=== PATIENT | male | born 1965 | race Caucasian/White ===

== ENCOUNTER 2016-08-18 10:14 | Emergency (ER) | payer BC ==
[~2016-08-18] VITALS: Ht 188 cm; Wt 149.7 kg
--- NOTE | 2016-08-18 10:56 | PHYS DOC ---
Past Medical History Past Medical History: Depression, Diabetes-Type II, DVT, High Cholesterol, Hypertension Additional Past Medical Histor: ENDOCARDITIS, GOUT Past Surgical History: Other Additional Past Surgical Histo: HEART VALVE REPLACEMENT, LOWER EXTREMTY SX FOR BLOCKAGE Alcohol Use: None Drug Use: None Adult General Chief Complaint Chief Complaint: ABDOMINAL PAIN HPI HPI Patient is a 51 year old male who presents with 1 week of periumbilical abdominal wall pain that is constant and worse with movement. He has constipation over the past week and decreased appetite. He denies trauma. He denies nausea or vomiting, fever or chills, hematuria, dysuria, bloody stools. Denies testicle pain or swelling. He is taking coumadin chronically for mechanical heart valve. Review of Systems Review of Systems Constitutional: Denies fever or chills [] Eyes: Denies change in visual acuity, redness, or eye pain [] HENT: Denies nasal congestion or sore throat [] Respiratory: Denies cough or shortness of breath [] Cardiovascular: No additional information not addressed in HPI [] GI: Denies nausea, vomiting, bloody stools or diarrhea [] : Denies dysuria or hematuria [] Musculoskeletal: Denies back pain or joint pain [] Integument: Denies rash or skin lesions [] Neurologic: Denies headache, focal weakness or sensory changes [] Endocrine: Denies polyuria or polydipsia [] Current Medications Current Medications Current Medications Medications (Trade) Dose Ordered Sig/[facility] Start Time Stop Time Status Last Admin Dose Admin Fentanyl Citrate (Fentanyl 2ml Vial) 50 mcg 1X ONCE 08/18/16 11:00 08/18/16 11:03 DC 08/18/16 11:41 50 MCG Info (Do NOT chart on this entry -- for MONITORING) 1 each PRN DAILY PRN 08/18/16 13:00 08/20/16 12:59 Iohexol (Omnipaque 300 Mg/ml) 75 ml 1X ONCE 08/18/16 13:00 08/18/16 13:01 DC 08/18/16 13:10 75 ML Phytonadione (Mephyton) 10 mg 1X ONCE 08/18/16 13:45 08/18/16 13:46 UNV Allergies Allergies Allergies Coded Allergies Type Severity Reaction Last Updated Verified No Known Drug Allergies 08/18/16 No Physical Exam Physical Exam Constitutional: Well developed, well nourished, no acute distress, non-toxic appearance. [] HENT: Normocephalic, atraumatic, bilateral external ears normal, oropharynx moist, nose normal. [] Eyes: PERRLA, EOMI. [] Neck: Normal range of motion, supple. [] Cardiovascular:Heart rate regular rhythm [] Lungs & Thorax: Bilateral breath sounds clear to auscultation [] Abdomen: Bowel sounds normal, soft, mild tenderness about umbilicus and anterior abdominal wall, no guarding or rebound, obese and difficult to examine , no obvious hernia but has thick palpable mass on abdominal wall concerning for hernia vs hematoma. [] Skin: Warm, dry, no erythema, no rash. [] Back: No tenderness, no CVA tenderness. [] Extremities: ROM intact, no edema. [] Neurologic: Alert and oriented X 3, normal motor function, normal sensory function, no focal deficits noted. [] Psychologic: Affect normal, judgement normal, mood normal. [] Current Patient Data Vital Signs Vital Signs Date Time Temp Pulse Resp B/P Pulse Ox O2 Delivery O2 Flow Rate FiO2 08/18/16 11:41 20 94 Room Air 08/18/16 10:29 98.1 89 155/75 98.1 Lab Values Laboratory Tests Test 08/18/16 11:16 08/18/16 12:04 White Blood Count 8.8x10^3/uL (4.0-11.0) Red Blood Count 4.60x10^6/uL (4.30-5.70) Hemoglobin 12.6g/dL (13.0-17.5) L Hematocrit 39.1% (39.0-53.0) Mean Corpuscular Volume 85fL (79-100) Mean Corpuscular Hemoglobin 27pg (25-35) Mean Corpuscular Hemoglobin Concent 32g/dL (31-37) Red Cell Distribution Width 15.8% (11.5-14.5) H Platelet Count 249x10^3/uL (140-400) Neutrophils (%) (Auto) 83% (31-73) H Lymphocytes (%) (Auto) 8% (24-48) L Monocytes (%) (Auto) 7% (0-9) Eosinophils (%) (Auto) 1% (0-3) Basophils (%) (Auto) 1% (0-3) Neutrophils # (Auto) 7.3x10^3uL (1.8-7.7) Lymphocytes # (Auto) 0.7x10^3/uL (1.0-4.8) L Monocytes # (Auto) 0.6x10^3/uL (0.0-1.1) Eosinophils # (Auto) 0.1x10^3/uL (0.0-0.7) Basophils # (Auto) 0.0x10^3/uL (0.0-0.2) Prothrombin Time 58.2SEC (11.7-14.0) H Prothrombin Time INR 7.2 (0.8-1.1) *H Sodium Level 140mmol/L (136-145) Potassium Level 4.4mmol/L (3.5-5.1) Chloride Level 102mmol/L (98-107) Carbon Dioxide Level 31mmol/L (21-32) Anion Gap 7 (6-14) Blood Urea Nitrogen 16mg/dL (8-26) Creatinine 1.1mg/dL (0.7-1.3) Estimated GFR (Cockcroft-Gault) 70.0 Glucose Level 186mg/dL (70-99) H Lactic Acid Level 1.0mmol/L (0.4-2.0) Calcium Level 9.3mg/dL (8.5-10.1) Urine Collection Type Unknown Urine Color Nika Urine Clarity Clear Urine pH 5.5 Urine Specific [place] >=1.030 Urine Protein Negativemg/dL (NEG-TRACE) Urine Glucose (UA) Negativemg/dL (NEG) Urine Ketones (Stick) Tracemg/dL (NEG) Urine Blood Small (NEG) Urine Nitrite Negative (NEG) Urine Bilirubin Small (NEG) Urine Urobilinogen Dipstick 1.0mg/dL (0.2 mg/dL) Urine Leukocyte Esterase Trace (NEG) Urine RBC 6-10/HPF (0-2) Urine WBC 5-10/HPF (0-4) Urine Squamous Epithelial Cells Mod/LPF Urine Bacteria Few/HPF (0-FEW) Urine Mucus Marked/LPF Laboratory Tests 08/18/16 11:16 Laboratory Tests 08/18/16 11:16 Radiology/Procedures Radiology/Procedures CT abdomen and pelvis with IV contrast IMPRESSION: 1. 19 x 9 x 8 cm left rectus sheath hematoma. Mild surrounding ecchymosis without significant intraperitoneal or retroperitoneal hemorrhage. 2. Lobulated 4.5 cm mass at the dome of the bladder. This may be associated with urachus. Benignity to the is favored given approximately stability since 2005. Tissue diagnosis is suggested if unclear. 3. An enlarged left common iliac lymph node has increased in size slowly since 2005. This is indeterminate but the long time course suggests benignity. DICTATED and SIGNED BY: BLANCA DELGADO MD DATE: 08/18/16 6925 Course & Med Decision Making Course & Med Decision Making Pertinent Labs and Imaging studies reviewed. (See chart for details) INR is supratherapeutic, but laboratory evaluation is otherwise unremarkable. CT notable as above for rectus sheath hematoma. Discussed case with Dr. Kc, PCP, who recommends vitamin K 10 mg and follow-up in clinic tomorrow for INR recheck. He is controlled at this time and he is comfortable with this plan. Return precautions given. He understands. Dragon Disclaimer Dragon Disclaimer This electronic medical record was generated, in whole or in part, using a voice recognition dictation system. Departure Departure Impression: Primary Impression: Rectus sheath hematoma Additional Impression: Supratherapeutic INR Disposition: HOME, SELF-CARE Condition: STABLE Referrals: WANG KC MD (PCP) Patient Instructions: Warfarin, [id number] Additional Instructions: Follow-up with your primary care doctor tomorrow for INR recheck. Take hydrocodone as needed for severe pain. Do not drink, drive or operate heavy machinery after taking hydrocodone as it may make you sleepy. Follow-up with your primary care doctor. Return for any concerns. Scripts Hydrocodone Bit/Acetaminophen (Hydrocodone-Apap 5-325 )1 Each Tablet1-2 Tab PO PRN Q4-6HRS PRN PAIN #14 TAB Prov:Hal FARIAS MD 08/18/16 Problem Qualifiers Primary Impression: Rectus sheath hematoma Encounter type: initial encounter Qualified Code: S30.1XXA - Contusion of abdominal wall, initial encounter Hal FARIAS MD Aug 18, 2016 10:56
[2016-08-18] MEDS ORDERED: FENTANYL PF 100 MCG/2 ML VIAL. IV ONE (11:00)
[2016-08-18 11:44] LABS: BASO % 1 % (0-3); EOS % 1 % (0-3); HEMATOCRIT 39.1 % (39.0-53.0); HEMOGLOBIN 12.6 g/dL (13.0-17.5); LYMPH # 0.7 x10^3/uL (1.0-4.8); LYMPH % 8 % (24-48); MEAN CORPUSCULAR HEMOGLOBIN 27 pg (25-35); MEAN CORPUSCULAR HGB CONC 32 g/dL (31-37); MEAN CORPUSCULAR VOLUME 85 fL (79-100); MONO % 7 % (0-9); NEUT % 83 % (31-73); PLATELET COUNT 249 x10^3/uL (140-400); RED CELL DISTRIBUTION WIDTH 15.8 % (11.5-14.5); WHITE BLOOD COUNT 8.8 x10^3/uL (4.0-11.0)
[2016-08-18 11:51] LABS: CALCIUM 9.3 mg/dL (8.5-10.1); CREATININE 1.1 mg/dL (0.7-1.3); POTASSIUM 4.4 mmol/L (3.5-5.1)
[2016-08-18 11:57] LABS: PROTHROMBIN TIME PATIENT 58.2 SEC (11.7-14.0)
[2016-08-18 12:28] LABS: BILIRUBIN,URINE SMALL (NEG); GLUCOSE,URINE NEGATIVE (NEG); NITRITE,URINE NEGATIVE (NEG); PH,URINE 5.5; PROTEIN,URINE NEGATIVE (NEG-TRACE)
[2016-08-18 12:35] LABS: BACTERIA,URINE FEW /HPF (0-FEW); SQUAMOUS EPITHELIAL CELL,UR MOD /LPF
[2016-08-18 12:43] LABS: INR 7.2 (0.8-1.1)
[2016-08-18] MEDS ORDERED: IOHEXOL 300 MG/ML 75 ML VIAL IV ONE (13:00)
[2016-08-18] MEDS ORDERED: CONTRAST GIVEN MC PRN (13:00)
--- NOTE | 2016-08-18 13:37 | RAD ---
EXAM: CT abdomen/pelvis with contrast. HISTORY: Abdominal pain and ecchymosis. TECHNIQUE: Computed tomography of the abdomen and pelvis was performed after the intravenous administration of 75 mL Omnipaque 300. COMPARISON: 10/20/2005. FINDINGS: Lung windows through the visualized portions of the bases reveal mild atelectasis. There are changes of mitral valve repair and median sternotomy. Bone windows reveal no suspicious lesions. There is a left rectus sheath hematoma. It measures 9 x 8 cm transaxially, and approximately 19 cm craniocaudally. There is relatively mild surrounding ecchymosis without free intraperitoneal or retroperitoneal hemorrhage. There is a mass at the dome of the bladder measuring 4.5 x 4.0 cm. This is not clearly changed since the prior study. It is exophytic and may be associated with the urachus. The appendix is not inflamed. There is no obstruction. The liver, gallbladder, pancreas, adrenal glands, kidneys and spleen are unremarkable.. An enlarged left common iliac lymph node measures 3.0 x 2.4 cm. This has increased in size since the prior study. There are postsurgical changes along the left groin. Note is made of a retroaortic left renal vein. A small umbilical hernia contains only fat. IMPRESSION: 1. 19 x 9 x 8 cm left rectus sheath hematoma. Mild surrounding ecchymosis without significant intraperitoneal or retroperitoneal hemorrhage. 2. Lobulated 4.5 cm mass at the dome of the bladder. This may be associated with urachus. Benignity to the is favored given approximately stability since 2005. Tissue diagnosis is suggested if unclear. 3. An enlarged left common iliac lymph node has increased in size slowly since 2005. This is indeterminate but the long time course suggests benignity. *One or more of the following individualized dose reduction techniques were utilized for this examination: 1. Automated exposure control. 2. Adjustment of the mA and/or kV according to patient size. 3. Use of iterative reconstruction technique.
[2016-08-18] MEDS ORDERED: PHYTONADIONE 5 MG TABLET PO ONE (13:45)
[2016-08-18] MEDS ORDERED: HYDR-2666 PO (13:50)
[2016-08-18 15:40] VITALS: BP 158/70
== END 2016-08-18 15:47 | disposition home or self-care (01) ==
LOC: ER 10:14
DX: S36.62XA Contusion of rectum, initial encounter (principal); R79.1 Abnormal coagulation profile; E78.00 Pure hypercholesterolemia, unspecified; E11.9 Type 2 diabetes mellitus without complications; I10 Essential (primary) hypertension; M10.9 Gout, unspecified; Z86.718 Personal history of other venous thrombosis and embolism; Z79.01 Long term (current) use of anticoagulants
CPT/HCPCS: 36415; 74177; 80048; 81001; 83605; 85027; 85610; 87086; 96374; 99285; J3010; Q9967

== ENCOUNTER → 2020-05-09 | Outpatient (CLI) | payer SELFPAY ==
[~2020-05-09] MED LIST: HYDR-2761 PO
--- NOTE | 2020-05-09 16:13 | KCIC ---
PA and lateral chest x-ray without comparison for shortness of air, CHF, open heart surgery 15 years ago, edema, history of smoking. FINDINGS: There are bilateral pleural effusions. There is central vascular congestion and there is cardiomegaly. Findings likely represent early congestive heart failure. Median sternal wires are present along with prosthetic heart valve. No significant osseous abnormalities. IMPRESSION: 1. Central vascular congestion with cardiomegaly and bilateral pleural effusions likely representing developing congestive heart failure. Electronically signed by: Stephan Rivera MD (05/09/2020 4:10 PM) [id number]
== END ==
LOC: KCIC 12:48
PROVIDERS: ATTEND Family Medicine
DX: J90 Pleural effusion, not elsewhere classified (principal); I50.9 Heart failure, unspecified; R60.0 Localized edema; Z87.891 Personal history of nicotine dependence
CPT/HCPCS: 71046

== ENCOUNTER 2021-05-14 14:05 | Inpatient (IN) | payer SELFPAY ==
[~2021-05-14] VITALS: Ht 185.4 cm; Wt 137.0 kg
--- NOTE | 2021-05-14 14:49 | PHYS DOC ---
Past Medical History Past Medical History: Depression, Diabetes-Type II, DVT, High Cholesterol, Hypertension Additional Past Medical Histor: ENDOCARDITIS, GOUT,DVT,CELLULITIS Past Surgical History: Other Additional Past Surgical Histo: HEART VALVE REPLACEMENT, LOWER EXTREMTY SX FOR BLOCKAGE Smoking Status: Former Smoker Alcohol Use: None Drug Use: None General Adult EDM: Chief Complaint: MULTIPLE COMPLAINTS HPI: HPI: Patient is a 55-year-old male that presents today with multitude of complaints. Patient's first complaint is shortness of air and cough patient had an exposure to Covid about 10 days ago and has been quarantined since then but states he is still increased shortness of breath and cough, patient also states that he is having increased swelling in bilateral legs left worse than right, also having increased fatigue and weakness. Patient states he is also has been having trouble urinating he says he has a history of urethral strictures and has had procedures done to dilate that stricture and he said that he thinks he needs to have that done again. Patient also has a left foot wound that is weeping and has a foul odor to it as well. Review of Systems: Review of Systems: Constitutional: Denies fever or chills. [] Eyes: Denies change in visual acuity. [] HENT: nasal congestion or no sore throat. [] Respiratory: cough or shortness of breath. [] Cardiovascular: Denies chest pain or edema. [] GI: Denies abdominal pain, nausea, vomiting, bloody stools or diarrhea. [] : difficulty urinating Musculoskeletal: Bilateral leg swelling with left worse than right Integument: Left anterior foot wound Neurologic: Denies headache, focal weakness or sensory changes. [] Endocrine: Denies polyuria or polydipsia. [] Lymphatic: Denies swollen glands. [] Psychiatric: Denies depression or anxiety. [] Heart Score: C/O Chest Pain: N/A Risk Factors: Risk Factors: DM, Current or recent (<one month) smoker, HTN, HLP, family history of CAD, obesity. Risk Scores: Score 0 - 3: 2.5% MACE over next 6 weeks - Discharge Home Score 4 - 6: 20.3% MACE over next 6 weeks - Admit for Clinical Observation Score 7 - 10: 72.7% MACE over next 6 weeks - Early Invasive Strategies Allergies: Allergies: Allergies Coded Allergies Type Severity Reaction Last Updated Verified No Known Drug Allergies 08/18/16 No Physical Exam: PE: Constitutional: Morbidly obese male, ill-appearing, mild distress [] HENT: Normocephalic, atraumatic, bilateral external ears normal, oropharynx moist, no oral exudates, nasal congestion noted [] Eyes: PERRLA, EOMI, conjunctiva normal, no discharge. [] Neck: Normal range of motion, no tenderness, supple, no stridor. [] Cardiovascular: Sinus tachycardia noted, bilateral 3+ pitting edema in the legs, radial pulses present, no JVD Lungs & Thorax: Bilateral breath sounds lungs are coarse with wheezes and rhonchi noted Abdomen: Bowel sounds normal, soft, no tenderness, no masses, no pulsatile masses. [] Skin: Warm, dry, no erythema, no rash. [] Back: No tenderness, no CVA tenderness. [] Extremities: Right leg 3+ pitting edema left leg 4+ pitting edema, large open wound noted along the base of the toes on the left foot, wound is foul-smelling and has drainage noted [] Neurologic: Alert and oriented X 3, normal motor function, normal sensory function, no focal deficits noted. [] Psychologic: Affect normal, judgement normal, mood normal. [] Current Patient Data: Labs: Laboratory Tests Test 05/14/21 14:40 05/14/21 14:45 Influenza Type A Antigen Negative Influenza Type B Antigen Negative SARS-CoV-2 Antigen (Rapid) Positive White Blood Count 7.7 x10^3/uL Red Blood Count 4.51 x10^6/uL Hemoglobin 11.4 g/dL Hematocrit 35.9 % Mean Corpuscular Volume 80 fL Mean Corpuscular Hemoglobin 25 pg Mean Corpuscular Hemoglobin Concent 32 g/dL Red Cell Distribution Width 19.0 % Platelet Count 170 x10^3/uL Neutrophils (%) (Auto) 92 % Lymphocytes (%) (Auto) 4 % Monocytes (%) (Auto) 3 % Eosinophils (%) (Auto) 0 % Basophils (%) (Auto) 0 % Neutrophils # (Auto) 7.1 x10^3/uL Lymphocytes # (Auto) 0.3 x10^3/uL Monocytes # (Auto) 0.2 x10^3/uL Eosinophils # (Auto) 0.0 x10^3/uL Basophils # (Auto) 0.0 x10^3/uL Segmented Neutrophils % 92 % Band Neutrophils % 3 % Lymphocytes % 4 % Monocytes % 1 % Platelet Estimate Adequate Large Platelets Present Anisocytosis Present Sodium Level 135 mmol/L Potassium Level 3.9 mmol/L Chloride Level 102 mmol/L Carbon Dioxide Level 26 mmol/L Anion Gap 7 Blood Urea Nitrogen 33 mg/dL Creatinine 1.6 mg/dL Estimated GFR (Cockcroft-Gault) 44.8 BUN/Creatinine Ratio 21 Glucose Level 139 mg/dL Calcium Level 7.9 mg/dL Total Bilirubin 1.0 mg/dL Aspartate Amino Transf (AST/SGOT) 36 U/L Alanine Aminotransferase (ALT/SGPT) 18 U/L Alkaline Phosphatase 106 U/L [id number]-Type Natriuretic Peptide 83648 pg/mL Total Protein 7.6 g/dL Albumin 2.7 g/dL Albumin/Globulin Ratio 0.6 Laboratory Tests Test 05/14/21 14:40 05/14/21 14:45 Influenza Type A Antigen Negative Influenza Type B Antigen Negative SARS-CoV-2 Antigen (Rapid) Positive White Blood Count 7.7 x10^3/uL Red Blood Count 4.51 x10^6/uL Hemoglobin 11.4 g/dL Hematocrit 35.9 % Mean Corpuscular Volume 80 fL Mean Corpuscular Hemoglobin 25 pg Mean Corpuscular Hemoglobin Concent 32 g/dL Red Cell Distribution Width 19.0 % Platelet Count 170 x10^3/uL Neutrophils (%) (Auto) 92 % Lymphocytes (%) (Auto) 4 % Monocytes (%) (Auto) 3 % Eosinophils (%) (Auto) 0 % Basophils (%) (Auto) 0 % Neutrophils # (Auto) 7.1 x10^3/uL Lymphocytes # (Auto) 0.3 x10^3/uL Monocytes # (Auto) 0.2 x10^3/uL Eosinophils # (Auto) 0.0 x10^3/uL Basophils # (Auto) 0.0 x10^3/uL Segmented Neutrophils % 92 % Band Neutrophils % 3 % Lymphocytes % 4 % Monocytes % 1 % Platelet Estimate Adequate Large Platelets Present Anisocytosis Present Sodium Level 135 mmol/L Potassium Level 3.9 mmol/L Chloride Level 102 mmol/L Carbon Dioxide Level 26 mmol/L Anion Gap 7 Blood Urea Nitrogen 33 mg/dL Creatinine 1.6 mg/dL Estimated GFR (Cockcroft-Gault) 44.8 BUN/Creatinine Ratio 21 Glucose Level 139 mg/dL Calcium Level 7.9 mg/dL Total Bilirubin 1.0 mg/dL Aspartate Amino Transf (AST/SGOT) 36 U/L Alanine Aminotransferase (ALT/SGPT) 18 U/L Alkaline Phosphatase 106 U/L Troponin I High Sensitivity 51 ng/L BD-[id number]-Type Natriuretic Peptide 37049 pg/mL Total Protein 7.6 g/dL Albumin 2.7 g/dL Albumin/Globulin Ratio 0.6 Vital Signs: Vital Signs Date Time Temp Pulse Resp B/P (MAP) Pulse Ox O2 Delivery O2 Flow Rate FiO2 05/14/21 18:02 116 141/65 (90) 93 Room Air 05/14/21 17:30 116 140/83 (102) 93 Room Air 05/14/21 15:30 114 130/74 (92) 96 Room Air 05/14/21 14:31 98.4 114 24 130/74 (92) 95 Room Air 98.4 Vital Signs Date Time Temp Pulse Resp B/P (MAP) Pulse Ox O2 Delivery O2 Flow Rate FiO2 05/14/21 14:31 98.4 114 24 130/74 (92) 95 Room Air 98.4 Vital Signs Date Time Temp Pulse Resp B/P (MAP) Pulse Ox O2 Delivery O2 Flow Rate FiO2 05/14/21 14:31 98.4 114 24 130/74 (92) 95 Room Air 98.4 EKG: EKG: EKG done at [address] Zepeda at 1504 junctional rhythm rate of 113 with PVCs noted no STEMI per Dr. Zepeda] Radiology/Procedures: Radiology/Procedures: REASON: swelling and open wound on left foot, hx of dvt PROCEDURE: VENOUS LOWER EXT BILATERAL EXAM: Bilateral lower extremity venous Doppler sonogram. HISTORY: Pain and swelling. TECHNIQUE: Kellogg scale and color Doppler sonographic evaluation of the bilateral lower extremity veins with spectral waveform analysis was performed. FINDINGS: There is normal color flow, normal compressibility and there are normal spectral waveforms in the common femoral, superficial femoral, popliteal, posterior tibial and greater saphenous veins. The exam is limited due to soft tissue edema. IMPRESSION: No Doppler evidence of lower extremity deep venous thrombosis. Electronically signed by: Nyla Rizo MD (05/14/2021 3:45 PM) [id number] REASON: open wound PROCEDURE: FOOT LEFT 2V EXAM: Left foot, 2 views. HISTORY: Open wound. COMPARISON: None. FINDINGS: 2 views of the foot are obtained. There is no fracture, dislocation or subluxation. There is degenerative spurring involving the first metatarsal phalangeal joint. There is a moderate plantar spur. There is enthesopathy at the Achilles tendon insertion. There are vascular calcifications. There is no foreign body. There is no lytic or sclerotic osseous lesion or osseous erosion. IMPRESSION: 1. No acute osseous finding. 2. Mild first metatarsophalangeal joint osteoarthritis. 3. Moderate plantar spur and mild enthesopathy at Achilles tendon insertion. 4. No convincing radiographic evidence of osteomyelitis. Electronically signed by: Nyla Rizo MD (05/14/2021 4:07 PM) [id number] REASON: open wound PROCEDURE: CHEST AP ONLY EXAM: Chest, single view. HISTORY: Open wound. COMPARISON: 05/09/2020 FINDINGS: A frontal view of the chest is obtained. There is diffuse interstitial infiltrate superimposed on suspected chronic interstitial changes. There is stable cardiomegaly and evidence of prior median sternotomy and cardiac valve replacement. There is no pleural effusion or pneumothorax. IMPRESSION: Diffuse interstitial infiltrate superimposed on chronic interstitial changes. Stable cardiomegaly. Electronically signed by: Nyla Rizo MD (05/14/2021 4:05 PM) [id number] Course & Med Decision Making: Course & Med Decision Making Pertinent Labs and Imaging studies reviewed. (See chart for details) Reviewed patient's radiological and lab result, patient noted to have a positive Covid, negative influenza a and B, BNP was elevated at 12,000, and noted on the exam was a left foot wound. Spoke with Dr. Nagel agrees with admission, will admit patient to telemetry, will obtain a wound culture of the left foot wound, check an INR on patient because he is supposed to be on warfarin. Patient informed of plan of care and is agreeable. Current vital signs show a heart rate of 118 with multiple PVCs looks to be A. fib in nature, oxygenation is running about 94%. [address] Hoffman regarding increased INR of 15 he at this time does not want a treat that he will check levels in the a.m. [place] Disclaimer: [place] Disclaimer: This electronic medical record was generated, in whole or in part, using a voice recognition dictation system. Departure Departure Impression: Primary Impression: COVID-19 Additional Impressions: Wound of left foot CHF (congestive heart failure) Qualified Codes: I50.9 - Heart failure, unspecified Disposition: 09 ADMITTED INPATIENT Admitting Physician: Wang Nagel Condition: GUARDED Referrals: WANG NAGEL MD (PCP) MILLICENT SHARIF INTAKE COUNSELOR May 14, 2021 14:49
[2021-05-14 15:04] LABS: BASO % 0 % (0-3); EOS % 0 % (0-3); HEMATOCRIT 35.9 % (39.0-53.0); HEMOGLOBIN 11.4 g/dL (13.0-17.5); LYMPH # 0.3 x10^3/uL (1.0-4.8); LYMPH % 4 % (24-48); MEAN CORPUSCULAR HEMOGLOBIN 25 pg (25-35); MEAN CORPUSCULAR HGB CONC 32 g/dL (31-37); MEAN CORPUSCULAR VOLUME 80 fL (79-100); MONO # 0.2 x10^3/uL (0.0-1.1); MONO % 3 % (0-9); NEUT # 7.1 x10^3/uL (1.8-7.7); NEUT % 92 % (31-73); PLATELET COUNT 170 x10^3/uL (140-400); RED BLOOD COUNT 4.51 x10^6/uL (4.30-5.70); WHITE BLOOD COUNT 7.7 x10^3/uL (4.0-11.0)
--- NOTE | 2021-05-14 15:07 | EKG ---
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
[2021-05-14 15:24] LABS: CALCIUM 7.9 mg/dL (8.5-10.1); CREATININE 1.6 mg/dL (0.7-1.3); GFR 44.8; POTASSIUM 3.9 mmol/L (3.5-5.1)
[2021-05-14 15:28] LABS: INFLUENZA A PATIENT NEGATIVE (NEGATIVE); INFLUENZA B PATIENT NEGATIVE (NEGATIVE)
[2021-05-14 15:31] LABS: ALBUMIN 2.7 g/dL (3.4-5.0); ALBUMIN/GLOBULIN RATIO 0.6 (1.0-1.7); TOTAL PROTEIN 7.6 g/dL (6.4-8.2)
--- NOTE | 2021-05-14 15:47 | RAD ---
EXAM: Bilateral lower extremity venous Doppler sonogram. HISTORY: Pain and swelling. TECHNIQUE: Kellogg scale and color Doppler sonographic evaluation of the bilateral lower extremity veins with spectral waveform analysis was performed. FINDINGS: There is normal color flow, normal compressibility and there are normal spectral waveforms in the common femoral, superficial femoral, popliteal, posterior tibial and greater saphenous veins. The exam is limited due to soft tissue edema. IMPRESSION: No Doppler evidence of lower extremity deep venous thrombosis. Electronically signed by: Nyla Rizo MD (05/14/2021 3:45 PM) [id number]
[2021-05-14 16:05] LABS: % BANDS 3 % (0-9); % LYMPHS 4 % (24-48); % MONOS 1 % (0-10); % SEGS 92 % (35-66); ANISOCYTOSIS PRESENT; PLT ESTIMATE ADEQUATE (ADEQUATE)
--- NOTE | 2021-05-14 16:08 | RAD ---
EXAM: Chest, single view. HISTORY: Open wound. COMPARISON: 05/09/2020 FINDINGS: A frontal view of the chest is obtained. There is diffuse interstitial infiltrate superimpo sed on suspected chronic interstitial changes. There is stable cardiomegaly and evidence of prior med renetta sternotomy and cardiac valve replacement. There is no pleural effusion or pneumothorax. IMPRESSION: Diffuse interstitial infiltrate superimposed on chronic interstitial changes. Stable card iomegaly. Electronically signed by: Nyla Rizo MD (05/14/2021 4:05 PM) [id number]
--- NOTE | 2021-05-14 16:10 | RAD ---
EXAM: Left foot, 2 views. HISTORY: Open wound. COMPARISON: None. FINDINGS: 2 views of the foot are obtained. There is no fracture, dislocation or subluxation. There i s degenerative spurring involving the first metatarsal phalangeal joint. There is a moderate plantar spur. There is enthesopathy at the Achilles tendon insertion. There are vascular calcifications. Ther e is no foreign body. There is no lytic or sclerotic osseous lesion or osseous erosion. IMPRESSION: 1. No acute osseous finding. 2. Mild first metatarsophalangeal joint osteoarthritis. 3. Moderate plantar spur and mild enthesopathy at Achilles tendon insertion. 4. No convincing radiographic evidence of osteomyelitis. Electronically signed by: Nyla Rizo MD (05/14/2021 4:07 PM) [id number]
[2021-05-14 19:00] VITALS: BP 145/76
[2021-05-14 19:02] LABS: PROTHROMBIN TIME PATIENT > 120.0 SEC (11.7-14.0)
[2021-05-14] MEDS ORDERED: PHYTONADIONE 10 MG/ML AMPUL. IM ONE (21:15)
[2021-05-14] MEDS ORDERED: FURO20TA3 PO (22:07)
[2021-05-14] MEDS ORDERED: PIOG45TA40 PO (22:07)
[2021-05-14] MEDS ORDERED: ALLO300T PO (22:07)
[2021-05-14] MEDS ORDERED: WARF-31 PO (22:07)
[2021-05-14] MEDS ORDERED: GUAI-108 PO (22:07)
[2021-05-14] MEDS ORDERED: POTA10TA12 PO (22:07)
[2021-05-14] MEDS ORDERED: SACU1TAB7 PO (22:07)
[2021-05-14] MEDS ORDERED: WARF2.5T71 PO (22:07)
[2021-05-14] MEDS: ALPRAZolam 0.25 MG TABLET PO PRN (22:27)
[2021-05-14] MEDS: ZOLPIDEM 5 MG TABLET. PO PRN (22:27)
[2021-05-14] MEDS: SACUBITRIL/VALSARTAN 49/51MG TABLET. PO SCH (22:27)
[2021-05-14 23:00] VITALS: BP 118/77
[2021-05-15 03:00] VITALS: BP 118/73
[2021-05-15 07:55] VITALS: BP 116/78
[2021-05-15] MEDS ORDERED: guaiFENesin DM 600/30MG 1 TAB TAB.ER.12H PO PRN (09:00)
[2021-05-15] MEDS: SACUBITRIL/VALSARTAN 49/51MG TABLET. PO SCH ×4 (09:00→21:26)
[2021-05-15] MEDS: FUROSEMIDE 20 MG TABLET PO SCH (09:18)
[2021-05-15] MEDS: POTASSIUM CHLORIDE 10 MEQ TABLET.ER. PO SCH (09:18)
[2021-05-15] MEDS: ALLOPURINOL 300 MG TABLET. PO SCH (09:18)
[2021-05-15 10:09] LABS: PROTHROMBIN TIME PATIENT 42.1 SEC (11.7-14.0)
[2021-05-15 10:59] VITALS: BP 116/77
--- NOTE | 2021-05-15 14:50 | NUR ---
Wound/Ostomy Care Wound Type/Assessment: Patient seen per wound care consult. See wound assessment. Patient has DFU to left dorsal foot that extends to the left 2nd toe and DFU to left lateral ankle. Wounds cleansed, assessed, and measured. Patient stated the wound originated from patient hitting his foot on a cart while shopping. Patient lives at home alone and he stated he has been soaking foot in Hydrogen peroxide. Pt does not elevate his legs and wound has begun to drain significantly as he dangles his legs and they are pooling with fluid. There is an odor to this wound and dried drainage to painful to remove. Dr. Townsend notified and came to assess and removed dried drainage after topical lidocaine applied. patient tolerated well. Treatment Recommendations/Plan: Recommendations for xeroform gauze, cover with ABD pad, and kerlix. Change every other day or sooner due to drainage. If patient elevates drainage would slow down. Dressing applied. Education provided: Patient educated on dressing changes and wound care, as well as PU prevention. Offloading surface/device: N/A Recommended Referrals/Tests: Dr. Townsend wound care saw patient today. Discharge Recommendations for dressings: Dressing change instructions left in room. No other wounds noted. Bed lowered and call light in reach. Wound care will follow up on 05/21/21.
[2021-05-15 15:23] VITALS: BP 120/75
--- NOTE | 2021-05-15 15:39 | NUR ---
SS following for discharge planning. SS reviewed pt chart and discussed with pt RN. Pt is from home with spouse and is currently on room air. COVID19 positive. Self pay. Med Assist following. SS will continue to follow for discharge planning.
--- NOTE | 2021-05-15 15:46 | PDOC ---
Progress Note-Wound Care SUBJECTIVE Tim Barreto is a 55-year-old male admitted primarily for shortness of breath. His Covid test is positive. His BNP is consistent with acute exacerbation of chronic congestive heart failure. On admission he was also noted to have ulceration on his left foot with drainage and foul odor. He reports no history of difficulty healing wounds on his feet. He is an ex-smoker. He states his blood sugars are "normal". PCP is Michoacano Nagel MD OBJECTIVE Vital Signs Vital Signs Date Time Temp Pulse Resp B/P (MAP) Pulse Ox O2 Delivery O2 Flow Rate FiO2 05/14/21 14:31 98.4 114 24 130/74 (92) 95 Room Air 98.4 Vital Signs Date Time Temp Pulse Resp B/P (MAP) Pulse Ox O2 Delivery O2 Flow Rate FiO2 05/15/21 10:59 98.3 117 17 116/77 (90) 96 Room Air 98.3 Physical Exam: Patient is an obese disheveled male lying supine with his head elevated. He has a dry hacking cough and does not cover his mouth when he coughs. There is a distinct odor of necrotic tissue on examination of his foot but there is minimal wounding. He has no open wound limited to skin breakdown on the dorsum of his left third toe. There is mild clear drainage of several punctate wounds on the dorsum and lateral left foot consistent with venous stasis. The skin of his feet is otherwise intact with not much callus formation. He does have onychomycosis with thick mycotic nails. He has stasis dermatitis with thick violaceous dry scaly skin. He has 3 or 4+ pitting edema bilaterally. Sensation is grossly intact. Dorsal pedis pulse is diminished or not palpable due to edema. Feet are cool to touch. ASSESSMENT I believe these wounds are due to venous stasis however because of their location and with the underlying diabetes the toe wound is classified as a diabetic foot ulcer. Physical findings are also consistent with diminished arterial perfusion so arterial ultrasound would be appropriate. Although the odor is consistent with necrosis there was no necrotic tissue visualized or palpated. Problems: (1) TYPE 2 DIABETES MELLITUS WITH FOOT ULCER (2) CHRONIC VENOUS HYPERTENSION W ULCER OF L LOW EXTREM PLAN Xeroform gauze over the open ulcers. Arterial ultrasound when no longer in isolation (nonemergent). Addressing the venous stasis will be of utmost importance in overall recovery of these wounds. VIKTOR KEVIN MD May 15, 2021 15:46
[2021-05-15] MEDS ORDERED: FUROSEMIDE 40 MG/4 ML VIAL. IVP ONE (16:15)
[2021-05-15 18:06] LABS: BILIRUBIN,URINE NEGATIVE (NEG); CLARITY,URINE CLOUDY; COLOR,URINE AMBER; NITRITE,URINE NEGATIVE (NEG); PROTEIN,URINE >=300 mg/dL (NEG-TRACE)
[2021-05-15 18:14] LABS: BACTERIA,URINE MANY /HPF (0-FEW); WBC,URINE >40 /HPF (0-4)
[2021-05-15 19:00] VITALS: BP 142/74
[2021-05-15] MEDS: ZOLPIDEM 5 MG TABLET. PO PRN (21:26)
[2021-05-15] MEDS: ALPRAZolam 0.25 MG TABLET PO PRN (21:26)
[2021-05-15 23:00] VITALS: BP 95/72
--- NOTE | 2021-05-16 01:47 | HP ---
DATE OF SERVICE: 05/15/2021 ADMIT DATE: 05/14/2021 ADMISSION HISTORY AND PHYSICAL LOCATION: He is in room 669. EXTERNAL HISTORY OF PRESENT ILLNESS: This 55-year-old male well known to me, followup in the office. The patient presented to the Emergency Room with increasing shortness of air and cough. He did relate an exposure to COVID approximately 10 days earlier and had been quarantined since then. He also complained of increasing swelling in his legs, left worse than right and profound fatigue. He is also having difficulties urinating on a prior history of urethral stricture and wonders if that is not back. He also has a left foot wound, which is weeping and was noted to have a foul odor to it in the Emergency Room. PAST MEDICAL HISTORY: Remarkable for depression, type 2 diabetes, history of DVT, hyperlipidemia, hypertension, endocarditis, gout, prior cellulitis. PAST SURGICAL HISTORY: Remarkable for heart valve replacement. MEDICATIONS: The patient's meds were brought with the computer, listed on the med rec and have been addressed. ALLERGIES: He has no known drug allergies. SOCIAL HISTORY: He is a former smoker, does not drink or use drugs. He lives at home with his , works on a daily basis, but it is getting almost impossible to do so because of all of his . FAMILY HISTORY: Noncontributory. REVIEW OF SYSTEMS: As mentioned above. PHYSICAL EXAMINATION: GENERAL: He is a well-developed, well-nourished, chronically ill-appearing male in at least mild distress. VITAL SIGNS: Stable. He is afebrile. O2 sats are good on room air. HEAD, EYES, EARS, NOSE AND THROAT: Unremarkable. NECK: Supple, without adenopathy or thyromegaly. CHEST: Reveals decreased breath sounds, but clear. HEART: Slightly tachycardic, regular, without S3, S4 or murmur. ABDOMEN: Obese, benign, without hepatosplenomegaly or masses. EXTREMITIES: Revealed that dorsum of his left foot had superficial wounds, venous stasis changes present and has been cultured on admission. I was asked by the Emergency Room to do the same. Wound care is scheduled to see him. NEUROLOGIC: He is intact. LABORATORY DATA: Initial laboratory is remarkable for a normal white count 7700 with a left shift. Creatinine is 1.6, BUN 33. BNP is markedly elevated at 12,246. INR is greater than 15 and vitamin K has been given. He is COVID positive on nasal swabs. Foot x-ray shows no evidence of osteomyelitis. Chest x-ray: Diffuse interstitial infiltrate superimposed on chronic interstitial changes. Venous Doppler of his lower extremities are showing no evidence of DVT, which would not be expected with anticoagulation. ASSESSMENT: 1. COVID-19 respiratory infection. 2. Left foot infection, although most of it appears venous stasis in origin. 3. Congestive heart failure. PLAN: IV Lasix. Cardiology consultation. I am going to try to get him Regeneron COVID monoclonal antibody. Vitamin K will be given and INR will be followed and patient will be monitored, managed and treated appropriately. ROSE/CANDICE/LORRI DR: ROSE/donato TID: [id number]
[2021-05-16 03:00] VITALS: BP 140/82
[2021-05-16 06:41] LABS: PROTHROMBIN TIME PATIENT 21.5 SEC (11.7-14.0)
[2021-05-16 07:00] VITALS: BP 119/80
[2021-05-16] MEDS: ALLOPURINOL 300 MG TABLET. PO SCH (08:39)
[2021-05-16] MEDS: SACUBITRIL/VALSARTAN 49/51MG TABLET. PO SCH ×4 (08:39→21:09)
[2021-05-16] MEDS: POTASSIUM CHLORIDE 10 MEQ TABLET.ER. PO SCH (08:40)
[2021-05-16] MEDS: FUROSEMIDE 20 MG TABLET PO SCH (08:40)
[2021-05-16] MEDS: PIOGLITAZONE 15 MG TABLET. PO SCH (08:40)
[2021-05-16 11:00] VITALS: BP 124/78
--- NOTE | 2021-05-16 12:45 | PDOC2 ---
CARDIAC CONSULT DATE OF CONSULT Date of Consult DATE: 05/16/21 TIME: 12:38 REASON FOR CONSULT Reason for Consult: CHF REFERRING PHYSICIAN Referring Physician: Dr. Nagel SOURCE Source: Chart review, Patient HISTORY OF PRESENT ILLNESS HISTORY OF PRESENT ILLNESS This is a 55 yo male who presented secondary to shortness of breath, cough, and LE edema. Was exposed to COVID about 10 days ago. Having fatigue and weakness. Reports h/o urethral structure and has had difficulty urinating recently. Also has left foot wound with foul odor. He denies any dizziness, diaphoresis, or nausea/vomiting. Reports feeling better s/p diuresis PAST MEDICAL HISTORY Cardiovascular: CHF, Other (mitral stenosis s/p mechanical valve replacement ) Heme/Onc: Other (DVT ) Renal/: Chronic renal insuff, UTI, Other (urethral structure) Endocrine: Diabetes PAST SURGICAL HISTORY Past Surgical History: Other (mechanical mitral valve ) FAMILY HISTORY Family History: Diabetes, Heart Disease SOCIAL HISTORY Smoke: Quit ALCOHOL: none Drugs: None Lives: with Family CURRENT MEDICATIONS CURRENT MEDICATIONS Current Medications Medications (Trade) Dose Ordered Sig/Carissa Route PRN Reason Start Time Stop Time Status Last Admin Dose Admin Pioglitazone HCl (Actos) 45 mg DAILY PO 05/16/21 09:00 05/16/21 08:40 Furosemide (Lasix) 40 mg 1X ONCE IVP 05/15/21 16:15 05/15/21 16:16 DC 05/15/21 17:17 ALLERGIES ALLERGIES: Coded Allergies: No Known Drug Allergies (Unverified , 08/18/16) ROS Review of System 14 point ROS conducted with pertinent positives noted above in hPI PHYSICAL EXAM General: Alert, Oriented X3, Cooperative, No acute distress HEENT: Atraumatic Lungs: Other (on RA) Heart: Regular rate (SR with frequent PVCs), Other (mechanical click ) Abdomen: Other (obese ) Skin: Other (2-3+ bilateral LE edema. chronic venous stasis changes to b ilateral LE, left foot wound with dressing intact ) Neuro: Normal speech Psych/Mental Status: Mental status NL, Mood NL MUSCULOSKELETAL: Osteoarthritic changes both hands VITALS/I&O VITALS/I&O: Vital Signs Date Time Temp Pulse Resp B/P (MAP) Pulse Ox O2 Delivery O2 Flow Rate FiO2 05/16/21 11:00 97.9 101 20 124/78 (93) 97 Room Air 97.9 I & O 05/15/21 05/15/21 05/16/21 15:00 23:00 07:00 Intake Total 180 ml 417 ml Output Total 1600 ml Balance 180 ml 417 ml -1600 ml LABS Lab: Laboratory Tests Test 05/15/21 17:45 05/16/21 04:40 Urine Collection Type Unknown Urine Color Nika Urine Clarity Cloudy Urine pH 6.0 (<5.0-8.0) Urine Specific [place] 1.025 (1.000-1.030) Urine Protein >=300 mg/dL (NEG-TRACE) Urine Glucose (UA) Negative mg/dL (NEG) Urine Ketones (Stick) Negative mg/dL (NEG) Urine Blood Small (NEG) Urine Nitrite Negative (NEG) Urine Bilirubin Negative (NEG) Urine Urobilinogen Dipstick 1.0 mg/dL (0.2 mg/dL) Urine Leukocyte Esterase Moderate (NEG) Urine RBC 3-5 /HPF (0-2) Urine WBC >40 /HPF (0-4) Urine Bacteria Many /HPF (0-FEW) Urine Mucus Mod /LPF Prothrombin Time 21.5 SEC (11.7-14.0) H Prothrombin Time INR 1.9 (0.8-1.1) H ECHOCARDIOGRAM ECHOCARDIOGRAM An ECHO at [facility] on 06/13/20 showed an EF of 20-25%, a dilated LV, a well seated mechanical MV with a mean gradient of 15.82 mmHg, moderate TR with a PAP of 49 mmHG. ASSESSMENT/PLAN ASSESSMENT/PLAN 1. Acute respiratory failure secondary to COVID and CHF 2. Acute on chronic systolic CHF 3. Cardiomyopathy; echo 06/17 with LVEF 20-25% 4. Mitral stenosis s/o mechanical valve replacement. On chronic OAC with warfain 5. Coagulopathy; INR > 15 upon arrival. S/p vit K. Now 1.9 6. Hyperlipidemia 7. Diabetes, II 8. ROBERTO on CKD 9. H/o urethral structure 10. Chronic LE venous stasis, left foot wound. Xray without evidence of osteomyelitis. US without evidence of DVT. Wound cultures polymicrobial 11. Arrhythmia; EKG with possible AFIB. Appears SR with frequent PVCs on tele Recommendations Diuresis with monitoring of renal function Add metoprolol for rate control Warfarin for stroke prophylaxis Repeat labs Lipid panel Diuresis with monitoring of renal function Hold Enstresto with ROBERTO Consider LE arterial duplex Ongoing lung optimization, treatment of COVID Outpatient echo to reassess LV systolic function, mitral valve. Consider AICD for primary prevention of SCD if LV function remains depressed JANETH ORNELAS APRN May 16, 2021 12:45
--- NOTE | 2021-05-16 14:55 | NUR ---
SS following up with discharge planning. SS reviewed pt chart and discussed with pt RN. Pt is currently on room air. COVID19 positive. Cardiology consulted. Self pay. Med Assist following. SS will continue to follow for discharge planning.
[2021-05-16 16:22] LABS: CALCIUM 8.1 mg/dL (8.5-10.1); CREATININE 1.3 mg/dL (0.7-1.3); GFR 56.9; MAGNESIUM 2.1 mg/dL (1.8-2.4); POTASSIUM 4.3 mmol/L (3.5-5.1)
[2021-05-16] MEDS: METOPROLOL SUCC 24HR ER 25 MG TAB.ER.24H. PO SCH (16:27)
[2021-05-16] MEDS ORDERED: FUROSEMIDE 40 MG/4 ML VIAL. IVP ONE ×2 (16:30→18:30)
[2021-05-16 16:31] LABS: CHOLESTEROL/HDL RATIO 5.9
[2021-05-16 19:00] VITALS: BP 121/76
[2021-05-16 22:48] VITALS: BP 102/67
[2021-05-17 02:36] VITALS: BP 132/84
[2021-05-17] MEDS: HYDROcodone/APAP 5/325MG 1 TAB TABLET PO PRN ×3 (02:42→19:34)
--- NOTE | 2021-05-17 03:07 | PN ---
DATE: 05/16/2021 DAILY PROGRESS NOTE LOCATION: He is in room 669. SUBJECTIVE: This 55-year-old male remains hospitalized with acute shortness of breath due to congestive heart failure as well as acute COVID-19 infection. He states that he still feels weak and still has a cough, but overall feels like he might be a little less short of breath. OBJECTIVE: VITAL SIGNS: Stable. He is afebrile. GENERAL: He is awake, alert. CHEST: Decreased breath sounds with occasional wheeze. HEART: Regular rate and rhythm. ABDOMEN: Benign. EXTREMITIES: 3+ venous stasis edema with wound on his left foot appearing relatively clean. LABORATORY DATA: Cultures are showing preliminarily Proteus vulgaris and Streptococcus agalactiae but I believe this is all superficial and we will do just wound care as long as it does not look any worse. I also spent a good part of the day trying to figure out how to get him Regeneron COVID monoclonal antibody and apparently we are going to have to go outside to get it after discharge as I feel he meets the risk criteria and we tried to have it given while he was in the Emergency Room prior to admission, but to no avail. Output is greater than intake yesterday. Cardiology consult I am awaiting. Renal function has returned to normal with creatinine down to 1.3. We will diurese again today. ASSESSMENT: 1. Congestive heart failure, acute on chronic systolic congestive heart failure with history of cardiomyopathy. 2. Superficial wound, left foot with venous stasis edema. 3. COVID-19 respiratory infection. PLAN: Again, repeat Lasix. Cardiology consultation , likely discharge tomorrow with try to get him outpatient Regeneron antibody infusion. RAJAN/ABDIRIZAK DR: ROSE/donato TID: [id number]
[2021-05-17 05:41] LABS: CALCIUM 7.8 mg/dL (8.5-10.1); CREATININE 1.3 mg/dL (0.7-1.3); GFR 56.9; POTASSIUM 4.3 mmol/L (3.5-5.1)
[2021-05-17 07:00] VITALS: BP 111/67
--- NOTE | 2021-05-17 08:30 | CARD ---
MR#: [id number] Date of Study: 05/16/2021 Ordering Physician: WANG KC, Referring Physician: WANG KC, Tech: Carmella Prasanna, [facility] APPROVED REPORT EXAM: Two-dimensional and M-mode echocardiogram with Doppler and color Doppler. Other Information Quality : Average INDICATION Dyspnea 2D DIMENSIONS Left Atrium(2D)5.1 (1.6-4.0cm)IVSd1.3 (0.7-1.1cm) Aortic Root(2D)3.0 (2.0-3.7cm)LVDd5.9 (3.9-5.9cm) LVOT Diameter2.1 (1.8-2.4cm)PWd1.2 (0.7-1.1cm) LVDs5.1 (2.5-4.0cm)FS (%) 2.9 % SV9.0 mlLVEF(%)6.7 (>50%) Aortic Valve AoV Peak Bennett.121.9cm/sAoV VTI25.1cm AO Peak GR.5.9mmHgLVOT VTI 17.39cm AO Mean GR.4mmHg Mitral Valve MV E Ozxxcgnl646.0cm/sMV E Peak Gr.6mmHg MV DECEL [id number] A Szwaqcip42.1cm/s MV E Mean Gr.3mmHgE/A Ratio2.0 TDI Lateral E' P. V3.02cm/sMedial E' P. V3.41cm/s E/Lateral E'34.1E/Medial E'30.2 Tricuspid Valve TR P. [id number]/sRAP [id number] TR Peak Gr.[id number] LEFT VENTRICLE The left ventricle is normal size. There is mild concentric left ventricular hypertrophy. The systoli c function is severely impaired. EF 20% Septal motion consistent with conduction abnormality. There i s severe global hypokinesis of the left ventricle. Tissue Doppler imaging reveals moderate left ventr icular diastolic dysfunction. RIGHT VENTRICLE The right ventricle is moderately dilated. There is normal right ventricular wall thickness. RV Systo lic function is moderately reduced. ATRIA The left atrium is moderately dilated. The right atrium is severely dilated. Interatrial septum not w ell visualized. AORTIC VALVE The aortic valve is normal in structure and function. Doppler and Color Flow revealed no significant aortic regurgitation. Calculated aortic valve area is 2.45 cm2 with maximum pressure gradient of 8 mm Hg and mean pressure gradient of 4 mmHg. MITRAL VALVE There is no evidence of mitral valve prolapse. There is no mitral valve stenosis with a mean gradient of 2.65 mmHg. Prosthetic mitral valve is not well visualized. TRICUSPID VALVE The tricuspid valve is normal in structure and function. Doppler and Color Flow revealed trace tricus pid regurgitation with an estimated PAP of 47 mmHg. There is no tricuspid valve stenosis. PULMONIC VALVE The pulmonic valve is not well visualized. Doppler and Color Flow revealed trace pulmonic valvular re gurgitation. There is no pulmonic valvular stenosis. GREAT VESSELS The aortic root is normal in size. The ascending aorta is normal in size. The IVC is dilated. PERICARDIAL EFFUSION There is no evidence of significant pericardial effusion. Critical Notification Critical Value: Yes <Conclusion> The systolic function is severely impaired. EF 20% Septal motion consistent with conduction abnormality. There is severe global hypokinesis of the left ventricle. The right ventricle is moderately dilated. Prosthetic mitral valve is not well visualized. Doppler and Color Flow revealed trace tricuspid regurgitation with an estimated PAP of 47 mmHg. Signed by : Paul Trujillo, Electronically Approved : 05/17/2021 08:29:57
[2021-05-17] MEDS: SACUBITRIL/VALSARTAN 49/51MG TABLET. PO SCH ×3 (09:00→19:33)
[2021-05-17] MEDS: METOPROLOL SUCC 24HR ER 25 MG TAB.ER.24H. PO SCH (10:09)
[2021-05-17] MEDS: FUROSEMIDE 20 MG TABLET PO SCH (10:09)
[2021-05-17] MEDS: PIOGLITAZONE 15 MG TABLET. PO SCH (10:09)
[2021-05-17] MEDS: ALLOPURINOL 300 MG TABLET. PO SCH (10:09)
[2021-05-17] MEDS: POTASSIUM CHLORIDE 10 MEQ TABLET.ER. PO SCH (10:09)
[2021-05-17 10:39] VITALS: BP 100/61
--- NOTE | 2021-05-17 13:11 | NUR ---
Wound care called for discharge instructions, received recommendations for patient to change dressing every other day with Xeroform, ABD pads, and Kerlix.
[2021-05-17 15:00] VITALS: BP 94/70
--- NOTE | 2021-05-17 15:01 | NUR ---
SS following up with discharge planning. SS reviewed pt chart and discussed with pt RN. Pt is currently on room air. COVID19 positive. Self pay. Med Assist following. Administration discussing with outpatient to have Regenron infusion approved for outpatient. Dr. Nagel will need to write script for infusion to be sent to outpatient. Discharge plan is currently to home when medically ready for discharge. SS will continue to follow for discharge planning.
--- NOTE | 2021-05-17 17:33 | PDOC ---
PROGRESS NOTES Date of Service DATE: 05/17/21 TIME: 17:30 Subjective Subjective Patient seen and evaluated. Objective Objective Vital Signs Date Time Temp Pulse Resp B/P (MAP) Pulse Ox O2 Delivery O2 Flow Rate FiO2 05/17/21 15:00 97.1 98 20 94/70 (78) 91 Room Air 97.1 Intake and Output 05/17/21 07:00 Intake Total 740 ml Output Total 850 ml Balance -110 ml Intake Oral 740 ml Output Urine Total 850 ml # Voids 2 Physical Exam Physical Exam Visual examination as per Covid guidelines. Assessment Assessment Problems Medical Problems: (1) CHF (congestive heart failure) Status: Acute (2) CHF (congestive heart failure) Status: Acute (3) COVID-19 Status: Acute (4) Wound of left foot Status: Acute Acute respiratory failure secondary to COVID and CHF. Mildly improving. Acute on chronic systolic CHF Cardiomyopathy; echo 06/17 with LVEF 20-25%. Continue present treatment but holding Entresto secondary to renal status. Mitral stenosis s/o mechanical valve replacement. On chronic OAC with warfain Coagulopathy; INR > 15 upon arrival. S/p vit K. Now 1.9 Hyperlipidemia Diabetes, II ROBERTO on CKD. Creatinine stable. Monitoring lab. H/o urethral structure Chronic LE venous stasis, left foot wound. Xray without evidence of osteomyelitis. US without evidence of DVT. Wound cultures polymicrobial. Being evaluated by the wound clinic. Arrhythmia; EKG with possible AFIB. Appears SR with frequent PVCs on tele. Continuing beta-blockers. Comment Review of Relevant I have reviewed the following items alfredo (where applicable) has been applied. Labs Laboratory Tests Test 05/15/21 17:45 05/16/21 04:40 05/17/21 05:00 Urine Collection Type Unknown Urine Color Nika Urine Clarity Cloudy Urine pH 6.0 (<5.0-8.0) Urine Specific [place] 1.025 (1.000-1.030) Urine Protein >=300 mg/dL (NEG-TRACE) Urine Glucose (UA) Negative mg/dL (NEG) Urine Ketones (Stick) Negative mg/dL (NEG) Urine Blood Small (NEG) Urine Nitrite Negative (NEG) Urine Bilirubin Negative (NEG) Urine Urobilinogen Dipstick 1.0 mg/dL (0.2 mg/dL) Urine Leukocyte Esterase Moderate (NEG) Urine RBC 3-5 /HPF (0-2) Urine WBC >40 /HPF (0-4) Urine Bacteria Many /HPF (0-FEW) Urine Mucus Mod /LPF Prothrombin Time 21.5 SEC (11.7-14.0) Prothromb Time International Ratio 1.9 (0.8-1.1) Sodium Level 133 mmol/L (136-145) 135 mmol/L (136-145) Potassium Level 4.3 mmol/L (3.5-5.1) 4.3 mmol/L (3.5-5.1) Chloride Level 101 mmol/L (98-107) 102 mmol/L (98-107) Carbon Dioxide Level 20 mmol/L (21-32) 25 mmol/L (21-32) Anion Gap 12 (6-14) 8 (6-14) Blood Urea Nitrogen 36 mg/dL (8-26) 33 mg/dL (8-26) Creatinine 1.3 mg/dL (0.7-1.3) 1.3 mg/dL (0.7-1.3) Estimated GFR (Cockcroft-Gault) 56.9 56.9 Glucose Level 188 mg/dL (70-99) 155 mg/dL (70-99) Calcium Level 8.1 mg/dL (8.5-10.1) 7.8 mg/dL (8.5-10.1) Magnesium Level 2.1 mg/dL (1.8-2.4) Triglycerides Level 131 mg/dL (0-150) Cholesterol Level 100 mg/dL (0-200) LDL Cholesterol, Calculated 57 mg/dL (0-100) VLDL Cholesterol, Calculated 26 mg/dL (0-40) Non-HDL Cholesterol Calculated 83 mg/dL (0-129) HDL Cholesterol 17 mg/dL (40-60) Cholesterol/HDL Ratio 5.9 Thyroid Stimulating Hormone (TSH) 3.112 uIU/mL (0.358-3.74) Laboratory Tests Test 05/17/21 05:00 Sodium Level 135 mmol/L (136-145) Potassium Level 4.3 mmol/L (3.5-5.1) Chloride Level 102 mmol/L (98-107) Carbon Dioxide Level 25 mmol/L (21-32) Anion Gap 8 (6-14) Blood Urea Nitrogen 33 mg/dL (8-26) Creatinine 1.3 mg/dL (0.7-1.3) Estimated GFR (Cockcroft-Gault) 56.9 Glucose Level 155 mg/dL (70-99) Calcium Level 7.8 mg/dL (8.5-10.1) Microbiology 05/14/21 Gram Stain - Final, Resulted 05/14/21 Aerobic and Anaerobic Culture - Preliminary, Resulted 05/14/21 Blood Culture - Preliminary, Resulted NO GROWTH AFTER 3 DAYS Medications Current Medications Phytonadione (Vitamin K Ampule) 10 mg 1X ONCE IM Last administered on 05/14/21at 21:32; Start 05/14/21 at 21:15; Stop 05/14/21 at 21:16; Status DC Sacubitril/ Valsartan (Entresto 49 Mg-51 Mg) 1 tab BID PO Last administered on 05/17/21at 10:08; Start 05/14/21 at 22:15; Stop 05/17/21 at 10:41; Status DC Zolpidem Tartrate (Ambien) 5 mg PRN QHS PRN PO INSOMNIA, MAY REPEAT IN 1HR Last administered on 05/15/21at 21:26; Start 05/14/21 at 22:15 Alprazolam (Xanax) 0.25 mg PRN Q8HRS PRN PO ANXIETY / AGITATION Last administered on 05/15/21at 21:26; Start 05/14/21 at 22:15 Allopurinol (Zyloprim) 300 mg DAILY PO Last administered on 05/17/21at 10:09; Start 05/15/21 at 09:00 Furosemide (Lasix) 20 mg DAILY PO Last administered on 05/17/21at 10:09; Start 05/15/21 at 09:00 Guaifenesin (MUCINEX ER with DM) 1 tab PRN BID PRN PO cough and congestion; Start 05/15/21 at 09:00 Acetaminophen/ Hydrocodone Bitart (Lortab 5/325) 2 tab PRN Q4HRS PRN PO PAIN Last administered on 05/17/21at 10:09; Start 05/15/21 at 09:00 Potassium Chloride (Klor-Con) 10 meq DAILY PO Last administered on 05/17/21at 10:09; Start 05/15/21 at 09:00 Sacubitril/ Valsartan (Entresto 49 Mg-51 Mg) 1 tab BID PO ; Start 05/15/21 at 09:00; Stop 05/16/21 at 10:25; Status DC Pioglitazone HCl (Actos) 45 mg DAILY PO Last administered on 05/17/21at 10:09; Start 05/16/21 at 09:00 Furosemide (Lasix) 40 mg 1X ONCE IVP Last administered on 05/15/21at 17:17; Start 05/15/21 at 16:15; Stop 05/15/21 at 16:16; Status DC Metoprolol Succinate (Toprol Xl) 25 mg DAILY PO Last administered on 05/17/21at 10:09; Start 05/16/21 at 16:00 Furosemide (Lasix) 40 mg 1X ONCE IVP Last administered on 05/16/21at 16:27; Start 05/16/21 at 16:30; Stop 05/16/21 at 16:31; Status DC Sacubitril/ Valsartan (Entresto 49 Mg-51 Mg) 1 tab BID PO ; Start 05/16/21 at 21:00 Furosemide (Lasix) 40 mg 1X ONCE IVP ; Start 05/16/21 at 18:30; Stop 05/16/21 at 18:31; Status DC Active Scripts Active Hydrocodone-Apap 5-325 (Hydrocodone Bit/Acetaminophen) 1 Each Tablet 1-2 Tab PO PRN Q4-6HRS PRN Reported Mucinex Dm Er 600-30 Mg Tablet (Guaifenesin/Dextromethorphan) 1 Each Tab.er.12h 1 Tab PO PRN BID PRN 10 Days Actos (Pioglitazone Hcl) 45 Mg Tablet 45 Mg PO DAILY Klor-Con 10 (Potassium Chloride) 10 Meq Tablet.er 10 Meq PO DAILY Entresto 49 mg-51 mg Tablet (Sacubitril/Valsartan) 1 Each Tablet 1 Each PO BID Allopurinol 300 Mg Tablet 300 Mg PO DAILY Furosemide 20 Mg Tablet 20 Mg PO DAILY Warfarin Sodium 5 Mg Tablet 5 Mg PO QSUTUTH Warfarin Sodium 2.5 Mg Tablet 2.5 Mg PO QMWFSA Vitals/I & O Vital Sign - Last 24 Hours 05/16/21 05/16/21 05/16/21 05/16/21 19:00 20:00 21:00 21:09 Temp 98.0 98.0 Pulse 94 94 94 Resp 18 B/P (MAP) 121/76 (91) 121/76 121/76 Pulse Ox 98 O2 Delivery Room Air Room Air 05/16/21 05/17/21 05/17/21 05/17/21 22:48 02:36 02:42 03:12 Temp 97.7 98.0 97.7 98.0 Pulse 101 103 Resp 20 20 20 20 B/P (MAP) 102/67 (79) 132/84 (100) Pulse Ox 99 97 97 97 O2 Delivery Room Air Room Air Room Air Room Air 05/17/21 05/17/21 05/17/21 05/17/21 07:00 08:00 10:08 10:09 Temp 97.9 97.9 Pulse 107 107 Resp 22 B/P (MAP) 111/67 (82) 111/67 Pulse Ox 98 98 O2 Delivery Room Air Room Air Room Air 05/17/21 05/17/21 05/17/21 05/17/21 10:09 10:39 10:39 15:00 Temp 96.0 97.1 96.0 97.1 Pulse 107 100 98 Resp 17 20 B/P (MAP) 111/67 100/61 (74) 94/70 (78) Pulse Ox 97 97 91 O2 Delivery Room Air Room Air Room Air Intake and Output 05/16/21 05/16/21 05/17/21 15:00 23:00 07:00 Intake Total 360 ml 380 ml Output Total 850 ml Balance 360 ml 380 ml -850 ml Justifications for Admission Other Justification LORE BROWN MD May 17, 2021 17:33
[2021-05-17 19:45] VITALS: BP 94/65
--- NOTE | 2021-05-17 19:55 | PN ---
DATE: 05/17/2021 LOCATION: He is in room 669. SUBJECTIVE: This 55-year-old male remains hospitalized with acute shortness of breath due to congestive heart failure as well as COVID-19 infection. He states that he still feels weak, but is feeling somewhat better and his cough is starting to ease with the diuresis and he is a little less short of breath. He still has not required oxygen. OBJECTIVE: VITAL SIGNS: Stable. He is afebrile. GENERAL: He is awake, alert. CHEST: Reveals decreased breath sounds. HEART: Regular rate and rhythm. ABDOMEN: Benign. EXTREMITIES: With 3+ venous stasis edema with again the wound on his foot appearing relatively clean. LABORATORY DATA: Cultures are still no different than what we were seeing yesterday and no sensitivities are available, although I do not believe this is a deep infection and wound care is ongoing. ASSESSMENT: 1. Congestive heart failure with acute on chronic systolic heart failure with history of cardiomyopathy. 2. Superficial wound, left foot with venous stasis edema. 3. COVID-19 respiratory infection. PLAN: Check with wound care as far as ongoing wound care as an outpatient with plan on possible discharge later this evening. UMESH DR: Ivette TID: [id number]
[2021-05-17 23:11] VITALS: BP 120/77
[2021-05-18 03:15] VITALS: BP 132/79
[2021-05-18 07:00] VITALS: BP 125/67
[2021-05-18] MEDS: SACUBITRIL/VALSARTAN 49/51MG TABLET. PO SCH (08:56)
[2021-05-18] MEDS: POTASSIUM CHLORIDE 10 MEQ TABLET.ER. PO SCH (08:56)
[2021-05-18] MEDS: ALLOPURINOL 300 MG TABLET. PO SCH (08:56)
[2021-05-18] MEDS: FUROSEMIDE 20 MG TABLET PO SCH (08:57)
[2021-05-18] MEDS: PIOGLITAZONE 15 MG TABLET. PO SCH (08:57)
[2021-05-18] MEDS: METOPROLOL SUCC 24HR ER 25 MG TAB.ER.24H. PO SCH (08:57)
--- NOTE | 2021-05-18 09:47 | SNU/HH DC ---
DISCHARGE WITH HOME HEALTH DISCHARGE INFORMATION: Discharge Date: May 18, 2021 Final Diagnosis: Problems Medical Problems: (1) CHF (congestive heart failure) Status: Acute (2) CHF (congestive heart failure) Status: Acute (3) COVID-19 Status: Acute (4) Wound of left foot Status: Acute Condition on Discharge: Stable CODE STATUS: Code Status: Full HOME HEALTH: Face to Face: I certify this patient is under my care and that I, or a nurse practitioner or physician's veterinary assistant working with me, had a face to face encounter that meets the physician face to face encounter requirements with this patient on 05/18/21. Medical Complications: CHF, DM, Other (wound care) Assisted For: Assess Cardiopulm Status, Diabetic Care, ring sorter For Eval/Treatment: Yes Physical Therapy For: Evalulation/Treatment Pt Meets Homebound Status: Limited distance walking POST DISCHARGE ORDERS: Activity Instructions for Disc: No restrictions, Activity as tolerated Weight Bearing Status after Di: No restrictions DIET AFTER DISCHARGE: ADA Wound/Incision Care: Other, see below (continue hospital wound care) FOLLOW-UP: Warfarin Follow UP: protime with inr on thursday CERTIFICATION STATEMENT: Certification Statement: Certification Statement: Based on the above finding, I certify that this patient is confined to the home and needs intermittent long-term care, physical therapy and/or speech therapy, or continues to need occupational therapy.~ This patient is under my care, and I have initiated the establishment of the plan of care.~ This patient will be followed by myself or a community physician who will periodically review the plan of care. Home Meds Active Scripts Hydrocodone Bit/Acetaminophen (HYDROCODONE-APAP 5-325 ) 1 Each Tablet, 1-2 TAB PO PRN Q4-6HRS PRN for PAIN, #14 TAB Prov:Hal FARIAS MD 08/18/16 Reported Medications Guaifenesin/Dextromethorphan (MUCINEX DM ER 600-30 MG TABLET) 1 Each Tab.er.12h, 1 TAB PO PRN BID PRN for cough and congestion for 10 Days, #20 TAB 0 Refills 05/14/21 Pioglitazone Hcl (ACTOS) 45 Mg Tablet, 45 MG PO DAILY for DMII, TAB 05/14/21 Potassium Chloride (KLOR-CON 10) 10 Meq Tablet.er, 10 MEQ PO DAILY for replacement, TAB 05/14/21 Sacubitril/Valsartan (Entresto 49 mg-51 mg Tablet) 1 Each Tablet, 1 EACH PO BID for CHF, TAB 05/14/21 Allopurinol (ALLOPURINOL) 300 Mg Tablet, 300 MG PO DAILY for gout, TAB 05/14/21 Furosemide (FUROSEMIDE) 20 Mg Tablet, 20 MG PO DAILY for CHF, TAB 05/14/21 Warfarin Sodium (WARFARIN SODIUM) 5 Mg Tablet, 5 MG PO QSUTUTH for blood thinner, #30 TAB 05/14/21 Warfarin Sodium (WARFARIN SODIUM) 2.5 Mg Tablet, 2.5 MG PO QMWFSA for blood thinner, TAB 05/14/21 WANG KC MD May 18, 2021 09:47
--- NOTE | 2021-05-18 10:08 | DS ---
DATE OF DISCHARGE: 05/18/2021 CHIEF COMPLAINT HISTORY OF PRESENT ILLNESS: This 55-year-old male admitted through the Emergency Room with shortness of breath, generally feeling horrible and was found to be COVID positive, but also to be in congestive heart failure as well as having venous stasis wounds on his left foot on the dorsum and the toes with polymicrobial infection on culture with no sensitivities pending by the time of discharge. He was admitted for the same. SUMMARY OF STAY: The patient was admitted. Wound care did dressing, it was felt this was sufficient treatment for this. His initial INR was greater than 15. He received vitamin K and this came down during the stay and no bleeding with the same. He had no significant issues from the COVID, not requiring oxygen throughout the stay. Cardiology did see him. He had diuresis with improvement of his symptomatology by the time of discharge. He was restarted on his regular home dose of Coumadin, which has been stable for years and home health will be following up with a protime this following Thursday. He is on this because of mechanical heart valve. He was felt ready for dismissal and this was accomplished. PRIMARY DIAGNOSIS: Congestive heart failure. ADDITIONAL DIAGNOSES: Left foot infection with venous stasis ulceration, COVID-19 respiratory infection, diabetes, coagulopathy. DISPOSITION: The patient is discharged to home, ADA diet, activity as tolerated. Wound care will be continued at the hospital per home health. DISCHARGE MEDICATIONS: Listed on the med rec have been addressed. He will be seen in the office in 2 weeks and her protime will be checked this following Thursday at home by home health. KASHMIR DR: Ivette TID: [id number]
[2021-05-18 11:05] VITALS: BP 105/74
--- NOTE | 2021-05-18 13:38 | PDOC ---
PROGRESS NOTES Date of Service DATE: 05/18/21 TIME: 13:36 Subjective Subjective Patient seen and evaluated. Objective Objective Vital Signs Date Time Temp Pulse Resp B/P (MAP) Pulse Ox O2 Delivery O2 Flow Rate FiO2 05/18/21 11:05 96.8 100 20 105/74 (84) 100 Room Air 96.8 Intake and Output 05/18/21 07:00 Intake Total 900 ml Output Total 100 ml Balance 800 ml Intake Oral 900 ml Output Urine Total 100 ml # Voids 4 Physical Exam Physical Exam Visual examination. Assessment Assessment Problems Medical Problems: (1) CHF (congestive heart failure) Status: Acute (2) CHF (congestive heart failure) Status: Acute (3) COVID-19 Status: Acute (4) Wound of left foot Status: Acute Acute respiratory failure secondary to COVID and CHF. Patient looks and feels better today. Acute on chronic systolic CHF. Continuing present treatment. Cardiomyopathy; echo 06/17 with LVEF 20-25%. Continue present treatment but holding Entresto secondary to renal status. Mitral stenosis s/o mechanical valve replacement. On chronic OAC with warfain Coagulopathy; INR > 15 upon arrival. S/p vit K. As per the primary service. Hyperlipidemia Diabetes, II ROBERTO on CKD. Creatinine stable. Monitoring lab. H/o urethral structure Chronic LE venous stasis, left foot wound. Xray without evidence of osteomyelitis. US without evidence of DVT. Being evaluated by the wound clinic. Arrhythmia; EKG with possible AFIB. Appears SR with frequent PVCs on tele. Continuing beta-blockers. Comment Comment Review of Relevant I have reviewed the following items alfredo (where applicable) has been applied. Labs Laboratory Tests Test 05/17/21 05:00 Sodium Level 135 mmol/L (136-145) Potassium Level 4.3 mmol/L (3.5-5.1) Chloride Level 102 mmol/L (98-107) Carbon Dioxide Level 25 mmol/L (21-32) Anion Gap 8 (6-14) Blood Urea Nitrogen 33 mg/dL (8-26) Creatinine 1.3 mg/dL (0.7-1.3) Estimated GFR (Cockcroft-Gault) 56.9 Glucose Level 155 mg/dL (70-99) Calcium Level 7.8 mg/dL (8.5-10.1) Microbiology 05/15/21 Urine Culture - Final, Complete 05/14/21 Gram Stain - Final, Resulted 05/14/21 Aerobic and Anaerobic Culture - Preliminary, Resulted 05/14/21 Blood Culture - Preliminary, Resulted NO GROWTH AFTER 3 DAYS Medications Current Medications Phytonadione (Vitamin K Ampule) 10 mg 1X ONCE IM Last administered on 05/14/21at 21:32; Start 05/14/21 at 21:15; Stop 05/14/21 at 21:16; Status DC Sacubitril/ Valsartan (Entresto 49 Mg-51 Mg) 1 tab BID PO Last administered on 05/17/21at 10:08; Start 05/14/21 at 22:15; Stop 05/17/21 at 10:41; Status DC Zolpidem Tartrate (Ambien) 5 mg PRN QHS PRN PO INSOMNIA, MAY REPEAT IN 1HR Last administered on 05/15/21at 21:26; Start 05/14/21 at 22:15 Alprazolam (Xanax) 0.25 mg PRN Q8HRS PRN PO ANXIETY / AGITATION Last administered on 05/15/21at 21:26; Start 05/14/21 at 22:15 Allopurinol (Zyloprim) 300 mg DAILY PO Last administered on 05/18/21at 08:56; Start 05/15/21 at 09:00 Furosemide (Lasix) 20 mg DAILY PO Last administered on 05/18/21at 08:57; Start 05/15/21 at 09:00 Guaifenesin (MUCINEX ER with DM) 1 tab PRN BID PRN PO cough and congestion; Start 05/15/21 at 09:00 Acetaminophen/ Hydrocodone Bitart (Lortab 5/325) 2 tab PRN Q4HRS PRN PO PAIN Last administered on 05/17/21at 19:34; Start 05/15/21 at 09:00 Potassium Chloride (Klor-Con) 10 meq DAILY PO Last administered on 05/18/21at 08:56; Start 05/15/21 at 09:00 Sacubitril/ Valsartan (Entresto 49 Mg-51 Mg) 1 tab BID PO ; Start 05/15/21 at 09:00; Stop 05/16/21 at 10:25; Status DC Pioglitazone HCl (Actos) 45 mg DAILY PO Last administered on 05/18/21at 08:57; Start 05/16/21 at 09:00 Furosemide (Lasix) 40 mg 1X ONCE IVP Last administered on 05/15/21at 17:17; Start 05/15/21 at 16:15; Stop 05/15/21 at 16:16; Status DC Metoprolol Succinate (Toprol Xl) 25 mg DAILY PO Last administered on 05/18/21at 08:57; Start 05/16/21 at 16:00 Furosemide (Lasix) 40 mg 1X ONCE IVP Last administered on 05/16/21at 16:27; Start 05/16/21 at 16:30; Stop 05/16/21 at 16:31; Status DC Sacubitril/ Valsartan (Entresto 49 Mg-51 Mg) 1 tab BID PO Last administered on 05/18/21at 08:56; Start 05/16/21 at 21:00 Furosemide (Lasix) 40 mg 1X ONCE IVP ; Start 05/16/21 at 18:30; Stop 05/16/21 at 18:31; Status DC Active Scripts Active Hydrocodone-Apap 5-325 (Hydrocodone Bit/Acetaminophen) 1 Each Tablet 1-2 Tab PO PRN Q4-6HRS PRN Reported Mucinex Dm Er 600-30 Mg Tablet (Guaifenesin/Dextromethorphan) 1 Each Tab.er.12h 1 Tab PO PRN BID PRN 10 Days Actos (Pioglitazone Hcl) 45 Mg Tablet 45 Mg PO DAILY Klor-Con 10 (Potassium Chloride) 10 Meq Tablet.er 10 Meq PO DAILY Entresto 49 mg-51 mg Tablet (Sacubitril/Valsartan) 1 Each Tablet 1 Each PO BID Allopurinol 300 Mg Tablet 300 Mg PO DAILY Furosemide 20 Mg Tablet 20 Mg PO DAILY Warfarin Sodium 5 Mg Tablet 5 Mg PO QSUTUTH Warfarin Sodium 2.5 Mg Tablet 2.5 Mg PO QMWFSA Vitals/I & O Vital Sign - Last 24 Hours 05/17/21 05/17/21 05/17/21 05/17/21 15:00 19:33 19:34 19:45 Temp 97.1 97.8 97.1 97.8 Pulse 98 98 97 Resp 20 20 20 B/P (MAP) 94/70 (78) 94/70 94/65 (75) Pulse Ox 91 91 98 O2 Delivery Room Air Room Air Room Air 05/17/21 05/17/21 05/17/21 05/18/21 20:00 20:04 23:11 03:15 Temp 97.7 97.0 97.7 97.0 Pulse 99 107 Resp 20 20 18 B/P (MAP) 120/77 (91) 132/79 (96) Pulse Ox 98 96 98 O2 Delivery Room Air Room Air Room Air Room Air 05/18/21 05/18/21 05/18/21 05/18/21 07:00 08:00 08:56 08:57 Temp 97.0 97.0 Pulse 100 110 106 Resp 18 B/P (MAP) 125/67 (86) Pulse Ox 95 O2 Delivery Room Air Room Air 05/18/21 11:05 Temp 96.8 96.8 Pulse 100 Resp 20 B/P (MAP) 105/74 (84) Pulse Ox 100 O2 Delivery Room Air Intake and Output 05/17/21 05/17/21 05/18/21 15:00 23:00 07:00 Intake Total 360 ml 300 ml 240 ml Output Total 100 ml Balance 360 ml 300 ml 140 ml Justifications for Admission Other Justification LORE BROWN MD May 18, 2021 13:38
--- NOTE | 2021-05-18 16:00 | NUR ---
Nursing/Discharge: Patient requesting surgical boot for left foot due to wounds and swelling, boot approved by physician and given to patient. Physician ordered home health. [facility] nursing warehouse and receiving supervisor notified. Chemical Engineering Professor reported that Patient is self pay and denied home health and to give the patient two days worth of dressing changes and teach patient would care instructions. I gave patient a list of step by step instructions and gave 2 days of dressing supplies per TISH Villarreal. I called and confirmed with dr. Hoffman that he was still ok with the patient discharging if home health was not available, Dr. Hoffman agreed. Discharge teaching verbal and written. Reviewed CHF, wound care, COVID, INR, ect. Patient verbalized understanding. No medication changes this admission. IV removed without complications, catheter tip in-tact. All belongings with patient. Patient assisted off of unit via wheelchair accompanied by RN.
== END 2021-05-18 16:00 | disposition home health service (06) | DRG 177 ==
LOC: ER 14:05 → 6 SOUTH 17:12 → ER 19:03
PROVIDERS: ADMIT Family Medicine; ATTEND Family Medicine
DX: U07.1 COVID-19 (principal); I50.23 Acute on chronic systolic (congestive) heart failure; J96.00 Acute respiratory failure, unspecified whether with hypoxia or hypercapnia; D68.9 Coagulation defect, unspecified; I13.0 Hypertensive heart and chronic kidney disease with heart failure and stage 1 through stage 4 chronic kidney disease, or unspecified chronic kidney disease; I42.9 Cardiomyopathy, unspecified; N17.9 Acute kidney failure, unspecified; Z79.01 Long term (current) use of anticoagulants; E11.22 Type 2 diabetes mellitus with diabetic chronic kidney disease; E11.621 Type 2 diabetes mellitus with foot ulcer; E78.00 Pure hypercholesterolemia, unspecified; E78.5 Hyperlipidemia, unspecified; I05.0 Rheumatic mitral stenosis; I49.3 Ventricular premature depolarization; I87.8 Other specified disorders of veins; L08.9 Local infection of the skin and subcutaneous tissue, unspecified; L97.529 Non-pressure chronic ulcer of other part of left foot with unspecified severity; M19.079 Primary osteoarthritis, unspecified ankle and foot; M77.9 Enthesopathy, unspecified; N18.9 Chronic kidney disease, unspecified; Z83.3 Family history of diabetes mellitus; Z86.718 Personal history of other venous thrombosis and embolism; Z87.891 Personal history of nicotine dependence; Z95.2 Presence of prosthetic heart valve; F32.A Depression, unspecified; M10.9 Gout, unspecified; I83.025 Varicose veins of left lower extremity with ulcer other part of foot
CPT/HCPCS: 36415; 71045; 73620; 80048; 80053; 80061; 81001; 83735; 83880; 84443; 84484; 85007; 85025; 85610; 87040; 87071; 87075; 87076; 87077; 87086; 87426; 87804; 93005; 93306; 93970; J1940; J3430; 99285-25; G0378

== ENCOUNTER 2021-07-03 17:16 | Inpatient (IN) | payer OTHER ==
[~2021-07-03] VITALS: Ht 182.9 cm; Wt 148.5 kg
[~2021-07-03 17:16] MED LIST changes: +ALLO300T PO; +FURO20TA3 PO; +GUAI-108 PO; +PANT40TA77 PO; +PIOG45TA40 PO; +POTA10TA12 PO; +SACU1TAB7 PO; +WARF-31 PO; +WARF2.5T71 PO
--- NOTE | 2021-07-03 18:11 | PHYS DOC ---
Past Medical History Past Medical History: Depression, Diabetes-Type II, DVT, High Cholesterol, Hypertension Additional Past Medical Histor: ENDOCARDITIS, GOUT,DVT,CELLULITIS Past Surgical History: Other Additional Past Surgical Histo: HEART VALVE REPLACEMENT, LOWER EXTREMTY SX FOR BLOCKAGE Smoking Status: Former Smoker Alcohol Use: None Drug Use: None General Adult EDM: Chief Complaint: WOUND CHECK HPI: HPI: Patient is a 56 year old male who presents here with leaking from his wound VAC site. He was discharged from here yesterday after a lengthy hospitalization, he was diagnosed with severe cellulitis of his left lower extremity. Vascular surgery was consulted, and amputation was considered, but he underwent multiple debridements and incision and drainage procedures. He reports that the wound VAC stopped working, and he had fluid leaking from the lower portion of the wound VAC site, on his foot, his dressing is soaked in clear/yellow fluid. He reports that he has pain "all over" which is not uncommon for him. Since being discharged home, he is unable to walk, he is unable to dress himself, he is unable to sit up, look at his wound, he is unable to care for himself. He lives at home with his son, who has been unable to troubleshoot the issues with his wounds. He is supposed to see wound care services in 1 week, but he has no way to get to wound care, he has no way to obtain home health services. He has no insurance and he is not currently on disability or Medicare. He is unable to get up, walk, unable to clean himself. He denies chest pain or dyspnea. He denies fevers or chills. He has not yet taken his antibiotics, he is supposed to be taking Augmentin twice daily. He has not taken anything for pain, and he does report having pain, though no worse than his usual. The patient was also being seen for anemia and thrombocytopenia while he was here, he was transfused while hospitalized. Hematology services were consulted while he was admitted. Review of Systems: Review of Systems: Constitutional: Denies fever or chills. Reports generalized malaise and weakness. Eyes: Denies change in visual acuity. [] HENT: Denies nasal congestion or sore throat. [] Respiratory: Denies cough or shortness of breath. [] Cardiovascular: Denies chest pain. Chronic lower extremity edema GI: Denies abdominal pain, nausea, vomiting : Urinary incontinence, no dysuria or gross hematuria Musculoskeletal: Chronic back pain. Bilateral lower extremity swelling, left lower extremity cellulitis and pain Integument: Lower extremity lymphedema, venous stasis, left lower extremity cellulitis, swelling, redness and pain Neurologic: Denies headache, focal weakness or sensory changes. [] Psychiatric: Denies depression or anxiety. [] Heart Score: C/O Chest Pain: No Risk Factors: Risk Factors: DM, Current or recent (<one month) smoker, HTN, HLP, family history of CAD, obesity. Risk Scores: Score 0 - 3: 2.5% MACE over next 6 weeks - Discharge Home Score 4 - 6: 20.3% MACE over next 6 weeks - Admit for Clinical Observation Score 7 - 10: 72.7% MACE over next 6 weeks - Early Invasive Strategies Allergies: Allergies: Allergies Coded Allergies Type Severity Reaction Last Updated Verified No Known Drug Allergies 06/06/21 No Physical Exam: PE: Constitutional: Well developed, well nourished, no acute distress, non-toxic appearance. He appears much older than stated age. He is chronically ill- appearing HENT: Normocephalic, atraumatic Eyes: Conjunctiva normal, no discharge. [] Neck: Normal range of motion, no tenderness, supple, no stridor. [] Cardiovascular:Heart rate regular rhythm, +2 dorsalis pedis and +2 radial pulses Lungs & Thorax: Bilateral breath sounds clear to auscultation [] Abdomen: Abdomen is obese, soft, nondistended, nontender to palpation Skin: Wound VAC and dressing in place on left lower extremity, though the distal portion of the wound VAC is leaking clear/yellow serous fluid. There is diffuse circumferential left lower extremity erythema and edema. No purulent drainage is noted. No focal tenderness. There is mild diffuse tenderness of the left lower extremity. There is significant skin maceration of his left foot, the skin is quite unkempt. Extremities: No tenderness, no cyanosis, no clubbing, ROM intact, no edema. [] Neurologic: Alert and oriented X 3, normal motor function, normal sensory function, no focal deficits noted. [] Psychologic: Affect is flat, he is cooperative EKG: EKG: [] Radiology/Procedures: Radiology/Procedures: IMAGING REPORT Signed PATIENT: AVINASH FARIAS ACCOUNT: [id number] : 1965 LOCATION: ER AGE: 56 SEX: M EXAM STATUS: REG ER ORD. PHYSICIAN: APARNA REED DO REASON: wound vac leaking PROCEDURE: TIBIA FIBULA LEFT Exam: Left tibia and fibula 2 views. Left foot 2 views INDICATION: Wound, back leaking TECHNIQUE: Frontal and lateral views of the left tibia and fibula. Frontal and lateral views of the left foot Comparisons: None FINDINGS: Tib-fib: Back is noted along the lateral aspect of the mid calf. Bone mineralization is normal. No acute or healed fractures. Joint spaces are well-maintained. Foot: Diffuse osteopenia. No acute or healed fractures. Soft tissues are unremarkable. Joint spaces are well-maintained. IMPRESSION: 1. No acute osseous abnormality of the left tibia and fibula. 2. No acute osseous abdomen the of the left foot Electronically signed by: Gina Fournier MD (07/03/2021 7:05 PM) [facility] DICTATED and SIGNED BY: GINA FOURNIER MD DATE: 07/03/21 [id number] 0 Course & Med Decision Making: Course & Med Decision Making Pertinent Labs and Imaging studies reviewed. (See chart for details) The patient initially declined pain medication, though he later agreed to take a dose of hydrocodone, so I ordered 1 p.o. Farrell. He is given his nighttime dose of oral Augmentin. I did order blood cultures. I reviewed labs from his hospitalization as well as those of today. He has very modest improvement of his hemoglobin and platelet count. He remains thrombocytopenic, remains anemic. He has findings of pancytopenia actually. The patient is unable to care for himself at all, his son is unable to help him care for himself, the patient is unable to walk, he is unable to care for his wound, he has no access to wound care services at home at this time. He does not feel he will have access to outpatient wound care services at this time either. He does require ho spitalization, and hopeful placement for rehab services. I contacted his primary care physician, Dr. Nagel. He agrees with the plan for readmission, PT/OT consult, wound care consult. I removed the patient's soiled dressing from his foot/left lower leg. I dressed it with ABDs and Kerlix bandages. The patient is comfortable with the plan for admission to the hospital. [place] Disclaimer: [place] Disclaimer: This electronic medical record was generated, in whole or in part, using a voice recognition dictation system. Departure Departure Impression: Primary Impression: Cellulitis of left lower extremity Additional Impressions: Encounter for management of vacuum-assisted closure (VAC) of wound Lymphedema of both lower extremities Anemia Thrombocytopenia Diabetes mellitus Generalized weakness Failure to thrive in adult Disposition: 09 ADMITTED INPATIENT Admitting Physician: Wang Nagel Condition: GUARDED Referrals: WANG NAGEL MD (PCP) APARNA REED DO Jul 03, 2021 18:11
--- NOTE | 2021-07-03 19:08 | RAD ---
Exam: Left tibia and fibula 2 views. Left foot 2 views INDICATION: Wound, back leaking TECHNIQUE: Frontal and lateral views of the left tibia and fibula. Frontal and lateral views of the l eft foot Comparisons: None FINDINGS: Tib-fib: Back is noted along the lateral aspect of the mid calf. Bone mineralization is normal. No acute or he aled fractures. Joint spaces are well-maintained. Foot: Diffuse osteopenia. No acute or healed fractures. Soft tissues are unremarkable. Joint spaces are wel l-maintained. IMPRESSION: 1. No acute osseous abnormality of the left tibia and fibula. 2. No acute osseous abdomen the of the left foot Electronically signed by: Gina Luque MD (07/03/2021 7:05 PM) [place]
[2021-07-03 20:45] LABS: BASO % 1 % (0-3); EOS # 0.1 x10^3/uL (0.0-0.7); EOS % 2 % (0-3); HEMATOCRIT 23.4 % (39.0-53.0); HEMOGLOBIN 7.7 g/dL (13.0-17.5); LYMPH # 0.6 x10^3/uL (1.0-4.8); LYMPH % 20 % (24-48); MEAN CORPUSCULAR HEMOGLOBIN 27 pg (25-35); MEAN CORPUSCULAR HGB CONC 33 g/dL (31-37); MEAN CORPUSCULAR VOLUME 82 fL (79-100); MONO # 0.3 x10^3/uL (0.0-1.1); MONO % 11 % (0-9); NEUT # 2.1 x10^3/uL (1.8-7.7); NEUT % 67 % (31-73); PLATELET COUNT 54 x10^3/uL (140-400); RED BLOOD COUNT 2.85 x10^6/uL (4.30-5.70); RED CELL DISTRIBUTION WIDTH 21.5 % (11.5-14.5); WHITE BLOOD COUNT 3.1 x10^3/uL (4.0-11.0)
[2021-07-03 20:54] LABS: PROTHROMBIN TIME PATIENT 30.3 SEC (11.7-14.0)
[2021-07-03 21:06] LABS: PLT ESTIMATE DECREASED (ADEQUATE)
[2021-07-03 21:08] LABS: ANISOCYTOSIS MOD; OVALOCYTES FEW; POIKILOCYTOSIS SLIGHT
[2021-07-03 21:11] LABS: CALCIUM 7.7 mg/dL (8.5-10.1); CREATININE 1.4 mg/dL (0.7-1.3); GFR 52.1
[2021-07-03] MEDS ORDERED: AMOXICILLIN/K CLAV 875/125MG TABLET. PO ONE (21:15)
[2021-07-03] MEDS ORDERED: HYDROcodone/APAP 5/325MG 1 TAB TABLET PO ONE (22:15)
[2021-07-03] MEDS ORDERED: ONDANSETRON PF 4 MG/2 ML VIAL. IVP PRN (23:00)
[2021-07-03] MEDS: IV NORMAL SALINE 1000ML BAG 1,000 ML IV SCH (23:53)
[2021-07-03] MEDS: HYDROcodone/APAP 5/325MG 1 TAB TABLET PO PRN (23:56)
[2021-07-04] MEDS ORDERED: C.DIFF MED SCREEN BY RX. MC ONE (02:15)
[2021-07-04 03:00] VITALS: BP 131/68
--- NOTE | 2021-07-04 03:03 | NUR ---
Pharmacy Medication Review S: Consulted for medication review re: C.diff Risk Assessment score of 4 O: AVINASH FARIAS is a 56 year old with: Previous C.diff infection: No Previous hospitalization: Within 30 days Recent antibiotics: Within 30 days Use of gastric acid suppressor: No Transfer from [place]/LTAC: No Current antibiotic regimen: AUGMENTIN Current acid suppression regimen: PANTOPRAZOLE (NOT YET REORDERED FROM HOME MEDS) A: Patient has been identified as having risk factors for C.diff infection as noted above. P: ABX DE-ESCALATION RECOMMENDED: NO, PT WITH SUSPECTED INFECTION PROBIOTIC ORDERED: YES PPI CHANGED TO [id number]: NO, PT ON PPI PER GI FOR HEME-POSITIVE STOOL MARÍA LY [facility]OPER [facility], 07/04/21 [id number]
[2021-07-04 05:03] LABS: BILIRUBIN,URINE NEGATIVE (NEG); CLARITY,URINE CLEAR; COLOR,URINE YELLOW; NITRITE,URINE NEGATIVE (NEG); PH,URINE 5.5 (<5.0-8.0); PROTEIN,URINE 30 mg/dL (NEG-TRACE); UROBILINOGEN,URINE 0.2 mg/dL (0.2 mg/dL)
[2021-07-04 05:17] LABS: BACTERIA,URINE 0 /HPF (0-FEW); HYALINE CASTS, URINE FEW /HPF; RBC,URINE OCC /HPF (0-2)
[2021-07-04 05:18] LABS: YEAST,URINE PRESENT /HPF
[2021-07-04 07:00] VITALS: BP 148/80
[2021-07-04] MEDS: HYDROcodone/APAP 5/325MG 1 TAB TABLET PO PRN ×3 (08:29→21:28)
[2021-07-04] MEDS: AMOXICILLIN/K CLAV 875/125MG TABLET. PO SCH ×2 (08:29→21:27)
[2021-07-04] MEDS: LACTOBACILLUS RHAMNOSUS GG 1 CAPSULE. PO SCH ×2 (08:29→21:27)
--- NOTE | 2021-07-04 09:55 | NUR ---
SW following. Discussed with RN, pt from home with family, room air, ada diet. Pt reporting he cannot take care of himself. SW consult for needing SNF placement. Pt does not have insurance, only option is to return home. Med Assist following for self pay status. SW will continue to follow.
[2021-07-04] MEDS: ALLOPURINOL 300 MG TABLET. PO SCH (10:58)
[2021-07-04] MEDS: SACUBITRIL/VALSARTAN 49/51MG TABLET. PO SCH ×2 (10:58→21:28)
[2021-07-04] MEDS: PANTOPRAZOLE 40 MG TABLET.DR. PO SCH (10:58)
[2021-07-04] MEDS: PIOGLITAZONE 15 MG TABLET. PO SCH (10:58)
[2021-07-04] MEDS: FUROSEMIDE 20 MG TABLET PO SCH (10:58)
[2021-07-04] MEDS: POTASSIUM CHLORIDE 10 MEQ TABLET.ER. PO SCH (10:58)
[2021-07-04 11:00] VITALS: BP 113/85
[2021-07-04] MEDS: IV NORMAL SALINE 1000ML BAG 1,000 ML IV SCH (13:38)
--- NOTE | 2021-07-04 14:22 | PDOC ---
Provider Note Date of Service: DATE: 07/04/21 TIME: 14:13 Provider Note Provider Note Vascular S: This is a 56-year-old male well-known to our practice who presented via the emergency room due to weakness and inability to perform daily functions. Patient was just released from the hospital yesterday. He was admitted in May and had a lengthy stay with left lower leg wound debridements. He has been treated with wound VAC therapy. The wounds are granulating nicely. Once the patient was at home he states he had difficulty maintaining the wound VAC without leaking. Patient states he has multiple social barriers. He has no insurance, limited ability perform to perform functions by himself and minimal income. Currently he denies any pain in his left lower extremity. He states he has some strength and prior to discharge was able to walk the length of the room. Patient states that currently he feels fatigued and weak but feels as though he could perform these functions with adequate physical therapy. O: Awake and alert Heart rate regular Nonlabored respirations Left lower extremity wound images were reviewed. All wounds are granulating with pink granulation tissue and minimal fibrin slough. Foot is warm. Moderate to severe lower extremity swelling. A/P: 56-year-old male with left lower extremity wounds who is status post debridement on 06/10/2021. Initially it was felt that the patient may need an amputation. We were able to successfully debride his wounds and treat him with wound vac therapy. The patient continues to have good granulation tissue throughout the wounds. He does have copious amounts of drainage possibly due to in part to his lower extremity swelling. Recommend continued wound VAC therapy. Will consult infectious disease for antibiotic management. Patient has a PICC line in his left upper arm. The patient does not desire an amputation. Recommend leg elevation as tolerated. Recommend physical therapy and Occupational Therapy. Recommend social problems specialist for continued discharge planning. Recommend nutritional supplements. Plan of care discussed with the patient and his nurse. The patient expresses a desire to increase his strength in order to perform ADLs. Justicifation of Admission Dx: Justifications for Admission: Justification of Admission Dx: Yes ANGEL HERRERA APRN Jul 04, 2021 14:22
[2021-07-04 15:00] VITALS: BP 123/68
--- NOTE | 2021-07-04 15:47 | NUR ---
Wound/Ostomy Care Wound Type/Assessment: Patient seen per wound care consult. See wound assessment. Patient is well known to us as he was just discharge in the last 48 hours. We have been managing the wound vac to the patient's left lower leg. He had cellulits in which he underwent an extensive surgery with vascular. Patient left with a [facility] home wound vac, but was unable to maintain a clean and safe environment. Patient readmitted and orders to continue with wound vac therapy and wound management per Marla Lira NP. All wounds cleansed, assessed, and measured. there is still tendon, fat, muscle exposed in the left lateral and left medial and anterior foot wounds. The left lateral heel has resolved and patient has small DFU to left posterior heel, an open blister to the left anterior segura most likely tape related. There is no wound to coccyx or right buttock these areas are epithelized. Treatment Recommendations/Plan: Skin prepped for wound vac and the left lateral leg, left medial leg, left anterior ankle and left lateral foot all have one piece of jefferson foam to wound bed with two track pads, y-connected to the vac with a good seal maintained at 125mmHg continuous. Contact layer and telfa applied to the left 2nd toe and left anterior segura, and skin prep to left heel. Education provided: Patient educated on wound care and wound vac therapy and PU prevention. Offloading surface/device: Patient is able to self turn Recommended Referrals/Tests: N/A Discharge Recommendations for dressings: Wound care will follow up with patient on Thursday07/08/21 for all dressing changes. No other wounds noted. Bed lowered and call light in reach.
--- NOTE | 2021-07-04 17:16 | HP ---
DATE OF SERVICE: 07/04/2021 ADMIT DATE: 07/03/2021 ADMISSION HISTORY AND PHYSICAL CHIEF COMPLAINT AND HISTORY OF PRESENT ILLNESS: This 56-year-old male was discharged on the to home, where his wound VAC was leaking before he got home. He was unable to deal with the same. He got in his chair at home and was unable to get back out. He had been discharged after a lengthy hospitalization for severe cellulitis of left lower extremity with debridement x 2, on antibiotics, which were switched to Augmentin on the day of discharge from broad-spectrum antibiotics over a 4-week period or so. He was brought back to the Emergency Room by 911 as family could not handle him and he was unable to do self-care. PAST MEDICAL HISTORY: Remarkable for that as mentioned above. He also has a history of diabetes, depression, DVT, hyperlipidemia, hypertension. He is status post aortic valve replacement for endocarditis. He is on chronic warfarin therapy for the same, gout, history of PAD. MEDICATIONS: Brought with the patient, listed on the med rec IT and have been addressed. ALLERGIES: He has no known drug allergies. SOCIAL HISTORY: He is a former smoker, nondrinker, does not use drugs. Lives at home with his family. FAMILY HISTORY: Noncontributory. REVIEW OF SYSTEMS: Remarkable for aching and hurting all over. PHYSICAL EXAMINATION: GENERAL: He is a well-developed, well-nourished, obese white male in no acute distress, lying in bed. VITAL SIGNS: Stable. He is afebrile. HEAD, EYES, EARS, NOSE AND THROAT: Unremarkable. NECK: Supple, without adenopathy or thyromegaly. CHEST: Clear to auscultation and percussion. HEART: Regular rate and rhythm. ABDOMEN: Soft, nontender, without hepatosplenomegaly or masses. EXTREMITIES: Without cyanosis, clubbing, significant edema. He does have a wound packing and wound was covered at this point in time with normal saline, waiting for Wound Care to replace wound VAC. NEUROLOGIC: He is intact. ASSESSMENT: 1. Wounds, left leg. 2. Weakness, unable to do self-care. 3. Diabetes. 4. Status post prosthetic heart valve, on warfarin. 5. Diabetes. PLAN: Wound Care to help with wound VAC PT, which needs to be on a daily basis and ideally b.i.d. to try to get him strong enough to go home with family. We will continue the p.o. Augmentin. Otherwise, home meds will be continued. In addition, the patient will be monitored, managed and treated appropriately. EBEN DR: Ivette TID: [id number]
[2021-07-04 19:00] VITALS: BP 121/75
[2021-07-04 23:59] VITALS: BP 120/69
[2021-07-05] MEDS: ALPRAZolam 0.5 MG TABLET PO PRN ×2 (00:33→15:22)
[2021-07-05] MEDS: IV NORMAL SALINE 1000ML BAG 1,000 ML IV SCH ×2 (02:10→15:22)
[2021-07-05 03:29] VITALS: BP 114/76
[2021-07-05 07:00] VITALS: BP 120/82
--- NOTE | 2021-07-05 08:37 | PDOC ---
Infectious Disease Note Subjective Subjective Patient is back known to us had 2 I&D done on the left leg. Denies any nausea vomiting diarrhea chest pain shortness of breath fever chills. Unable to take care of himself with the wound VAC fell apart hence he came back ROS [facility] As above Vital Sign Vital Signs Vital Signs Date Time Temp Pulse Resp B/P (MAP) Pulse Ox O2 Delivery O2 Flow Rate FiO2 07/05/21 07:00 98.1 102 16 120/82 (95) 96 Room Air 98.1 Physical Exam PHYSICAL EXAM GENERAL: Alert, oriented gentleman, not in distress. HEENT: Both pupils are round and reacting. No conjunctival lesion. No lesion in the mouth. NECK: Supple. No JVP, no lymphadenopathy. LUNGS: Clear. HEART: S1, S2 regular. ABDOMEN: Soft, nontender, no organomegaly. EXTREMITIES: Postsurgical dressing taken down by wound care team nurse last week Wounds appear clean. Tendon exposure on dorsal foot wound. Deep wounds in leg. Muscle exposure. No gross purulence noted. Clean base. Edema + NEUROLOGIC: The patient is alert, awake, appropriate. No focal neurologic deficit. Right upper extremity PICC line clean Labs Lab Laboratory Tests Test 07/04/21 11:29 07/04/21 16:44 07/04/21 20:07 07/05/21 07:53 Glucose (Fingerstick) 152 mg/dL (70-99) 147 mg/dL (70-99) 137 mg/dL (70-99) 135 mg/dL (70-99) Micro Microbiology 07/03/21 Blood Culture - Preliminary, Resulted NO GROWTH AFTER 1 DAY Objective Assessment 1. Left leg cellulitis. 2. Extensive LLE infection Left leg infected wounds on the second toe and the lateral foot. Status post extensive I&D x 2 3. Leukocytosis.improving 4. Chronic venous insufficiency and stasis dermatitis. 5. Morbid obesity. 6. Diabetes mellitus. 7. Renal insufficiency. 8. Hypertension. Anemia s/p transfusion Thrombocytopenia, coagulopathy,low haptoglobin FOB + Cultures positive for group B strep Plan Plan of Care Continue p.o. Augmentin did discuss with the wound care nurses wounds looking good VAC is in place PT OT [facility] placement DUANE ASKEW MD Jul 05, 2021 08:37
[2021-07-05] MEDS: LACTOBACILLUS RHAMNOSUS GG 1 CAPSULE. PO SCH ×2 (08:49→20:32)
[2021-07-05] MEDS: AMOXICILLIN/K CLAV 875/125MG TABLET. PO SCH ×2 (08:49→20:32)
[2021-07-05] MEDS: ALLOPURINOL 300 MG TABLET. PO SCH (08:49)
[2021-07-05] MEDS: SACUBITRIL/VALSARTAN 49/51MG TABLET. PO SCH ×2 (08:49→20:32)
[2021-07-05] MEDS: PIOGLITAZONE 15 MG TABLET. PO SCH (08:49)
[2021-07-05] MEDS: FUROSEMIDE 20 MG TABLET PO SCH (08:50)
[2021-07-05] MEDS: POTASSIUM CHLORIDE 10 MEQ TABLET.ER. PO SCH (08:50)
[2021-07-05] MEDS: PANTOPRAZOLE 40 MG TABLET.DR. PO SCH (08:50)
--- NOTE | 2021-07-05 10:04 | NUR ---
MOE following. Discussed with RN, pt from home, room air, ada diet. MOE sent message to [facility] to see if they would be able to take pt kayley, per PT request. Awaiting return call. MOE will continue to follow. Addendum: 07/05/21 at [address] [facility] advised they cannot accept pt due to pt not having a rehab dx, and declining therapy multiple times during last admission.
[2021-07-05 11:00] VITALS: BP 126/80
[2021-07-05 13:59] LABS: BASO % 1 % (0-3); EOS # 0.1 x10^3/uL (0.0-0.7); EOS % 2 % (0-3); HEMATOCRIT 24.3 % (39.0-53.0); HEMOGLOBIN 7.9 g/dL (13.0-17.5); LYMPH # 0.6 x10^3/uL (1.0-4.8); LYMPH % 13 % (24-48); MEAN CORPUSCULAR HEMOGLOBIN 27 pg (25-35); MEAN CORPUSCULAR HGB CONC 33 g/dL (31-37); MEAN CORPUSCULAR VOLUME 82 fL (79-100); MONO # 0.3 x10^3/uL (0.0-1.1); MONO % 8 % (0-9); NEUT # 3.3 x10^3/uL (1.8-7.7); NEUT % 77 % (31-73); PLATELET COUNT 61 x10^3/uL (140-400); RED BLOOD COUNT 2.96 x10^6/uL (4.30-5.70); WHITE BLOOD COUNT 4.4 x10^3/uL (4.0-11.0)
[2021-07-05 14:15] LABS: PROTHROMBIN TIME PATIENT 27.8 SEC (11.7-14.0)
[2021-07-05 15:00] VITALS: BP 122/86
[2021-07-05] MEDS: WARFARIN 2.5 MG TABLET. PO SCH (15:22)
[2021-07-05] MEDS: HYDROcodone/APAP 5/325MG 1 TAB TABLET PO PRN ×2 (15:22→20:35)
[2021-07-05 19:12] VITALS: BP 104/60
[2021-07-05 22:00] VITALS: BP 124/74
--- NOTE | 2021-07-05 22:48 | PN ---
DATE: 07/05/2021 DAILY PROGRESS NOTE LOCATION: He is in room 414. SUBJECTIVE: This 56-year-old remains hospitalized with left leg wound, status post debridement x 2 with wound VAC therapy, ongoing antibiotics with failure to thrive at home, being unable to get up and move around the house by himself, even with help of his family and wound VAC malfunction with inability to fix the same. OBJECTIVE: VITAL SIGNS: Stable. He is afebrile. GENERAL: He is awake, alert. CHEST: Clear. HEART: Regular. ABDOMEN: Benign. EXTREMITIES: Wound VAC is in place. Discussed with him again the importance of therapy and getting it daily and participating fully so that we could think about getting somewhere else besides the hospital. He is motivated to do the same. No INR done this morning, I will recheck one tomorrow. Hemoglobin and platelet count are actually somewhat improved today with hemoglobin 7.9 and platelet count of 61,000. Sugars remained good. ASSESSMENT: 1. Left leg wounds as described above. 2. Diabetes. 3. Prosthetic aortic valve, on warfarin. 4. Weakness and inability to do self-care. 5. Diabetes with good control. PLAN: Continue wound care. Continue therapy, which is the primary thing the patient needs at this point in time to get home. recommended fpc and that probably would be the best, but the patient is going to refuse the same stating that he is going home as he has family there, but has to be able to at least transfer and move around the house first. EBEN/ABDIRIZAK DR: Ivette TID: [id number]
[2021-07-06 02:49] VITALS: BP 120/75
[2021-07-06] MEDS: IV NORMAL SALINE 1000ML BAG 1,000 ML IV SCH ×2 (04:35→16:18)
[2021-07-06 07:00] VITALS: BP 113/68
[2021-07-06] MEDS: PIOGLITAZONE 15 MG TABLET. PO SCH (08:44)
[2021-07-06] MEDS: POTASSIUM CHLORIDE 10 MEQ TABLET.ER. PO SCH (08:45)
[2021-07-06] MEDS: SACUBITRIL/VALSARTAN 49/51MG TABLET. PO SCH ×2 (08:46→20:24)
[2021-07-06] MEDS: FUROSEMIDE 20 MG TABLET PO SCH (08:46)
[2021-07-06] MEDS: PANTOPRAZOLE 40 MG TABLET.DR. PO SCH (08:46)
[2021-07-06] MEDS: AMOXICILLIN/K CLAV 875/125MG TABLET. PO SCH ×2 (08:46→20:24)
[2021-07-06] MEDS: ALLOPURINOL 300 MG TABLET. PO SCH (08:46)
[2021-07-06] MEDS: LACTOBACILLUS RHAMNOSUS GG 1 CAPSULE. PO SCH ×2 (08:46→20:24)
[2021-07-06 11:00] VITALS: BP 99/55
--- NOTE | 2021-07-06 12:06 | PDOC ---
Infectious Disease Note Subjective Subjective pt is feeling good ROS ROS no n/v/d/ Vital Sign Vital Signs Vital Signs Date Time Temp Pulse Resp B/P (MAP) Pulse Ox O2 Delivery O2 Flow Rate FiO2 07/06/21 08:46 64 113/68 07/06/21 08:00 Room Air 07/06/21 07:00 97.6 18 99 97.6 Physical Exam PHYSICAL EXAM GENERAL: Alert, oriented gentleman, not in distress. HEENT: Both pupils are round and reacting. No conjunctival lesion. No lesion in the mouth. NECK: Supple. No JVP, no lymphadenopathy. LUNGS: Clear. HEART: S1, S2 regular. ABDOMEN: Soft, nontender, no organomegaly. EXTREMITIES: Postsurgical dressing taken down by wound care team nurse last week Wounds appear clean. Tendon exposure on dorsal foot wound. Deep wounds in leg. Muscle exposure. No gross purulence noted. Clean base. Edema + NEUROLOGIC: The patient is alert, awake, appropriate. No focal neurologic deficit. Right upper extremity PICC line clean Labs Lab Laboratory Tests Test 07/05/21 12:10 07/05/21 13:40 07/05/21 17:11 07/05/21 20:49 Glucose (Fingerstick) 156 mg/dL (70-99) 183 mg/dL (70-99) 132 mg/dL (70-99) White Blood Count 4.4 x10^3/uL (4.0-11.0) Red Blood Count 2.96 x10^6/uL (4.30-5.70) Hemoglobin 7.9 g/dL (13.0-17.5) Hematocrit 24.3 % (39.0-53.0) Mean Corpuscular Volume 82 fL (79-100) Mean Corpuscular Hemoglobin 27 pg (25-35) Mean Corpuscular Hemoglobin Concent 33 g/dL (31-37) Red Cell Distribution Width 22.0 % (11.5-14.5) Platelet Count 61 x10^3/uL (140-400) Neutrophils (%) (Auto) 77 % (31-73) Lymphocytes (%) (Auto) 13 % (24-48) Monocytes (%) (Auto) 8 % (0-9) Eosinophils (%) (Auto) 2 % (0-3) Basophils (%) (Auto) 1 % (0-3) Neutrophils # (Auto) 3.3 x10^3/uL (1.8-7.7) Lymphocytes # (Auto) 0.6 x10^3/uL (1.0-4.8) Monocytes # (Auto) 0.3 x10^3/uL (0.0-1.1) Eosinophils # (Auto) 0.1 x10^3/uL (0.0-0.7) Basophils # (Auto) 0.0 x10^3/uL (0.0-0.2) Prothrombin Time 27.8 SEC (11.7-14.0) Prothromb Time International Ratio 2.7 (0.8-1.1) Test 07/06/21 07:45 Glucose (Fingerstick) 155 mg/dL (70-99) Micro Microbiology 07/03/21 Blood Culture - Preliminary, Resulted NO GROWTH AFTER 1 DAY Objective Assessment 1. Left leg cellulitis. 2. Extensive LLE infection Left leg infected wounds on the second toe and the lateral foot. Status post extensive I&D x 2 3. Leukocytosis.improving 4. Chronic venous insufficiency and stasis dermatitis. 5. Morbid obesity. 6. Diabetes mellitus. 7. Renal insufficiency. 8. Hypertension. Anemia s/p transfusion Thrombocytopenia, coagulopathy,low haptoglobin FOB + Cultures positive for group B strep Plan Plan of Care Continue p.o. Augmentin did discuss with the wound care nurses wounds looking good VAC is in place PT OT [facility] placement DUANE ASKEW MD Jul 06, 2021 12:06
[2021-07-06 13:45] LABS: PROTHROMBIN TIME PATIENT 31.1 SEC (11.7-14.0)
[2021-07-06 13:51] LABS: BASO % 1 % (0-3); EOS # 0.1 x10^3/uL (0.0-0.7); EOS % 2 % (0-3); HEMATOCRIT 21.8 % (39.0-53.0); LYMPH # 0.5 x10^3/uL (1.0-4.8); LYMPH % 14 % (24-48); MEAN CORPUSCULAR HEMOGLOBIN 27 pg (25-35); MEAN CORPUSCULAR HGB CONC 32 g/dL (31-37); MEAN CORPUSCULAR VOLUME 83 fL (79-100); MONO # 0.3 x10^3/uL (0.0-1.1); MONO % 10 % (0-9); NEUT # 2.6 x10^3/uL (1.8-7.7); NEUT % 74 % (31-73); PLATELET COUNT 53 x10^3/uL (140-400); RED BLOOD COUNT 2.64 x10^6/uL (4.30-5.70); RED CELL DISTRIBUTION WIDTH 22.3 % (11.5-14.5); WHITE BLOOD COUNT 3.6 x10^3/uL (4.0-11.0)
--- NOTE | 2021-07-06 14:22 | NUR ---
Patient had a critical Hgb of 7.[address] Nagel was paged and notified about the critical result and he ordered to repeated CBC in the morning and continue to monitor patient.
--- NOTE | 2021-07-06 14:46 | PN ---
DATE: 07/06/2021 DAILY PROGRESS NOTE LOCATION: He is in room 414. SUBJECTIVE: This 56-year-old male remains hospitalized with left leg wound, status post debridement x 2 with ongoing wound VAC therapy, ongoing antibiotics and failure to thrive at home, being unable to get up and around the house and do self care. He is receiving therapy here, did walk to the door yesterday with therapy, but got stuck on the bedside commode this morning and was unable to do much else except four people helping getting him off the commode, so obviously he is not ready to return to home yet at this point in time. OBJECTIVE: VITAL SIGNS: Stable. He is afebrile. GENERAL: He is awake, alert. CHEST: Clear. HEART: Regular. ABDOMEN: Benign. EXTREMITIES: Wound VAC in place. Therapy ongoing. LABORATORY DATA: Sugars decent. We will recheck hemoglobin and platelet counts tomorrow. His INR yesterday was 2.7. ASSESSMENT: 1. Left leg wounds. 2. Diabetes. 3. Prosthetic aortic valve, on warfarin. 4. Weakness and inability to do self care. 5. Diabetes with good control. PLAN: Continue with wound care, intensive therapy as we can make it here as that is his ticket to get out of here. Otherwise, continue antibiotics, anticoagulation, etc. NADIA/VERONIQUE DE LA O: Ivette TID: [id number]
[2021-07-06 15:00] VITALS: BP 137/65
[2021-07-06] MEDS: WARFARIN 2.5 MG TABLET. PO SCH (16:16)
[2021-07-06] MEDS: HYDROcodone/APAP 5/325MG 1 TAB TABLET PO PRN (16:17)
[2021-07-06 19:00] VITALS: BP 119/59
[2021-07-06] MEDS: ALPRAZolam 0.5 MG TABLET PO PRN (20:48)
[2021-07-06 23:00] VITALS: BP 112/49
[2021-07-07] VITALS (10 sets, daily range): BP systolic 101–137; BP diastolic 45–89
[2021-07-07 01:11] LABS: FECAL OB PT POSITIVE (NEG)
[2021-07-07] MEDS: IV NORMAL SALINE 1000ML BAG 1,000 ML IV SCH ×2 (05:24→20:11)
[2021-07-07] MEDS: FUROSEMIDE 20 MG TABLET PO SCH (08:19)
[2021-07-07] MEDS: SACUBITRIL/VALSARTAN 49/51MG TABLET. PO SCH ×2 (08:19→21:00)
[2021-07-07] MEDS: AMOXICILLIN/K CLAV 875/125MG TABLET. PO SCH ×2 (08:19→20:13)
[2021-07-07] MEDS: ALLOPURINOL 300 MG TABLET. PO SCH (08:19)
[2021-07-07] MEDS: PANTOPRAZOLE 40 MG TABLET.DR. PO SCH (08:19)
[2021-07-07] MEDS: LACTOBACILLUS RHAMNOSUS GG 1 CAPSULE. PO SCH ×2 (08:20→20:13)
[2021-07-07] MEDS: PIOGLITAZONE 15 MG TABLET. PO SCH (08:20)
[2021-07-07] MEDS: POTASSIUM CHLORIDE 10 MEQ TABLET.ER. PO SCH (08:20)
[2021-07-07 08:51] LABS: BASO % 1 % (0-3); EOS # 0.1 x10^3/uL (0.0-0.7); EOS % 2 % (0-3); LYMPH # 0.6 x10^3/uL (1.0-4.8); LYMPH % 11 % (24-48); MEAN CORPUSCULAR HEMOGLOBIN 27 pg (25-35); MEAN CORPUSCULAR HGB CONC 33 g/dL (31-37); MEAN CORPUSCULAR VOLUME 82 fL (79-100); MONO # 0.5 x10^3/uL (0.0-1.1); MONO % 11 % (0-9); NEUT # 3.7 x10^3/uL (1.8-7.7); NEUT % 75 % (31-73); PLATELET COUNT 63 x10^3/uL (140-400); RED CELL DISTRIBUTION WIDTH 21.7 % (11.5-14.5)
[2021-07-07 08:58] LABS: HEMATOCRIT 20.5 % (39.0-53.0); HEMOGLOBIN 6.8 g/dL (13.0-17.5)
[2021-07-07 09:06] LABS: PROTHROMBIN TIME PATIENT 28.1 SEC (11.7-14.0)
--- NOTE | 2021-07-07 09:13 | NUR ---
Lab called to notify about patient critical hgb of 6.8 and hct of 20.5. Dr. Nagel was paged and notified about patient result and ordered received to give a unit of blood and consult GI.
[2021-07-07] MEDS: HYDROcodone/APAP 5/325MG 1 TAB TABLET PO PRN ×2 (12:25→20:55)
[2021-07-07] MEDS: ALPRAZolam 0.5 MG TABLET PO PRN (13:15)
--- NOTE | 2021-07-07 13:56 | PDOC2 ---
GI CONSULT Reason For Consult: anemia HPI: HPI: 55 y/o male know to GI service from last admit 06/03/21 Admits Hgb 7.7 and 6.8 today on warfarin for prosthetic valve. receiving PRBCs. Haptoglobin low at <10 on 06/19/2021 Admitted 06/03/21 w/ LLE cellulitis/infected wounds s/p I&D x 2, now w/ wound vac. Hemoccult was positive on 06/15 and we are asked to see today for this. Prior admit Hgb was 9.8 - for comparison, was 11.4 in April and 12.6 in 2017. Hgb drift during admission - lowest 5.8 on 06/15. Has transfused total 4 unit pRBCs. INR was initially 7.2, latest is 1.8. BUN was initially 41, latest is 29. Pt is unaware of bleeding but isn't sure due to limited mobility/staff changing briefs. Nurse reports brown stool and no obvious GI bleeding. Pt does recall some constipation recently (prior to admission) for which he took stool softeners - stool looked dark he thinks, but then returned to normal color. Denies reflux/heartburn, dysphagia (does mention poor dentition), n/v, abd pain, change in appetite, weight loss, diarrhea, or hematochezia. No previous EGD. Colonoscopy for screening by Dr. Gross in 10/2013 showed two polyps in sigmoid colon - biopsy report unavailable for review. Denies GB, liver, pancreas, and PUD history. H/o titanium mitral valve on Warfarin since 2004. Had COVID 04/2021 PMH: PMH: PMH: PMH: HTN, HLD, CHF, PAD, CKD, COVID, endocarditis, depression, UTI, DM, headache, DVT MVR CT from 2017: rectus sheath hematoma, lobulated 4.5 cm mass at the dome of the bladder (benignity is favored due to stability since 2005) FH: Family History: Other (father and brother had "holes in whatever comes after the stomach") Social History: Smoke: No ALCOHOL: none Drugs: None FH: Family History: Other Social History: ALCOHOL: none Drugs: None ROS: GEN: Denies fevers, chills, sweats HEENT: Denies blurred vision, sore throat CV: Denies chest pain RESP: Denies shortness of air, cough GI: Per HPI : Denies hematuria, dysuria ENDO: Denies weight changes NEURO: Denies confusion, dizziness MSK: LLE pain SKIN: Denies jaundice, pruritus VItals: Vitals: Vital Signs Date Time Temp Pulse Resp B/P (MAP) Pulse Ox O2 Delivery O2 Flow Rate FiO2 07/07/21 13:03 97.9 67 18 111/62 97.9 07/07/21 12:57 Room Air 07/07/21 11:00 98 Labs: Labs: Laboratory Tests Test 07/06/21 17:00 07/06/21 20:21 07/07/21 00:50 07/07/21 08:04 Glucose (Fingerstick) 150 mg/dL (70-99) 152 mg/dL (70-99) 155 mg/dL (70-99) Stool Occult Blood Positive (NEG) Test 07/07/21 08:15 07/07/21 11:58 White Blood Count 5.0 x10^3/uL (4.0-11.0) Red Blood Count 2.50 x10^6/uL (4.30-5.70) Hemoglobin 6.8 g/dL (13.0-17.5) Hematocrit 20.5 % (39.0-53.0) Mean Corpuscular Volume 82 fL (79-100) Mean Corpuscular Hemoglobin 27 pg (25-35) Mean Corpuscular Hemoglobin Concent 33 g/dL (31-37) Red Cell Distribution Width 21.7 % (11.5-14.5) Platelet Count 63 x10^3/uL (140-400) Neutrophils (%) (Auto) 75 % (31-73) Lymphocytes (%) (Auto) 11 % (24-48) Monocytes (%) (Auto) 11 % (0-9) Eosinophils (%) (Auto) 2 % (0-3) Basophils (%) (Auto) 1 % (0-3) Neutrophils # (Auto) 3.7 x10^3/uL (1.8-7.7) Lymphocytes # (Auto) 0.6 x10^3/uL (1.0-4.8) Monocytes # (Auto) 0.5 x10^3/uL (0.0-1.1) Eosinophils # (Auto) 0.1 x10^3/uL (0.0-0.7) Basophils # (Auto) 0.0 x10^3/uL (0.0-0.2) Prothrombin Time 28.1 SEC (11.7-14.0) Prothromb Time International Ratio 2.7 (0.8-1.1) Glucose (Fingerstick) 164 mg/dL (70-99) Imaging: Imaging: PATIENT: AVINASH FARIAS ACCOUNT: [id number] : 1965 LOCATION: ER AGE: 56 SEX: M EXAM STATUS: REG ER ORD. PHYSICIAN: APARNA REED DO REASON: wound vac leaking PROCEDURE: TIBIA FIBULA LEFT Exam: Left tibia and fibula 2 views. Left foot 2 views INDICATION: Wound, back leaking TECHNIQUE: Frontal and lateral views of the left tibia and fibula. Frontal and lateral views of the left foot Comparisons: None FINDINGS: Tib-fib: Back is noted along the lateral aspect of the mid calf. Bone mineralization is normal. No acute or healed fractures. Joint spaces are well-maintained. Foot: Diffuse osteopenia. No acute or healed fractures. Soft tissues are unremarkable. Joint spaces are well-maintained. IMPRESSION: 1. No acute osseous abnormality of the left tibia and fibula. 2. No acute osseous abdomen the of the left foot Electronically signed by: Gina Fournier MD (07/03/2021 7:05 PM) [facility] DICTATED and SIGNED BY: GINA FOURNIER MD DATE: 07/03/21 [id number] PE: GEN: NAD HEENT: Atraumatic, PERRLA LUNGS: CTAB HEART: RRR, ABD: NABS, S/ND/NT, no masses EXTREMITY: wound vac in place SKIN: No rashes, no jaundice A/P: A/P: A&P 1) Anemia: Agree with PRBCs. haptoglubin low on last admit \\/ hemolysis with valve?. favor hold coumadin if okay with cardiology and cont PPI. Will add gtts and monitor Hgb. May need EGD pending response to PRBCs JOANNE ARANGO MD Jul 07, 2021 13:56
[2021-07-07] MEDS: PANTOPRAZOLE SODIUM IV DRIP 80 MG in IV NORMAL SALINE 100ML 100 ML IV SCH ×2 (15:27→22:38)
[2021-07-07 17:48] LABS: HEMATOCRIT 24.3 % (39.0-53.0); HEMOGLOBIN 8.1 g/dL (13.0-17.5)
[2021-07-08 03:00] VITALS: BP 122/66
[2021-07-08] MEDS: ALPRAZolam 0.5 MG TABLET PO PRN ×3 (05:17→22:57)
[2021-07-08 07:00] VITALS: BP 136/76
--- NOTE | 2021-07-08 07:38 | PN ---
DATE: 07/08/2021 LOCATION: He is in room 414. SUBJECTIVE: This 56-year-old white male remains hospitalized, left leg wounds with infection, status post debridement with wound VACs on, on ongoing antibiotics. He received transfusion yesterday, once again has heme-positive stools with GI evaluation pending. Platelet counts remain low, but seem to be inching back up. He did not get therapy with being Thursday yesterday, but is ready to go today. OBJECTIVE: VITAL SIGNS: Stable. He is afebrile. GENERAL: He is awake and alert. CHEST: Clear. HEART: Regular. ABDOMEN: Benign. EXTREMITIES: Wound VAC in place with therapy ongoing. IMPRESSION: 1. Left leg wounds. 2. Diabetes. 3. Prosthetic aortic valve, on warfarin. 4. Weakness and inability to do self care. 5. Anemia. 6. Diabetes with good control. PLAN: Continue wound care and intensive therapy to try to get him able for discharge to home where family can help. We will repeat a CBC in the morning, otherwise same and await GI's thoughts. DOMINIC DR: Ivette TID: [id number]
--- NOTE | 2021-07-08 08:17 | PDOC ---
Infectious Disease Note Subjective Subjective pt is feeling good ROS ROS No nausea vomiting diarrhea Vital Sign Vital Signs Vital Signs Date Time Temp Pulse Resp B/P (MAP) Pulse Ox O2 Delivery O2 Flow Rate FiO2 07/08/21 03:00 98.2 80 18 122/66 (84) 96 Room Air 98.2 Physical Exam PHYSICAL EXAM GENERAL: Alert, oriented gentleman, not in distress. HEENT: Both pupils are round and reacting. No conjunctival lesion. No lesion in the mouth. NECK: Supple. No JVP, no lymphadenopathy. LUNGS: Clear. HEART: S1, S2 regular. ABDOMEN: Soft, nontender, no organomegaly. EXTREMITIES: Postsurgical dressing taken down by wound care team nurse last week Wounds appear clean. Tendon exposure on dorsal foot wound. Deep wounds in leg. Muscle exposure. No gross purulence noted. Clean base. Edema + NEUROLOGIC: The patient is alert, awake, appropriate. No focal neurologic deficit. Right upper extremity PICC line clean Labs Lab Laboratory Tests Test 07/07/21 11:58 07/07/21 16:47 07/07/21 17:20 07/07/21 20:53 Glucose (Fingerstick) 164 mg/dL (70-99) 166 mg/dL (70-99) 152 mg/dL (70-99) Hemoglobin 8.1 g/dL (13.0-17.5) Hematocrit 24.3 % (39.0-53.0) Mean Corpuscular Hemoglobin Concent 33 g/dL (31-37) Test 07/08/21 07:55 Glucose (Fingerstick) 182 mg/dL (70-99) Micro Microbiology 07/03/21 Blood Culture - Preliminary, Resulted NO GROWTH AFTER 1 DAY Objective Assessment 1. Left leg cellulitis. 2. Extensive LLE infection Left leg infected wounds on the second toe and the lateral foot. Status post extensive I&D x 2 3. Leukocytosis.improving 4. Chronic venous insufficiency and stasis dermatitis. 5. Morbid obesity. 6. Diabetes mellitus. 7. Renal insufficiency. 8. Hypertension. Anemia s/p transfusion Thrombocytopenia, coagulopathy,low haptoglobin FOB + Cultures positive for group B strep Plan Plan of Care Continue p.o. Augmentin did discuss with the wound care nurses wounds looking good VAC is in place PT OT intermediate placement DUANE ASKEW MD Jul 08, 2021 08:17
[2021-07-08] MEDS: POTASSIUM CHLORIDE 10 MEQ TABLET.ER. PO SCH (08:59)
[2021-07-08] MEDS: PIOGLITAZONE 15 MG TABLET. PO SCH (08:59)
[2021-07-08] MEDS: ALLOPURINOL 300 MG TABLET. PO SCH (08:59)
[2021-07-08] MEDS: FUROSEMIDE 20 MG TABLET PO SCH (08:59)
[2021-07-08] MEDS: SACUBITRIL/VALSARTAN 49/51MG TABLET. PO SCH ×2 (08:59→21:12)
[2021-07-08] MEDS: AMOXICILLIN/K CLAV 875/125MG TABLET. PO SCH ×2 (08:59→21:11)
[2021-07-08] MEDS: LACTOBACILLUS RHAMNOSUS GG 1 CAPSULE. PO SCH ×2 (09:00→21:11)
--- NOTE | 2021-07-08 09:56 | NUR ---
SW following. Discussed with RN, pt from home with family, room air, ada diet. Pt will discharge home with self care when medically stable. Has been provided all resources to get to outpatient appointments. Med Assist following for self pay status. SW will continue to follow.
[2021-07-08 11:00] VITALS: BP 124/70
[2021-07-08] MEDS: PANTOPRAZOLE SODIUM IV DRIP 80 MG in IV NORMAL SALINE 100ML 100 ML IV SCH ×2 (11:04→21:11)
[2021-07-08] MEDS: IV NORMAL SALINE 1000ML BAG 1,000 ML IV SCH ×2 (11:04→23:15)
--- NOTE | 2021-07-08 12:30 | PDOC ---
Date of Service: DATE: 07/08/21 TIME: 12:18 Subjective: Subjective: Denies GI complaints, denies bleeding "but I never look." Tolerating diet. Wants to know what else could cause anemia. Objective: Objective: Stool without obvious blood per staff. On PPI drip and regular diet. Reviewed labs/notes from recent admission. Hematology consult 06/25/21 and f/u 07/01/21: Normocytic anemia, improved Thrombocytopenia, stable Left lower extremity cellulitis Type 2 diabetes Chronic kidney disease Hyperlipidemia Mitral valve replacement with mechanical valve Plan of Care -Reviewed results of recently obtained work-up. HIT antibody was negative, LDH being low suggests against hemolytic anemia, SPEP and free light chains do not indicate plasma cell dyscrasia -Suspect thrombocytopenia is related to Zosyn with potential contribution from ongoing infection. Will anticipate improvement in the next 2 to 3 days following discontinuation of Zosyn -Given acute onset of thrombocytopenia during current hospital stay, would recommend repeating CBC 1 to 2 weeks from now and considering bone marrow biopsy at the time -Anemia is likely multifactorial and secondary to acute illness, superimposed chronic kidney disease, bleeding from wound VAC and surgical procedures -Management of antibiotics per infectious disease service -Rest per Dr. Nagel. Will arrange hematology follow-up in 1 to 2 weeks Vital Signs: Vital Signs Date Time Temp Pulse Resp B/P (MAP) Pulse Ox O2 Delivery O2 Flow Rate FiO2 07/08/21 11:00 97.4 56 22 124/70 (88) 98 Room Air 97.4 Labs: Laboratory Tests Test 07/07/21 16:47 07/07/21 17:20 07/07/21 20:53 07/08/21 07:55 Glucose (Fingerstick) 166 mg/dL 152 mg/dL 182 mg/dL Hemoglobin 8.1 g/dL Hematocrit 24.3 % Mean Corpuscular Hemoglobin Concent 33 g/dL Test 07/08/21 11:12 Glucose (Fingerstick) 200 mg/dL PE: GEN: appears chronically ill LUNGS: CTAB HEART: RR - note tachycardic x 2 on recent vitals ABD: large, soft, non-tender NEURO/PSYCH: A & O 3 A/P: LLE cellulitis/infected wounds s/p I&Ds S/p MVR, anti-coagulated w/ Coumadin (INR 2.7) Anemia, thrombocytopenia, h/o low haptoglobin - recent hematology recs as above, consideration for bone marrow biopsy - requiring pRBCs CRC screen - colonoscopy in 2014 w/ hyperplastic polyps -- Agree w/ PPI - consider changing to PO since eating. Previously did not recommend inpatient 'scopes, will review this w/ Dr. Costello. Justicifation of Admission Dx: Justifications for Admission: Justification of Admission Dx: Yes DONALD LU Jul 08, 2021 12:30
[2021-07-08] MEDS: HYDROcodone/APAP 5/325MG 1 TAB TABLET PO PRN ×2 (14:01→21:19)
[2021-07-08] MEDS: WARFARIN 2.5 MG TABLET. PO SCH (14:02)
[2021-07-08 15:00] VITALS: BP 138/66
--- NOTE | 2021-07-08 15:58 | NUR ---
Wound/Ostomy Care Wound Type/Assessment: Wound care follow up for multiple leg wounds s/p I&D by vascular on previous hospitalization.. See wound assessment for further details. All wounds cleansed, assessed, and measured and pictured. Lef. The left anterior segura blister has now resolved. Pt was found to be very edematous throughout today compare to last time he was assessed by wound care. Left medial leg wound has copious serous drainage. The coccyx/right buttock areas continue to be epithelized, calazime cream applied for protection. Treatment Recommendations/Plan: Left lateral thigh, left anterior ankle, left lateral foot wounds were y-connected with left medial wound vac. Skin prepped to periwounds, all wounds have one piece of jefferson foam to wound bed, two track pads used, good seal maintained at 150mmHg continuous. Left 2nd toe: contact layer and bandaid Education provided: Patient educated on wound care and wound vac therapy and PU prevention. Offloading surface/device: Patient encouraged to call nursing stafff to help him turn as his edema has increased and pt is having difficulty turning on his own. Recommended Referrals/Tests: N/A Discharge Recommendations for dressings: Wound care will follow up for all dressing changes on 07/11. No other wounds noted. Bed lowered and call light in reach.
[2021-07-08 19:00] VITALS: BP 101/54
[2021-07-08 23:00] VITALS: BP 133/70
[2021-07-09 03:00] VITALS: BP 105/55
[2021-07-09 05:48] LABS: BASO # 0.1 x10^3/uL (0.0-0.2); BASO % 1 % (0-3); EOS # 0.2 x10^3/uL (0.0-0.7); EOS % 2 % (0-3); HEMATOCRIT 21.9 % (39.0-53.0); HEMOGLOBIN 7.2 g/dL (13.0-17.5); LYMPH # 1.1 x10^3/uL (1.0-4.8); LYMPH % 11 % (24-48); MEAN CORPUSCULAR HEMOGLOBIN 27 pg (25-35); MEAN CORPUSCULAR HGB CONC 33 g/dL (31-37); MEAN CORPUSCULAR VOLUME 82 fL (79-100); MONO # 0.9 x10^3/uL (0.0-1.1); MONO % 9 % (0-9); NEUT # 7.7 x10^3/uL (1.8-7.7); NEUT % 77 % (31-73); PLATELET COUNT 91 x10^3/uL (140-400); RED BLOOD COUNT 2.65 x10^6/uL (4.30-5.70); RED CELL DISTRIBUTION WIDTH 21.7 % (11.5-14.5)
[2021-07-09] MEDS: PANTOPRAZOLE SODIUM IV DRIP 80 MG in IV NORMAL SALINE 100ML 100 ML IV SCH (06:00)
[2021-07-09 07:00] VITALS: BP 140/68
[2021-07-09] MEDS: SACUBITRIL/VALSARTAN 49/51MG TABLET. PO SCH ×2 (08:24→20:18)
[2021-07-09] MEDS: POTASSIUM CHLORIDE 10 MEQ TABLET.ER. PO SCH (08:24)
[2021-07-09] MEDS: PIOGLITAZONE 15 MG TABLET. PO SCH (08:24)
[2021-07-09] MEDS: FUROSEMIDE 20 MG TABLET PO SCH (08:25)
[2021-07-09] MEDS: AMOXICILLIN/K CLAV 875/125MG TABLET. PO SCH ×2 (08:25→20:18)
[2021-07-09] MEDS: ALLOPURINOL 300 MG TABLET. PO SCH (08:25)
[2021-07-09] MEDS: LACTOBACILLUS RHAMNOSUS GG 1 CAPSULE. PO SCH ×2 (08:25→20:18)
--- NOTE | 2021-07-09 08:51 | PDOC2 ---
CONSULT Date of Consult Date of Consult DATE: 07/09/21 TIME: 08:40 Reason for Consult Reason for Consult: Anemia and thrombocytopenia Referring Physician Referring Physician: Dr. Nagel Identification/Chief Complaint Chief Complaint Weakness Source Source: Chart review, Patient History of Present Illness Reason for Visit: Tim Barreto is a 56-year-old male with history of valvular heart disease status post mitral valve replacement in 2004, type 2 diabetes, hyperlipidemia, depression. He presented to the hospital earlier this month with left leg pain and swelling. Stated this developed shortly after his hospitalization for Covid. He was found to have left leg cellulitis with abscess. Cultures have grown Streptococcus. He received incision and drainage for abscess and placement of wound VAC. Infectious disease service has been consulted for management of cellulitis. He was started on Zosyn on 06/05/2021 and blood and wound cultures were drawn. Zosyn was discontinued later during the hospitalization. He was subsequently discharged after improvement in clinical status His hospital course has been complicated by worsened anemia and new onset thrombocytopenia. CBC obtained in 04/2021 showed normocytic anemia with hemoglobin of 9.8 and normal WBC and platelet count. Admission labs during his hospitalization last month showed normal platelet count, leukocytosis and slightly worsening anemia. CBCs since his hospital stay have shown gradually worsening normocytic anemia and new onset thrombocytopenia. He was seen by hematology during his last hospital stay due to thrombocytopenia with low haptoglobin. Evaluation for hemolytic process was negative given normal LDH, normal bilirubin and lack of schistocytes on peripheral smear. Labs during current hospitalization have continued to show normocytic anemia. Platelets have improved to 91 today. No interval clinical status changes. He has also been seen by GI with plan for outpatient scope Past Medical History Cardiovascular: CHF, HTN, Hyperlipidemia, Other Heme/Onc: Other Renal/: Chronic renal insuff, UTI, Other Endocrine: Diabetes Past Surgical History Past Surgical History: Other Family History Family History: Diabetes, Heart Disease Social History ALCOHOL: none Drugs: None Lives: with Family Current Problem List Problem List Problems Medical Problems: (1) Anemia Status: Acute (2) Cellulitis of left lower extremity Status: Acute (3) Diabetes mellitus Status: Acute (4) Encounter for management of vacuum-assisted closure (VAC) of wound Status: Acute (5) Failure to thrive in adult Status: Acute (6) Generalized weakness Status: Acute (7) Lymphedema of both lower extremities Status: Acute (8) Thrombocytopenia Status: Acute (9) Wound of left foot Status: Acute Current Medications Current Medications Current Medications Amoxicillin/ Clavulanate Potassium (Augmentin 875/ 125mg) 1 tab 1X ONCE PO Last administered on 07/03/21at 21:15; Start 07/03/21 at 21:15; Stop 07/03/21 at 21:16; Status DC Acetaminophen/ Hydrocodone Bitart (Lortab 5/325) 1 tab 1X ONCE PO ; Start 07/03/21 at 22:15; Stop 07/03/21 at 22:16; Status DC Ondansetron HCl (Zofran) 4 mg PRN Q8HRS PRN IVP NAUSEA/VOMITING; Start 07/03/21 at 23:00; Stop 07/04/21 at 22:59; Status DC Amoxicillin/ Clavulanate Potassium (Augmentin 875/ 125mg) 1 tab BID PO Last administered on 07/09/21at 08:25; Start 07/04/21 at 09:00 Acetaminophen/ Hydrocodone Bitart (Lortab 5/325) 1 tab PRN Q4HRS PRN PO PAIN Last administered on 07/08/21at 21:19; Start 07/03/21 at 23:00 Sodium Chloride 1,000 ml @ 75 mls/hr [id number] IV Last administered on 07/08/21at 11:04; Start 07/03/21 at 23:15 Pharmacy Consult (C.diff Med Screen By Rx) 1 each 1X ONCE MC ; Start 07/04/21 at 02:15; Stop 07/04/21 at 02:16; Status Cancel Lactobacillus Rhamnosus (Culturelle) 1 cap BID PO Last administered on 07/09/21at 08:25; Start 07/04/21 at 09:00 Allopurinol (Zyloprim) 300 mg DAILY PO Last administered on 07/09/21at 08:25; Start 07/04/21 at 09:00 Furosemide (Lasix) 20 mg DAILY PO Last administered on 07/09/21at 08:25; Start 07/04/21 at 09:00 Pantoprazole Sodium (Protonix) 40 mg DAILYAC PO Last administered on 07/07/21at 08:19; Start 07/04/21 at 09:00; Stop 07/07/21 at 13:58; Status DC Potassium Chloride (Klor-Con) 10 meq DAILY PO Last administered on 07/09/21at 08:24; Start 07/04/21 at 09:00 Sacubitril/ Valsartan (Entresto 49 Mg-51 Mg) 1 tab BID PO Last administered on 07/09/21at 08:24; Start 07/04/21 at 09:00 Warfarin Sodium (Coumadin) 2.5 mg QMWFSA PO Last administered on 07/08/21at 14:02; Start 07/05/21 at 16:00; Stop 07/09/21 at 07:54; Status DC Pioglitazone HCl (Actos) 45 mg DAILY PO Last administered on 07/09/21at 08:24; Start 07/04/21 at 09:00 Warfarin Sodium (Coumadin Per Physician) 1 each PRN DAILY PRN MC SEE COMMENTS Last administered on 07/08/21at 10:33; Start 07/04/21 at 08:45 Alprazolam (Xanax) 0.5 mg PRN TID PRN PO ANXIETY / AGITATION Last administered on 07/08/21at 22:57; Start 07/04/21 at 21:30 Pantoprazole Sodium 80 mg/ Sodium Chloride 100 ml @ 10 mls/hr Q10H IV Last administered on 07/09/21at 06:00; Start 07/07/21 at 14:00 Warfarin Sodium (Coumadin) 2.5 mg DAILY16 PO ; Start 07/09/21 at 16:00 Active Scripts Active Pantoprazole Sodium (Pantoprazole Sodium) 40 Mg Tablet.dr 40 Mg PO DAILYAC 30 Days Reported Actos (Pioglitazone Hcl) 45 Mg Tablet 45 Mg PO DAILY Klor-Con 10 (Potassium Chloride) 10 Meq Tablet.er 10 Meq PO DAILY Entresto 49 mg-51 mg Tablet (Sacubitril/Valsartan) 1 Each Tablet 1 Each PO BID Allopurinol 300 Mg Tablet 300 Mg PO DAILY Furosemide 20 Mg Tablet 20 Mg PO DAILY Warfarin Sodium 2.5 Mg Tablet 2.5 Mg PO QMWFSA Allergies Allergies: Coded Allergies: No Known Drug Allergies (Unverified , 06/06/21) ROS Review of System Negative unless stated otherwise in interval history Physical Exam Physical Exam Alert and oriented No distress Neck supple Abdomen soft Lungs clear to auscultation Lower extremity wound VAC noted. Vitals VITALS Vital Signs Date Time Temp Pulse Resp B/P (MAP) Pulse Ox O2 Delivery O2 Flow Rate FiO2 07/09/21 08:24 108 140/68 07/09/21 07:00 97.4 18 94 Room Air 97.4 Labs Labs Laboratory Tests Test 07/07/21 11:58 07/07/21 16:47 07/07/21 17:20 07/07/21 20:53 Glucose (Fingerstick) 164 mg/dL (70-99) 166 mg/dL (70-99) 152 mg/dL (70-99) Hemoglobin 8.1 g/dL (13.0-17.5) Hematocrit 24.3 % (39.0-53.0) Mean Corpuscular Hemoglobin Concent 33 g/dL (31-37) Test 07/08/21 07:55 07/08/21 11:12 07/08/21 17:14 07/08/21 20:50 Glucose (Fingerstick) 182 mg/dL (70-99) 200 mg/dL (70-99) 194 mg/dL (70-99) 189 mg/dL (70-99) Test 07/09/21 04:35 07/09/21 07:39 White Blood Count 10.0 x10^3/uL (4.0-11.0) Red Blood Count 2.65 x10^6/uL (4.30-5.70) Hemoglobin 7.2 g/dL (13.0-17.5) Hematocrit 21.9 % (39.0-53.0) Mean Corpuscular Volume 82 fL (79-100) Mean Corpuscular Hemoglobin 27 pg (25-35) Mean Corpuscular Hemoglobin Concent 33 g/dL (31-37) Red Cell Distribution Width 21.7 % (11.5-14.5) Platelet Count 91 x10^3/uL (140-400) Neutrophils (%) (Auto) 77 % (31-73) Lymphocytes (%) (Auto) 11 % (24-48) Monocytes (%) (Auto) 9 % (0-9) Eosinophils (%) (Auto) 2 % (0-3) Basophils (%) (Auto) 1 % (0-3) Neutrophils # (Auto) 7.7 x10^3/uL (1.8-7.7) Lymphocytes # (Auto) 1.1 x10^3/uL (1.0-4.8) Monocytes # (Auto) 0.9 x10^3/uL (0.0-1.1) Eosinophils # (Auto) 0.2 x10^3/uL (0.0-0.7) Basophils # (Auto) 0.1 x10^3/uL (0.0-0.2) Prothrombin Time 23.0 SEC (11.7-14.0) Prothromb Time International Ratio 2.1 (0.8-1.1) Glucose (Fingerstick) 172 mg/dL (70-99) Laboratory Tests Test 07/08/21 11:12 07/08/21 17:14 07/08/21 20:50 07/09/21 04:35 Glucose (Fingerstick) 200 mg/dL (70-99) 194 mg/dL (70-99) 189 mg/dL (70-99) White Blood Count 10.0 x10^3/uL (4.0-11.0) Red Blood Count 2.65 x10^6/uL (4.30-5.70) Hemoglobin 7.2 g/dL (13.0-17.5) Hematocrit 21.9 % (39.0-53.0) Mean Corpuscular Volume 82 fL (79-100) Mean Corpuscular Hemoglobin 27 pg (25-35) Mean Corpuscular Hemoglobin Concent 33 g/dL (31-37) Red Cell Distribution Width 21.7 % (11.5-14.5) Platelet Count 91 x10^3/uL (140-400) Neutrophils (%) (Auto) 77 % (31-73) Lymphocytes (%) (Auto) 11 % (24-48) Monocytes (%) (Auto) 9 % (0-9) Eosinophils (%) (Auto) 2 % (0-3) Basophils (%) (Auto) 1 % (0-3) Neutrophils # (Auto) 7.7 x10^3/uL (1.8-7.7) Lymphocytes # (Auto) 1.1 x10^3/uL (1.0-4.8) Monocytes # (Auto) 0.9 x10^3/uL (0.0-1.1) Eosinophils # (Auto) 0.2 x10^3/uL (0.0-0.7) Basophils # (Auto) 0.1 x10^3/uL (0.0-0.2) Prothrombin Time 23.0 SEC (11.7-14.0) Prothromb Time International Ratio 2.1 (0.8-1.1) Test 07/09/21 07:39 Glucose (Fingerstick) 172 mg/dL (70-99) Assessment/Plan Assessment/Plan Assessment: Normocytic anemia Thrombocytopenia, improving Left lower extremity cellulitis Type 2 diabetes Chronic kidney disease Hyperlipidemia Mitral valve replacement with mechanical valve Recommendations: -Previously evaluated anemia. It is likely multifactorial and secondary to acute illness, superimposed chronic kidney disease, bleeding from wound VAC and surgical procedures. Given baseline hemoglobin of 11.4 in April 2021, suspicion for hematologic malignancy contributing to anemia is low but given transfusion requirements recently, reasonable to exclude. We will therefore obtain bone marrow biopsy -Noted improving thrombocytopenia reactive to ongoing sepsis versus Zosyn related thrombocytopenia. This was previously evaluated with HIT antibody (negative), hemolytic anemia work-up (low LDH) and SPEP/FLC (normal) -Check CBC daily. Transfuse as needed to maintain hemoglobin over 7 and platelets above 10 -Defer to GI regarding endoscopic evaluation. Can be obtained outpatient -Management of antibiotics per infectious disease service -Rest per Dr. Nagel. Will arrange hematology follow-up in 1 to 2 weeks CARLA LEW MD Jul 09, 2021 08:51
--- NOTE | 2021-07-09 09:08 | PN ---
DAILY PROGRESS NOTE LOCATION: He is in room 414. SUBJECTIVE: This is a 56-year-old male remains hospitalized with left leg wound with infection, status post debridement with wound VACs ongoing and ongoing antibiotics. He received another transfusion 2 days ago with hemoglobin up to 8.1 yesterday and is down to 7.2 this morning. GI is seeing him for heme-positive stool. Platelet count has rebounded up to 91,000 this morning. His wound VAC was leaking some yesterday, so he did not receive therapy. It is imperative to get therapy as if he is not getting therapy, he will sit here for God knows how long. OBJECTIVE: VITAL SIGNS: Stable. He is afebrile. GENERAL: He is awake and alert. CHEST: Clear. HEART: Regular. ABDOMEN: Benign. EXTREMITIES: Wound VAC in place. Sugars are good. IMPRESSION: 1. Left leg wounds, diabetes, prosthetic aortic valve, on warfarin with INR of 2.1 this morning. We will increase to 2.5 daily. 2. Weakness and inability to do self care. 3. Anemia. 4. Thrombocytopenia. 5. Diabetes with good control. PLAN: Continue present wound care, antibiotics intensive therapy. GI did decide on endoscopy. Continue to follow CBCs. RAJAN/SEA DR: Ivette TID: [id number]
--- NOTE | 2021-07-09 09:19 | PDOC ---
Infectious Disease Note Subjective Subjective pt is feeling good ROS ROS No nausea vomiting diarrhea Vital Sign Vital Signs Vital Signs Date Time Temp Pulse Resp B/P (MAP) Pulse Ox O2 Delivery O2 Flow Rate FiO2 07/09/21 08:24 108 140/68 07/09/21 07:00 97.4 18 94 Room Air 97.4 Physical Exam PHYSICAL EXAM GENERAL: Alert, oriented gentleman, not in distress. HEENT: Both pupils are round and reacting. No conjunctival lesion. No lesion in the mouth. NECK: Supple. No JVP, no lymphadenopathy. LUNGS: Clear. HEART: S1, S2 regular. ABDOMEN: Soft, nontender, no organomegaly. EXTREMITIES: Postsurgical dressing taken down by wound care team nurse last week Wounds appear clean. Tendon exposure on dorsal foot wound. Deep wounds in leg. Muscle exposure. No gross purulence noted. Clean base. Edema + NEUROLOGIC: The patient is alert, awake, appropriate. No focal neurologic deficit. Right upper extremity PICC line clean Labs Lab Laboratory Tests Test 07/08/21 11:12 07/08/21 17:14 07/08/21 20:50 07/09/21 04:35 Glucose (Fingerstick) 200 mg/dL (70-99) 194 mg/dL (70-99) 189 mg/dL (70-99) White Blood Count 10.0 x10^3/uL (4.0-11.0) Red Blood Count 2.65 x10^6/uL (4.30-5.70) Hemoglobin 7.2 g/dL (13.0-17.5) Hematocrit 21.9 % (39.0-53.0) Mean Corpuscular Volume 82 fL (79-100) Mean Corpuscular Hemoglobin 27 pg (25-35) Mean Corpuscular Hemoglobin Concent 33 g/dL (31-37) Red Cell Distribution Width 21.7 % (11.5-14.5) Platelet Count 91 x10^3/uL (140-400) Neutrophils (%) (Auto) 77 % (31-73) Lymphocytes (%) (Auto) 11 % (24-48) Monocytes (%) (Auto) 9 % (0-9) Eosinophils (%) (Auto) 2 % (0-3) Basophils (%) (Auto) 1 % (0-3) Neutrophils # (Auto) 7.7 x10^3/uL (1.8-7.7) Lymphocytes # (Auto) 1.1 x10^3/uL (1.0-4.8) Monocytes # (Auto) 0.9 x10^3/uL (0.0-1.1) Eosinophils # (Auto) 0.2 x10^3/uL (0.0-0.7) Basophils # (Auto) 0.1 x10^3/uL (0.0-0.2) Prothrombin Time 23.0 SEC (11.7-14.0) Prothromb Time International Ratio 2.1 (0.8-1.1) Test 07/09/21 07:39 Glucose (Fingerstick) 172 mg/dL (70-99) Micro Microbiology 07/03/21 Blood Culture - Preliminary, Resulted NO GROWTH AFTER 1 DAY Objective Assessment 1. Left leg cellulitis. 2. Extensive LLE infection Left leg infected wounds on the second toe and the lateral foot. Status post extensive I&D x 2 3. Leukocytosis.improving 4. Chronic venous insufficiency and stasis dermatitis. 5. Morbid obesity. 6. Diabetes mellitus. 7. Renal insufficiency. 8. Hypertension. Anemia s/p transfusion Thrombocytopenia, coagulopathy,low haptoglobin FOB + Cultures positive for group B strep Plan Plan of Care Continue p.o. Augmentin did discuss with the wound care nurses wounds looking good VAC is in place PT OT [facility] placement DUANE ASKEW MD Jul 09, 2021 09:19
[2021-07-09 09:49] LABS: % BANDS 15 % (0-9); % BASOS 1 % (0-3); % LYMPHS 13 % (24-48); % METAS 1 % (0-0); % MONOS 7 % (0-10); % MYELOS 1 % (0-0); % SEGS 62 % (35-66); NUCLEATED RBC 1; PLT ESTIMATE DECREASED (ADEQUATE); POIKILOCYTOSIS MOD
--- NOTE | 2021-07-09 10:43 | PDOC ---
Date of Service: DATE: 07/09/21 TIME: 10:37 Subjective: Subjective: No GI complaints. "They say I have blood in my stool but I don't know." Objective: Objective: No obvious bleeding per nurse. Hematology has revisited this admission - plans for bone marrow biopsy. Vital Signs: Vital Signs Date Time Temp Pulse Resp B/P (MAP) Pulse Ox O2 Delivery O2 Flow Rate FiO2 07/09/21 08:24 108 140/68 07/09/21 07:00 97.4 18 94 Room Air 97.4 Labs: Laboratory Tests Test 07/08/21 11:12 07/08/21 17:14 07/08/21 20:50 07/09/21 04:35 Glucose (Fingerstick) 200 mg/dL 194 mg/dL 189 mg/dL White Blood Count 10.0 x10^3/uL Red Blood Count 2.65 x10^6/uL Hemoglobin 7.2 g/dL Hematocrit 21.9 % Mean Corpuscular Volume 82 fL Mean Corpuscular Hemoglobin 27 pg Mean Corpuscular Hemoglobin Concent 33 g/dL Red Cell Distribution Width 21.7 % Platelet Count 91 x10^3/uL Neutrophils (%) (Auto) 77 % Lymphocytes (%) (Auto) 11 % Monocytes (%) (Auto) 9 % Eosinophils (%) (Auto) 2 % Basophils (%) (Auto) 1 % Neutrophils # (Auto) 7.7 x10^3/uL Lymphocytes # (Auto) 1.1 x10^3/uL Monocytes # (Auto) 0.9 x10^3/uL Eosinophils # (Auto) 0.2 x10^3/uL Basophils # (Auto) 0.1 x10^3/uL Segmented Neutrophils % 62 % Band Neutrophils % 15 % Lymphocytes % 13 % Monocytes % 7 % Basophils % 1 % Metamyelocytes % 1 % Myelocytes % 1 % Nucleated Red Blood Cells 1 Platelet Estimate Decreased Giant Platelets Occ Poikilocytosis Mod Prothrombin Time 23.0 SEC Prothromb Time International Ratio 2.1 Test 07/09/21 07:39 Glucose (Fingerstick) 172 mg/dL PE: GEN: NAD - sitting on edge of bed w/ breakfast tray HEART: borderline tachycardic ABD: large/obese, non-tender EXTREMITY/SKIN: LLE w/ wound vac NEURO/PSYCH: A & O 3 A/P: LLE wound S/p MVR, anti-coagulated w/ Coumadin (INR 2.1) Anemia, thrombocytopenia - Hgb drift 8.1 on 07/07 to 7.2 on 07/09 ?CKD -- Discussed w/ Dr. Costello this morning - no plans for inpatient scopes at this time. Change to PO PPI, await bone marrow biopsy. Justicifation of Admission Dx: Justifications for Admission: Justification of Admission Dx: Yes DONALD LU Jul 09, 2021 10:43
[2021-07-09 11:00] VITALS: BP 121/62
--- NOTE | 2021-07-09 11:10 | NUR ---
Vascular lab called today for patient to have IR procedure done tomorrow and need patient to be NPO at midnight and hold patient warfarin for today because IR doctor want to hold it to do bone marrow biopsy tomorrow. Dr. Nagel was paged and notified about the message and he was okay with holding the warfarin for today.
[2021-07-09] MEDS: PANTOPRAZOLE 40 MG TABLET.DR. PO SCH (12:48)
[2021-07-09] MEDS: IV NORMAL SALINE 1000ML BAG 1,000 ML IV SCH (12:49)
[2021-07-09 15:00] VITALS: BP 125/73
[2021-07-09] MEDS ORDERED: WARFARIN 2.5 MG TABLET. PO SCH (16:00)
[2021-07-09 19:00] VITALS: BP 138/67
[2021-07-09] MEDS: ALPRAZolam 0.5 MG TABLET PO PRN (20:18)
[2021-07-09] MEDS: HYDROcodone/APAP 5/325MG 1 TAB TABLET PO PRN (21:00)
[2021-07-09 23:00] VITALS: BP 111/71
[2021-07-10] MEDS: IV NORMAL SALINE 1000ML BAG 1,000 ML IV SCH ×2 (01:55→15:15)
[2021-07-10 03:00] VITALS: BP 131/80
[2021-07-10 05:40] LABS: BASO # 0.1 x10^3/uL (0.0-0.2); BASO % 1 % (0-3); EOS # 0.2 x10^3/uL (0.0-0.7); EOS % 2 % (0-3); HEMATOCRIT 23.1 % (39.0-53.0); HEMOGLOBIN 7.6 g/dL (13.0-17.5); LYMPH # 1.4 x10^3/uL (1.0-4.8); LYMPH % 13 % (24-48); MEAN CORPUSCULAR HEMOGLOBIN 27 pg (25-35); MEAN CORPUSCULAR HGB CONC 33 g/dL (31-37); MEAN CORPUSCULAR VOLUME 83 fL (79-100); MONO # 0.8 x10^3/uL (0.0-1.1); MONO % 8 % (0-9); NEUT # 7.8 x10^3/uL (1.8-7.7); NEUT % 76 % (31-73); PLATELET COUNT 116 x10^3/uL (140-400); RED BLOOD COUNT 2.79 x10^6/uL (4.30-5.70); RED CELL DISTRIBUTION WIDTH 22.1 % (11.5-14.5); WHITE BLOOD COUNT 10.3 x10^3/uL (4.0-11.0)
[2021-07-10 07:00] VITALS: BP 128/69
--- NOTE | 2021-07-10 07:11 | PDOC ---
Infectious Disease Note Subjective Subjective pt is feeling good ROS ROS No nausea vomiting diarrhea Vital Sign Vital Signs Vital Signs Date Time Temp Pulse Resp B/P (MAP) Pulse Ox O2 Delivery O2 Flow Rate FiO2 07/10/21 03:00 98.1 81 20 131/80 (97) 96 Room Air 98.1 Physical Exam PHYSICAL EXAM GENERAL: Alert, oriented gentleman, not in distress. HEENT: Both pupils are round and reacting. No conjunctival lesion. No lesion in the mouth. NECK: Supple. No JVP, no lymphadenopathy. LUNGS: Clear. HEART: S1, S2 regular. ABDOMEN: Soft, nontender, no organomegaly. EXTREMITIES: Postsurgical dressing taken down by wound care team nurse last week Wounds appear clean. Tendon exposure on dorsal foot wound. Deep wounds in leg. Muscle exposure. No gross purulence noted. Clean base. Edema + NEUROLOGIC: The patient is alert, awake, appropriate. No focal neurologic deficit. Right upper extremity PICC line clean Labs Lab Laboratory Tests Test 07/09/21 07:39 07/09/21 11:43 07/09/21 17:12 07/09/21 20:57 Glucose (Fingerstick) 172 mg/dL (70-99) 175 mg/dL (70-99) 173 mg/dL (70-99) 207 mg/dL (70-99) Test 07/10/21 04:30 White Blood Count 10.3 x10^3/uL (4.0-11.0) Red Blood Count 2.79 x10^6/uL (4.30-5.70) Hemoglobin 7.6 g/dL (13.0-17.5) Hematocrit 23.1 % (39.0-53.0) Mean Corpuscular Volume 83 fL (79-100) Mean Corpuscular Hemoglobin 27 pg (25-35) Mean Corpuscular Hemoglobin Concent 33 g/dL (31-37) Red Cell Distribution Width 22.1 % (11.5-14.5) Platelet Count 116 x10^3/uL (140-400) Neutrophils (%) (Auto) 76 % (31-73) Lymphocytes (%) (Auto) 13 % (24-48) Monocytes (%) (Auto) 8 % (0-9) Eosinophils (%) (Auto) 2 % (0-3) Basophils (%) (Auto) 1 % (0-3) Neutrophils # (Auto) 7.8 x10^3/uL (1.8-7.7) Lymphocytes # (Auto) 1.4 x10^3/uL (1.0-4.8) Monocytes # (Auto) 0.8 x10^3/uL (0.0-1.1) Eosinophils # (Auto) 0.2 x10^3/uL (0.0-0.7) Basophils # (Auto) 0.1 x10^3/uL (0.0-0.2) Micro Microbiology 07/03/21 Blood Culture - Preliminary, Resulted NO GROWTH AFTER 1 DAY Objective Assessment 1. Left leg cellulitis. 2. Extensive LLE infection Left leg infected wounds on the second toe and the lateral foot. Status post extensive I&D x 2 3. Leukocytosis.improving 4. Chronic venous insufficiency and stasis dermatitis. 5. Morbid obesity. 6. Diabetes mellitus. 7. Renal insufficiency. 8. Hypertension. Anemia s/p transfusion Thrombocytopenia, coagulopathy,low haptoglobin FOB + Cultures positive for group B strep Plan Plan of Care Continue p.o. Augmentin did discuss with the wound care nurses wounds looking good VAC is in place PT OT assisted placement DUANE ASKEW MD Jul 10, 2021 07:11
[2021-07-10] MEDS: LACTOBACILLUS RHAMNOSUS GG 1 CAPSULE. PO SCH ×2 (09:00→20:14)
--- NOTE | 2021-07-10 09:08 | PN ---
DATE: 07/10/2021 LOCATION: He is in room 414. SUBJECTIVE: This 56-year-old male remains hospitalized with left leg wound infection, status post debridement. Wound VACs ongoing, ongoing antibiotics. Received another transfusion for recurrent anemia a couple days ago. Hemoglobin this morning 7.6 and platelets have rebounded up to 116,000. Hematology is planning a bone marrow biopsy today. GI is seeing him and still recommending any endoscopy workup as an outpatient. OBJECTIVE: VITAL SIGNS: Stable. He is afebrile. GENERAL: Awake, alert. CHEST: Clear. HEART: Regular. ABDOMEN: Benign. EXTREMITIES: Wound VAC in place, did walk to the corner of the room with therapy yesterday. LABORATORY DATA: Sugars remain pretty good. ASSESSMENT: 1. Left leg wounds, diabetes, prosthetic aortic valve, on warfarin. 2. Weakness, inability to self care. 3. Recurrent anemia under investigation. 4. Thrombocytopenia, improving. PLAN: Continue wound care, antibiotics, intensive therapy. Bone marrow biopsy today with plans to follow. BRAVO DR: Ivette TID: [id number]
[2021-07-10 09:36] LABS: PROTHROMBIN TIME PATIENT 21.4 SEC (11.7-14.0)
--- NOTE | 2021-07-10 09:46 | PDOC ---
Date of Service: DATE: 07/10/21 TIME: 09:42 Subjective: Subjective: "Could be better." No GI complaints. Going for bone marrow biopsy. Objective: Vital Signs: Vital Signs Date Time Temp Pulse Resp B/P (MAP) Pulse Ox O2 Delivery O2 Flow Rate FiO2 07/10/21 07:00 98.1 62 18 128/69 (88) 93 Room Air 98.1 Labs: Laboratory Tests Test 07/09/21 11:43 07/09/21 17:12 07/09/21 20:57 07/10/21 04:30 Glucose (Fingerstick) 175 mg/dL 173 mg/dL 207 mg/dL White Blood Count 10.3 x10^3/uL Red Blood Count 2.79 x10^6/uL Hemoglobin 7.6 g/dL Hematocrit 23.1 % Mean Corpuscular Volume 83 fL Mean Corpuscular Hemoglobin 27 pg Mean Corpuscular Hemoglobin Concent 33 g/dL Red Cell Distribution Width 22.1 % Platelet Count 116 x10^3/uL Neutrophils (%) (Auto) 76 % Lymphocytes (%) (Auto) 13 % Monocytes (%) (Auto) 8 % Eosinophils (%) (Auto) 2 % Basophils (%) (Auto) 1 % Neutrophils # (Auto) 7.8 x10^3/uL Lymphocytes # (Auto) 1.4 x10^3/uL Monocytes # (Auto) 0.8 x10^3/uL Eosinophils # (Auto) 0.2 x10^3/uL Basophils # (Auto) 0.1 x10^3/uL Test 07/10/21 07:51 07/10/21 09:00 Glucose (Fingerstick) 175 mg/dL Prothrombin Time 21.4 SEC Prothromb Time International Ratio 1.9 PE: GEN: NAD LUNGS: CTAB HEART: RRR ABD: S/ND/NT NEURO/PSYCH: A & O 3 A/P: LLE wound S/p MVR - INR 1.9, Coumadin held per IR/primary Anemia, thrombocytopenia - hematology following -- For bone marrow biopsy today. Continue PPI. Justicifation of Admission Dx: Justifications for Admission: Justification of Admission Dx: Yes DONALD LU Jul 10, 2021 09:46
--- NOTE | 2021-07-10 09:52 | NUR ---
SW following. Discussed with RN, pt from home, room air, ada diet. Pt having a bone marrow biopsy today. Pt will discharge home when medically stable. SW will continue to follow.
[2021-07-10 11:00] VITALS: BP 135/82
[2021-07-10] MEDS: PANTOPRAZOLE 40 MG TABLET.DR. PO SCH (11:36)
[2021-07-10] MEDS: AMOXICILLIN/K CLAV 875/125MG TABLET. PO SCH ×2 (11:36→20:14)
[2021-07-10] MEDS: ALPRAZolam 0.5 MG TABLET PO PRN ×2 (11:36→19:46)
[2021-07-10] MEDS: PIOGLITAZONE 15 MG TABLET. PO SCH (11:36)
[2021-07-10] MEDS: HYDROcodone/APAP 5/325MG 1 TAB TABLET PO PRN ×2 (11:36→19:47)
[2021-07-10] MEDS: POTASSIUM CHLORIDE 10 MEQ TABLET.ER. PO SCH (11:37)
[2021-07-10] MEDS: FUROSEMIDE 20 MG TABLET PO SCH (11:37)
[2021-07-10] MEDS: SACUBITRIL/VALSARTAN 49/51MG TABLET. PO SCH ×2 (11:37→20:15)
[2021-07-10] MEDS: ALLOPURINOL 300 MG TABLET. PO SCH (11:37)
--- NOTE | 2021-07-10 12:06 | NUR ---
Pt transferred to room 572. Report given to TISH Almendarez. Belongings packed and transferred with pt including cell phone, health safety engineer, snacks, clothing and shoes. Pt transferred via bed. Call light within reach.
--- NOTE | 2021-07-10 12:16 | NUR ---
Called and updated Dr. Nagel of lab results and transfer. Received orders for PCR. Called and updated TISH Almendarez.
[2021-07-10 15:20] VITALS: BP 116/65
[2021-07-10] MEDS: WARFARIN 2.5 MG TABLET. PO SCH (16:26)
[2021-07-10 19:00] VITALS: BP 167/80
[2021-07-10 23:00] VITALS: BP 118/70
[2021-07-11 03:00] VITALS: BP 113/86
[2021-07-11] MEDS: IV NORMAL SALINE 1000ML BAG 1,000 ML IV SCH (04:23)
[2021-07-11 06:09] LABS: PROTHROMBIN TIME PATIENT 21.4 SEC (11.7-14.0)
[2021-07-11 07:00] VITALS: BP 104/68
[2021-07-11] MEDS: SACUBITRIL/VALSARTAN 49/51MG TABLET. PO SCH ×2 (08:16→21:50)
[2021-07-11] MEDS: AMOXICILLIN/K CLAV 875/125MG TABLET. PO SCH ×2 (08:17→21:49)
[2021-07-11] MEDS: ALLOPURINOL 300 MG TABLET. PO SCH (08:17)
[2021-07-11] MEDS: PANTOPRAZOLE 40 MG TABLET.DR. PO SCH (08:17)
[2021-07-11] MEDS: PIOGLITAZONE 15 MG TABLET. PO SCH (08:17)
[2021-07-11] MEDS: LACTOBACILLUS RHAMNOSUS GG 1 CAPSULE. PO SCH ×2 (08:17→21:51)
[2021-07-11] MEDS: POTASSIUM CHLORIDE 10 MEQ TABLET.ER. PO SCH (08:17)
[2021-07-11] MEDS: FUROSEMIDE 20 MG TABLET PO SCH (08:18)
[2021-07-11] MEDS: HYDROcodone/APAP 5/325MG 1 TAB TABLET PO PRN ×2 (08:40→21:50)
[2021-07-11] MEDS: ALPRAZolam 0.5 MG TABLET PO PRN ×2 (08:41→21:50)
--- NOTE | 2021-07-11 09:06 | PDOC ---
Infectious Disease Note Subjective Subjective pt is feeling good has done positive for COVID but has no respiratory symptoms ROS ROS No nausea vomiting diarrhea chest pain shortness of breath Vital Sign Vital Signs Vital Signs Date Time Temp Pulse Resp B/P (MAP) Pulse Ox O2 Delivery O2 Flow Rate FiO2 07/11/21 08:40 16 Room Air 07/11/21 08:16 106 104/68 07/11/21 07:00 97.4 93 97.4 Physical Exam PHYSICAL EXAM GENERAL: Alert, oriented gentleman, not in distress. HEENT: Both pupils are round and reacting. No conjunctival lesion. No lesion in the mouth. NECK: Supple. No JVP, no lymphadenopathy. LUNGS: Clear. HEART: S1, S2 regular. ABDOMEN: Soft, nontender, no organomegaly. EXTREMITIES: Postsurgical dressing taken down by wound care team nurse last week Wounds appear clean. Tendon exposure on dorsal foot wound. Deep wounds in leg. Muscle exposure. No gross purulence noted. Clean base. Edema + NEUROLOGIC: The patient is alert, awake, appropriate. No focal neurologic deficit. Right upper extremity PICC line clean Labs Lab Laboratory Tests Test 07/10/21 09:20 07/10/21 17:02 07/10/21 20:07 07/11/21 05:20 SARS-CoV-2 Antigen (Rapid) Positive (NEGATIVE) Glucose (Fingerstick) 185 mg/dL (70-99) 169 mg/dL (70-99) Prothrombin Time 21.4 SEC (11.7-14.0) Prothromb Time International Ratio 1.9 (0.8-1.1) Test 07/11/21 07:37 Glucose (Fingerstick) 158 mg/dL (70-99) Micro Microbiology 07/03/21 Blood Culture - Preliminary, Resulted NO GROWTH AFTER 1 DAY Objective Assessment 1. Left leg cellulitis. 2. Extensive LLE infection Left leg infected wounds on the second toe and the lateral foot. Status post extensive I&D x 2 3. Leukocytosis.improving 4. Chronic venous insufficiency and stasis dermatitis. 5. Morbid obesity. 6. Diabetes mellitus. 7. Renal insufficiency. 8. Hypertension. Anemia s/p transfusion Thrombocytopenia, coagulopathy,low haptoglobin FOB + Cultures positive for group B strep Plan Plan of Care Continue p.o. Augmentin did discuss with the wound care nurses wounds looking good VAC is in place PT OT group home placement Watch closely may not need anything for DUANE YADAV MD Jul 11, 2021 09:05
--- NOTE | 2021-07-11 10:09 | PDOC ---
Date of Service: DATE: 07/11/21 TIME: 10:05 Subjective: Subjective: No complaints, wants to know what I need from him. Objective: Objective: D/w staff - ate 25% of breakfast. Vital Signs: Vital Signs Date Time Temp Pulse Resp B/P (MAP) Pulse Ox O2 Delivery O2 Flow Rate FiO2 07/11/21 08:40 16 Room Air 07/11/21 08:16 106 104/68 07/11/21 07:00 97.4 93 97.4 Labs: Laboratory Tests Test 07/10/21 14:45 07/10/21 17:02 07/10/21 20:07 07/11/21 05:20 SARS-CoV-2 RNA (ANDRIY) Positive Glucose (Fingerstick) 185 mg/dL 169 mg/dL Prothrombin Time 21.4 SEC Prothromb Time International Ratio 1.9 Test 07/11/21 07:37 Glucose (Fingerstick) 158 mg/dL PE: GEN: in isolation - visual exam done LUNGS: room air HEART: mildly tachcyardic per chart ABD: large, non-distended NEURO/PSYCH: A & O 3, flat A/P: LLE wound S/p MVR on Warfarin Anemia, thrombocytopenia - hematology following - labs checked 07/10, stable COVID + again -- Bone marrow biopsy on hold w/ COVID. Continue same per GI, currently no plans for inpt scopes. Justicifation of Admission Dx: Justifications for Admission: Justification of Admission Dx: Yes DONALD LU Jul 11, 2021 10:09
[2021-07-11 10:54] VITALS: BP 120/76
--- NOTE | 2021-07-11 12:07 | NUR ---
Wound/Ostomy Care Wound Type/Assessment: Wound care follow up for multiple leg wounds s/p I&D by vascular done in previous hospitalization.. See wound assessment for further details. All wounds cleansed, assessed and redressed. The left heel and left 2 toe are now healed. Pt appears to be less edematous than on last assessment but is now positive for covid, pt seen using covid precautions. Treatment Recommendations/Plan: Left lateral thigh, left anterior ankle, left lateral foot wounds were y-connected with left medial wound vac. Skin prepped to periwounds, all wounds have one piece of jefferson foam to wound bed, two track pads used, good seal maintained at 150mmHg continuous. Left heel: foam applied for protection. Left 2nd toe: is now healed and left [employer] INTER[employer] Education provided: Patient educated on wound care and wound vac therapy and PU prevention. Offloading surface/device: Patient encouraged to turn q2h to prevent PU Recommended Referrals/Tests: N/A Discharge Recommendations for dressings: Wound care will follow up for all dressing changes on 07/15. No other wounds noted. Bed lowered and call light in reach.
[2021-07-11 15:00] VITALS: BP 120/70
[2021-07-11] MEDS: WARFARIN 2.5 MG TABLET. PO SCH (15:38)
[2021-07-11 19:00] VITALS: BP 110/66
[2021-07-11 23:00] VITALS: BP 105/72
[2021-07-12 03:00] VITALS: BP 91/73
[2021-07-12 07:00] VITALS: BP 132/73
[2021-07-12] MEDS: FUROSEMIDE 20 MG TABLET PO SCH (08:13)
[2021-07-12] MEDS: PIOGLITAZONE 15 MG TABLET. PO SCH (08:14)
[2021-07-12] MEDS: AMOXICILLIN/K CLAV 875/125MG TABLET. PO SCH ×2 (08:14→21:22)
[2021-07-12] MEDS: ALLOPURINOL 300 MG TABLET. PO SCH (08:14)
[2021-07-12] MEDS: LACTOBACILLUS RHAMNOSUS GG 1 CAPSULE. PO SCH ×2 (08:14→21:21)
[2021-07-12] MEDS: SACUBITRIL/VALSARTAN 49/51MG TABLET. PO SCH ×2 (08:14→21:22)
[2021-07-12] MEDS: PANTOPRAZOLE 40 MG TABLET.DR. PO SCH (08:14)
--- NOTE | 2021-07-12 08:14 | PDOC ---
Infectious Disease Note Subjective Subjective pt is feeling good has done positive for COVID but has no respiratory symptoms ROS ROS no n/v/d/sob Vital Sign Vital Signs Vital Signs Date Time Temp Pulse Resp B/P (MAP) Pulse Ox O2 Delivery O2 Flow Rate FiO2 07/12/21 03:00 97.5 56 24 91/73 (79) 97 Room Air 97.5 Physical Exam PHYSICAL EXAM GENERAL: Alert, oriented gentleman, not in distress. HEENT: Both pupils are round and reacting. No conjunctival lesion. No lesion in the mouth. NECK: Supple. No JVP, no lymphadenopathy. LUNGS: Clear. HEART: S1, S2 regular. ABDOMEN: Soft, nontender, no organomegaly. EXTREMITIES: Postsurgical dressing taken down by wound care team nurse last week Wounds appear clean. Tendon exposure on dorsal foot wound. Deep wounds in leg. Muscle exposure. No gross purulence noted. Clean base. Edema + NEUROLOGIC: The patient is alert, awake, appropriate. No focal neurologic deficit. Right upper extremity PICC line clean Labs Lab Laboratory Tests Test 07/11/21 11:22 07/11/21 16:28 07/11/21 20:52 Glucose (Fingerstick) 187 mg/dL (70-99) 160 mg/dL (70-99) 182 mg/dL (70-99) Micro Microbiology 07/03/21 Blood Culture - Preliminary, Resulted NO GROWTH AFTER 1 DAY Objective Assessment 1. Left leg cellulitis. 2. Extensive LLE infection Left leg infected wounds on the second toe and the lateral foot. Status post extensive I&D x 2 3. Leukocytosis.improving 4. Chronic venous insufficiency and stasis dermatitis. 5. Morbid obesity. 6. Diabetes mellitus. 7. Renal insufficiency. 8. Hypertension. Anemia s/p transfusion Thrombocytopenia, coagulopathy,low haptoglobin FOB + Cultures positive for group B strep Plan Plan of Care Continue p.o. Augmentin did discuss with the wound care nurses wounds looking good VAC is in place PT OT [facility] placement Watch closely may not need anything for COVID DUANE ASKEW MD Jul 12, 2021 08:14
[2021-07-12] MEDS: POTASSIUM CHLORIDE 10 MEQ TABLET.ER. PO SCH (08:15)
[2021-07-12 08:16] LABS: BASO % 1 % (0-3); EOS # 0.1 x10^3/uL (0.0-0.7); EOS % 2 % (0-3); HEMATOCRIT 23.4 % (39.0-53.0); HEMOGLOBIN 7.5 g/dL (13.0-17.5); LYMPH # 0.8 x10^3/uL (1.0-4.8); LYMPH % 14 % (24-48); MEAN CORPUSCULAR HEMOGLOBIN 27 pg (25-35); MEAN CORPUSCULAR HGB CONC 32 g/dL (31-37); MEAN CORPUSCULAR VOLUME 84 fL (79-100); MONO # 0.4 x10^3/uL (0.0-1.1); MONO % 7 % (0-9); NEUT # 4.6 x10^3/uL (1.8-7.7); NEUT % 77 % (31-73); PLATELET COUNT 134 x10^3/uL (140-400); RED BLOOD COUNT 2.77 x10^6/uL (4.30-5.70); RED CELL DISTRIBUTION WIDTH 22.6 % (11.5-14.5); WHITE BLOOD COUNT 5.9 x10^3/uL (4.0-11.0)
[2021-07-12 08:30] LABS: CALCIUM 7.8 mg/dL (8.5-10.1); GFR 76.7
[2021-07-12 11:00] VITALS: BP 127/64
--- NOTE | 2021-07-12 11:16 | NUR ---
SW following. Discussed with RN, pt from home with family, will return home when medically stable. COVID-19 positive. SW will continue to follow.
[2021-07-12 15:00] VITALS: BP 123/72
[2021-07-12] MEDS: HYDROcodone/APAP 5/325MG 1 TAB TABLET PO PRN ×2 (16:06→21:30)
[2021-07-12] MEDS: ALPRAZolam 0.5 MG TABLET PO PRN ×2 (16:06→21:30)
[2021-07-12] MEDS: WARFARIN 2.5 MG TABLET. PO SCH (16:06)
[2021-07-12 19:00] VITALS: BP 112/70
[2021-07-12 23:00] VITALS: BP 113/74
--- NOTE | 2021-07-12 23:53 | PN ---
DATE: 07/11/2021 DAILY PROGRESS NOTE LOCATION: He is in room 548. SUBJECTIVE: This 56-year-old male remains hospitalized with left leg wound infection, status post debridement with wound VAC's ongoing as well as ongoing antibiotic therapy. He was supposed to have a bone marrow yesterday, but tested positive for COVID. He was positive about 6-8 weeks ago and hospitalized for the same and I believe this is residual and not active infection. There are no new labs this morning other than sugars that remain good. OBJECTIVE: VITAL SIGNS: Stable. He is afebrile. GENERAL: He is awake, alert, concerned over something new every day and being in the hospital as long as he has. I once again encouraged aggressive therapy to try to get home at some point. CHEST: Clear. HEART: Regular. ABDOMEN: Benign. EXTREMITIES: Wound VAC's remain in place. ASSESSMENT: 1. Left leg wounds, diabetes, prosthetic aortic valve, on warfarin, weakness with inability to do self-care. 2. Recurrent anemia, under investigation. 3. Thrombocytopenia, improving. 4. Now COVID positive. PLAN: Continue antibiotics intensive therapy. Bone marrow biopsy I guess was delayed at this point in time with the COVID, will have to follow along. ROSE/AGUILAR/ABDIRIZAK DR: ROSE/donato TID: [id number]
--- NOTE | 2021-07-13 00:30 | PN ---
DATE: 07/12/2021 LOCATION: He is in room 548. SUBJECTIVE: This 56-year-old male remains hospitalized, left leg wound infection, status post debridement, on antibiotics with wound VAC therapy ongoing. He is profoundly weak with inability to do self care. He reports he did not get therapy yesterday. Morning labs have just been drawn as I saw him and I do not have an idea where his hematological parameters are. He is turned COVID positive and bone marrow biopsy is on hold. OBJECTIVE: VITAL SIGNS: Stable. He is afebrile. GENERAL: He is awake, alert. CHEST: Clear. HEART: Regular. ABDOMEN: Benign. EXTREMITIES: Wound VAC in place. LABORATORY DATA: Sugars are decent. ASSESSMENT: 1. Left leg wounds with wound VAC therapy and antibiotics ongoing. 2. Diabetes with decent control. 3. Prosthetic aortic valve, on warfarin. 4. Weakness, inability to do self care. 5. Recurrent anemia with today's values pending. 6. Thrombocytopenia, improving. PLAN: Continue present care. Discussed with nursing importance of therapy if we are ever going to get him out of here. Also, I have discussed with case management and wrote an order on admission to the effect of the same. UMESH/LORRI DR: Ivette TID: [id number]
[2021-07-13 03:00] VITALS: BP 131/79
[2021-07-13 07:00] VITALS: BP 88/67
[2021-07-13] MEDS: SACUBITRIL/VALSARTAN 49/51MG TABLET. PO SCH ×2 (07:50→20:01)
[2021-07-13] MEDS: FUROSEMIDE 20 MG TABLET PO SCH (07:51)
[2021-07-13] MEDS: PANTOPRAZOLE 40 MG TABLET.DR. PO SCH (08:15)
[2021-07-13] MEDS: POTASSIUM CHLORIDE 10 MEQ TABLET.ER. PO SCH (08:16)
[2021-07-13] MEDS: PIOGLITAZONE 15 MG TABLET. PO SCH (08:16)
[2021-07-13] MEDS: AMOXICILLIN/K CLAV 875/125MG TABLET. PO SCH ×2 (08:16→20:02)
[2021-07-13] MEDS: ALLOPURINOL 300 MG TABLET. PO SCH (08:16)
[2021-07-13] MEDS: LACTOBACILLUS RHAMNOSUS GG 1 CAPSULE. PO SCH ×2 (08:16→20:01)
--- NOTE | 2021-07-13 09:47 | PDOC ---
Infectious Disease Note Subjective Subjective pt is feeling good has done positive for COVID but has no respiratory symptoms Vital Sign Vital Signs Vital Signs Date Time Temp Pulse Resp B/P (MAP) Pulse Ox O2 Delivery O2 Flow Rate FiO2 07/13/21 08:00 Room Air 07/13/21 07:50 104 88/67 07/13/21 07:00 97.3 24 96 97.3 Physical Exam PHYSICAL EXAM GENERAL: Alert, oriented gentleman, not in distress. HEENT: Both pupils are round and reacting. No conjunctival lesion. No lesion in the mouth. NECK: Supple. No JVP, no lymphadenopathy. LUNGS: Clear. HEART: S1, S2 regular. ABDOMEN: Soft, nontender, no organomegaly. EXTREMITIES: Postsurgical dressing taken down by wound care team nurse last week Wounds appear clean. Tendon exposure on dorsal foot wound. Deep wounds in leg. Muscle exposure. No gross purulence noted. Clean base. Edema + NEUROLOGIC: The patient is alert, awake, appropriate. No focal neurologic deficit. Right upper extremity PICC line clean Labs Lab Laboratory Tests Test 07/12/21 11:24 07/12/21 16:30 07/12/21 20:35 07/13/21 07:23 Glucose (Fingerstick) 176 mg/dL (70-99) 167 mg/dL (70-99) 171 mg/dL (70-99) 182 mg/dL (70-99) Micro Microbiology 07/03/21 Blood Culture - Preliminary, Resulted NO GROWTH AFTER 1 DAY Objective Assessment 1. Left leg cellulitis. 2. Extensive LLE infection Left leg infected wounds on the second toe and the lateral foot. Status post extensive I&D x 2 3. Leukocytosis.improving 4. Chronic venous insufficiency and stasis dermatitis. 5. Morbid obesity. 6. Diabetes mellitus. 7. Renal insufficiency. 8. Hypertension. Anemia s/p transfusion Thrombocytopenia, coagulopathy,low haptoglobin FOB + Cultures positive for group B strep Plan Plan of Care Continue p.o. Augmentin did discuss with the wound care nurses wounds looking good VAC is in place PT OT senior living placement Watch closely may not need anything for COVID DUANE ASKEW MD Jul 13, 2021 09:47
[2021-07-13 11:00] VITALS: BP 128/80
[2021-07-13] MEDS: HYDROcodone/APAP 5/325MG 1 TAB TABLET PO PRN ×2 (11:17→20:07)
--- NOTE | 2021-07-13 12:23 | PDOC ---
Provider Note Date of Service: DATE: 07/13/21 TIME: 12:22 Provider Note status same, platelts better off merrem/zyvox, glucose ok, anemia same- cont same care Justifications for Admission Other Justification CHAYITO KING MD Jul 13, 2021 12:23
[2021-07-13 15:00] VITALS: BP 112/67
[2021-07-13] MEDS: WARFARIN 2.5 MG TABLET. PO SCH (15:44)
[2021-07-13 19:00] VITALS: BP 106/65
[2021-07-13] MEDS: ALPRAZolam 0.5 MG TABLET PO PRN (20:01)
[2021-07-13 23:00] VITALS: BP 116/62
[2021-07-14 03:00] VITALS: BP 104/42
[2021-07-14 07:00] VITALS: BP 112/65
[2021-07-14 07:21] LABS: PROTHROMBIN TIME PATIENT 22.3 SEC (11.7-14.0)
[2021-07-14] MEDS: PIOGLITAZONE 15 MG TABLET. PO SCH (08:19)
[2021-07-14] MEDS: PANTOPRAZOLE 40 MG TABLET.DR. PO SCH (08:19)
[2021-07-14] MEDS: AMOXICILLIN/K CLAV 875/125MG TABLET. PO SCH ×2 (08:19→21:57)
[2021-07-14] MEDS: FUROSEMIDE 20 MG TABLET PO SCH (08:19)
[2021-07-14] MEDS: POTASSIUM CHLORIDE 10 MEQ TABLET.ER. PO SCH (08:19)
[2021-07-14] MEDS: LACTOBACILLUS RHAMNOSUS GG 1 CAPSULE. PO SCH ×2 (08:19→21:57)
[2021-07-14] MEDS: ALLOPURINOL 300 MG TABLET. PO SCH (08:19)
[2021-07-14] MEDS: HYDROcodone/APAP 5/325MG 1 TAB TABLET PO PRN ×3 (08:20→22:14)
[2021-07-14] MEDS: ALPRAZolam 0.5 MG TABLET PO PRN ×2 (08:26→16:35)
--- NOTE | 2021-07-14 10:19 | PDOC ---
Provider Note Date of Service: DATE: 07/14/21 TIME: 10:18 Provider Note vss, no temp, glucose control good, no new kabs- seems stable on current meds- cont same Justifications for Admission Other Justification CHAYITO KING MD Jul 14, 2021 10:19
[2021-07-14 10:45] VITALS: BP 122/62
[2021-07-14] MEDS: SACUBITRIL/VALSARTAN 49/51MG TABLET. PO SCH ×2 (10:57→21:57)
[2021-07-14 15:30] VITALS: BP 100/53
[2021-07-14] MEDS: WARFARIN 2.5 MG TABLET. PO SCH (16:33)
[2021-07-14 19:00] VITALS: BP 114/63
[2021-07-14 23:00] VITALS: BP 106/62
[2021-07-15 03:00] VITALS: BP 140/78
[2021-07-15 07:00] VITALS: BP 81/63
[2021-07-15 08:02] LABS: BASO % 0 % (0-3); EOS # 0.2 x10^3/uL (0.0-0.7); EOS % 2 % (0-3); HEMATOCRIT 29.1 % (39.0-53.0); LYMPH # 0.6 x10^3/uL (1.0-4.8); LYMPH % 8 % (24-48); MEAN CORPUSCULAR HEMOGLOBIN 27 pg (25-35); MEAN CORPUSCULAR HGB CONC 31 g/dL (31-37); MEAN CORPUSCULAR VOLUME 88 fL (79-100); MONO # 0.4 x10^3/uL (0.0-1.1); MONO % 5 % (0-9); NEUT # 6.7 x10^3/uL (1.8-7.7); NEUT % 85 % (31-73); PLATELET COUNT 205 x10^3/uL (140-400); RED BLOOD COUNT 3.29 x10^6/uL (4.30-5.70); RED CELL DISTRIBUTION WIDTH 25.5 % (11.5-14.5); WHITE BLOOD COUNT 7.9 x10^3/uL (4.0-11.0)
[2021-07-15] MEDS: LACTOBACILLUS RHAMNOSUS GG 1 CAPSULE. PO SCH ×2 (08:29→19:25)
[2021-07-15] MEDS: POTASSIUM CHLORIDE 10 MEQ TABLET.ER. PO SCH (08:29)
[2021-07-15] MEDS: ALLOPURINOL 300 MG TABLET. PO SCH (08:30)
[2021-07-15] MEDS: PANTOPRAZOLE 40 MG TABLET.DR. PO SCH (08:30)
[2021-07-15] MEDS: PIOGLITAZONE 15 MG TABLET. PO SCH (08:30)
[2021-07-15] MEDS: AMOXICILLIN/K CLAV 875/125MG TABLET. PO SCH ×2 (08:30→19:25)
[2021-07-15 11:00] VITALS: BP 117/77
--- NOTE | 2021-07-15 11:20 | NUR ---
SW following. Discussed with RN, pt will return home when medically ready. COVID-19 positive. SW will continue to follow.
--- NOTE | 2021-07-15 11:43 | PDOC ---
Infectious Disease Note Subjective: Subjective pt is feeling good has done positive for COVID but has no respiratory symptoms Vital Signs: Vital Signs Vital Signs Date Time Temp Pulse Resp B/P (MAP) Pulse Ox O2 Delivery O2 Flow Rate FiO2 07/15/21 08:00 Room Air 07/15/21 07:00 97.8 55 24 81/63 69 93 97.8 Physical Exam: PHYSICAL EXAM GENERAL: Alert, oriented gentleman, not in distress. HEENT: Both pupils are round and reacting. No conjunctival lesion. No lesion in the mouth. NECK: Supple. No JVP, no lymphadenopathy. LUNGS: Clear. HEART: S1, S2 regular. ABDOMEN: Soft, nontender, no organomegaly. EXTREMITIES: Postsurgical dressing taken down by wound care team nurse last week Wounds appear clean. Tendon exposure on dorsal foot wound. Deep wounds in leg. Muscle exposure. No gross purulence noted. Clean base. Edema + NEUROLOGIC: The patient is alert, awake, appropriate. No focal neurologic deficit. Right upper extremity PICC line clean Medications: Inpatient Meds: Medications reviewed. Labs: Lab Laboratory Tests Test 07/14/21 19:27 07/15/21 06:55 07/15/21 07:20 07/15/21 11:22 Glucose (Fingerstick) 183 mg/dL (70-99) 183 mg/dL (70-99) 169 mg/dL (70-99) White Blood Count 7.9 x10^3/uL (4.0-11.0) Red Blood Count 3.29 x10^6/uL (4.30-5.70) Hemoglobin 9.0 g/dL (13.0-17.5) Hematocrit 29.1 % (39.0-53.0) Mean Corpuscular Volume 88 fL (79-100) Mean Corpuscular Hemoglobin 27 pg (25-35) Mean Corpuscular Hemoglobin Concent 31 g/dL (31-37) Red Cell Distribution Width 25.5 % (11.5-14.5) Platelet Count 205 x10^3/uL (140-400) Neutrophils (%) (Auto) 85 % (31-73) Lymphocytes (%) (Auto) 8 % (24-48) Monocytes (%) (Auto) 5 % (0-9) Eosinophils (%) (Auto) 2 % (0-3) Basophils (%) (Auto) 0 % (0-3) Neutrophils # (Auto) 6.7 x10^3/uL (1.8-7.7) Lymphocytes # (Auto) 0.6 x10^3/uL (1.0-4.8) Monocytes # (Auto) 0.4 x10^3/uL (0.0-1.1) Eosinophils # (Auto) 0.2 x10^3/uL (0.0-0.7) Basophils # (Auto) 0.0 x10^3/uL (0.0-0.2) Objective: Assessment: 1. Left leg cellulitis. 2. Extensive LLE infection Left leg infected wounds on the second toe and the lateral foot. Status post extensive I&D x 2 3. Leukocytosis.improving 4. Chronic venous insufficiency and stasis dermatitis. 5. Morbid obesity. 6. Diabetes mellitus. 7. Renal insufficiency. 8. Hypertension. Anemia s/p transfusion Thrombocytopenia, coagulopathy,low haptoglobin FOB + Cultures positive for group B strep Plan: Plan of Care Continue p.o. Augmentin did discuss with the wound care nurses wounds looking good VAC is in place PT OT longterm placement Watch closely may not need anything for LEIGH YADAV MD Jul 15, 2021 11:43
[2021-07-15] MEDS: ALPRAZolam 0.5 MG TABLET PO PRN ×2 (12:06→19:25)
[2021-07-15] MEDS: FUROSEMIDE 20 MG TABLET PO SCH (12:06)
[2021-07-15] MEDS: HYDROcodone/APAP 5/325MG 1 TAB TABLET PO PRN ×2 (12:06→19:26)
[2021-07-15] MEDS: SACUBITRIL/VALSARTAN 49/51MG TABLET. PO SCH ×3 (12:06→20:08)
--- NOTE | 2021-07-15 12:17 | PN ---
DATE: 07/15/2021 DAILY PROGRESS NOTE LOCATION: He is in room 548. SUBJECTIVE: This 56-year-old male remains hospitalized with left leg wound infection, status post debridement, on antibiotics with wound VAC therapy. He remains profoundly weak. However, he is sitting on the side of the bed this morning which is the first time I have seen him do this. Morning labs have been drawn this morning and not available. OBJECTIVE: VITAL SIGNS: Stable. He is afebrile. GENERAL: He is awake, alert, sitting on side of bed. CHEST: Clear. HEART: Regular. ABDOMEN: Benign. EXTREMITIES: Wound VAC in place. LABORATORY DATA: Sugars remain decent. ASSESSMENT: Left leg wounds; diabetes; prosthetic aortic valve, on warfarin; weakness with inability to do self-care, thrombocytopenia, improving; recurrent anemia with today's values pending. PLAN: Continue present, encourage therapy as that is going to be the only way he is able to get home. UMESH/VERONIQUE DR: ROSE/donato TID: [id number]
[2021-07-15 15:00] VITALS: BP 110/63
--- NOTE | 2021-07-15 16:04 | NUR ---
Wound/Ostomy Care Wound Type/Assessment: Wound care follow up for multiple leg wounds s/p I&D by vascular and a right buttock PU stage 3 that has now reopened. See wound assessment for further details. Pt helped to get off bedpan upon arrival, monica-care done. All wounds cleansed, measure and pictured. Pt continues to have edema on scrotum. No other wounds noted on skin assessment. Treatment Recommendations/Plan: Left lateral thigh, left anterior ankle, left lateral foot wounds are y-connected with left medial leg. Skin prepped to periwounds, all wounds have one piece of silver foam, two track pads used, good seal maintained at -150mmHg continuous. Right buttock: cleanse wound, cover with contact layer and foam, turn q2h Education provided: Patient educated on elevating legs, wound vac therapy and PU healing Offloading surface/device: Patient encouraged to turn q2h to prevent PU, pt refused to stay on his side at time of assessment, pt encouraged to turn q2h Recommended Referrals/Tests: N/A Discharge Recommendations for dressings: Wound care will follow up for all dressing changes on 07/18. Bed lowered and call light within reach.
[2021-07-15] MEDS: WARFARIN 2.5 MG TABLET. PO SCH (16:29)
[2021-07-15 19:00] VITALS: BP 102/56
[2021-07-15 23:00] VITALS: BP 119/66
[2021-07-16 03:00] VITALS: BP 93/52
[2021-07-16 03:56] LABS: PROTHROMBIN TIME PATIENT 21.7 SEC (11.7-14.0)
[2021-07-16 07:00] VITALS: BP 156/82
[2021-07-16] MEDS: PIOGLITAZONE 15 MG TABLET. PO SCH (08:28)
[2021-07-16] MEDS: AMOXICILLIN/K CLAV 875/125MG TABLET. PO SCH ×2 (08:28→20:25)
[2021-07-16] MEDS: PANTOPRAZOLE 40 MG TABLET.DR. PO SCH (08:28)
[2021-07-16] MEDS: ALLOPURINOL 300 MG TABLET. PO SCH (08:28)
[2021-07-16] MEDS: POTASSIUM CHLORIDE 10 MEQ TABLET.ER. PO SCH (08:28)
[2021-07-16] MEDS: FUROSEMIDE 20 MG TABLET PO SCH (08:29)
[2021-07-16] MEDS: LACTOBACILLUS RHAMNOSUS GG 1 CAPSULE. PO SCH ×2 (08:29→20:24)
[2021-07-16] MEDS: SACUBITRIL/VALSARTAN 49/51MG TABLET. PO SCH ×2 (08:57→20:25)
--- NOTE | 2021-07-16 09:14 | PDOC ---
Provider Note Date of Service: DATE: 07/16/21 TIME: 09:08 Provider Note Provider Note Vascular Chart reviewed along with wound care notes Patient is under COVID precautions, did not physically examine patient to reduce exposure and wound vac in place and unable to view wounds. 56 year old male who is s/p left leg wound debridement who was discharged home and returned due to weakness. His wounds continue to be clean and healing per notes. Continue wound vac therapy and abx per ID Discharge planning, continue PT/OT to improve strength and ability to return to home. Patient will need to follow up in [facility] Justicifation of Admission Dx: Justifications for Admission: Justification of Admission Dx: Yes ANGEL HERRERA APRN Jul 16, 2021 09:14
--- NOTE | 2021-07-16 09:34 | PDOC ---
Infectious Disease Note Subjective: Subjective Patient without complaints Remains on room air Vital Signs: Vital Signs Vital Signs Date Time Temp Pulse Resp B/P (MAP) Pulse Ox O2 Delivery O2 Flow Rate FiO2 07/16/21 08:57 108 156/82 07/16/21 07:00 97.5 16 96 Room Air 97.5 Physical Exam: PHYSICAL EXAM GENERAL: Alert, oriented gentleman, not in distress. HEENT: Both pupils are round and reacting. No conjunctival lesion. No lesion in the mouth. NECK: Supple. No JVP, no lymphadenopathy. LUNGS: Clear. HEART: S1, S2 regular. ABDOMEN: Soft, nontender, no organomegaly. EXTREMITIES: Postsurgical dressing taken down by wound care team nurse last week Wounds appear clean. Tendon exposure on dorsal foot wound. Deep wounds in leg. Muscle exposure. No gross purulence noted. Clean base. Edema + NEUROLOGIC: The patient is alert, awake, appropriate. No focal neurologic deficit. Right upper extremity PICC line clean Medications: Inpatient Meds: Medications reviewed. Labs: Lab Laboratory Tests Test 07/15/21 11:22 07/15/21 16:42 07/15/21 21:19 07/16/21 02:50 Glucose (Fingerstick) 169 mg/dL (70-99) 188 mg/dL (70-99) 162 mg/dL (70-99) Prothrombin Time 21.7 SEC (11.7-14.0) Prothromb Time International Ratio 1.9 (0.8-1.1) Test 07/16/21 07:58 Glucose (Fingerstick) 150 mg/dL (70-99) Objective: Assessment: 1. Left leg cellulitis. 2. Extensive LLE infection Left leg infected wounds on the second toe and the lateral foot. Status post extensive I&D x 2, wounds are clean and improving 3. Leukocytosis.improving 4. Chronic venous insufficiency and stasis dermatitis. 5. Morbid obesity. 6. Diabetes mellitus. 7. Renal insufficiency. 8. Hypertension. Anemia s/p transfusion Thrombocytopenia, coagulopathy,low haptoglobin FOB + Cultures positive for group B strep COVID positive Plan: Plan of Care Continue p.o. Augmentin, wounds are improving, clean Continue wound/VAC care as directed PT and OT as tolerated Awaiting placement Patient appears stable at this time from COVID-19. Monitor closely Continue supportive care Discussed with LEIGH SNIDER MD Jul 16, 2021 09:34
[2021-07-16 11:00] VITALS: BP 105/49
--- NOTE | 2021-07-16 11:50 | NUR ---
SS following for discharge planning. SS reviewed pt chart and discussed with pt RN. Pt is currently on room air. COVID19 positive. Pt on PO Augmentin. Self pay. Med Assist following. PT recommended home with assistance. SS will continue to follow for discharge planning.
[2021-07-16 15:00] VITALS: BP 125/59
[2021-07-16] MEDS: WARFARIN 2.5 MG TABLET. PO SCH (16:19)
[2021-07-16 19:00] VITALS: BP 106/53
[2021-07-16] MEDS: ALPRAZolam 0.5 MG TABLET PO PRN (20:25)
[2021-07-16] MEDS: HYDROcodone/APAP 5/325MG 1 TAB TABLET PO PRN (20:26)
[2021-07-16 23:00] VITALS: BP 100/63
--- NOTE | 2021-07-17 01:58 | NUR ---
Pt. encouraged to turn throughout night. Refusing all turns currently. Reminded pt of need to get off backside due to wounds. Verbalized understanding, but still refusing turns.
[2021-07-17 03:00] VITALS: BP 141/69
[2021-07-17 07:00] VITALS: BP 105/62
--- NOTE | 2021-07-17 08:24 | PDOC ---
Infectious Disease Note Subjective: Subjective Patient without complaints Remains on room air Vital Signs: Vital Signs Vital Signs Date Time Temp Pulse Resp B/P (MAP) Pulse Ox O2 Delivery O2 Flow Rate FiO2 07/17/21 03:00 98.0 90 22 141/69 (93) 95 Room Air 98.0 Physical Exam: PHYSICAL EXAM GENERAL: Alert, oriented gentleman, not in distress. HEENT: Both pupils are round and reacting. No conjunctival lesion. No lesion in the mouth. NECK: Supple. No JVP, no lymphadenopathy. LUNGS: Clear. HEART: S1, S2 regular. ABDOMEN: Soft, nontender, no organomegaly. EXTREMITIES:Wound vac in place with serous fluid in cannister ( wound care team nurse last week Wounds appear clean. Tendon exposure on dorsal foot wound. Deep wounds in leg. Muscle exposure. No gross purulence noted. Clean base. Edema + NEUROLOGIC: The patient is alert, awake, appropriate. No focal neurologic deficit. Right upper extremity PICC line removed Medications: Inpatient Meds: Medications reviewed. Labs: Lab Laboratory Tests Test 07/16/21 11:10 07/16/21 17:31 07/16/21 20:05 07/17/21 07:24 Glucose (Fingerstick) 208 mg/dL (70-99) 214 mg/dL (70-99) 219 mg/dL (70-99) 186 mg/dL (70-99) Objective: Assessment: 1. Left leg cellulitis. 2. Extensive LLE infection Left leg infected wounds on the second toe and the lateral foot. Status post extensive I&D x 2, wounds are clean and improving 3. Leukocytosis.improving 4. Chronic venous insufficiency and stasis dermatitis. 5. Morbid obesity. 6. Diabetes mellitus. 7. Renal insufficiency. 8. Hypertension. Anemia s/p transfusion Thrombocytopenia, coagulopathy,low haptoglobin FOB + Cultures positive for group B strep COVID positive Plan: Plan of Care Continue p.o. Augmentin, Continue wound/VAC care as directed PT and OT as tolerated Awaiting placement Patient appears stable at this time from COVID-19. Continue supportive care LEIGH ASKEW MD Jul 17, 2021 08:24
[2021-07-17] MEDS: SACUBITRIL/VALSARTAN 49/51MG TABLET. PO SCH ×3 (09:00→20:35)
[2021-07-17] MEDS: PIOGLITAZONE 15 MG TABLET. PO SCH (09:23)
[2021-07-17] MEDS: AMOXICILLIN/K CLAV 875/125MG TABLET. PO SCH ×2 (09:23→20:35)
[2021-07-17] MEDS: POTASSIUM CHLORIDE 10 MEQ TABLET.ER. PO SCH (09:23)
[2021-07-17] MEDS: ALLOPURINOL 300 MG TABLET. PO SCH (09:23)
[2021-07-17] MEDS: FUROSEMIDE 20 MG TABLET PO SCH (09:23)
[2021-07-17] MEDS: LACTOBACILLUS RHAMNOSUS GG 1 CAPSULE. PO SCH ×2 (09:23→20:35)
[2021-07-17] MEDS: PANTOPRAZOLE 40 MG TABLET.DR. PO SCH (09:23)
[2021-07-17 11:00] VITALS: BP 115/70
[2021-07-17 15:00] VITALS: BP 112/59
[2021-07-17] MEDS: WARFARIN 2.5 MG TABLET. PO SCH ×2 (16:00→16:25)
[2021-07-17] MEDS: WARFARIN 3 MG TABLET. PO SCH (16:36)
[2021-07-17 19:00] VITALS: BP 106/67
[2021-07-17] MEDS: HYDROcodone/APAP 5/325MG 1 TAB TABLET PO PRN (22:27)
[2021-07-17] MEDS: ALPRAZolam 0.5 MG TABLET PO PRN (22:27)
[2021-07-17 23:00] VITALS: BP 108/62
[2021-07-18 07:00] VITALS: BP 125/73
[2021-07-18] MEDS: PANTOPRAZOLE 40 MG TABLET.DR. PO SCH (08:04)
[2021-07-18] MEDS: AMOXICILLIN/K CLAV 875/125MG TABLET. PO SCH ×2 (08:04→21:14)
[2021-07-18] MEDS: PIOGLITAZONE 15 MG TABLET. PO SCH (08:04)
[2021-07-18] MEDS: POTASSIUM CHLORIDE 10 MEQ TABLET.ER. PO SCH (08:05)
[2021-07-18] MEDS: FUROSEMIDE 20 MG TABLET PO SCH (08:05)
[2021-07-18] MEDS: ALLOPURINOL 300 MG TABLET. PO SCH (08:06)
[2021-07-18] MEDS: LACTOBACILLUS RHAMNOSUS GG 1 CAPSULE. PO SCH ×2 (08:06→21:14)
[2021-07-18 08:23] LABS: BASO % 1 % (0-3); EOS # 0.2 x10^3/uL (0.0-0.7); EOS % 5 % (0-3); HEMATOCRIT 28.5 % (39.0-53.0); HEMOGLOBIN 8.8 g/dL (13.0-17.5); LYMPH # 0.5 x10^3/uL (1.0-4.8); LYMPH % 11 % (24-48); MEAN CORPUSCULAR HEMOGLOBIN 27 pg (25-35); MEAN CORPUSCULAR HGB CONC 31 g/dL (31-37); MEAN CORPUSCULAR VOLUME 88 fL (79-100); MONO # 0.3 x10^3/uL (0.0-1.1); MONO % 5 % (0-9); NEUT % 79 % (31-73); PLATELET COUNT 197 x10^3/uL (140-400); RED BLOOD COUNT 3.24 x10^6/uL (4.30-5.70); RED CELL DISTRIBUTION WIDTH 25.6 % (11.5-14.5); WHITE BLOOD COUNT 5.1 x10^3/uL (4.0-11.0)
--- NOTE | 2021-07-18 08:25 | PDOC ---
Infectious Disease Note Subjective: Subjective Patient without complaints Remains on room air Vital Signs: Vital Signs Vital Signs Date Time Temp Pulse Resp B/P (MAP) Pulse Ox O2 Delivery O2 Flow Rate FiO2 07/17/21 23:05 18 95 Room Air 07/17/21 23:00 98.2 105 108/62 (77) 98.2 Physical Exam: PHYSICAL EXAM GENERAL: Alert, oriented gentleman, not in distress. HEENT: Both pupils are round and reacting. No conjunctival lesion. No lesion in the mouth. NECK: Supple. No JVP, no lymphadenopathy. LUNGS: Clear. HEART: S1, S2 regular. ABDOMEN: Soft, nontender, no organomegaly. EXTREMITIES:Wound vac in place with serous fluid in cannister ( wound care team nurse last week Wounds appear clean. Tendon exposure on dorsal foot wound. Deep wounds in leg. Muscle exposure. No gross purulence noted. Clean base. Edema + NEUROLOGIC: The patient is alert, awake, appropriate. No focal neurologic deficit. Right upper extremity PICC line removed Medications: Inpatient Meds: Medications reviewed. Labs: Lab Laboratory Tests Test 07/17/21 10:52 07/17/21 16:18 07/17/21 20:47 07/18/21 07:28 Glucose (Fingerstick) 186 mg/dL (70-99) 157 mg/dL (70-99) 179 mg/dL (70-99) 143 mg/dL (70-99) Objective: Assessment: 1. Left leg cellulitis. Resolved 2. Extensive LLE infection Left leg infected wounds on the second toe and the lateral foot. Status post extensive I&D x 2, wounds are clean and improving 3. Leukocytosis.improving 4. Chronic venous insufficiency and stasis dermatitis. 5. Morbid obesity. 6. Diabetes mellitus. 7. Renal insufficiency. 8. Hypertension. Anemia s/p transfusion Thrombocytopenia, coagulopathy,low haptoglobin FOB + Cultures positive for group B strep COVID positive Plan: Plan of Care Continue p.o. Augmentin, Continue wound/VAC care as directed PT and OT as tolerated Awaiting placement Patient appears stable at this time from COVID-19. Continue supportive care LEIGH ASKEW MD Jul 18, 2021 08:25
[2021-07-18 08:35] LABS: PROTHROMBIN TIME PATIENT 22.4 SEC (11.7-14.0)
[2021-07-18] MEDS: ALPRAZolam 0.5 MG TABLET PO PRN ×2 (09:13→21:14)
[2021-07-18] MEDS: HYDROcodone/APAP 5/325MG 1 TAB TABLET PO PRN ×3 (09:13→21:15)
[2021-07-18 09:22] LABS: ANISOCYTOSIS MOD; PLT ESTIMATE ADEQUATE (ADEQUATE); POLYCHROMASIA OCCASIONAL
--- NOTE | 2021-07-18 09:23 | PDOC ---
PROGRESS NOTES Date of Service DATE: 07/18/21 TIME: 09:05 Subjective Subjective No new events. Bone marrow bx was not done due to positive COVID test. CBC has shown improvement since then. Objective Objective Vital Signs Date Time Temp Pulse Resp B/P (MAP) Pulse Ox O2 Delivery O2 Flow Rate FiO2 07/17/21 23:05 18 95 Room Air 07/17/21 23:00 98.2 105 108/62 (77) 98.2 Intake and Output 07/18/21 06:59 Intake Total 480 ml Output Total 800 ml Balance -320 ml Intake Oral 480 ml Drainage Total 800 ml # Voids 3 Physical Exam Abdomen: Soft Heart: Regular rate Extremities: No cyanosis General: Alert HEENT: Atraumatic Lungs: Clear to auscultation Neck: No JVD Assessment Assessment Normocytic anemia Thrombocytopenia, improving Left lower extremity cellulitis Type 2 diabetes Chronic kidney disease Hyperlipidemia Mitral valve replacement with mechanical valve Plan Plan of Care -Anemia is likely multifactorial and secondary to acute illness, superimposed chronic kidney disease, bleeding from wound VAC and surgical procedures. Given baseline hemoglobin of 11.4 in April 2021, suspicion for hematologic malignancy contributing to anemia is low. Given improving Hb and lowered transfusion requirements, can forego bone marrow bx at this time -Noted resolution of thrombocytopenia. Suspect it was reactive to sepsis. This was previously evaluated with HIT antibody (negative), hemolytic anemia work-up (low LDH) and SPEP/FLC (normal) -Check CBC every other day Transfuse as needed to maintain hemoglobin over 7 and platelets above 10 -Defer to GI regarding endoscopic evaluation. Can be obtained outpatient -Management of antibiotics per infectious disease service -Rest per Dr. Nagel. Comment Review of Relevant I have reviewed the following items alfredo (where applicable) has been applied. Labs Laboratory Tests Test 07/16/21 11:10 07/16/21 17:31 07/16/21 20:05 07/17/21 07:24 Glucose (Fingerstick) 208 mg/dL (70-99) 214 mg/dL (70-99) 219 mg/dL (70-99) 186 mg/dL (70-99) Test 07/17/21 10:52 07/17/21 16:18 07/17/21 20:47 07/18/21 07:28 Glucose (Fingerstick) 186 mg/dL (70-99) 157 mg/dL (70-99) 179 mg/dL (70-99) 143 mg/dL (70-99) Test 07/18/21 07:50 White Blood Count 5.1 x10^3/uL (4.0-11.0) Red Blood Count 3.24 x10^6/uL (4.30-5.70) Hemoglobin 8.8 g/dL (13.0-17.5) Hematocrit 28.5 % (39.0-53.0) Mean Corpuscular Volume 88 fL (79-100) Mean Corpuscular Hemoglobin 27 pg (25-35) Mean Corpuscular Hemoglobin Concent 31 g/dL (31-37) Red Cell Distribution Width 25.6 % (11.5-14.5) Platelet Count 197 x10^3/uL (140-400) Neutrophils (%) (Auto) 79 % (31-73) Lymphocytes (%) (Auto) 11 % (24-48) Monocytes (%) (Auto) 5 % (0-9) Eosinophils (%) (Auto) 5 % (0-3) Basophils (%) (Auto) 1 % (0-3) Neutrophils # (Auto) 4.0 x10^3/uL (1.8-7.7) Lymphocytes # (Auto) 0.5 x10^3/uL (1.0-4.8) Monocytes # (Auto) 0.3 x10^3/uL (0.0-1.1) Eosinophils # (Auto) 0.2 x10^3/uL (0.0-0.7) Basophils # (Auto) 0.0 x10^3/uL (0.0-0.2) Prothrombin Time 22.4 SEC (11.7-14.0) Prothromb Time International Ratio 2.0 (0.8-1.1) Laboratory Tests Test 07/17/21 10:52 07/17/21 16:18 07/17/21 20:47 07/18/21 07:28 Glucose (Fingerstick) 186 mg/dL (70-99) 157 mg/dL (70-99) 179 mg/dL (70-99) 143 mg/dL (70-99) Test 07/18/21 07:50 White Blood Count 5.1 x10^3/uL (4.0-11.0) Red Blood Count 3.24 x10^6/uL (4.30-5.70) Hemoglobin 8.8 g/dL (13.0-17.5) Hematocrit 28.5 % (39.0-53.0) Mean Corpuscular Volume 88 fL (79-100) Mean Corpuscular Hemoglobin 27 pg (25-35) Mean Corpuscular Hemoglobin Concent 31 g/dL (31-37) Red Cell Distribution Width 25.6 % (11.5-14.5) Platelet Count 197 x10^3/uL (140-400) Neutrophils (%) (Auto) 79 % (31-73) Lymphocytes (%) (Auto) 11 % (24-48) Monocytes (%) (Auto) 5 % (0-9) Eosinophils (%) (Auto) 5 % (0-3) Basophils (%) (Auto) 1 % (0-3) Neutrophils # (Auto) 4.0 x10^3/uL (1.8-7.7) Lymphocytes # (Auto) 0.5 x10^3/uL (1.0-4.8) Monocytes # (Auto) 0.3 x10^3/uL (0.0-1.1) Eosinophils # (Auto) 0.2 x10^3/uL (0.0-0.7) Basophils # (Auto) 0.0 x10^3/uL (0.0-0.2) Prothrombin Time 22.4 SEC (11.7-14.0) Prothromb Time International Ratio 2.0 (0.8-1.1) Microbiology 07/04/21 Urine Culture - Final, Complete 07/03/21 Blood Culture - Final, Complete NO GROWTH AFTER 5 DAYS Medications Current Medications Amoxicillin/ Clavulanate Potassium (Augmentin 875/ 125mg) 1 tab 1X ONCE PO Last administered on 07/03/21at 21:15; Start 07/03/21 at 21:15; Stop 07/03/21 at 21:16; Status DC Acetaminophen/ Hydrocodone Bitart (Lortab 5/325) 1 tab 1X ONCE PO ; Start 07/03/21 at 22:15; Stop 07/03/21 at 22:16; Status DC Ondansetron HCl (Zofran) 4 mg PRN Q8HRS PRN IVP NAUSEA/VOMITING; Start 07/03/21 at 23:00; Stop 07/04/21 at 22:59; Status DC Amoxicillin/ Clavulanate Potassium (Augmentin 875/ 125mg) 1 tab BID PO Last administered on 07/18/21at 08:04; Start 07/04/21 at 09:00 Acetaminophen/ Hydrocodone Bitart (Lortab 5/325) 1 tab PRN Q4HRS PRN PO PAIN Last administered on 07/17/21at 22:27; Start 07/03/21 at 23:00 Sodium Chloride 1,000 ml @ 75 mls/hr [id number] IV Last administered on 07/11/21at 04:23; Start 07/03/21 at 23:15; Stop 07/11/21 at 13:10; Status DC Pharmacy Consult (C.diff Med Screen By Rx) 1 each 1X ONCE MC ; Start 07/04/21 at 02:15; Stop 07/04/21 at 02:16; Status Cancel Lactobacillus Rhamnosus (Culturelle) 1 cap BID PO Last administered on 07/18/21at 08:06; Start 07/04/21 at 09:00 Allopurinol (Zyloprim) 300 mg DAILY PO Last administered on 07/18/21at 08:06; Start 07/04/21 at 09:00 Furosemide (Lasix) 20 mg DAILY PO Last administered on 07/18/21at 08:05; Start 07/04/21 at 09:00 Pantoprazole Sodium (Protonix) 40 mg DAILYAC PO Last administered on 07/07/21at 08:19; Start 07/04/21 at 09:00; Stop 07/07/21 at 13:58; Status DC Potassium Chloride (Klor-Con) 10 meq DAILY PO Last administered on 07/18/21at 08:05; Start 07/04/21 at 09:00 Sacubitril/ Valsartan (Entresto 49 Mg-51 Mg) 1 tab BID PO Last administered on 07/17/21at 20:35; Start 07/04/21 at 09:00 Warfarin Sodium (Coumadin) 2.5 mg QMWFSA PO Last administered on 07/08/21at 14:02; Start 07/05/21 at 16:00; Stop 07/09/21 at 07:54; Status DC Pioglitazone HCl (Actos) 45 mg DAILY PO Last administered on 07/18/21at 08:04; Start 07/04/21 at 09:00 Warfarin Sodium (Coumadin Per Physician) 1 each PRN DAILY PRN MC SEE COMMENTS Last administered on 07/17/21at 12:58; Start 07/04/21 at 08:45 Alprazolam (Xanax) 0.5 mg PRN TID PRN PO ANXIETY / AGITATION Last administered on 07/17/21at 22:27; Start 07/04/21 at 21:30 Pantoprazole Sodium 80 mg/ Sodium Chloride 100 ml @ 10 mls/hr Q10H IV Last administered on 07/09/21at 06:00; Start 07/07/21 at 14:00; Stop 07/09/21 at 10:43; Status DC Warfarin Sodium (Coumadin) 2.5 mg DAILY16 PO ; Start 07/09/21 at 16:00; Stop 07/09/21 at 12:52; Status DC Pantoprazole Sodium (Protonix) 40 mg DAILYAC PO Last administered on 07/18/21at 08:04; Start 07/09/21 at 11:30 Warfarin Sodium (Coumadin) 2.5 mg DAILY16 PO Last administered on 07/16/21at 16:19; Start 07/10/21 at 16:00; Stop 07/17/21 at 16:30; Status DC Warfarin Sodium (Coumadin) 3 mg DAILY16 PO Last administered on 07/17/21at 16:36; Start 07/17/21 at 16:45 Active Scripts Active Pantoprazole Sodium (Pantoprazole Sodium) 40 Mg Tablet.dr 40 Mg PO DAILYAC 30 Days Reported Actos (Pioglitazone Hcl) 45 Mg Tablet 45 Mg PO DAILY Klor-Con 10 (Potassium Chloride) 10 Meq Tablet.er 10 Meq PO DAILY Entresto 49 mg-51 mg Tablet (Sacubitril/Valsartan) 1 Each Tablet 1 Each PO BID Allopurinol 300 Mg Tablet 300 Mg PO DAILY Furosemide 20 Mg Tablet 20 Mg PO DAILY Warfarin Sodium 2.5 Mg Tablet 2.5 Mg PO QMWFSA Vitals/I & O Vital Sign - Last 24 Hours 07/17/21 07/17/21 07/17/21 07/17/21 11:00 15:00 19:00 20:00 Temp 97.6 97.4 98.9 97.6 97.4 98.9 Pulse 106 108 110 Resp 20 20 18 B/P (MAP) 115/70 (85) 112/59 (76) 106/67 (80) Pulse Ox 98 96 95 O2 Delivery Room Air Room Air Room Air Room Air 07/17/21 07/17/21 07/17/21 07/17/21 20:35 22:27 23:00 23:05 Temp 98.2 98.2 Pulse 110 105 Resp 18 18 B/P (MAP) 106/67 108/62 (77) Pulse Ox 95 96 95 O2 Delivery Room Air Room Air Room Air Intake and Output 07/17/21 07/17/21 07/18/21 14:59 22:59 06:59 Intake Total 480 ml Output Total 500 ml 300 ml Balance -500 ml 480 ml -300 ml Justifications for Admission Other Justification CARLA LEW MD Jul 18, 2021 09:23
[2021-07-18 11:00] VITALS: BP 93/58
[2021-07-18] MEDS: SACUBITRIL/VALSARTAN 49/51MG TABLET. PO SCH ×2 (11:00→21:14)
--- NOTE | 2021-07-18 11:19 | NUR ---
SW following. Discussed with RN, pt will discharge home when medically stable. SW will continue to follow.
--- NOTE | 2021-07-18 12:01 | NUR ---
Sepsis screen + and spoke with Lashanda WINSTON in ICU. Pt on ABX.
--- NOTE | 2021-07-18 12:03 | NUR ---
Left message for Dr. Nagel's nurse, Nhi lindsey's FSBS [phone].
--- NOTE | 2021-07-18 14:35 | NUR ---
Wound care here to change wound vac. Lortab po given.
[2021-07-18 15:00] VITALS: BP 110/69
--- NOTE | 2021-07-18 15:35 | NUR ---
Wound Care Wound Type/Assessment: Wound care follow up for multiple leg wounds s/p I&D by vascular, and a small right buttock PU stage 3 that has now reopened. See wound assessment for further details. Vac canister completely full of yellow exudate from leg wounds, and had just been changed during the night. Pt continues to have edema on legs, thighs, scrotum and abdomen. No other wounds noted on skin assessment. Treatment Recommendations/Plan: Left lateral thigh, left anterior ankle, left lateral foot wounds are y-connected with left medial leg wound, using two separate track heads d/t large amount of drainage and surface area of multiple wounds. Skin prepped to periwounds, all wounds have jefferson foam, good seal maintained at -150 mmHg continuous suction. Right buttock: cleanse wound, applied Calazime barrier cream, turn q2h Education provided: Patient educated on elevating legs, wound vac therapy and PU healing, Pt declined repositioning at this time, pt encouraged to turn to prevent further breakdown. Offered pt a bariatric recliner to sit in, pt stated everything is too low and he needs "4 people to help me get up". Offloading surface/device: Patient encouraged to turn q2h to prevent PU, pt refused to stay on his side at time of assessment, pt encouraged to turn q2h. Recommended Referrals/Tests: N/A Discharge Recommendations for dressings: Wound care will follow up for all dressing changes on 07/22. Bed lowered and call light within reach.
--- NOTE | 2021-07-18 16:09 | PN ---
DATE: 07/18/2021 DAILY PROGRESS NOTE LOCATION: He is in room 548. SUBJECTIVE: This 56-year-old male remains hospitalized with left leg infection, status post debridement on wound VAC and antibiotics. He is slowly improving in strength and unfortunately does not have insurance or anyone currently at home available to do what he needs to be safe there. OBJECTIVE: VITAL SIGNS: Stable. He is afebrile. Blood counts are stable. Exam stable. LABORATORY DATA: Sugar is good. ASSESSMENT: 1. Left leg wound on wound VAC and antibiotics. 2. Diabetes with good control. 3. Anemia and thrombocytopenia, improving. 4. Profound weakness. PLAN: Continue strengthening with therapy to the point where he is able to handle current treatment at home. RAJAN/VERONIQUE DR: ROSE/donato TID: [id number]
[2021-07-18] MEDS: WARFARIN 3 MG TABLET. PO SCH (17:05)
[2021-07-18 19:00] VITALS: BP 125/87
[2021-07-18 23:00] VITALS: BP 126/81
[2021-07-19 03:03] VITALS: BP 122/76
[2021-07-19 07:00] VITALS: BP 105/61
[2021-07-19] MEDS: ALLOPURINOL 300 MG TABLET. PO SCH (08:13)
[2021-07-19] MEDS: POTASSIUM CHLORIDE 10 MEQ TABLET.ER. PO SCH (08:13)
[2021-07-19] MEDS: PANTOPRAZOLE 40 MG TABLET.DR. PO SCH (08:13)
[2021-07-19] MEDS: LACTOBACILLUS RHAMNOSUS GG 1 CAPSULE. PO SCH ×2 (08:13→21:32)
[2021-07-19] MEDS: PIOGLITAZONE 15 MG TABLET. PO SCH (08:13)
[2021-07-19] MEDS: SACUBITRIL/VALSARTAN 49/51MG TABLET. PO SCH ×2 (08:13→21:32)
[2021-07-19] MEDS: AMOXICILLIN/K CLAV 875/125MG TABLET. PO SCH ×2 (08:13→21:32)
[2021-07-19] MEDS: FUROSEMIDE 20 MG TABLET PO SCH (08:14)
[2021-07-19] MEDS: HYDROcodone/APAP 5/325MG 1 TAB TABLET PO PRN ×3 (08:23→21:32)
--- NOTE | 2021-07-19 08:39 | PDOC ---
Infectious Disease Note Subjective: Subjective Patient without complaints Remains on room air Vital Signs: Vital Signs Vital Signs Date Time Temp Pulse Resp B/P (MAP) Pulse Ox O2 Delivery O2 Flow Rate FiO2 07/19/21 08:23 94 Room Air 07/19/21 08:13 104 105/61 07/19/21 07:00 98.0 20 98.0 Physical Exam: PHYSICAL EXAM GENERAL: Alert, oriented gentleman, not in distress. HEENT: Both pupils are round and reacting. No conjunctival lesion. No lesion in the mouth. NECK: Supple. No JVP, no lymphadenopathy. LUNGS: Clear. HEART: S1, S2 regular. ABDOMEN: Soft, nontender, no organomegaly. EXTREMITIES:Wound vac in place with serous fluid in cannister ( wound care team nurse last week Wounds appear clean. Tendon exposure on dorsal foot wound. Deep wounds in leg. Muscle exposure. No gross purulence noted. Clean base. Edema + NEUROLOGIC: The patient is alert, awake, appropriate. No focal neurologic deficit. Right upper extremity PICC line removed Medications: Inpatient Meds: Medications reviewed. Labs: Lab Laboratory Tests Test 07/18/21 11:26 07/18/21 16:34 07/18/21 20:14 Glucose (Fingerstick) 176 mg/dL (70-99) 165 mg/dL (70-99) 173 mg/dL (70-99) Objective: Assessment: 1. Left leg cellulitis. Resolved 2. Extensive LLE infection Left leg infected wounds on the second toe and the lateral foot. Status post extensive I&D x 2, wounds are clean and improving 3. Leukocytosis.improving 4. Chronic venous insufficiency and stasis dermatitis. 5. Morbid obesity. 6. Diabetes mellitus. 7. Renal insufficiency. 8. Hypertension. Anemia s/p transfusion Thrombocytopenia, coagulopathy,low haptoglobin FOB + Cultures positive for group B strep COVID positive Plan: Plan of Care Continue p.o. Augmentin, Continue wound/VAC care as directed PT and OT as tolerated Awaiting placement LEIGH ASKEW MD Jul 19, 2021 08:39
[2021-07-19 10:43] VITALS: BP 150/94
--- NOTE | 2021-07-19 10:55 | NUR ---
SW following. Discussed with RN, pt will discharge home with self care when medically stable. SW will continue to follow.
[2021-07-19] MEDS: WARFARIN 3 MG TABLET. PO SCH (15:45)
[2021-07-19] MEDS: ALPRAZolam 0.5 MG TABLET PO PRN ×2 (15:49→21:32)
[2021-07-19 15:59] VITALS: BP 163/66
[2021-07-19 19:00] VITALS: BP 109/60
[2021-07-19 23:00] VITALS: BP 117/69
[2021-07-20 03:00] VITALS: BP 102/60
[2021-07-20 07:00] VITALS: BP 125/72
[2021-07-20 08:27] LABS: PROTHROMBIN TIME PATIENT 25.7 SEC (11.7-14.0)
[2021-07-20] MEDS: ALLOPURINOL 300 MG TABLET. PO SCH (08:31)
[2021-07-20] MEDS: AMOXICILLIN/K CLAV 875/125MG TABLET. PO SCH ×2 (08:31→21:25)
[2021-07-20] MEDS: PIOGLITAZONE 15 MG TABLET. PO SCH (08:32)
[2021-07-20] MEDS: FUROSEMIDE 20 MG TABLET PO SCH (08:32)
[2021-07-20] MEDS: SACUBITRIL/VALSARTAN 49/51MG TABLET. PO SCH ×2 (08:32→21:25)
[2021-07-20] MEDS: POTASSIUM CHLORIDE 10 MEQ TABLET.ER. PO SCH (08:32)
[2021-07-20] MEDS: PANTOPRAZOLE 40 MG TABLET.DR. PO SCH (08:32)
[2021-07-20] MEDS: LACTOBACILLUS RHAMNOSUS GG 1 CAPSULE. PO SCH ×2 (08:32→21:25)
[2021-07-20] MEDS: ALPRAZolam 0.5 MG TABLET PO PRN ×2 (09:08→21:28)
[2021-07-20] MEDS: HYDROcodone/APAP 5/325MG 1 TAB TABLET PO PRN ×2 (09:09→21:28)
--- NOTE | 2021-07-20 09:31 | PDOC ---
Provider Note Date of Service: DATE: 07/20/21 TIME: 09:30 Provider Note good glucose on actos only, bp good, heme status normal after off zyvox- inr good on current dose- keepall same Justifications for Admission Other Justification CHAYITO KING MD Jul 20, 2021 09:31
[2021-07-20 11:00] VITALS: BP 137/81
--- NOTE | 2021-07-20 11:22 | PDOC ---
Infectious Disease Note Subjective: Subjective Patient without complaints Remains on room air Vital Signs: Vital Signs Vital Signs Date Time Temp Pulse Resp B/P (MAP) Pulse Ox O2 Delivery O2 Flow Rate FiO2 07/20/21 11:00 98.0 104 20 137/81 (99) 95 Room Air 98.0 Physical Exam: PHYSICAL EXAM GENERAL: Alert, oriented gentleman, not in distress. HEENT: Both pupils are round and reacting. No conjunctival lesion. No lesion in the mouth. NECK: Supple. No JVP, no lymphadenopathy. LUNGS: Clear. HEART: S1, S2 regular. ABDOMEN: Soft, nontender, no organomegaly. EXTREMITIES:Wound vac in place with serous fluid in cannister ( wound care team nurse last week Wounds appear clean. Tendon exposure on dorsal foot wound. Deep wounds in leg. Muscle exposure. No gross purulence noted. Clean base. Edema + NEUROLOGIC: The patient is alert, awake, appropriate. No focal neurologic deficit. Right upper extremity PICC line removed Medications: Inpatient Meds: Medications reviewed. Labs: Lab Laboratory Tests Test 07/19/21 12:03 07/19/21 16:23 07/19/21 20:27 07/20/21 06:35 Glucose (Fingerstick) 150 mg/dL (70-99) 159 mg/dL (70-99) 162 mg/dL (70-99) Prothrombin Time 25.7 SEC (11.7-14.0) Prothromb Time International Ratio 2.4 (0.8-1.1) Test 07/20/21 07:24 07/20/21 10:38 Glucose (Fingerstick) 146 mg/dL (70-99) 163 mg/dL (70-99) Objective: Assessment: 1. Left leg cellulitis. Resolved 2. Extensive LLE infection Left leg infected wounds on the second toe and the lateral foot. Status post extensive I&D x 2, wounds are clean and improving 3. Leukocytosis.improving 4. Chronic venous insufficiency and stasis dermatitis. 5. Morbid obesity. 6. Diabetes mellitus. 7. Renal insufficiency. 8. Hypertension. Anemia s/p transfusion Thrombocytopenia, coagulopathy,low haptoglobin, bone marrow not done due to COVID-positive status FOB + Cultures positive for group B strep COVID positive Plan: Plan of Care Continue p.o. Augmentin, Continue wound/VAC care as directed PT and OT as tolerated Awaiting placement and bone marrow biopsy LEIGH ASKEW MD Jul 20, 2021 11:22
[2021-07-20 15:00] VITALS: BP 119/67
[2021-07-20] MEDS: WARFARIN 3 MG TABLET. PO SCH (15:36)
[2021-07-20 19:00] VITALS: BP 142/85
[2021-07-20 23:00] VITALS: BP 145/83
[2021-07-21 03:00] VITALS: BP 133/80
[2021-07-21 07:00] VITALS: BP 147/83
[2021-07-21] MEDS: LACTOBACILLUS RHAMNOSUS GG 1 CAPSULE. PO SCH ×2 (08:52→21:08)
[2021-07-21] MEDS: ALLOPURINOL 300 MG TABLET. PO SCH (08:52)
[2021-07-21] MEDS: PANTOPRAZOLE 40 MG TABLET.DR. PO SCH (08:52)
[2021-07-21] MEDS: POTASSIUM CHLORIDE 10 MEQ TABLET.ER. PO SCH (08:52)
[2021-07-21] MEDS: AMOXICILLIN/K CLAV 875/125MG TABLET. PO SCH ×2 (08:52→21:08)
[2021-07-21] MEDS: FUROSEMIDE 20 MG TABLET PO SCH (08:53)
[2021-07-21] MEDS: SACUBITRIL/VALSARTAN 49/51MG TABLET. PO SCH ×2 (09:13→21:08)
[2021-07-21] MEDS: PIOGLITAZONE 15 MG TABLET. PO SCH (09:14)
[2021-07-21] MEDS: ALPRAZolam 0.5 MG TABLET PO PRN ×2 (09:14→21:08)
[2021-07-21] MEDS: HYDROcodone/APAP 5/325MG 1 TAB TABLET PO PRN ×2 (09:14→21:08)
--- NOTE | 2021-07-21 09:42 | PDOC ---
Infectious Disease Note Subjective: Subjective Patient without complaints Remains on room air Vital Signs: Vital Signs Vital Signs Date Time Temp Pulse Resp B/P (MAP) Pulse Ox O2 Delivery O2 Flow Rate FiO2 07/21/21 09:14 20 97 Room Air 07/21/21 09:13 96 147/83 07/21/21 03:00 97.9 97.9 Physical Exam: PHYSICAL EXAM GENERAL: Alert, oriented gentleman, not in distress. HEENT: Both pupils are round and reacting. No conjunctival lesion. No lesion in the mouth. NECK: Supple. No JVP, no lymphadenopathy. LUNGS: Clear. HEART: S1, S2 regular. ABDOMEN: Soft, nontender, no organomegaly. EXTREMITIES:Wound vac in place with serous fluid in cannister ( wound care team nurse last week Wounds appear clean. Tendon exposure on dorsal foot wound. Deep wounds in leg. Muscle exposure. No gross purulence noted. Clean base. Edema + NEUROLOGIC: The patient is alert, awake, appropriate. No focal neurologic deficit. Right upper extremity PICC line removed Medications: Inpatient Meds: Medications reviewed. Labs: Lab Laboratory Tests Test 07/20/21 10:38 07/20/21 17:03 07/20/21 21:03 07/21/21 07:20 Glucose (Fingerstick) 163 mg/dL (70-99) 155 mg/dL (70-99) 155 mg/dL (70-99) 135 mg/dL (70-99) Objective: Assessment: 1. Left leg cellulitis. Resolved 2. Extensive LLE infection Left leg infected wounds on the second toe and the lateral foot. Status post extensive I&D x 2, wounds are clean and improving 3. Leukocytosis.improving 4. Chronic venous insufficiency and stasis dermatitis. 5. Morbid obesity. 6. Diabetes mellitus. 7. Renal insufficiency. 8. Hypertension. Anemia s/p transfusion Thrombocytopenia, resolved Coagulopathy,low haptoglobin, bone marrow not done due to COVID-positive status FOB + Cultures positive for group B strep COVID positive Plan: Plan of Care Continue p.o. Augmentin, Continue wound/VAC care as directed PT and OT as tolerated Bone marrow biopsy is on hold due to COVID-19 Awaiting placement LEIGH ASKEW MD Jul 21, 2021 09:42
--- NOTE | 2021-07-21 10:33 | PDOC ---
Provider Note Date of Service: DATE: 07/21/21 TIME: 10:32 Provider Note STATUS SAME,, GLUCOSE GIOOD, will repeat bmp re K+ 5 las time Justifications for Admission Other Justification CHAYITO KING MD Jul 21, 2021 10:33
[2021-07-21 11:00] VITALS: BP 120/80
[2021-07-21 11:47] LABS: CALCIUM 8.2 mg/dL (8.5-10.1); CREATININE 1.1 mg/dL (0.7-1.3); GFR 68.8; POTASSIUM 5.6 mmol/L (3.5-5.1)
[2021-07-21 15:00] VITALS: BP 128/72
[2021-07-21] MEDS: WARFARIN 3 MG TABLET. PO SCH (15:51)
[2021-07-21 19:00] VITALS: BP 146/90
[2021-07-21 23:00] VITALS: BP 131/75
[2021-07-22 03:00] VITALS: BP 125/73
[2021-07-22 07:00] VITALS: BP 132/95
[2021-07-22] MEDS: LACTOBACILLUS RHAMNOSUS GG 1 CAPSULE. PO SCH ×2 (07:44→20:34)
[2021-07-22] MEDS: ALLOPURINOL 300 MG TABLET. PO SCH (07:44)
[2021-07-22] MEDS: AMOXICILLIN/K CLAV 875/125MG TABLET. PO SCH ×2 (07:45→20:34)
[2021-07-22] MEDS: PANTOPRAZOLE 40 MG TABLET.DR. PO SCH (07:45)
[2021-07-22] MEDS: POTASSIUM CHLORIDE 10 MEQ TABLET.ER. PO SCH (07:45)
[2021-07-22] MEDS: PIOGLITAZONE 15 MG TABLET. PO SCH (07:45)
[2021-07-22] MEDS: FUROSEMIDE 20 MG TABLET PO SCH (07:46)
[2021-07-22 07:49] LABS: BASO # 0.1 x10^3/uL (0.0-0.2); BASO % 1 % (0-3); EOS # 0.2 x10^3/uL (0.0-0.7); EOS % 3 % (0-3); HEMATOCRIT 28.7 % (39.0-53.0); HEMOGLOBIN 8.6 g/dL (13.0-17.5); LYMPH # 0.4 x10^3/uL (1.0-4.8); LYMPH % 8 % (24-48); MEAN CORPUSCULAR HEMOGLOBIN 27 pg (25-35); MEAN CORPUSCULAR HGB CONC 30 g/dL (31-37); MEAN CORPUSCULAR VOLUME 90 fL (79-100); MONO # 0.3 x10^3/uL (0.0-1.1); MONO % 7 % (0-9); NEUT # 3.9 x10^3/uL (1.8-7.7); NEUT % 81 % (31-73); PLATELET COUNT 179 x10^3/uL (140-400); RED BLOOD COUNT 3.19 x10^6/uL (4.30-5.70); RED CELL DISTRIBUTION WIDTH 24.5 % (11.5-14.5); WHITE BLOOD COUNT 4.8 x10^3/uL (4.0-11.0)
[2021-07-22] MEDS: SACUBITRIL/VALSARTAN 49/51MG TABLET. PO SCH ×2 (07:49→20:35)
[2021-07-22 08:40] LABS: ALBUMIN 2.3 g/dL (3.4-5.0); ALBUMIN/GLOBULIN RATIO 0.5 (1.0-1.7); CALCIUM 8.2 mg/dL (8.5-10.1); GFR 76.7; TOTAL BILIRUBIN 0.5 mg/dL (0.2-1.0); TOTAL PROTEIN 6.8 g/dL (6.4-8.2)
[2021-07-22 08:48] LABS: POTASSIUM 5.5 mmol/L (3.5-5.1)
--- NOTE | 2021-07-22 10:39 | PDOC ---
Infectious Disease Note Subjective: Subjective Patient without complaints Remains on room air Denies fever, nausea, vomiting, diarrhea, abdominal pain Vital Signs: Vital Signs Vital Signs Date Time Temp Pulse Resp B/P (MAP) Pulse Ox O2 Delivery O2 Flow Rate FiO2 07/22/21 08:00 Room Air 07/22/21 07:49 95 132/82 07/22/21 07:00 97.8 18 96 97.8 Physical Exam: PHYSICAL EXAM GENERAL: Alert, oriented gentleman, not in distress. HEENT: Both pupils are round and reacting. No conjunctival lesion. No lesion in the mouth. NECK: Supple. No JVP, no lymphadenopathy. LUNGS: Clear. HEART: S1, S2 regular. ABDOMEN: Soft, nontender, no organomegaly. EXTREMITIES:Wound vac in place with serous fluid in cannister ( wound care team nurse last week Wounds appear clean. Tendon exposure on dorsal foot wound. Deep wounds in leg. Muscle exposure. No gross purulence noted. Clean base. Edema + NEUROLOGIC: The patient is alert, awake, appropriate. No focal neurologic deficit. Right upper extremity PICC line removed Medications: Inpatient Meds: Medications reviewed. Labs: Lab Laboratory Tests Test 07/21/21 11:15 07/21/21 12:11 07/21/21 16:34 07/21/21 19:07 Sodium Level 138 mmol/L (136-145) Potassium Level 5.6 mmol/L (3.5-5.1) Chloride Level 102 mmol/L (98-107) Carbon Dioxide Level 30 mmol/L (21-32) Anion Gap 6 (6-14) Blood Urea Nitrogen 21 mg/dL (8-26) Creatinine 1.1 mg/dL (0.7-1.3) Estimated GFR (Cockcroft-Gault) 68.8 Glucose Level 183 mg/dL (70-99) Calcium Level 8.2 mg/dL (8.5-10.1) Glucose (Fingerstick) 165 mg/dL (70-99) 158 mg/dL (70-99) 158 mg/dL (70-99) Test 07/22/21 07:06 07/22/21 07:25 Glucose (Fingerstick) 148 mg/dL (70-99) White Blood Count 4.8 x10^3/uL (4.0-11.0) Red Blood Count 3.19 x10^6/uL (4.30-5.70) Hemoglobin 8.6 g/dL (13.0-17.5) Hematocrit 28.7 % (39.0-53.0) Mean Corpuscular Volume 90 fL (79-100) Mean Corpuscular Hemoglobin 27 pg (25-35) Mean Corpuscular Hemoglobin Concent 30 g/dL (31-37) Red Cell Distribution Width 24.5 % (11.5-14.5) Platelet Count 179 x10^3/uL (140-400) Neutrophils (%) (Auto) 81 % (31-73) Lymphocytes (%) (Auto) 8 % (24-48) Monocytes (%) (Auto) 7 % (0-9) Eosinophils (%) (Auto) 3 % (0-3) Basophils (%) (Auto) 1 % (0-3) Neutrophils # (Auto) 3.9 x10^3/uL (1.8-7.7) Lymphocytes # (Auto) 0.4 x10^3/uL (1.0-4.8) Monocytes # (Auto) 0.3 x10^3/uL (0.0-1.1) Eosinophils # (Auto) 0.2 x10^3/uL (0.0-0.7) Basophils # (Auto) 0.1 x10^3/uL (0.0-0.2) Sodium Level 133 mmol/L (136-145) Potassium Level 5.5 mmol/L (3.5-5.1) Chloride Level 101 mmol/L (98-107) Carbon Dioxide Level 28 mmol/L (21-32) Anion Gap 4 (6-14) Blood Urea Nitrogen 23 mg/dL (8-26) Creatinine 1.0 mg/dL (0.7-1.3) Estimated GFR (Cockcroft-Gault) 76.7 BUN/Creatinine Ratio 23 (6-20) Glucose Level 145 mg/dL (70-99) Calcium Level 8.2 mg/dL (8.5-10.1) Total Bilirubin 0.5 mg/dL (0.2-1.0) Aspartate Amino Transf (AST/SGOT) 18 U/L (15-37) Alanine Aminotransferase (ALT/SGPT) 15 U/L (16-63) Alkaline Phosphatase 117 U/L (46-116) Total Protein 6.8 g/dL (6.4-8.2) Albumin 2.3 g/dL (3.4-5.0) Albumin/Globulin Ratio 0.5 (1.0-1.7) Objective: Assessment: 1. Left leg cellulitis. Resolved 2. Extensive LLE infection Left leg infected wounds on the second toe and the lateral foot. Status post extensive I&D x 2, wounds are clean and improving 3. Leukocytosis.improved 4. Chronic venous insufficiency and stasis dermatitis. 5. Morbid obesity. 6. Diabetes mellitus. 7. Renal insufficiency. 8. Hypertension. Anemia s/p transfusion Thrombocytopenia, resolved Coagulopathy,low haptoglobin, bone marrow not done due to COVID-positive status FOB + Cultures positive for group B strep COVID positive Plan: Plan of Care Continue p.o. Augmentin, Continue wound/VAC care as directed PT and OT as tolerated Bone marrow biopsy is on hold due to COVID-19 Continue supportive care LEIGH ASKEW MD Jul 22, 2021 10:39
--- NOTE | 2021-07-22 10:50 | NUR ---
SW following. pt will discharge home with self care when medically ready. SW will continue to follow.
[2021-07-22 11:00] VITALS: BP 113/69
[2021-07-22] MEDS: ALPRAZolam 0.5 MG TABLET PO PRN ×2 (14:00→20:35)
[2021-07-22] MEDS: HYDROcodone/APAP 5/325MG 1 TAB TABLET PO PRN ×2 (14:00→20:35)
[2021-07-22 15:00] VITALS: BP 137/81
--- NOTE | 2021-07-22 15:52 | NUR ---
Wound Care Wound Type/Assessment: Follow up with patient for management of multiple wounds. 4 stasis ulcers to LLE, ankle, and foot; s/p I&D with vascular. All wounds granulating well with minimal slough. L lateral and medial wounds have exposed sutures and hillary; L lateral foot and L medial leg have exposed tendon that is pearly yellow in appearance. Stage III PU to R buttock persists with red granulation and pink margins. NPWT applied to wounds on LLE, using a total of 5 pieces of silver foam, good seal achieved; use of Y-connector to facilitate 2 track pads. Treatment Recommendations/Plan: LLE: wound vac to be changed MWF R buttock: Apply barrier cream and leave [employer] Education provided: Educated to turn at least every 2 hours to help heal wound to buttocks. Pt is resistant to turning and often refuses Offloading surface/device: Recommended Referrals/Tests: Discharge Recommendations for dressings:
[2021-07-22] MEDS: WARFARIN 3 MG TABLET. PO SCH (16:12)
[2021-07-22 19:00] VITALS: BP 121/61
[2021-07-22 22:56] VITALS: BP 114/62
--- NOTE | 2021-07-23 01:04 | PN ---
DATE: 07/22/2021 DAILY PROGRESS NOTE LOCATION: He is in room 548. SUBJECTIVE: This 56-year-old male remains hospitalized with left leg infection, status post debridement x 2, wound VAC therapy and ongoing antibiotics. He remains weak with obstacles doing self-care with no good help at home. Therapy is ongoing with plan on trials of stairs this week, further notes. OBJECTIVE: VITAL SIGNS: Stable. He is afebrile. GENERAL: He is awake, alert. CHEST: Clear. HEART: Regular. ABDOMEN: Benign. EXTREMITIES: Wound VAC in place. IMPRESSION: 1. Left leg wound as discussed above. 2. Diabetes with good blood sugars. 3. Weakness with inability to do self-care. PLAN: Continue rehab, otherwise same. ROSE/STU/ABDIRIZAK DR: ROSE/donato TID: [id number]
[2021-07-23 03:09] VITALS: BP 100/53
[2021-07-23 07:00] VITALS: BP 141/72
[2021-07-23] MEDS: AMOXICILLIN/K CLAV 875/125MG TABLET. PO SCH ×2 (07:46→21:59)
[2021-07-23] MEDS: LACTOBACILLUS RHAMNOSUS GG 1 CAPSULE. PO SCH ×2 (07:46→22:00)
[2021-07-23] MEDS: POTASSIUM CHLORIDE 10 MEQ TABLET.ER. PO SCH (07:48)
[2021-07-23] MEDS: FUROSEMIDE 20 MG TABLET PO SCH (07:49)
[2021-07-23] MEDS: PIOGLITAZONE 15 MG TABLET. PO SCH (07:49)
[2021-07-23] MEDS: PANTOPRAZOLE 40 MG TABLET.DR. PO SCH (07:49)
[2021-07-23] MEDS: SACUBITRIL/VALSARTAN 49/51MG TABLET. PO SCH ×2 (07:54→21:59)
[2021-07-23] MEDS: ALLOPURINOL 300 MG TABLET. PO SCH (07:55)
[2021-07-23] MEDS: ALPRAZolam 0.5 MG TABLET PO PRN ×2 (08:45→21:59)
[2021-07-23] MEDS: HYDROcodone/APAP 5/325MG 1 TAB TABLET PO PRN ×2 (08:45→22:01)
--- NOTE | 2021-07-23 10:29 | PDOC ---
Infectious Disease Note Subjective: Subjective Patient without complaints Remains on room air Denies fever, nausea, vomiting, diarrhea, abdominal pain Vital Signs: Vital Signs Vital Signs Date Time Temp Pulse Resp B/P (MAP) Pulse Ox O2 Delivery O2 Flow Rate FiO2 07/23/21 09:15 16 07/23/21 08:45 Room Air 07/23/21 07:54 97 141/72 07/23/21 07:00 98.5 96 98.5 Physical Exam: PHYSICAL EXAM GENERAL: Alert, oriented gentleman, not in distress. HEENT: Both pupils are round and reacting. No conjunctival lesion. No lesion in the mouth. NECK: Supple. No JVP, no lymphadenopathy. LUNGS: Clear. HEART: S1, S2 regular. ABDOMEN: Soft, nontender, no organomegaly. EXTREMITIES:Wound vac in place with serous fluid in cannister ( wound care team nurse last week Wounds appear clean. Tendon exposure on dorsal foot wound. Deep wounds in leg. Muscle exposure. No gross purulence noted. Clean base. Edema + scrotal swelling present NEUROLOGIC: The patient is alert, awake, appropriate. No focal neurologic deficit. Right upper extremity PICC line removed Medications: Inpatient Meds: Medications reviewed. Labs: Lab Laboratory Tests Test 07/22/21 10:58 07/22/21 17:12 07/23/21 07:13 Glucose (Fingerstick) 161 mg/dL (70-99) 154 mg/dL (70-99) 159 mg/dL (70-99) Objective: Assessment: 1. Left leg cellulitis. Resolved 2. Extensive LLE infection Left leg infected wounds on the second toe and the lateral foot. Status post extensive I&D x 2, wounds are clean and improving 3. Leukocytosis.improved 4. Chronic venous insufficiency and stasis dermatitis. 5. Morbid obesity. 6. Diabetes mellitus. 7. Renal insufficiency. 8. Hypertension. Anemia s/p transfusion Thrombocytopenia, resolved Coagulopathy,low haptoglobin, bone marrow not done due to COVID-positive status FOB + Cultures positive for group B strep COVID positive Plan: Plan of Care Continue p.o. Augmentin, Elevate scrotum Diuretic management per primary Continue wound/VAC care as directed PT and OT as tolerated Bone marrow biopsy is on hold due to COVID-19 Continue supportive care LEIGH ASKEW MD Jul 23, 2021 10:28
[2021-07-23 11:00] VITALS: BP 138/68
--- NOTE | 2021-07-23 11:22 | NUR ---
Nursing made Dr. Nagel and Dr. Monteiro aware of increased scrotal swelling since taking care of this patient from prior assessment. Dr. Nagel stated he would address, no orders received by either physician.
[2021-07-23] MEDS ORDERED: FUROSEMIDE 40 MG/4 ML VIAL. IVP ONE (13:45)
[2021-07-23 14:35] VITALS: BP 106/66
--- NOTE | 2021-07-23 15:35 | PDOC2 ---
CARDIAC CONSULT DATE OF CONSULT Date of Consult DATE: 07/23/21 TIME: 14:28 REASON FOR CONSULT Reason for Consult: increasing leg edema REFERRING PHYSICIAN Referring Physician: Robe SOURCE Source: Chart review, Patient HISTORY OF PRESENT ILLNESS HISTORY OF PRESENT ILLNESS This is a 56 yo male admitted for leg pain and weakness. He was recently treated for LLE cellulitis He was treated but wound vac stopped working and site was leaking and has been having more pain than usual. Amputation was considered on the LLE and had I & D and his wound vac is now replaced. There concern for CHF w ith increasing leg edema with also scrotal edema. Denies SOA and no chest pain. Denies any palpitations. He does have mechanical mitral valve and takes warfarin for it. He was also noted covid-19 2 weeks ago and group B strep to LLE wound. Presently he is in acute CHF mainly right side. No orthopnea or PND. He has not been tested for MARIANA PAST MEDICAL HISTORY Cardiovascular: CHF, HTN, Hyperlipidemia, Valve insufficiency, Other (LE venous insufficiency) Heme/Onc: Anemia NOS, Other (LLE DVT) Musculoskeletal: Osteoarthritis Rheumatologic: Gout Renal/: Chronic renal insuff, UTI, Other (nephrolithiasis) Endocrine: Diabetes (2) PAST SURGICAL HISTORY Past Surgical History: Other (LLE I & D; mechanical MVR) FAMILY HISTORY Family History: Heart Disease SOCIAL HISTORY Smoke: Quit ALCOHOL: none Drugs: None Lives: with Family ALLERGIES ALLERGIES: Coded Allergies: No Known Drug Allergies (Unverified , 06/06/21) ROS Review of System 14 point ROS evaluated with pertinent positives noted per HPI PHYSICAL EXAM General: Alert, Oriented X3, Cooperative, No acute distress HEENT: Atraumatic, Mucous membr. moist/pink Lungs: Other (basilar crackles) Heart: Regular rate, Other (3/6 systolic murmur to apex) Abdomen: Soft, No tenderness, Other (obese, scrotal edema. anasarca) Extremities: Other (anasarca, wound vac to LLE) Skin: Other (BLE venous dermatitis, LUE edema; LLE cellulitis) Neuro: Normal speech, Sensation intact Psych/Mental Status: Mental status NL, Mood NL MUSCULOSKELETAL: Osteoarthritic changes both hands VITALS/I&O VITALS/I&O: Vital Signs Date Time Temp Pulse Resp B/P (MAP) Pulse Ox O2 Delivery O2 Flow Rate FiO2 07/23/21 11:00 98.8 104 16 138/68 (91) 94 Room Air 98.8 I & O 07/22/21 07/22/21 07/23/21 15:00 23:00 07:00 Intake Total 500 ml Balance 500 ml LABS Lab: Laboratory Tests Test 07/22/21 17:12 07/23/21 07:13 07/23/21 11:31 Glucose (Fingerstick) 154 mg/dL (70-99) H 159 mg/dL (70-99) H 170 mg/dL (70-99) H ECHOCARDIOGRAM ECHOCARDIOGRAM <Conclusion> The systolic function is severely impaired. EF 20% Septal motion consistent with conduction abnormality. There is severe global hypokinesis of the left ventricle. The right ventricle is moderately dilated. Prosthetic mitral valve is not well visualized. Doppler and Color Flow revealed trace tricuspid regurgitation with an estimated PAP of 47 mmHg. DATE: 05/16/21 [id number] ASSESSMENT/PLAN ASSESSMENT/PLAN 1. LLE cellulitis with extensive infection: s/p I & D noted previously with group B strep. wound vac in place per vascular/ID 2. Acute on chronic combined diastolic/systolic CHF: mainly right sided, likely from recent overhydration both IV/PO including PRBC with insufficient lasix and hypoalbuminemia 3. Acute on chronic cor pulmonale/anasarca 4. Severe cardiomyopathy: recent EF at 20% unchanged by comparison 5. LUE lymphedema: prior venous doppler noted with subcutaneous edema 6. S/P mechanical mitral valve replacement 7. HTN: controlled 8. HLP 9. DM2: per PCP 10. Mild hyperkalemia 11. Morbid obesity 12. Anemia of chronic disease: BMT is onhold due to covid-19 13. LLE PAD: arterial duplex showed PAD but inconclusive due to significant edema 14. Hx of thrombocytopenia: seen by hematology/GI recently and noted as multifactorial including prior sepsis/warfarin/MVR but no noted active bleed 15. Covid-19 +: 07/10/2021 Recommendations 1. Lasix therapy. Will intensify and will utilize inotropic support if no significant improvement. Strict I & O 2 L FR. daily wt 2. BMP, Mg, INR today 3. Will hold coumadin for possible LE angiogram. Hold ASA for now and will note PLT trend once heparin is started. Await input from vascular 4. Will hold off entresto if K remains elevated 5. Start toprol 6. No noted recent LHC nor RHC. Will definitely need abdominal arteriogram to further confirm any significnat PAD and need for revascularization given his poor wound healing. 7. Unclear for any recent LHC/RHC will discuss with primary archery equipment hay sorter.otherwise he will need AICD and could be place as an outpt once LLE issues is resolved 8. Consult OT for lymphedema 9. Also consider for outpt MARIANA workup. ALIDA BACA DRILL GRINDER Jul 23, 2021 15:35
[2021-07-23 15:50] LABS: PROTHROMBIN TIME PATIENT 24.6 SEC (11.7-14.0)
[2021-07-23] MEDS: METOPROLOL SUCC 24HR ER 25 MG TAB.ER.24H. PO SCH (16:50)
[2021-07-23 19:00] VITALS: BP 103/57
[2021-07-23 23:00] VITALS: BP 111/58
[2021-07-24] VITALS (8 sets, daily range): BP systolic 92–115; BP diastolic 49–64
[2021-07-24 07:36] LABS: BASO % 1 % (0-3); EOS # 0.1 x10^3/uL (0.0-0.7); EOS % 4 % (0-3); HEMATOCRIT 33.1 % (39.0-53.0); HEMOGLOBIN 9.9 g/dL (13.0-17.5); LYMPH # 0.5 x10^3/uL (1.0-4.8); LYMPH % 13 % (24-48); MEAN CORPUSCULAR HEMOGLOBIN 27 pg (25-35); MEAN CORPUSCULAR HGB CONC 30 g/dL (31-37); MEAN CORPUSCULAR VOLUME 90 fL (79-100); MONO # 0.3 x10^3/uL (0.0-1.1); MONO % 7 % (0-9); NEUT # 2.7 x10^3/uL (1.8-7.7); NEUT % 75 % (31-73); PLATELET COUNT 177 x10^3/uL (140-400); RED BLOOD COUNT 3.66 x10^6/uL (4.30-5.70); RED CELL DISTRIBUTION WIDTH 24.7 % (11.5-14.5); WHITE BLOOD COUNT 3.6 x10^3/uL (4.0-11.0)
[2021-07-24 07:45] LABS: PROTHROMBIN TIME PATIENT 23.2 SEC (11.7-14.0)
[2021-07-24 07:52] LABS: CALCIUM 8.3 mg/dL (8.5-10.1); CREATININE 1.1 mg/dL (0.7-1.3); GFR 68.8; POTASSIUM 5.3 mmol/L (3.5-5.1)
[2021-07-24] MEDS: SACUBITRIL/VALSARTAN 49/51MG TABLET. PO SCH ×2 (08:17→22:05)
[2021-07-24] MEDS: METOPROLOL SUCC 24HR ER 25 MG TAB.ER.24H. PO SCH ×2 (08:18→12:19)
[2021-07-24] MEDS: POTASSIUM CHLORIDE 10 MEQ TABLET.ER. PO SCH (08:19)
[2021-07-24] MEDS: LACTOBACILLUS RHAMNOSUS GG 1 CAPSULE. PO SCH ×2 (08:25→22:05)
[2021-07-24] MEDS: ALLOPURINOL 300 MG TABLET. PO SCH (08:25)
[2021-07-24] MEDS: PANTOPRAZOLE 40 MG TABLET.DR. PO SCH (08:25)
[2021-07-24] MEDS: AMOXICILLIN/K CLAV 875/125MG TABLET. PO SCH ×2 (08:25→22:05)
[2021-07-24] MEDS: FUROSEMIDE 40 MG/4 ML VIAL. IVP SCH (08:26)
[2021-07-24] MEDS: ALPRAZolam 0.5 MG TABLET PO PRN ×2 (08:31→22:04)
[2021-07-24] MEDS: HYDROcodone/APAP 5/325MG 1 TAB TABLET PO PRN ×2 (08:31→22:05)
--- NOTE | 2021-07-24 10:25 | NUR ---
SW following. Discussed with RN, pt having a procedure done to determine if AKA is needed. Not ready for discharge. SW will continue to follow.
--- NOTE | 2021-07-24 10:36 | PDOC ---
Infectious Disease Note Subjective: Subjective Patient without complaints Remains on room air Underwent diuresis per cardiology Edema is improving slowly Vital Signs: Vital Signs Vital Signs Date Time Temp Pulse Resp B/P (MAP) Pulse Ox O2 Delivery O2 Flow Rate FiO2 07/24/21 09:28 Room Air 07/24/21 09:27 99 105/54 (71) 07/24/21 08:31 18 07/24/21 08:06 97.5 96 97.5 Physical Exam: PHYSICAL EXAM GENERAL: Alert, oriented gentleman, not in distress. HEENT: Both pupils are round and reacting. No conjunctival lesion. No lesion in the mouth. NECK: Supple. No JVP, no lymphadenopathy. LUNGS: Clear. HEART: S1, S2 regular. ABDOMEN: Soft, nontender, no organomegaly. EXTREMITIES:Wound vac in place with serous fluid in cannister ( wound care team nurse last week Discussed with wound care team. Wounds are stable. Edema + scrotal swelling present NEUROLOGIC: The patient is alert, awake, appropriate. No focal neurologic deficit. Right upper extremity PICC line removed Medications: Inpatient Meds: Medications reviewed. Labs: Lab Laboratory Tests Test 07/23/21 11:31 07/23/21 15:30 07/23/21 16:50 07/23/21 20:17 Glucose (Fingerstick) 170 mg/dL (70-99) 146 mg/dL (70-99) 138 mg/dL (70-99) Prothrombin Time 24.6 SEC (11.7-14.0) Prothromb Time International Ratio 2.3 (0.8-1.1) Magnesium Level 2.0 mg/dL (1.8-2.4) Test 07/24/21 06:30 07/24/21 07:24 White Blood Count 3.6 x10^3/uL (4.0-11.0) Red Blood Count 3.66 x10^6/uL (4.30-5.70) Hemoglobin 9.9 g/dL (13.0-17.5) Hematocrit 33.1 % (39.0-53.0) Mean Corpuscular Volume 90 fL (79-100) Mean Corpuscular Hemoglobin 27 pg (25-35) Mean Corpuscular Hemoglobin Concent 30 g/dL (31-37) Red Cell Distribution Width 24.7 % (11.5-14.5) Platelet Count 177 x10^3/uL (140-400) Neutrophils (%) (Auto) 75 % (31-73) Lymphocytes (%) (Auto) 13 % (24-48) Monocytes (%) (Auto) 7 % (0-9) Eosinophils (%) (Auto) 4 % (0-3) Basophils (%) (Auto) 1 % (0-3) Neutrophils # (Auto) 2.7 x10^3/uL (1.8-7.7) Lymphocytes # (Auto) 0.5 x10^3/uL (1.0-4.8) Monocytes # (Auto) 0.3 x10^3/uL (0.0-1.1) Eosinophils # (Auto) 0.1 x10^3/uL (0.0-0.7) Basophils # (Auto) 0.0 x10^3/uL (0.0-0.2) Prothrombin Time 23.2 SEC (11.7-14.0) Prothromb Time International Ratio 2.1 (0.8-1.1) Sodium Level 135 mmol/L (136-145) Potassium Level 5.3 mmol/L (3.5-5.1) Chloride Level 101 mmol/L (98-107) Carbon Dioxide Level 29 mmol/L (21-32) Anion Gap 5 (6-14) Blood Urea Nitrogen 23 mg/dL (8-26) Creatinine 1.1 mg/dL (0.7-1.3) Estimated GFR (Cockcroft-Gault) 68.8 Glucose Level 130 mg/dL (70-99) Calcium Level 8.3 mg/dL (8.5-10.1) Glucose (Fingerstick) 128 mg/dL (70-99) Objective: Assessment: 1. Left leg cellulitis. Resolved 2. Extensive LLE infection Left leg infected wounds on the second toe and the lateral foot. Status post extensive I&D x 2, wounds are clean and improving 3. Leukocytosis.improved 4. Chronic venous insufficiency and stasis dermatitis. 5. Morbid obesity. 6. Diabetes mellitus. 7. Renal insufficiency. 8. Hypertension. Anemia s/p transfusion Thrombocytopenia, resolved Coagulopathy,low haptoglobin, bone marrow not done due to COVID-positive status FOB + Cultures positive for group B strep COVID positive Plan: Plan of Care Continue p.o. Augmentin, will wean off soon Undergoing diuresis per cardiology Continue wound/VAC care as directed PT and OT as tolerated Continue supportive care Discussed with nursing staff LEIGH ASKEW MD Jul 24, 2021 10:36
--- NOTE | 2021-07-24 10:50 | NUR ---
Wound Care Wound Type/Assessment: Wound care follow up for multiple leg wounds s/p I&D by vascular, and a small right buttock PU stage 3 that has now reopened. Seeing pt with Dr. Messer and Rianna with Vascular, as they wanted to assess wound progress to this point. See wound assessment for further details. Vac canister full of yellow exudate from leg wounds, new canister placed at this time. Pt continues to have edema on legs, thighs, scrotum and abdomen. No other wounds noted on skin assessment. Treatment Recommendations/Plan: Left lateral leg, left anterior ankle, left lateral foot wounds are y-connected with left medial leg wound, using two separate track heads d/t large amount of drainage and surface area of multiple wounds. Skin prepped to periwounds, wounds have silver foam, good seal maintained at -150 mmHg continuous suction. Right buttock: cleanse wound, applied Calazime barrier cream, turn q2h. Pt continuing to decline purple offloading wedge for repositioning. Education provided: Patient educated on elevating legs, wound vac therapy and PU healing, Pt declined repositioning at this time, pt encouraged to turn to prevent further breakdown. Offloading surface/device: Patient encouraged to turn q2h to prevent PU, pt refused to stay on his side at time of assessment, pt encouraged to turn q2h. Recommended Referrals/Tests: N/A Discharge Recommendations for dressings: Wound care will follow up for all dressing changes on 07/26. Bed lowered and call light within reach.
--- NOTE | 2021-07-24 11:29 | PDOC ---
CARDIO Progress Notes Date and Time Date of Service 07/24/2021 Time of Evaluation 0940 Subjective Subjective: No Chest Pain, No shortness of breath, No Palpitations Vitals Vitals Vital Signs Date Time Temp Pulse Resp B/P (MAP) Pulse Ox O2 Delivery O2 Flow Rate FiO2 07/24/21 09:28 Room Air 07/24/21 09:27 99 105/54 (71) 07/24/21 08:31 18 07/24/21 08:06 97.5 96 97.5 Weight Weight [ ] Input and Output Intake and Output Intake and Output 07/24/21 07:00 Intake Total 480 ml Balance 480 ml Intake Oral 480 ml Laboratory Labs Laboratory Tests Test 07/23/21 11:31 07/23/21 15:30 07/23/21 16:50 07/23/21 20:17 Glucose (Fingerstick) 170 mg/dL (70-99) 146 mg/dL (70-99) 138 mg/dL (70-99) Prothrombin Time 24.6 SEC (11.7-14.0) Prothromb Time International Ratio 2.3 (0.8-1.1) Magnesium Level 2.0 mg/dL (1.8-2.4) Test 07/24/21 06:30 07/24/21 07:24 White Blood Count 3.6 x10^3/uL (4.0-11.0) Red Blood Count 3.66 x10^6/uL (4.30-5.70) Hemoglobin 9.9 g/dL (13.0-17.5) Hematocrit 33.1 % (39.0-53.0) Mean Corpuscular Volume 90 fL (79-100) Mean Corpuscular Hemoglobin 27 pg (25-35) Mean Corpuscular Hemoglobin Concent 30 g/dL (31-37) Red Cell Distribution Width 24.7 % (11.5-14.5) Platelet Count 177 x10^3/uL (140-400) Neutrophils (%) (Auto) 75 % (31-73) Lymphocytes (%) (Auto) 13 % (24-48) Monocytes (%) (Auto) 7 % (0-9) Eosinophils (%) (Auto) 4 % (0-3) Basophils (%) (Auto) 1 % (0-3) Neutrophils # (Auto) 2.7 x10^3/uL (1.8-7.7) Lymphocytes # (Auto) 0.5 x10^3/uL (1.0-4.8) Monocytes # (Auto) 0.3 x10^3/uL (0.0-1.1) Eosinophils # (Auto) 0.1 x10^3/uL (0.0-0.7) Basophils # (Auto) 0.0 x10^3/uL (0.0-0.2) Prothrombin Time 23.2 SEC (11.7-14.0) Prothromb Time International Ratio 2.1 (0.8-1.1) Sodium Level 135 mmol/L (136-145) Potassium Level 5.3 mmol/L (3.5-5.1) Chloride Level 101 mmol/L (98-107) Carbon Dioxide Level 29 mmol/L (21-32) Anion Gap 5 (6-14) Blood Urea Nitrogen 23 mg/dL (8-26) Creatinine 1.1 mg/dL (0.7-1.3) Estimated GFR (Cockcroft-Gault) 68.8 Glucose Level 130 mg/dL (70-99) Calcium Level 8.3 mg/dL (8.5-10.1) Glucose (Fingerstick) 128 mg/dL (70-99) Microbiology Micro Microbiology 07/04/21 Urine Culture - Final, Complete 07/03/21 Blood Culture - Final, Complete NO GROWTH AFTER 5 DAYS Physical Exam HEENT: Neck Supple W Full Motion Chest: Symmetric LUNGS: Other (diminished basees) Heart: RRR (SR) Abdomen: Other (obes) Extremities: Other (anasarca; LLE wound with cound vac) Neurology: alert, oriented, follow commands Assessment Assessment 1. LLE cellulitis with extensive infection: s/p I & D noted previously with group B strep. wound vac in place per vascular/ID 2. Acute on chronic combined diastolic/systolic CHF: mainly right sided, likely from recent overhydration both IV/PO including PRBC with insufficient lasix and hypoalbuminemia 3. Acute on chronic cor pulmonale/anasarca 4. Severe cardiomyopathy: recent EF at 20% unchanged by comparison 5. LUE lymphedema: prior venous doppler noted with subcutaneous edema 6. S/P mechanical mitral valve replacement 7. HTN: controlled 8. HLP 9. DM2: per PCP 10. Mild hyperkalemia 11. Morbid obesity 12. Anemia of chronic disease: BMT is onhold due to covid-19 13. LLE PAD: arterial duplex showed PAD but inconclusive due to significant edema 14. Hx of thrombocytopenia: seen by hematology/GI recently and noted as multifactorial including prior sepsis/warfarin/MVR but no noted active bleed 15. Covid-19 +: 07/10/2021 Recommendations 1. Lasix therapy. Will intensify and will utilize inotropic support if no significant improvement. Strict I & O 2 L FR. daily wt 2. If no recent LLE angiogram then will proceed tomorrow as well as R/LHC in re to severe CM and anasarca. Will hold coumadin and resume post procedure and will be bridge with heparin if INR<2. Hold ASA for now. Discuss with pt, r/b/a 3. Will hold off entresto if K remains elevated 4. Start toprol 5. Plan for AICD as an outpt pending result of LHC 6. Consult OT for lymphedema 7. Also consider for outpt MARIANA workup. Justicifation of Admission Dx: Justifications for Admission: Justification of Admission Dx: Yes ALIDA BACA SENIOR FUNCTIONAL ANALYST Jul 24, 2021 11:29
--- NOTE | 2021-07-24 11:56 | PDOC ---
Provider Note Date of Service: DATE: 07/24/21 TIME: 11:49 Provider Note Provider Note Vascular surgery Patient seen with Dr. Messer S: Patient has previously undergone extensive left lower extremity debridement by us several weeks ago. He has continued wound VAC therapy with improvement and granulating wounds. He was scheduled for outpatient follow-up with us today therefore we are following up on the wound. Also cardiology approached us regarding possible angiogram. O: Vital signs stable, afebrile Alert, oriented, in no apparent distress Respirations nonlabored, room air Left lower extremity wounds assessed. Left ankle wound and foot wound with granulating tissue progressing well over exposed tendon of the foot. Left lateral lower leg wound with good granulation tissue throughout, previous undermining has closed and well. Larger left medial lower leg wound with good granulation tissue throughout. Moderate lower leg edema A/P: Severe left lower extremity infection status post extensive wound debridement several weeks ago Patient was seen with Dr. Messer today. His wounds are progressing and granulating well with good coverage. Cardiology has approached us and discussed getting lower extremity runoff during their already planned heart cath, which is fine, because his wounds are progressing and healing nicely we would not recommend lower extremity arteriogram by itself. Continue wound VAC therapy, continue treatment to minimize edema and lower extremity swelling. Physical therapy. We will plan to see patient in outpatient follow-up. Justicifation of Admission Dx: Justifications for Admission: Justification of Admission Dx: Yes KATHIE TOURE Jul 24, 2021 11:56
[2021-07-24] MEDS ORDERED: FUROSEMIDE 40 MG/4 ML VIAL. IVP ONE (15:00)
--- NOTE | 2021-07-25 02:01 | PN ---
DATE: 07/24/2021 LOCATION: He is in room 548. SUBJECTIVE: This 56-year-old male remains hospitalized with left leg wounds, wound VAC therapy, antibiotics. He is profoundly weak. He has become somewhat more edematous, but has been edematous throughout the entire stay. Started by Cardiology on an increased dose of Lasix yesterday, which we will observe. I did discontinue his pioglitazone yesterday for the fluid retention. He has been getting somewhat lightheaded when he stands up and I am concerned that the increase in Lasix is going to make this worse. OBJECTIVE: VITAL SIGNS: Stable. He is afebrile. GENERAL: He is awake and alert. CHEST: Clear to auscultation. Distant breath sounds. HEART: Regular rate and rhythm. ABDOMEN: Benign. EXTREMITIES: Wound VAC in place. He has no clinical symptomatology of congestive heart failure. LABORATORY DATA: INR this morning is 2.1. Hemoglobin is up to 9.9, platelets remained stable at 177. Potassium is 5.3, BUN 23, creatinine 1.1 and sugars have been good. ASSESSMENT: 1. Left leg wound. 2. Diabetes with good blood sugars. 3. Weakness with inability to do self-care. 4. Peripheral arterial disease. PLAN: Rehab is imperative, although I noticed it was not done yesterday and I am dictating later in the day today and it has not been done today. He is unsure ____ as long as this continues, he is not going to get stronger and get out of the hospital. We will observe him on current medications. ALIZE/ABDIRIZAK DR: Ivette TID: [id number]
[2021-07-25 03:00] VITALS: BP 92/46
[2021-07-25 07:00] VITALS: BP 95/54
[2021-07-25] MEDS: PANTOPRAZOLE 40 MG TABLET.DR. PO SCH (07:19)
[2021-07-25 08:14] LABS: PROTHROMBIN TIME PATIENT 20.9 SEC (11.7-14.0)
--- NOTE | 2021-07-25 08:58 | PDOC ---
Infectious Disease Note Subjective: Subjective Patient without complaints Vital Signs: Vital Signs Vital Signs Date Time Temp Pulse Resp B/P (MAP) Pulse Ox O2 Delivery O2 Flow Rate FiO2 07/25/21 07:50 Room Air 07/25/21 07:00 97.8 78 16 95/54 (68) 95 97.8 Physical Exam: PHYSICAL EXAM GENERAL: Alert, oriented gentleman, not in distress. HEENT: Both pupils are round and reacting. No conjunctival lesion. No lesion in the mouth. NECK: Supple. No JVP, no lymphadenopathy. LUNGS: Clear. HEART: S1, S2 regular. ABDOMEN: Soft, nontender, no organomegaly. EXTREMITIES:Wound vac in place with serous fluid in cannister ( wound care team nurse last week Discussed with wound care team. Wounds are stable. Edema + scrotal swelling present NEUROLOGIC: The patient is alert, awake, appropriate. No focal neurologic deficit. Right upper extremity PICC line removed Medications: Inpatient Meds: Medications reviewed. Labs: Lab Laboratory Tests Test 07/24/21 11:46 07/24/21 16:23 07/24/21 20:33 07/25/21 07:19 Glucose (Fingerstick) 150 mg/dL (70-99) 149 mg/dL (70-99) 153 mg/dL (70-99) 143 mg/dL (70-99) Test 07/25/21 07:30 Prothrombin Time 20.9 SEC (11.7-14.0) Prothromb Time International Ratio 1.8 (0.8-1.1) Objective: Assessment: 1. Left leg cellulitis. Resolved 2. Extensive LLE infection Left leg infected wounds on the second toe and the lateral foot. Status post extensive I&D x 2, wounds are clean and improving 3. Leukocytosis.improved 4. Chronic venous insufficiency and stasis dermatitis. 5. Morbid obesity. 6. Diabetes mellitus. 7. Renal insufficiency. 8. Hypertension. Anemia s/p transfusion Thrombocytopenia, resolved Coagulopathy,low haptoglobin, bone marrow not done due to COVID-positive status FOB + Cultures positive for group B strep COVID positive Plan: Plan of Care Continue p.o. Augmenti Undergoing diuresis per cardiology Continue wound/VAC care as directed PT and OT as tolerated Continue supportive care Discussed with nursing staff LEIGH ASKEW MD Jul 25, 2021 08:58
[2021-07-25] MEDS: AMOXICILLIN/K CLAV 875/125MG TABLET. PO SCH ×2 (09:00→20:31)
[2021-07-25] MEDS: SACUBITRIL/VALSARTAN 49/51MG TABLET. PO SCH ×3 (09:00→23:13)
[2021-07-25] MEDS: LACTOBACILLUS RHAMNOSUS GG 1 CAPSULE. PO SCH ×2 (09:00→20:31)
[2021-07-25] MEDS: ALLOPURINOL 300 MG TABLET. PO SCH (09:00)
[2021-07-25] MEDS: POTASSIUM CHLORIDE 10 MEQ TABLET.ER. PO SCH (09:00)
[2021-07-25 11:00] VITALS: BP 126/77
[2021-07-25] MEDS: FUROSEMIDE 40 MG/4 ML VIAL. IVP SCH (11:34)
--- NOTE | 2021-07-25 12:54 | PN ---
DATE: 07/25/2021 LOCATION: He is in room 548. SUBJECTIVE: This 56-year-old male remains hospitalized with left leg wounds, wound VAC therapy and antibiotics. He remains weak. He is getting more dizzy standing up since he has been started back on a higher dose of Lasix. He does report though he is getting rid of a fair amount of fluid. He is scheduled to have a heart catheterization today as well as arteriogram of the left leg. OBJECTIVE: VITAL SIGNS: Stable. He is afebrile. GENERAL: He is awake and alert. CHEST: Clear with distant breath sounds. HEART: Regular rate and rhythm. ABDOMEN: Benign. EXTREMITIES: Wound VAC in place on extremities. LABORATORY DATA: Sugars remain decent. INR is fallen to 1.8 this morning. ASSESSMENT: 1. Left leg wound with slow healing, peripheral arterial disease with good blood sugars. 2. Weakness with inability to do self-care. 3. Edema with likely some right-sided heart failure. PLAN: Rehab as much as possible. We will see what further plans can be done after procedures today. ROSE/MERY DR: Ivette TID: [id number]
[2021-07-25] MEDS ORDERED: IODIXANOL IART ONE (13:00)
[2021-07-25] MEDS ORDERED: SODIUM CHLORIDE IART ONE (13:00)
[2021-07-25] MEDS ORDERED: IODIXANOL 320 MG/ML 100 ML VIAL. ONE (13:58)
[2021-07-25] MEDS ORDERED: LIDOCAINE 1% Multi-Dose 20 ML VIAL. ONE (13:59)
[2021-07-25] MEDS ORDERED: HEPARIN for ARTERIAL LINE 1,500 ML ONE (13:59)
[2021-07-25] MEDS ORDERED: MIDAZOLAM HCL/PF 2 MG/2 ML VIAL. ONE (14:22)
[2021-07-25] MEDS ORDERED: HEPARIN for IV BOLUS 10,000 UNIT/10 ML VIAL. ONE (14:22)
[2021-07-25] MEDS ORDERED: fentaNYL PF VIAL 100 MCG/2 ML VIAL ONE (14:22)
[2021-07-25] MEDS ORDERED: VERAPAMIL 5 MG/2 ML VIAL. ONE (14:22)
[2021-07-25] MEDS ORDERED: NITROGLYCERIN 200 MCG/2 ML SYRINGE FOR CATH/VASC LAB. ONE ×2 (14:23→15:08)
[2021-07-25] MEDS ORDERED: HEPARIN for IV BOLUS 10,000 UNIT/10 ML VIAL. IART ONE (15:15)
[2021-07-25] MEDS ORDERED: IODIXANOL 320 MG/ML 100 ML VIAL. IART ONE (15:15)
[2021-07-25] MEDS ORDERED: fentaNYL PF VIAL 100 MCG/2 ML VIAL IV ONE (15:15)
[2021-07-25] MEDS ORDERED: MIDAZOLAM HCL/PF 2 MG/2 ML VIAL. IV ONE (15:15)
[2021-07-25] MEDS ORDERED: LIDOCAINE 1% Multi-Dose 20 ML VIAL. INJ ONE (15:15)
[2021-07-25] MEDS ORDERED: VERAPAMIL 5 MG/2 ML VIAL. IART ONE (15:15)
[2021-07-25] MEDS ORDERED: NITROGLYCERIN 200 MCG/2 ML SYRINGE FOR CATH/VASC LAB. IART ONE (15:15)
--- NOTE | 2021-07-25 15:18 | NUR ---
Pt currently in technology lab teacher, transferring to room 667 after procedure. This RN gave transfer report to TISH Walker by telephone. Belongings bagged up and sent to room 667.
[2021-07-25 16:10] VITALS: BP 137/67
--- NOTE | 2021-07-25 17:22 | CARD ---
MR#: [id number] Date of Study: 07/25/2021 Ordering Physician: ALIDA BACA, Referring Physician: ALIDA BACA, Tech: RT Oliverio(R) APPROVED REPORT Technologist: Kanchan Chairez RT(R) Nurse: Kristina Laguna RN Procedure(s) performed: MODERATE SEDATION TIME: 69 MINUTES FLUORO TIME: 3.4 MIN DOSE: 63.3 GYCM2 CONTRAST: 43CC VISI RHC, LHC, Coronary angiography [facility] Clinical Frailty Scale [facility] Clinical Frailty Scale: Severely Frail Heart Failure Heart Failure: Yes If Yes, Newly Diagnosed: No If Yes, HF Type: Diastolic Systolic If Yes, NYHA Class: Class III CASE TECHNIQUE IV conscious sedation was used throughout procedure with appropriate monitoring and was performed in the presence of a registered nurse who was an independent trained observer other than the physician p erforming the procedure. Specimen(s) Removed: n/a Estimated Blood loss: 15 cc's. PROCEDURE NARRATIVE Clinical information: 56-year-old male with prior history of mechanical mitral valve who presents to the hospital in the se tting of decompensated heart failure. The patient underwent a diagnostic right and left heart cathet erization. Procedure details: After proper informed consent the right wrist and right arm were prepped and draped in usual sterile fashion. Under 1% lidocaine local anesthesia and ultrasound guidance a 6 Filipino sheath was placed in the right radial artery and a 5 Filipino sheath was placed in the right brachial vein via the modified Seldinger technique. Right heart catheterization was then performed with a 5 Filipino PA catheter whi ch was advanced to the right heart chambers and pressures and saturations were obtained. Diagnostic angiography was then performed with a 6 Filipino TIG catheter. Left ventricular end-diastolic pressure was obtained with a 6 Filipino TIG catheter and a pullback was performed. At case completion the righ t radial sheath and brachial sheath were removed and hemostasis was achieved via a Terumo radial band and manual compression, respectively. No acute complications. Findings: Aorta 110/80 LVEDP 25 mmHg No LV to aortic pullback gradient Right heart catheterization: RA 28 RV 54/12/25 PA 53/36/42 Wedge 33 PA saturation 71 FA saturation 97 Marsha cardiac output 10 L/min new Coronary angiography: Left main is a short large-caliber vessel with normal angiographic appearance LAD is a moderate to large caliber vessel with mild luminal irregularities of up to 30% Left circumflex is a moderate to large caliber codominant vessel with mild luminal irregularities Ramus is a moderate caliber vessel with normal angiographic appearance LPL1 is a small caliber vessel with mild luminal irregularities LPDA is a moderate caliber vessel with proximal 30 to 40% stenosis RCA is a moderate caliber nondominant vessel with mild luminal irregularities Conclusion 1. Severe biventricular pressure overload 2. Secondary pulmonary hypertension, mean PA 42 mmHg 3. High cardiac output 4. No significant coronary artery disease Recommendations 1. Initiate Lasix drip and continue medical management. 2. Restart heparin drip given history of mechanical mitral valve. Signed by : Paul Trujillo, Electronically Approved : 07/25/2021 17:21:50
--- NOTE | 2021-07-25 17:26 | CARD ---
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 CASE TECHNIQUE After explaining the risks, benefits, and alternative options, informed consent was obtained from the patient. IV conscious sedation was used throughout procedure with appropriate monitoring and was per formed in the presence of a registered nurse who was an independent trained observer other than the alyce travisan performing the procedure. During this case, Fluoroscopy and low osmolar contrast were used f or imaging. Specimen(s) Removed: N/A Estimated Blood loss: 10 cc's. PROCEDURE NARRATIVE Clinical formation: 56-year-old man who presents to the [facility] for a diagnostic coronary angiogram in the setting of de compensated heart failure. He is also known to have a significant large nonhealing wound in the left lower extremity and therefore he underwent a runoff of the left leg. Procedure details: See separate cardiac catheterization report for access details. After the patient's cardiac catheter ization a 4 Tajik multipurpose catheter was placed in the left external iliac/common femoral arterie s. Left lower extremity runoff was then performed. At case completion the catheter was removed. Findings: Left external iliac artery has no significant disease Left common femoral artery has mild luminal irregularities of up to 20% Left superficial femoral artery has a proximal eccentric 50 to 60% stenosis Left popliteal artery has no significant disease Left TP trunk has no significant disease and there is three-vessel runoff. *No obvious pullback gradient was noted from the left external iliac artery into the aorta signifying no obvious aortoiliac disease. This case was complex due to the patient's significant morbid obesity and inability to move his legs limiting the imaging. Conclusion 1. Moderate left superficial femoral artery disease with three-vessel runoff below the knee. Recommendations Aggressive Medical Therapy Signed by : Paul Trujillo, Electronically Approved : 07/25/2021 17:26:24
[2021-07-25 19:00] VITALS: BP 97/72
[2021-07-25] MEDS ORDERED: HEPARIN for IV BOLUS 10,000 UNIT/10 ML VIAL. IV PRN (19:00)
[2021-07-25] MEDS: ALPRAZolam 0.5 MG TABLET PO PRN (20:31)
[2021-07-25] MEDS: HEPARIN 25,000UTS/250ML PREMIX 250 ML IV PRN (20:46)
[2021-07-25 23:00] VITALS: BP 122/89
[2021-07-25] MEDS: HYDROcodone/APAP 5/325MG 1 TAB TABLET PO PRN (23:11)
[2021-07-26 02:16] VITALS: BP_SYST 106; BP_SYST 122; BP_DIAS 62; BP_DIAS 64
[2021-07-26 03:15] LABS: HEMATOCRIT 25.8 % (39.0-53.0); HEMOGLOBIN 8.1 g/dL (13.0-17.5); RED BLOOD COUNT 2.96 x10^6/uL (4.30-5.70); RED CELL DISTRIBUTION WIDTH 23.3 % (11.5-14.5); WHITE BLOOD COUNT 3.3 x10^3/uL (4.0-11.0)
[2021-07-26 03:35] LABS: PROTHROMBIN TIME PATIENT 22.2 SEC (11.7-14.0)
[2021-07-26] MEDS: HEPARIN 25,000UTS/250ML PREMIX 250 ML IV PRN ×2 (04:24→22:20)
[2021-07-26] MEDS: PANTOPRAZOLE 40 MG TABLET.DR. PO SCH ×2 (05:27→08:42)
--- NOTE | 2021-07-26 06:25 | PDOC ---
Infectious Disease Note Subjective: Subjective Patient without complaints Vital Signs: Vital Signs Vital Signs Date Time Temp Pulse Resp B/P (MAP) Pulse Ox O2 Delivery O2 Flow Rate FiO2 07/26/21 02:16 97.5 94 18 106/64 (78) 95 Room Air 97.5 07/25/21 16:10 2.0 Physical Exam: PHYSICAL EXAM GENERAL: Alert, oriented gentleman, not in distress. HEENT: Both pupils are round and reacting. No conjunctival lesion. No lesion in the mouth. NECK: Supple. No JVP, no lymphadenopathy. LUNGS: Clear. HEART: S1, S2 regular. ABDOMEN: Soft, nontender, no organomegaly. EXTREMITIES:Wound vac in place with serous fluid in cannister ( wound care team nurse last week Discussed with wound care team. Wounds are stable. Edema + scrotal swelling present NEUROLOGIC: The patient is alert, awake, appropriate. No focal neurologic deficit. Right upper extremity PICC line removed Medications: Inpatient Meds: Medications reviewed. Labs: Lab Laboratory Tests Test 07/25/21 07:19 07/25/21 07:30 07/25/21 11:29 07/25/21 17:03 Glucose (Fingerstick) 143 mg/dL (70-99) 117 mg/dL (70-99) 105 mg/dL (70-99) Prothrombin Time 20.9 SEC (11.7-14.0) Prothromb Time International Ratio 1.8 (0.8-1.1) Test 07/25/21 19:36 07/26/21 03:00 Glucose (Fingerstick) 164 mg/dL (70-99) White Blood Count 3.3 x10^3/uL (4.0-11.0) Red Blood Count 2.96 x10^6/uL (4.30-5.70) Hemoglobin 8.1 g/dL (13.0-17.5) Hematocrit 25.8 % (39.0-53.0) Mean Corpuscular Volume 87 fL (79-100) Mean Corpuscular Hemoglobin 27 pg (25-35) Mean Corpuscular Hemoglobin Concent 31 g/dL (31-37) Red Cell Distribution Width 23.3 % (11.5-14.5) Platelet Count 132 x10^3/uL (140-400) Prothrombin Time 22.2 SEC (11.7-14.0) Prothromb Time International Ratio 2.0 (0.8-1.1) Heparin Anti-Xa Act, Unfractionated 0.37 IU/mL (0.30-0.70) Objective: Assessment: 1. Left leg cellulitis. Resolved 2. Extensive LLE infection Left leg infected wounds on the second toe and the lateral foot. Status post extensive I&D x 2, wounds are clean and improving 3. Leukocytosis.improved 4. Chronic venous insufficiency and stasis dermatitis. 5. Morbid obesity. 6. Diabetes mellitus. 7. Renal insufficiency. 8. Hypertension. Anemia s/p transfusion Thrombocytopenia, resolved Coagulopathy,low haptoglobin, bone marrow not done due to COVID-positive status FOB + Cultures positive for group B strep COVID positive Plan: Plan of Care DC Augmentin Continue wound/VAC care as directed PT and OT as tolerated Continue supportive care Will sign off LEIGH ASKEW MD Jul 26, 2021 06:25
[2021-07-26 07:00] VITALS: BP 106/62
--- NOTE | 2021-07-26 08:38 | NUR ---
Wound Care Wound Type/Assessment: Wound care follow up for multiple leg wounds s/p I&D by vascular, and a small right buttock PU stage 3 that has now reopened. See wound assessment for further details. Vac canister half full of yellow exudate from leg wounds, new canister placed at this time. Pt continues to have edema on legs, thighs, scrotum and abdomen. No other wounds noted on skin assessment. Treatment Recommendations/Plan: Left lateral leg, left anterior ankle, left lateral foot wounds are y-connected with left medial leg wound, using two separate track heads d/t large amount of drainage and surface area of multiple wounds. Skin prepped to periwounds, wounds have silver foam, good seal maintained at -150 mmHg continuous suction. Right buttock: cleanse wound, applied Calazime barrier cream, turn q2h. Pt continuing to decline purple offloading wedge for repositioning. Education provided: Patient educated on elevating legs, wound vac therapy and PU healing, Pt declined repositioning at this time, pt encouraged to turn to prevent further breakdown. Offloading surface/device: Patient encouraged to turn q2h to prevent PU, pt refused to stay on his side at time of assessment, pt encouraged to turn q2h. Recommended Referrals/Tests: N/A Discharge Recommendations for dressings: Wound care will follow up for all dressing changes on 07/29. Bed lowered and call light within reach.
[2021-07-26] MEDS: LACTOBACILLUS RHAMNOSUS GG 1 CAPSULE. PO SCH ×2 (08:42→20:59)
[2021-07-26] MEDS: METOPROLOL SUCC 24HR ER 25 MG TAB.ER.24H. PO SCH (08:42)
[2021-07-26] MEDS: POTASSIUM CHLORIDE 10 MEQ TABLET.ER. PO SCH (08:42)
[2021-07-26] MEDS: ALLOPURINOL 300 MG TABLET. PO SCH (08:42)
[2021-07-26] MEDS: SACUBITRIL/VALSARTAN 49/51MG TABLET. PO SCH ×2 (08:43→20:59)
[2021-07-26] MEDS: FUROSEMIDE 40 MG/4 ML VIAL. IVP SCH (08:43)
[2021-07-26] MEDS: ALPRAZolam 0.5 MG TABLET PO PRN ×2 (09:06→21:07)
[2021-07-26] MEDS: HYDROcodone/APAP 5/325MG 1 TAB TABLET PO PRN ×2 (09:06→21:07)
--- NOTE | 2021-07-26 10:57 | PDOC ---
CARDIO Progress Notes Date and Time Date of Service 07/26/2021 Time of Evaluation 1030 Subjective Subjective: No Chest Pain, No shortness of breath, No Palpitations Vitals Vitals Vital Signs Date Time Temp Pulse Resp B/P (MAP) Pulse Ox O2 Delivery O2 Flow Rate FiO2 07/26/21 09:35 20 94 Room Air 2.0 07/26/21 08:43 94 106/64 07/26/21 07:00 96.7 96.7 Weight Weight [ ] Input and Output Intake and Output Intake and Output 07/26/21 07:00 Intake Total 780 ml Output Total 500 ml Balance 280 ml Intake Oral 780 ml Drainage Total 500 ml # Voids 4 Laboratory Labs Laboratory Tests Test 07/25/21 11:29 07/25/21 17:03 07/25/21 19:36 07/26/21 03:00 Glucose (Fingerstick) 117 mg/dL (70-99) 105 mg/dL (70-99) 164 mg/dL (70-99) White Blood Count 3.3 x10^3/uL (4.0-11.0) Red Blood Count 2.96 x10^6/uL (4.30-5.70) Hemoglobin 8.1 g/dL (13.0-17.5) Hematocrit 25.8 % (39.0-53.0) Mean Corpuscular Volume 87 fL (79-100) Mean Corpuscular Hemoglobin 27 pg (25-35) Mean Corpuscular Hemoglobin Concent 31 g/dL (31-37) Red Cell Distribution Width 23.3 % (11.5-14.5) Platelet Count 132 x10^3/uL (140-400) Prothrombin Time 22.2 SEC (11.7-14.0) Prothromb Time International Ratio 2.0 (0.8-1.1) Heparin Anti-Xa Act, Unfractionated 0.37 IU/mL (0.30-0.70) Test 07/26/21 08:53 07/26/21 09:05 Glucose (Fingerstick) 121 mg/dL (70-99) Heparin Anti-Xa Act, Unfractionated 0.58 IU/mL (0.30-0.70) Microbiology Micro Microbiology 07/04/21 Urine Culture - Final, Complete 07/03/21 Blood Culture - Final, Complete NO GROWTH AFTER 5 DAYS Physical Exam HEENT: Neck Supple W Full Motion Chest: Symmetric LUNGS: Other (diminished basees) Heart: RRR (SR) Abdomen: Other (obes) Extremities: Other (anasarca; LLE wound with cound vac) Neurology: alert, oriented, follow commands Assessment Assessment 1. LLE cellulitis with extensive infection: s/p I & D noted previously with group B strep. wound vac in place per vascular/ID 2. Acute on chronic combined diastolic/systolic CHF: mainly right sided, likely from recent overhydration both IV/PO including PRBC with insufficient lasix and hypoalbuminemia 3. Acute on chronic cor pulmonale/anasarca: RHC revealed biventricular overload 4. Severe NICM: EF 20% 5. LUE lymphedema: prior venous doppler noted with subcutaneous edema 6. S/P mechanical mitral valve replacement 7. HTN: controlled 8. HLP 9. DM2: per PCP 10. Mild hyperkalemia 11. Morbid obesity 12. Anemia of chronic disease: BMT is onhold due to covid-19 13. LLE PAD: aortogram revealed moderate left superficial femoral artery disease with three-vessel runoff below the knee 14. Hx of thrombocytopenia: seen by hematology/GI recently and noted as multifactorial including prior sepsis/warfarin/MVR but no noted active bleed 15. Covid-19 +: 07/10/2021 Recommendations 1. Lasix drip. Heparin drip and will DC when INR is 2. Continue warfarin. BMP and Mg today 2. Will hold off entresto if K remains elevated 3. Start toprol 4. Plan for AICD as an outpt 5. Consult OT for lymphedema 6. Also consider for outpt MARIANA workup. Justicifation of Admission Dx: Justifications for Admission: Justification of Admission Dx: Yes ALIDA BACA APRN Jul 26, 2021 10:57
[2021-07-26 11:00] VITALS: BP 147/71
[2021-07-26 11:02] LABS: CALCIUM 8.2 mg/dL (8.5-10.1); CREATININE 1.1 mg/dL (0.7-1.3); GFR 68.8; POTASSIUM 4.5 mmol/L (3.5-5.1)
--- NOTE | 2021-07-26 11:56 | HP ---
DATE OF SERVICE: 07/26/2021 ADMIT DATE: 07/03/2021 DAILY PROGRESS NOTE LOCATION: He is in room 667. SUBJECTIVE: This 56-year-old male remains hospitalized with bilateral left leg infection and debridement of wounds x 2. He remains on antibiotics for the same as well as wound VAC wound therapy. He is weak and unable to do self-care. He had a left leg arteriogram yesterday showing nonsignificant disease as far as healing of his wound goes, in addition had a heart catheterization showing biventricular overload with hyperdynamic cardiac function and some pulmonary hypertension. Cardiology has converted him to a Lasix drip. OBJECTIVE: GENERAL: He is awake and alert. VITALS: Blood pressures continue to run on the low end. CHEST: Clear to auscultation with distant breath sounds. HEART: Regular rate and rhythm. ABDOMEN: Benign. LABORATORY DATA: Hemoglobin this morning has dropped to 8.1, which would not make a lot of sense with diuresis. White count has dropped somewhat at 3.3 and platelets have also dropped to 132, making me wonder what is going on bone marrow brady, as everything seems to be improving and now has regressed. Potassium is 4.5, BUN 21, creatinine 1.1. INR this morning is 2. ASSESSMENT: 1. Left leg with slow healing. 2. Profound weakness with inability to do self care. 3. Diabetes with good control. 4. Pulmonary hypertension. PLAN: Continue present wound care therapy to mobilize. Cardiology help appreciated. RAJAN/VERONIQUE DE LA O: ROSE/donato TID: [id number]
--- NOTE | 2021-07-26 14:00 | NUR ---
SS following up with discharge planning. SS reviewed pt chart and discussed with pt RN. Pt is currently on room air. COVID19 positive on 07/10/2021. Pt on Lasix Drip. Pt had heart cath on 07/25/2021. Wound care following and wound vacs in place. No surgical plans at this time. PT/OT recommended residential unit. Pt has [facility]. Referral phoned and faxed for LTACH to [facility], ; fax [phone]. SS will continue to follow for discharge planning.
[2021-07-26] MEDS: FUROSEMIDE INJ 100 MG in IV NORMAL SALINE 100ML 100 ML IV PRN (14:14)
[2021-07-26 15:00] VITALS: BP 123/71
[2021-07-26] MEDS ORDERED: MAGNESIUM SULFATE 2GM 50 ML IV ONE (15:00)
--- NOTE | 2021-07-26 15:21 | NUR ---
Pharmacy Warfarin Dosing Note S:Pharmacy consulted to assist with anticoagulation therapy started with target INR: 2 -3 O:AVINASH FARIAS is a 56 year old M with Mechanical Mitral Valve LABS: Last INR: 2.0 Last HGB: 8.1 Last HCT: 25.8 Last PLT: 132 Last dose of 3 mg given on 07/22/21 at 1551 Previous Regimen: 2.5MG MWFSA Vitamin K given: N Drug Interaction Changes: Ongoing Drug Interactions: A:INR of 2.0 is within desired range. Target range for this patient is: 2 -3 P: Warfarin dose: 2.5 mg Today at 1600 Bridge Therapy: None Next INR due tomorrow Pharmacy anticoagulation service will continue to follow. NISHI RENNER Katie, 07/26/21 [id number]
[2021-07-26] MEDS ORDERED: WARFARIN 2.5 MG TABLET. PO ONE (16:00)
[2021-07-26 19:43] VITALS: BP 111/61
[2021-07-26 22:39] VITALS: BP 119/60
[2021-07-27 03:06] VITALS: BP 107/66
[2021-07-27 04:23] LABS: PROTHROMBIN TIME PATIENT 19.6 SEC (11.7-14.0)
[2021-07-27 07:00] VITALS: BP 119/75
[2021-07-27] MEDS: ALLOPURINOL 300 MG TABLET. PO SCH (08:07)
[2021-07-27] MEDS: PANTOPRAZOLE 40 MG TABLET.DR. PO SCH (08:07)
[2021-07-27] MEDS: SACUBITRIL/VALSARTAN 49/51MG TABLET. PO SCH ×2 (08:08→20:04)
[2021-07-27] MEDS: POTASSIUM CHLORIDE 10 MEQ TABLET.ER. PO SCH (08:08)
[2021-07-27] MEDS: METOPROLOL SUCC 24HR ER 25 MG TAB.ER.24H. PO SCH (08:09)
[2021-07-27] MEDS: LACTOBACILLUS RHAMNOSUS GG 1 CAPSULE. PO SCH ×2 (09:00→20:04)
[2021-07-27 11:00] VITALS: BP 135/83
[2021-07-27] MEDS: FUROSEMIDE INJ 100 MG in IV NORMAL SALINE 100ML 100 ML IV PRN (11:37)
--- NOTE | 2021-07-27 12:52 | PDOC ---
CARDIOLOGY PROGRESS NOTE SUBJECTIVE: No new events. OBJECTIVE: Vital Signs/I&O: Vital Signs Date Time Temp Pulse Resp B/P (MAP) Pulse Ox O2 Delivery O2 Flow Rate FiO2 07/27/21 11:00 97.2 93 18 135/83 (100) 94 Room Air 97.2 07/27/21 08:00 2.0 I & O 07/26/21 07/26/21 07/27/21 15:00 23:00 07:00 Intake Total 500 ml 1066.4 ml Balance 500 ml 1066.4 ml Objective: GEN.: No apparent distress. Alert and oriented. HEENT: Head is normocephalic, atraumatic NECK: Supple. LUNGS: Clear to auscultation. HEART: RRR, S1, S2 present. Peripheral pulses intact. Mitral valve click present ABDOMEN: Soft, nontender. Positive bowel sounds. EXTREMITIES: LLE in wound vac NEUROLOGIC: Normal speech, normal tone PSYCHIATRIC: Normal affect, normal mood. SKIN: No ulcerations CURRENT MEDICATIONS: Warfarin - 1.7 Hep gtt Lasix 100mg IV Metoprolol XL 25mg daily Entresto 49/51 mg bid DIAGNOSTIC TESTING: Labs reviewed. Pancytopenia noted. ASSESSMENT: 1. LLE cellulitis with extensive infection: s/p I & D noted previously with group B strep. wound vac in place per vascular/ID 2. Acute on chronic combined diastolic/systolic CHF: mainly right sided, likely from recent overhydration both IV/PO including PRBC with insufficient lasix and hypoalbuminemia 3. Acute on chronic cor pulmonale/anasarca: RHC revealed biventricular overload 4. Severe NICM: EF 20% 5. LUE lymphedema: prior venous doppler noted with subcutaneous edema 6. S/P mechanical mitral valve replacement 7. HTN: controlled 8. HLP 9. DM2: per PCP 10. Mild hyperkalemia 11. Morbid obesity 12. Anemia of chronic disease: BMT is onhold due to covid-19 13. LLE PAD: aortogram revealed moderate left superficial femoral artery disease with three-vessel runoff below the knee 14. Hx of thrombocytopenia: seen by hematology/GI recently and noted as multifactorial including prior sepsis/warfarin/MVR but no noted active bleed 15. Covid-19 +: 07/10/2021 Recommendations 1. Continue aggressive diuresis with lasix. 2. Continue heparin gtt. Monitor pancytopenia. Justicifation of Admission Dx: Justifications for Admission: Justification of Admission Dx: Yes TROY DINH MD Jul 27, 2021 12:52
[2021-07-27] MEDS: HEPARIN 25,000UTS/250ML PREMIX 250 ML IV PRN (13:18)
--- NOTE | 2021-07-27 13:35 | CONS ---
DATE OF CONSULTATION: 07/27/2021 DAILY PROGRESS NOTE LOCATION: He is in room 667. SUBJECTIVE: This 56-year-old male remains hospitalized with left leg wound, wound VAC therapy and antibiotics. He remains weak. He was less dizzy, getting up yesterday than he had been and felt that, that went a little bit better. He feels like the amount of his urination has slowed down. OBJECTIVE: VITAL SIGNS: Stable. He is afebrile. He is awake and alert. CHEST: With distant breath sounds. HEART: Regular rate and rhythm. ABDOMEN: Benign. Wound VAC remains in place. EXTREMITIES: He finally has slightly less swelling. LABORATORY DATA: Sugars remain decent. INR was low yesterday and will be rechecked in the morning. Blood counts have fallen some yesterday and will be rechecked in the morning. We will also follow renal function with the diuresis. Heart catheterization and left leg arteriograms were appreciated with I do not believe anything new to do there in those regards. ASSESSMENT: 1. Left leg wound with slow healing peripheral arterial disease that is mild and good blood sugars next week with weakness with inability to do self care. 2. Pulmonary hypertension. PLAN: Continue rehabilitation as much as possible. Follow Cardiology's lead on diuresis. RAJAN/VERONIQUE DE LA O: ROSE/donato TID: [id number]
[2021-07-27 15:00] VITALS: BP 109/66
--- NOTE | 2021-07-27 15:31 | NUR ---
Pharmacy Warfarin Dosing Note S: Pharmacy consulted to assist with anticoagulation therapy O: AVINASH FARIAS is a 56 year old M with Mechanical Mitral Valve LABS: Last INR: 1.7 Last HGB: 8.1 Last HCT: 25.8 Last PLT: 132 Last dose of 2.5 mg given on 07/26/21 at 1617 Vitamin K given: N A:INR of 1.7 is below desired range. Target range for this patient is: 2 - 3 P: Warfarin dose: 3 mg Today at 1600 Bridge Therapy: None Next INR due 07/28/21 Pharmacy anticoagulation service will continue to follow. APARNA MEJIA [facility], 07/27/21 [id number]
[2021-07-27] MEDS ORDERED: WARFARIN 3 MG TABLET. PO ONE (16:00)
[2021-07-27 19:20] VITALS: BP 134/68
[2021-07-27] MEDS: ALPRAZolam 0.5 MG TABLET PO PRN (20:04)
[2021-07-27] MEDS: HYDROcodone/APAP 5/325MG 1 TAB TABLET PO PRN (20:05)
[2021-07-27 23:31] VITALS: BP 97/47
[2021-07-28 03:07] VITALS: BP 95/54
[2021-07-28] MEDS: HEPARIN 25,000UTS/250ML PREMIX 250 ML IV PRN ×2 (03:51→18:21)
[2021-07-28] MEDS: FUROSEMIDE INJ 100 MG in IV NORMAL SALINE 100ML 100 ML IV PRN (03:53)
[2021-07-28 04:39] LABS: BASO % 1 % (0-3); EOS # 0.1 x10^3/uL (0.0-0.7); EOS % 4 % (0-3); HEMATOCRIT 25.6 % (39.0-53.0); HEMOGLOBIN 7.9 g/dL (13.0-17.5); LYMPH # 0.5 x10^3/uL (1.0-4.8); LYMPH % 17 % (24-48); MEAN CORPUSCULAR HEMOGLOBIN 27 pg (25-35); MEAN CORPUSCULAR HGB CONC 31 g/dL (31-37); MEAN CORPUSCULAR VOLUME 87 fL (79-100); MONO # 0.3 x10^3/uL (0.0-1.1); MONO % 9 % (0-9); NEUT # 2.1 x10^3/uL (1.8-7.7); NEUT % 69 % (31-73); PLATELET COUNT 122 x10^3/uL (140-400); RED BLOOD COUNT 2.93 x10^6/uL (4.30-5.70); RED CELL DISTRIBUTION WIDTH 21.8 % (11.5-14.5); WHITE BLOOD COUNT 3.1 x10^3/uL (4.0-11.0)
[2021-07-28 05:34] LABS: CREATININE 1.1 mg/dL (0.7-1.3); GFR 68.8; POTASSIUM 4.1 mmol/L (3.5-5.1)
[2021-07-28 07:00] VITALS: BP_SYST 101; BP_SYST 87; BP_DIAS 56; BP_DIAS 59
[2021-07-28] MEDS: ALLOPURINOL 300 MG TABLET. PO SCH (08:45)
[2021-07-28] MEDS: POTASSIUM CHLORIDE 10 MEQ TABLET.ER. PO SCH (08:45)
[2021-07-28] MEDS: METOPROLOL SUCC 24HR ER 25 MG TAB.ER.24H. PO SCH (08:45)
[2021-07-28] MEDS: LACTOBACILLUS RHAMNOSUS GG 1 CAPSULE. PO SCH ×2 (08:45→21:00)
[2021-07-28] MEDS ORDERED: PANTOPRAZOLE 40 MG TABLET.DR. PO ONE (09:28)
[2021-07-28 10:47] VITALS: BP 105/61
[2021-07-28] MEDS: SACUBITRIL/VALSARTAN 49/51MG TABLET. PO SCH ×2 (10:50→22:00)
--- NOTE | 2021-07-28 12:30 | NUR ---
Order noted for consulatation to EH WATTERS APRN. Called designated num in the system and and left voicemail. Will wait for call back. Fellow Nurse Keshia aware. 1200h- bladder scan done, >437ml, according to patient he feels the urge to urinate few seconds before he does. Less frequency and volume noticed when 2L fluid volume restriction was implemented according to him. Reiterated the indication for fluid restriction to him.
[2021-07-28] MEDS: HYDROcodone/APAP 5/325MG 1 TAB TABLET PO PRN ×2 (12:34→22:00)
--- NOTE | 2021-07-28 12:56 | PDOC ---
CARDIOLOGY PROGRESS NOTE SUBJECTIVE: No new events overnight. OBJECTIVE: Vital Signs/I&O: Vital Signs Date Time Temp Pulse Resp B/P (MAP) Pulse Ox O2 Delivery O2 Flow Rate FiO2 07/28/21 12:34 20 Room Air 07/28/21 10:50 89 105/61 07/28/21 10:47 97.4 94 2.0 97.4 I & O 0 07/27/21 07/27/21 07/28/21 15:00 23:00 07:00 Intake Total 300 ml 866.4 ml Balance 300 ml 866.4 ml Objective: Exam remains unchanged. Patient is morbidly obese. Has a large protuberant abdomen. Persistent bilateral 3+ pitting edema. Left lower extremity wound VAC in place DIAGNOSTIC TESTING: Labs reviewed. Medications reviewed. INR remains subtherapeutic. Currently on heparin drip. Labs: Laboratory Tests 07/28/21 04:00 Laboratory Tests Test 07/27/21 16:58 07/27/21 20:32 07/28/21 04:00 07/28/21 07:27 Glucose (Fingerstick) 139 mg/dL (70-99) H 151 mg/dL (70-99) H 132 mg/dL (70-99) H White Blood Count 3.1 x10^3/uL (4.0-11.0) L Red Blood Count 2.93 x10^6/uL (4.30-5.70) L Hemoglobin 7.9 g/dL (13.0-17.5) L Hematocrit 25.6 % (39.0-53.0) L Mean Corpuscular Volume 87 fL (79-100) Mean Corpuscular Hemoglobin 27 pg (25-35) Mean Corpuscular Hemoglobin Concent 31 g/dL (31-37) Red Cell Distribution Width 21.8 % (11.5-14.5) H Platelet Count 122 x10^3/uL (140-400) L Neutrophils (%) (Auto) 69 % (31-73) Lymphocytes (%) (Auto) 17 % (24-48) L Monocytes (%) (Auto) 9 % (0-9) Eosinophils (%) (Auto) 4 % (0-3) H Basophils (%) (Auto) 1 % (0-3) Neutrophils # (Auto) 2.1 x10^3/uL (1.8-7.7) Lymphocytes # (Auto) 0.5 x10^3/uL (1.0-4.8) L Monocytes # (Auto) 0.3 x10^3/uL (0.0-1.1) Eosinophils # (Auto) 0.1 x10^3/uL (0.0-0.7) Basophils # (Auto) 0.0 x10^3/uL (0.0-0.2) Prothrombin Time 18.0 SEC (11.7-14.0) H Prothromb Time International Ratio 1.5 (0.8-1.1) H Heparin Anti-Xa Act, Unfractionated 0.41 IU/mL (0.30-0.70) Sodium Level 135 mmol/L (136-145) L Potassium Level 4.1 mmol/L (3.5-5.1) Chloride Level 100 mmol/L (98-107) Carbon Dioxide Level 33 mmol/L (21-32) H Anion Gap 2 (6-14) L Blood Urea Nitrogen 25 mg/dL (8-26) Creatinine 1.1 mg/dL (0.7-1.3) Estimated GFR (Cockcroft-Gault) 68.8 Glucose Level 145 mg/dL (70-99) H Calcium Level 8.0 mg/dL (8.5-10.1) L Test 07/28/21 11:40 Glucose (Fingerstick) 137 mg/dL (70-99) H ASSESSMENT: ASSESSMENT: 1. LLE cellulitis with extensive infection: s/p I & D noted previously with group B strep. wound vac in place per vascular/ID 2. Acute on chronic combined diastolic/systolic CHF: mainly right sided, likely from recent overhydration both IV/PO including PRBC with insufficient lasix and hypoalbuminemia 3. Acute on chronic cor pulmonale/anasarca: RHC revealed biventricular overload 4. Severe NICM: EF 20% 5. LUE lymphedema: prior venous doppler noted with subcutaneous edema 6. S/P mechanical mitral valve replacement 7. HTN: controlled 8. HLP 9. DM2: per PCP 10. Mild hyperkalemia 11. Morbid obesity 12. Anemia of chronic disease: BMT is onhold due to covid-19 13. LLE PAD: aortogram revealed moderate left superficial femoral artery disease with three-vessel runoff below the knee 14. Hx of thrombocytopenia: seen by hematology/GI recently and noted as multifactorial including prior sepsis/warfarin/MVR but no noted active bleed 15. Covid-19 +: 07/10/2021 Recommendations 1. Continue aggressive diuresis with lasix. It is difficult to estimate his diuresis given that he is not able to have a Bailey catheter placed and unable to urinate in the urinal. 2. Continue heparin gtt. Monitor pancytopenia. Anemia noted. We will follow along closely. Justicifation of Admission Dx: Justifications for Admission: Justification of Admission Dx: Yes TROY DINH MD Jul 28, 2021 12:56
--- NOTE | 2021-07-28 14:01 | NUR ---
Pharmacy Warfarin Dosing Note S: Pharmacy consulted to assist with anticoagulation therapy O: AVINASH FARIAS is a 56 year old M with Mechanical Mitral Valve LABS: Last INR: 1.5 Last HGB: 7.9 Last HCT: 25.6 Last PLT: 122 Last dose of 3 mg given on 07/27/21 at 1604 Vitamin K given: N A:INR of 1.5 is below desired range. Target range for this patient is: 2.5 - 3.5 P: Warfarin dose: 5 mg Today at 1600 Bridge Therapy: None Next INR due 07/29/21 Pharmacy anticoagulation service will continue to follow. APARNA MEJIA [facility], 07/28/21 [id number]
[2021-07-28 15:00] VITALS: BP 126/72
[2021-07-28] MEDS ORDERED: WARFARIN 5 MG TABLET. PO ONE (16:00)
--- NOTE | 2021-07-28 19:00 | NUR ---
Dr. Sawyer aware of consult by phone, will see patient wilver.
--- NOTE | 2021-07-28 19:01 | NUR ---
Pls dissregard previous notes entered by me dated 190, regarding Dr. Sawyer, it was wrong entry. Thank you.
[2021-07-28 19:22] VITALS: BP 104/60
--- NOTE | 2021-07-28 19:31 | NUR ---
Tried calling again Alexa Garcia APRN but went thru the mailbox, left a message and endorsed to shift production supervisor duty of pending consult.
--- NOTE | 2021-07-28 21:08 | PN ---
DATE: 07/28/2021 LOCATION: He is in room 667. SUBJECTIVE: This 56-year-old male remains hospitalized with left leg wounds and wound VAC therapy. He remains weak. Feels like he is not as dizzy standing up the last couple of days, but his blood pressures have become softer with diuresis. He does admit to getting rid of a fair amount of fluid. He has difficulties getting with urinary flow and has for years and has had prior urethral procedure done for what sounds like a stricture and I am going to ask Urology to look at him while he is here. OBJECTIVE: VITAL SIGNS: Stable. He is afebrile. GENERAL: He is awake and alert. CHEST: Clear with distant breath sounds. HEART: Regular rate and rhythm. ABDOMEN: Benign. EXTREMITIES: Wound VAC in place on left leg. Overall, anasarca has improved. LABORATORY DATA: INR this morning is 1.5 and I have discussed with pharmacy and they will begin monitoring and dosing. Hemoglobin this morning is 7.9, which again was expected to going up with diuresis and not down. Platelet count has dropped a little further to 122,000, white count down to 3100. BUN is 25, creatinine 1.1, potassium remains good at 4.1 and sugars are acceptable. ASSESSMENT: 1. Left leg wounds with ongoing wound VAC therapy. 2. Weakness with inability to self-care. 3. Cor pulmonale with anasarca and biventricular failure. PLAN: Continue rehabilitation as much as possible and/or Coumadin. Follow hematological abnormalities. Continue diuresis. PAT/LORRI DR: Ivette TID: [id number]
[2021-07-28] MEDS: ALPRAZolam 0.5 MG TABLET PO PRN (22:00)
[2021-07-28 23:02] VITALS: BP 126/67
--- NOTE | 2021-07-28 23:49 | NUR ---
Pt was on 10 liters nasal cannula. up till now increased to 15 liters nc. called joel vargas and placed pt on non rebreathier 15 liters. 94% 118/70. pt seeme to have possibly sleep apnea, which is in his history as well. on cannula sats were 79% placed on non rebriether and sats now are 92%. rr are 36. lcrn Addendum: 07/29/21 at 0311 by Elda Daugherty RN wrong pt. attention wrong patient
[2021-07-29 02:55] VITALS: BP 93/52
[2021-07-29 05:25] LABS: CALCIUM 7.7 mg/dL (8.5-10.1); CREATININE 1.2 mg/dL (0.7-1.3); GFR 62.2
[2021-07-29 05:31] LABS: BASO % 1 % (0-3); EOS # 0.1 x10^3/uL (0.0-0.7); EOS % 4 % (0-3); HEMATOCRIT 25.9 % (39.0-53.0); HEMOGLOBIN 7.9 g/dL (13.0-17.5); LYMPH # 0.6 x10^3/uL (1.0-4.8); LYMPH % 19 % (24-48); MEAN CORPUSCULAR HEMOGLOBIN 27 pg (25-35); MEAN CORPUSCULAR HGB CONC 31 g/dL (31-37); MEAN CORPUSCULAR VOLUME 88 fL (79-100); MONO # 0.3 x10^3/uL (0.0-1.1); MONO % 10 % (0-9); NEUT % 66 % (31-73); PLATELET COUNT 121 x10^3/uL (140-400); RED BLOOD COUNT 2.94 x10^6/uL (4.30-5.70); RED CELL DISTRIBUTION WIDTH 21.8 % (11.5-14.5); WHITE BLOOD COUNT 3.1 x10^3/uL (4.0-11.0)
[2021-07-29 05:50] LABS: PROTHROMBIN TIME PATIENT 18.3 SEC (11.7-14.0)
[2021-07-29 05:52] LABS: UNFRACTIONATED HEPARIN TESTING 0.25 IU/mL (0.30-0.70)
[2021-07-29 07:51] VITALS: BP 133/72
[2021-07-29] MEDS: LACTOBACILLUS RHAMNOSUS GG 1 CAPSULE. PO SCH ×2 (07:55→21:34)
[2021-07-29] MEDS: PANTOPRAZOLE 40 MG TABLET.DR. PO SCH (07:56)
[2021-07-29] MEDS: POTASSIUM CHLORIDE 10 MEQ TABLET.ER. PO SCH (07:56)
[2021-07-29] MEDS: ALLOPURINOL 300 MG TABLET. PO SCH (07:56)
[2021-07-29] MEDS: METOPROLOL SUCC 24HR ER 25 MG TAB.ER.24H. PO SCH (07:56)
[2021-07-29] MEDS: SACUBITRIL/VALSARTAN 49/51MG TABLET. PO SCH ×2 (07:56→21:00)
[2021-07-29 08:35] LABS: UNFRACTIONATED HEPARIN TESTING 0.3 IU/mL (0.30-0.70)
[2021-07-29] MEDS: HEPARIN 25,000UTS/250ML PREMIX 250 ML IV PRN ×2 (09:16→21:30)
--- NOTE | 2021-07-29 10:50 | PDOC ---
JANETH ORNELAS AGILE TESTER 07/29/21 1049: CARDIO Progress Notes Date and Time Date of Service 07/29/21 Time of Evaluation 1045 Subjective Subjective: No Chest Pain, No shortness of breath, No Palpitations Vitals Vitals Vital Signs Date Time Temp Pulse Resp B/P (MAP) Pulse Ox O2 Delivery O2 Flow Rate FiO2 07/29/21 07:56 89 133/72 07/29/21 07:51 97.3 18 99 Nasal Cannula 2.0 97.3 Weight Weight [ ] Input and Output Intake and Output Intake and Output 07/29/21 07:00 Intake Total 1180 ml Balance 1180 ml Intake Oral 1080 ml IV Total 100 ml # Voids 7 Laboratory Labs Laboratory Tests Test 07/28/21 11:40 07/28/21 17:06 07/28/21 20:56 07/29/21 04:50 Glucose (Fingerstick) 137 mg/dL (70-99) 148 mg/dL (70-99) 173 mg/dL (70-99) White Blood Count 3.1 x10^3/uL (4.0-11.0) Red Blood Count 2.94 x10^6/uL (4.30-5.70) Hemoglobin 7.9 g/dL (13.0-17.5) Hematocrit 25.9 % (39.0-53.0) Mean Corpuscular Volume 88 fL (79-100) Mean Corpuscular Hemoglobin 27 pg (25-35) Mean Corpuscular Hemoglobin Concent 31 g/dL (31-37) Red Cell Distribution Width 21.8 % (11.5-14.5) Platelet Count 121 x10^3/uL (140-400) Neutrophils (%) (Auto) 66 % (31-73) Lymphocytes (%) (Auto) 19 % (24-48) Monocytes (%) (Auto) 10 % (0-9) Eosinophils (%) (Auto) 4 % (0-3) Basophils (%) (Auto) 1 % (0-3) Neutrophils # (Auto) 2.0 x10^3/uL (1.8-7.7) Lymphocytes # (Auto) 0.6 x10^3/uL (1.0-4.8) Monocytes # (Auto) 0.3 x10^3/uL (0.0-1.1) Eosinophils # (Auto) 0.1 x10^3/uL (0.0-0.7) Basophils # (Auto) 0.0 x10^3/uL (0.0-0.2) Prothrombin Time 18.3 SEC (11.7-14.0) Prothromb Time International Ratio 1.5 (0.8-1.1) Heparin Anti-Xa Act, Unfractionated 0.25 IU/mL (0.30-0.70) Sodium Level 136 mmol/L (136-145) Potassium Level 4.0 mmol/L (3.5-5.1) Chloride Level 99 mmol/L (98-107) Carbon Dioxide Level 36 mmol/L (21-32) Anion Gap 1 (6-14) Blood Urea Nitrogen 24 mg/dL (8-26) Creatinine 1.2 mg/dL (0.7-1.3) Estimated GFR (Cockcroft-Gault) 62.2 Glucose Level 132 mg/dL (70-99) Calcium Level 7.7 mg/dL (8.5-10.1) Test 07/29/21 07:40 07/29/21 07:53 Activated Partial Thromboplast Time 119 SEC (24-38) Heparin Anti-Xa Act, Unfractionated 0.30 IU/mL (0.30-0.70) Glucose (Fingerstick) 118 mg/dL (70-99) Microbiology Micro Microbiology 07/04/21 Urine Culture - Final, Complete 07/03/21 Blood Culture - Final, Complete NO GROWTH AFTER 5 DAYS Physical Exam HEENT: Neck Supple W Full Motion Chest: Symmetric LUNGS: Other (diminished bases) Heart: RRR (SR) Abdomen: Other (obese) Extremities: Other (anasarca; LLE wound with wound vac) Neurology: alert, oriented, follow commands Assessment Assessment 1. LLE cellulitis with extensive infection: s/p I & D noted previously with group B strep. wound vac in place per vascular/ID 2. Acute on chronic combined diastolic/systolic CHF: mainly right sided. improved with Lasix gtt 3. Acute on chronic cor pulmonale/anasarca: RHC revealed biventricular overload 4. Severe NICM: EF 20% 5. LUE lymphedema: prior venous doppler noted with subcutaneous edema 6. S/P mechanical mitral valve replacement 7. HTN: controlled 8. HLP 9. DM2: per PCP 10. Morbid obesity 11. Anemia of chronic disease; hgb drift to 7.9 12. LLE PAD: aortogram revealed moderate left superficial femoral artery disease with three-vessel runoff below the knee 13. Thrombocytopenia: seen by hematology/GI recently and noted as multifactorial including prior sepsis/warfarin/MVR but no noted active bleed 14. Covid-19 +: 07/10/2021 Recommendations Continue HF optimization Needs further fluid offloading; continue Lasix, add metolazone Daily weights. 1500cc FR Warfarin therapy; INR 1.5 Bridge with heparin until INR 2.0 Monitor hgb, PLTs. Transfused as warranted Supportive care Plan for AICD as an outpt Justicifation of Admission Dx: Justifications for Admission: Justification of Admission Dx: Yes LORE BROWN MD 07/30/21 0918: CARDIO Progress Notes Assessment Assessment Patient seen and examined on 07/29/2021. I agree with our nurse practitioners assessment and plan. LLE cellulitis with extensive infection: s/p I & D noted previously with group B strep. wound vac in place per vascular/ID Acute on chronic combined diastolic/systolic CHF: mainly right sided. improved. Lasix and metolazone treatment. Acute on chronic cor pulmonale/anasarca: RHC revealed biventricular overload Severe NICM: EF 20% LUE lymphedema: prior venous doppler noted with subcutaneous edema S/P mechanical mitral valve replacement. Bridging with heparin until INR within range. HTN: controlled HLP DM2: per PCP Anemia of chronic disease; hgb to 7.9 LLE PAD: aortogram revealed moderate left superficial femoral artery disease with three-vessel runoff below the knee Thrombocytopenia: seen by hematology/GI recently and noted as multifactorial including prior sepsis/warfarin/MVR but no noted active bleed Covid-19 +: 07/10/2021 JANETH ORNELAS APRN Jul 29, 2021 10:49 LORE BROWN MD Jul 30, 2021 09:18
[2021-07-29 11:30] VITALS: BP 125/71
--- NOTE | 2021-07-29 11:41 | NUR ---
SS following up with discharge planning. SS reviewed pt chart and discussed with pt RN. Pt is currently requiring oxygen at two liters nasal canula. COVID19 recovered. Pt on Lasix and Heparin drip. Wound care following. Wound vac in place. Referrals phoned and faxed to [facility], ; fax [phone], and [facility], ; fax [phone]. Clinical updates faxed today. Pt accepted at [facility] pending insurance approval. SS will continue to follow for discharge planning.
[2021-07-29 15:03] VITALS: BP 125/70
[2021-07-29] MEDS ORDERED: WARFARIN 7.5 MG TABLET. PO ONE (16:00)
[2021-07-29 19:50] VITALS: BP 86/57
[2021-07-29] MEDS: FUROSEMIDE INJ 100 MG in IV NORMAL SALINE 100ML 100 ML IV PRN (19:54)
--- NOTE | 2021-07-29 20:22 | PN ---
DATE: 07/29/2021 LOCATION: He is in room 667. SUBJECTIVE: This 56-year-old male remains hospitalized with left leg wounds, wound VAC therapy. Remains weak. Not quite as dizzy on standing, looking forward to therapy. He has ongoing difficulties with urinary flow and awaiting urological opinion on the same. OBJECTIVE: VITAL SIGNS: Stable. He is afebrile. GENERAL: He is awake, alert. CHEST: Distant breath sounds. HEART: Regular rate and rhythm. ABDOMEN: Benign. EXTREMITIES: Wound VAC in place and some improvement in anasarca. LABORATORY DATA: INR is still low at 1.5 this morning. Renal function and hematological parameters are essentially the same. ASSESSMENT: 1. Left leg wounds with ongoing wound VAC therapy. 2. Weakness with inability to self-care. 3. Cor pulmonale with anasarca and biventricular failure. 4. Anemia and thrombocytopenia and leukopenia of uncertain etiology. PLAN: Continue rehabilitation, diuresis. Pharmacy is managing warfarin. Continue to follow renal function. EBEN DR: Ivette TID: [id number]
[2021-07-29 22:50] VITALS: BP 98/53
[2021-07-30 02:11] LABS: HEMATOCRIT 25.7 % (39.0-53.0); HEMOGLOBIN 8.1 g/dL (13.0-17.5); RED BLOOD COUNT 2.98 x10^6/uL (4.30-5.70); RED CELL DISTRIBUTION WIDTH 21.8 % (11.5-14.5); WHITE BLOOD COUNT 3.4 x10^3/uL (4.0-11.0)
[2021-07-30 02:18] LABS: PROTHROMBIN TIME PATIENT 18.8 SEC (11.7-14.0)
[2021-07-30 02:20] LABS: UNFRACTIONATED HEPARIN TESTING 0.31 IU/mL (0.30-0.70)
[2021-07-30 02:35] VITALS: BP 98/61
[2021-07-30 07:54] VITALS: BP 104/59
[2021-07-30] MEDS: metOLazone 2.5 MG TABLET PO SCH (08:27)
[2021-07-30] MEDS: SACUBITRIL/VALSARTAN 49/51MG TABLET. PO SCH ×2 (08:27→20:33)
[2021-07-30] MEDS: LACTOBACILLUS RHAMNOSUS GG 1 CAPSULE. PO SCH ×2 (08:27→20:32)
[2021-07-30] MEDS: ALLOPURINOL 300 MG TABLET. PO SCH (08:28)
[2021-07-30] MEDS: POTASSIUM CHLORIDE 10 MEQ TABLET.ER. PO SCH (08:28)
[2021-07-30] MEDS: PANTOPRAZOLE 40 MG TABLET.DR. PO SCH (08:28)
[2021-07-30] MEDS: METOPROLOL SUCC 24HR ER 25 MG TAB.ER.24H. PO SCH (08:28)
--- NOTE | 2021-07-30 09:58 | PDOC ---
CARDIO Progress Notes Date and Time Date of Service 07/30/21 Time of Evaluation 1000 Subjective Subjective: No Chest Pain, No shortness of breath, No Palpitations, Other (still edematous ) Vitals Vitals Vital Signs Date Time Temp Pulse Resp B/P (MAP) Pulse Ox O2 Delivery O2 Flow Rate FiO2 07/30/21 08:28 93 104/59 07/30/21 08:00 Room Air 2.0 07/30/21 07:54 97.7 22 99 97.7 Weight Weight [ ] Input and Output Intake and Output Intake and Output 07/30/21 07:00 Intake Total 1400 ml Balance 1400 ml Intake Oral 1400 ml # Voids 21 # Bowel Movements 1 Laboratory Labs Laboratory Tests Test 07/29/21 11:31 07/29/21 13:21 07/29/21 16:40 07/29/21 18:35 Glucose (Fingerstick) 125 mg/dL (70-99) 115 mg/dL (70-99) Heparin Anti-Xa Act, Unfractionated 0.39 IU/mL (0.30-0.70) 0.38 IU/mL (0.30-0.70) Test 07/29/21 21:17 07/30/21 01:50 07/30/21 07:56 07/30/21 08:15 Glucose (Fingerstick) 172 mg/dL (70-99) 119 mg/dL (70-99) White Blood Count 3.4 x10^3/uL (4.0-11.0) Red Blood Count 2.98 x10^6/uL (4.30-5.70) Hemoglobin 8.1 g/dL (13.0-17.5) Hematocrit 25.7 % (39.0-53.0) Mean Corpuscular Volume 87 fL (79-100) Mean Corpuscular Hemoglobin 27 pg (25-35) Mean Corpuscular Hemoglobin Concent 32 g/dL (31-37) Red Cell Distribution Width 21.8 % (11.5-14.5) Platelet Count 122 x10^3/uL (140-400) Prothrombin Time 18.8 SEC (11.7-14.0) Prothromb Time International Ratio 1.6 (0.8-1.1) Heparin Anti-Xa Act, Unfractionated 0.31 IU/mL (0.30-0.70) 0.43 IU/mL (0.30-0.70) Microbiology Micro Microbiology 07/04/21 Urine Culture - Final, Complete 07/03/21 Blood Culture - Final, Complete NO GROWTH AFTER 5 DAYS Physical Exam HEENT: Neck Supple W Full Motion Chest: Symmetric LUNGS: Other (diminished bases) Heart: RRR (SR) Abdomen: Other (obese) Extremities: Other (anasarca; LLE wound with wound vac) Neurology: alert, oriented, follow commands Assessment Assessment 1. LLE cellulitis with extensive infection: s/p I & D noted previously with group B strep. wound vac in place per vascular/ID 2. Acute on chronic combined diastolic/systolic CHF: mainly right sided. improving with Lasix gtt 3. Acute on chronic cor pulmonale/anasarca: RHC revealed biventricular overload 4. Severe NICM: EF 20% 5. LUE lymphedema: prior venous doppler noted with subcutaneous edema 6. S/P mechanical mitral valve replacement 7. HTN: controlled 8. HLP 9. DM2: per PCP 10. Morbid obesity 11. Anemia of chronic disease; hgb at 8.1 12. LLE PAD: aortogram revealed moderate left superficial femoral artery disease with three-vessel runoff below the knee 13. Thrombocytopenia: seen by hematology/GI recently and noted as multifactorial including prior sepsis/warfarin/MVR but no noted active bleed 14. Covid-19 +: 07/10/2021. recovered 15. Urinary retention; awaiting urology evaluation Recommendations Continue HF optimization Needs further fluid offloading; continue Lasix, metolazone Daily standing weights as able. 1500cc FR Warfarin therapy; INR 1.6 Bridge with heparin until INR 2.0 Monitor hgb, PLTs. Transfused as warranted Supportive care Plan for AICD as an outpt Justicifation of Admission Dx: Justifications for Admission: Justification of Admission Dx: Yes JANETH ORNELAS APRN Jul 30, 2021 09:58
[2021-07-30] MEDS: HEPARIN 25,000UTS/250ML PREMIX 250 ML IV PRN ×2 (10:14→22:26)
[2021-07-30 10:22] VITALS: BP 95/52
--- NOTE | 2021-07-30 10:22 | NUR ---
SS following up with discharge planning. SS reviewed pt chart and discussed with pt RN. Pt is currently requiring oxygen at two liters nasal canula. COVID19 recovered. Wound care following. Heparin and Lasix drip. Pt accepted at [facility], ; fax [phone], and [facility], ; fax [phone], pending insurance approval. Currently awaiting insurance determination from [facility][note 3]. SS will continue to follow for discharge planning.
--- NOTE | 2021-07-30 10:45 | NUR ---
Wound Care Wound Type/Assessment: Wound care follow up for multiple leg wounds s/p I&D by vascular, and a small right buttock PU stage 3 that remains open but stable. See wound assessment for further details. Vac canister full of yellow exudate from leg wounds, new canister placed at this time. Pt continues to have edema on legs, thighs, scrotum and abdomen. No other wounds noted on skin assessment. Treatment Recommendations/Plan: Left lateral leg, left anterior ankle, left lateral foot wounds are y-connected with left medial leg wound, using two separate track heads d/t large amount of drainage and surface area of multiple wounds. Skin prep to periwounds, wounds have 1 piece of jefferson foam in each, good seal maintained at -150 mmHg continuous suction. Right buttock: cleanse wound, applied Calazime barrier cream, turn q2h. Pt continuing to decline purple offloading wedge for repositioning, as well as declining repositioning, period, at this time. Pt did inform WCRNs that he would need his brief changed at this time, as he was currently urinating. Offered urinal to pt, but he stated with the swelling, he is unable to use it. Brief changed and pericare completed. Education provided: Patient educated on elevating legs, wound vac therapy and PU healing, Pt declined repositioning at this time, pt encouraged to turn to prevent further breakdown. Offloading surface/device: Patient encouraged to turn q2h to prevent PU, pt refused to stay on his side at time of assessment, pt encouraged to turn q2h. Recommended Referrals/Tests: N/A Discharge Recommendations for dressings: Wound care will follow up for all dressing changes on 08/02. Bed lowered and call light within reach.
[2021-07-30 15:12] VITALS: BP 124/74
--- NOTE | 2021-07-30 15:30 | NUR ---
Pharmacy Warfarin Dosing Note S: Pharmacy consulted to assist with anticoagulation therapy O: AVINASH FARIAS is a 56 year old M with Mechanical Mitral Valve LABS: Last INR: 1.6 Last HGB: 8.1 Last HCT: 25.7 Last PLT: 122 Last dose of 7.5 mg given on 07/29/21 at 1609 Vitamin K given: N A:INR of 1.6 is below desired range. Target range for this patient is: 2.5 - 3.5 P: Warfarin dose: 7.5 mg Today at 1600 Bridge Therapy: Heparin Next INR due tomorrow Pharmacy anticoagulation service will continue to follow. Letitia Lozada RPH, 07/30/21 1531 Addendum: 08/01/21 at 1528 by EMANUEL GONZALEZ RPH PHA CONT TO HOLD COUMADIN FOR PROCEDURE WHEN INR=1.5
[2021-07-30] MEDS ORDERED: WARFARIN 7.5 MG TABLET. PO ONE (16:00)
--- NOTE | 2021-07-30 16:17 | PDOC ---
Provider Note Date of Service: DATE: 07/30/21 TIME: 16:13 Provider Note IR NOTE Consulted for suprapubic catheter placement. Patient on heparin drip currently. Chronic Coumadin for mechanical heart valve. Urology unable to place bladder catheter. Will plan attempted SPT tomorrow. Will only be feasible if bladder is adequately distended, and patient body habitus permits. If successful will plan on resuming heparin with in 12-24 hours post placement. Justifications for Admission Other Justification CARLY DO MD Jul 30, 2021 16:17
--- NOTE | 2021-07-30 17:15 | PDOC2 ---
UROLOGY CONSULT DOS: DATE: 07/30/21 TIME: 17:08 Reason for Consult: Urinary retention, anasarca 56M admitted to the hospital after failure to thrive. Previously had bilateral lower extremity cellulitis on IV antibiotics. Currently has a wound VAC in place. Patient with a known history of pulmonary hypertension as well as mec hanical heart valve on warfarin. Patient has been seen by cardiology and receiving IV diuretics for diffuse anasarca. He has had difficulty voiding. PVR 400 to 500 cc. Unknown baseline. He previously saw urologist 7 years ago as he had a urethral stricture. Nursing did not attempt to place Bailey. Bailey requested as patient leaving further diuresis for his pulmonary hypertension. Current INR is 1.6. Creatinine is 1.2. He is voiding and is incontinent of urine. He denies previous surgeries on his prostate, kidney or bladder. He does have a history of urethral dilation but Does not know the name of his urologist and does not follow with them regularly ROS Constitutional: Denies fevers, chills, weakness Cardiovascular: Denies chest pain, palpitations Respiratory: Denies shortness of breath, wheezing, dyspnea on exertion GI: Denies abdominal pain, nausea, vomiting : Denies dysuria, frequency, urgency, hematuria, +urinary retention, -flank pain Skin: + Wound, rash, -bruising Musculoskeletal: Denies extremity pain, +extremity edema Psychiatric: Denies stress, anxiety Current Medications Current Medications Amoxicillin/ Clavulanate Potassium (Augmentin 875/ 125mg) 1 tab 1X ONCE PO Last administered on 07/03/21at 21:15; Start 07/03/21 at 21:15; Stop 07/03/21 at 21:16; Status DC Acetaminophen/ Hydrocodone Bitart (Lortab 5/325) 1 tab 1X ONCE PO ; Start 07/03/21 at 22:15; Stop 07/03/21 at 22:16; Status DC Ondansetron HCl (Zofran) 4 mg PRN Q8HRS PRN IVP NAUSEA/VOMITING; Start 07/03/21 at 23:00; Stop 07/04/21 at 22:59; Status DC Amoxicillin/ Clavulanate Potassium (Augmentin 875/ 125mg) 1 tab BID PO Last administered on 07/25/21at 20:31; Start 07/04/21 at 09:00; Stop 07/26/21 at 06:26; Status DC Acetaminophen/ Hydrocodone Bitart (Lortab 5/325) 1 tab PRN Q4HRS PRN PO PAIN Last administered on 07/28/21at 22:00; Start 07/03/21 at 23:00 Sodium Chloride 1,000 ml @ 75 mls/hr [id number] IV Last administered on 07/11/21at 04:23; Start 07/03/21 at 23:15; Stop 07/11/21 at 13:10; Status DC Pharmacy Consult (C.diff Med Screen By Rx) 1 each 1X ONCE MC ; Start 07/04/21 at 02:15; Stop 07/04/21 at 02:16; Status Cancel Lactobacillus Rhamnosus (Culturelle) 1 cap BID PO Last administered on 07/30/21at 08:27; Start 07/04/21 at 09:00 Allopurinol (Zyloprim) 300 mg DAILY PO Last administered on 07/30/21at 08:28; Start 07/04/21 at 09:00 Furosemide (Lasix) 20 mg DAILY PO Last administered on 07/23/21at 07:49; Start 07/04/21 at 09:00; Stop 07/23/21 at 16:04; Status DC Pantoprazole Sodium (Protonix) 40 mg DAILYAC PO Last administered on 07/07/21at 08:19; Start 07/04/21 at 09:00; Stop 07/07/21 at 13:58; Status DC Potassium Chloride (Klor-Con) 10 meq DAILY PO Last administered on 07/30/21at 08:28; Start 07/04/21 at 09:00 Sacubitril/ Valsartan (Entresto 49 Mg-51 Mg) 1 tab BID PO Last administered on 07/30/21at 08:27; Start 07/04/21 at 09:00 Warfarin Sodium (Coumadin) 2.5 mg QMWFSA PO Last administered on 07/08/21at 14:02; Start 07/05/21 at 16:00; Stop 07/09/21 at 07:54; Status DC Pioglitazone HCl (Actos) 45 mg DAILY PO Last administered on 07/23/21at 07:49; Start 07/04/21 at 09:00; Stop 07/23/21 at 08:09; Status DC Warfarin Sodium (Coumadin Per Physician) 1 each PRN DAILY PRN MC SEE COMMENTS Last administered on 07/22/21at 11:22; Start 07/04/21 at 08:45; Stop 07/26/21 at 14:35; Status DC Alprazolam (Xanax) 0.5 mg PRN TID PRN PO ANXIETY / AGITATION Last administered on 07/28/21at 22:00; Start 07/04/21 at 21:30 Pantoprazole Sodium 80 mg/ Sodium Chloride 100 ml @ 10 mls/hr Q10H IV Last administered on 07/09/21at 06:00; Start 07/07/21 at 14:00; Stop 07/09/21 at 10:43; Status DC Warfarin Sodium (Coumadin) 2.5 mg DAILY16 PO ; Start 07/09/21 at 16:00; Stop 07/09/21 at 12:52; Status DC Pantoprazole Sodium (Protonix) 40 mg DAILYAC PO Last administered on 07/30/21at 08:28; Start 07/09/21 at 11:30 Warfarin Sodium (Coumadin) 2.5 mg DAILY16 PO Last administered on 07/16/21at 16:19; Start 07/10/21 at 16:00; Stop 07/17/21 at 16:30; Status DC Warfarin Sodium (Coumadin) 3 mg DAILY16 PO Last administered on 07/22/21at 16:12; Start 07/17/21 at 16:45; Stop 07/23/21 at 16:02; Status DC Furosemide (Lasix) 40 mg 1X ONCE IVP Last administered on 07/23/21at 14:26; Start 07/23/21 at 13:45; Stop 07/23/21 at 13:53; Status DC Metoprolol Succinate (Toprol Xl) 25 mg DAILY PO Last administered on 07/30/21at 08:28; Start 07/23/21 at 15:00 Warfarin Sodium (Coumadin Per Pharmacy) 1 each PRN DAILY PRN MC SEE COMMENTS; Start 07/25/21 at 18:00; Status UNV Furosemide (Lasix) 40 mg DAILY IVP Last administered on 07/26/21at 08:43; Start 07/24/21 at 09:00; Stop 07/26/21 at 10:50; Status DC Furosemide (Lasix) 40 mg 1X ONCE IVP Last administered on 07/24/21at 14:48; Start 07/24/21 at 15:00; Stop 07/24/21 at 15:01; Status DC Iodixanol 200 ml/ Sodium Chloride 400 ml @ 400 mls/hr 1X ONCE IART ; Start 07/25/21 at 13:00; Stop 07/25/21 at 13:59; Status Cancel Iodixanol (Visipaque 320) 100 ml STK-MED ONCE .ROUTE ; Start 07/25/21 at 13:58; Stop 07/25/21 at 13:58; Status DC Lidocaine HCl (Lidocaine 1% 20ml Vial) 20 ml STK-MED ONCE .ROUTE ; Start 07/25/21 at 13:59; Stop 07/25/21 at 13:59; Status DC Heparin Sodium/ Sodium Chloride 1,500 ml @ As Directed STK-MED ONCE .ROUTE ; Start 07/25/21 at 13:59; Stop 07/25/21 at 13:59; Status DC Midazolam HCl (Versed) 2 mg STK-MED ONCE .ROUTE ; Start 07/25/21 at 14:22; Stop 07/25/21 at 14:22; Status DC Fentanyl Citrate (Fentanyl 2ml Vial) 100 mcg STK-MED ONCE .ROUTE ; Start 07/25 at 14:22; Stop 07/25/21 at 14:22; Status DC Verapamil HCl (Verapamil) 5 mg STK-MED ONCE .ROUTE ; Start 07/25/21 at 14:22; Stop 07/25/21 at 14:22; Status DC Heparin Sodium (Porcine) (Heparin Sodium) 10,000 unit STK-MED ONCE .ROUTE ; Start 07/25/21 at 14:22; Stop 07/25/21 at 14:22; Status DC Nitroglycerin (Nitroglycerin) 200 mcg STK-MED ONCE .ROUTE ; Start 07/25/21 at 14:23; Stop 07/25/21 at 14:23; Status DC Nitroglycerin (Nitroglycerin) 200 mcg STK-MED ONCE .ROUTE ; Start 07/25/21 at 15:08; Stop 07/25/21 at 15:08; Status DC Nitroglycerin (Nitroglycerin) 200 mcg 1X ONCE IART Last administered on 07/25/21at 15:04; Start 07/25/21 at 15:15; Stop 07/25/21 at 15:16; Status DC Verapamil HCl (Verapamil) 2.5 mg 1X ONCE IART Last administered on 07/25/21at 15:04; Start 07/25/21 at 15:15; Stop 07/25/21 at 15:16; Status DC Heparin Sodium (Porcine) (Heparin Sodium) 2,500 unit 1X ONCE IART Last administered on 07/25/21at 15:05; Start 07/25/21 at 15:15; Stop 07/25/21 at 15:16; Status DC Heparin Sodium/ Sodium Chloride (HEPARIN for ARTERIAL LINE FLUSH) 1,000 unit 1X ONCE IART Last administered on 07/25/21at 15:15; Start 07/25/21 at 15:15; Stop 07/25/21 at 15:16; Status DC Heparin Sodium/ Sodium Chloride (HEPARIN for ARTERIAL LINE FLUSH) 1,000 unit 1X ONCE IART Last administered on 07/25/21at 15:15; Start 07/25/21 at 15:15; Stop 07/25/21 at 15:16; Status DC Midazolam HCl (Versed) 2 mg 1X ONCE IV Last administered on 07/25/21at 14:51; Start 07/25/21 at 15:15; Stop 07/25/21 at 15:16; Status DC Fentanyl Citrate (Fentanyl 2ml Vial) 100 mcg 1X ONCE IV Last administered on 07/25/21at 14:51; Start 07/25/21 at 15:15; Stop 07/25/21 at 15:16; Status DC Iodixanol (Visipaque 320) 100 ml 1X ONCE IART Last administered on 07/25/21at 15:47; Start 07/25/21 at 15:15; Stop 07/25/21 at 15:16; Status DC Lidocaine HCl (Lidocaine 1% 20ml Vial) 20 ml 1X ONCE INJ Last administered on 07/25/21at 15:07; Start 07/25/21 at 15:15; Stop 07/25/21 at 15:16; Status DC Heparin Sodium/ Dextrose 250 ml @ 10 mls/hr CONT PRN IV PER PROTOCOL Last administered on 07/30/21at 10:14; Start 07/25/21 at 19:00 Heparin Sodium (Porcine) (Heparin Sodium) 4,150 unit PRN Q6HRS PRN IV FOR UFH LEVEL LESS THAN 0.2; Start 07/25/21 at 19:00 Furosemide 100 mg/ Sodium Chloride 100 ml @ 5 mls/hr CONT PRN IV PER PROTOCOL Last administered on 07/29/21at 19:54; Start 07/26/21 at 11:00 Warfarin Sodium (Coumadin Per Pharmacy) 1 each PRN DAILY PRN MC SEE COMMENTS Last administered on 07/30/21at 15:25; Start 07/26/21 at 12:30 Magnesium Sulfate 50 ml @ 25 mls/hr 1X ONCE IV Last administered on 07/26/21at 16:17; Start 07/26/21 at 15:00; Stop 07/26/21 at 16:59; Status DC Warfarin Sodium (Coumadin) 2.5 mg 1X WARF ONCE PO Last administered on 07/26/21at 16:17; Start 07/26/21 at 16:00; Stop 07/26/21 at 16:01; Status DC Warfarin Sodium (Coumadin) 3 mg 1X WARF ONCE PO Last administered on 07/27/21at 16:04; Start 07/27/21 at 16:00; Stop 07/27/21 at 16:01; Status DC Pantoprazole Sodium (Protonix) 40 mg 1X ONCE PO Last administered on 07/28/21at 09:31; Start 07/28/21 at 09:28; Stop 07/28/21 at 09:29; Status DC Warfarin Sodium (Coumadin) 5 mg 1X WARF ONCE PO Last administered on 07/28/21at 14:04; Start 07/28/21 at 16:00; Stop 07/28/21 at 16:01; Status DC Warfarin Sodium (Coumadin) 7.5 mg 1X WARF ONCE PO Last administered on 07/29/21at 16:09; Start 07/29/21 at 16:00; Stop 07/29/21 at 16:01; Status DC Metolazone (Zaroxolyn) 5 mg DAILY PO Last administered on 07/30/21at 08:27; Start 07/30/21 at 09:00 Warfarin Sodium (Coumadin) 7.5 mg 1X WARF ONCE PO ; Start 07/30/21 at 16:00; St op 07/30/21 at 16:01; Status DC Active Scripts Active Pantoprazole Sodium (Pantoprazole Sodium) 40 Mg Tablet.dr 40 Mg PO DAILYAC 30 Days Reported Actos (Pioglitazone Hcl) 45 Mg Tablet 45 Mg PO DAILY Klor-Con 10 (Potassium Chloride) 10 Meq Tablet.er 10 Meq PO DAILY Entresto 49 mg-51 mg Tablet (Sacubitril/Valsartan) 1 Each Tablet 1 Each PO BID Allopurinol 300 Mg Tablet 300 Mg PO DAILY Furosemide 20 Mg Tablet 20 Mg PO DAILY Warfarin Sodium 2.5 Mg Tablet 2.5 Mg PO QMWFSA Allergies: Coded Allergies: No Known Drug Allergies (Unverified , 06/06/21) Physical Examination GENERAL: awake, alert, oriented SKIN: warm, dry, wound VAC in place to bilateral lower extremities RESPIRATORY: Aerating well, symmetrical expansion GI: Soft, nontender, no guarding, no rebound : Scrotal edema, buried penis, circumcised, meatal stenosis, no CVA tenderness MUSCULOSKELETAL: Moves all extremities, diffuse edema and anasarca pitting below the chest level NEURO: No gross abnormalities PSYCHIATRIC: Normal mood, normal affect, pleasant VITALS Vital Signs Date Time Temp Pulse Resp B/P (MAP) Pulse Ox O2 Delivery O2 Flow Rate FiO2 07/30/21 15:12 97.5 106 18 124/74 (91) 92 Room Air 97.5 07/30/21 08:00 2.0 Labs Laboratory Tests Test 07/28/21 20:56 07/29/21 04:50 07/29/21 07:40 07/29/21 07:53 Glucose (Fingerstick) 173 mg/dL (70-99) 118 mg/dL (70-99) White Blood Count 3.1 x10^3/uL (4.0-11.0) Red Blood Count 2.94 x10^6/uL (4.30-5.70) Hemoglobin 7.9 g/dL (13.0-17.5) Hematocrit 25.9 % (39.0-53.0) Mean Corpuscular Volume 88 fL (79-100) Mean Corpuscular Hemoglobin 27 pg (25-35) Mean Corpuscular Hemoglobin Concent 31 g/dL (31-37) Red Cell Distribution Width 21.8 % (11.5-14.5) Platelet Count 121 x10^3/uL (140-400) Neutrophils (%) (Auto) 66 % (31-73) Lymphocytes (%) (Auto) 19 % (24-48) Monocytes (%) (Auto) 10 % (0-9) Eosinophils (%) (Auto) 4 % (0-3) Basophils (%) (Auto) 1 % (0-3) Neutrophils # (Auto) 2.0 x10^3/uL (1.8-7.7) Lymphocytes # (Auto) 0.6 x10^3/uL (1.0-4.8) Monocytes # (Auto) 0.3 x10^3/uL (0.0-1.1) Eosinophils # (Auto) 0.1 x10^3/uL (0.0-0.7) Basophils # (Auto) 0.0 x10^3/uL (0.0-0.2) Prothrombin Time 18.3 SEC (11.7-14.0) Prothromb Time International Ratio 1.5 (0.8-1.1) Heparin Anti-Xa Act, Unfractionated 0.25 IU/mL (0.30-0.70) 0.30 IU/mL (0.30-0.70) Sodium Level 136 mmol/L (136-145) Potassium Level 4.0 mmol/L (3.5-5.1) Chloride Level 99 mmol/L (98-107) Carbon Dioxide Level 36 mmol/L (21-32) Anion Gap 1 (6-14) Blood Urea Nitrogen 24 mg/dL (8-26) Creatinine 1.2 mg/dL (0.7-1.3) Estimated GFR (Cockcroft-Gault) 62.2 Glucose Level 132 mg/dL (70-99) Calcium Level 7.7 mg/dL (8.5-10.1) Activated Partial Thromboplast Time 119 SEC (24-38) Test 07/29/21 11:31 07/29/21 13:21 07/29/21 16:40 07/29/21 18:35 Glucose (Fingerstick) 125 mg/dL (70-99) 115 mg/dL (70-99) Heparin Anti-Xa Act, Unfractionated 0.39 IU/mL (0.30-0.70) 0.38 IU/mL (0.30-0.70) Test 07/29/21 21:17 07/30/21 01:50 07/30/21 07:56 07/30/21 08:15 Glucose (Fingerstick) 172 mg/dL (70-99) 119 mg/dL (70-99) White Blood Count 3.4 x10^3/uL (4.0-11.0) Red Blood Count 2.98 x10^6/uL (4.30-5.70) Hemoglobin 8.1 g/dL (13.0-17.5) Hematocrit 25.7 % (39.0-53.0) Mean Corpuscular Volume 87 fL (79-100) Mean Corpuscular Hemoglobin 27 pg (25-35) Mean Corpuscular Hemoglobin Concent 32 g/dL (31-37) Red Cell Distribution Width 21.8 % (11.5-14.5) Platelet Count 122 x10^3/uL (140-400) Prothrombin Time 18.8 SEC (11.7-14.0) Prothromb Time International Ratio 1.6 (0.8-1.1) Heparin Anti-Xa Act, Unfractionated 0.31 IU/mL (0.30-0.70) 0.43 IU/mL (0.30-0.70) Test 07/30/21 11:49 07/30/21 16:21 Glucose (Fingerstick) 141 mg/dL (70-99) 145 mg/dL (70-99) Laboratory Tests Test 07/29/21 18:35 07/29/21 21:17 07/30/21 01:50 07/30/21 07:56 Heparin Anti-Xa Act, Unfractionated 0.38 IU/mL (0.30-0.70) 0.31 IU/mL (0.30-0.70) Glucose (Fingerstick) 172 mg/dL (70-99) 119 mg/dL (70-99) White Blood Count 3.4 x10^3/uL (4.0-11.0) Red Blood Count 2.98 x10^6/uL (4.30-5.70) Hemoglobin 8.1 g/dL (13.0-17.5) Hematocrit 25.7 % (39.0-53.0) Mean Corpuscular Volume 87 fL (79-100) Mean Corpuscular Hemoglobin 27 pg (25-35) Mean Corpuscular Hemoglobin Concent 32 g/dL (31-37) Red Cell Distribution Width 21.8 % (11.5-14.5) Platelet Count 122 x10^3/uL (140-400) Prothrombin Time 18.8 SEC (11.7-14.0) Prothromb Time International Ratio 1.6 (0.8-1.1) Test 07/30/21 08:15 07/30/21 11:49 07/30/21 16:21 Heparin Anti-Xa Act, Unfractionated 0.43 IU/mL (0.30-0.70) Glucose (Fingerstick) 141 mg/dL (70-99) 145 mg/dL (70-99) Assessment/Plan 07/30/21 urology just now receiving consult. Apologize as we were never notified of this consult over the last several days. --Urinary retention, anasarca Current PVR about 400 cc. He is voiding asymptomatically, incontinent of urine. Creatinine stable at 1.2. Attempted Bailey placement over a 0.35 sensor wire. Meeting resistance and unable to advance the [place] tip catheter. Wire and catheter were removed. He has a history of urethral stricture dilated over 7 years ago and does not follow with urology. Patient is on Coumadin. INR currently 1.6. Not a good candidate for urethral dilation due to risk of bleeding. Due to patient's young age, he would be a good candidate for urethroplasty once health has improved and stabilized. I have spoke with interventional radiology about placing a suprapubic catheter a s a means of relieving some of his diffuse edema due to his pulmonary hypertension. Patient will remain n.p.o. after midnight. Consult will be placed. Hold Coumadin as interventional radiology would like INR to be 1.5 before operating and placing the suprapubic catheter. Patient agreeable to suprapubic catheter placement and close outpatient urology follow-up to discuss possible urethroplasty with Dr. Cole. Urology will follow. D/w DAVID Agustin Jul 30, 2021 17:15
[2021-07-30] MEDS: TAMSULOSIN 0.4 MG CAP.ER.24H. PO SCH (18:13)
[2021-07-30] MEDS: HYDROcodone/APAP 5/325MG 1 TAB TABLET PO PRN (18:21)
[2021-07-30 19:35] VITALS: BP 106/59
[2021-07-30] MEDS: ALPRAZolam 0.5 MG TABLET PO PRN (21:09)
[2021-07-30 22:35] VITALS: BP 97/66
[2021-07-31 03:20] VITALS: BP 100/56
[2021-07-31] MEDS: PANTOPRAZOLE 40 MG TABLET.DR. PO SCH (05:55)
[2021-07-31 07:18] LABS: UNFRACTIONATED HEPARIN TESTING 0.39 IU/mL (0.30-0.70)
[2021-07-31 07:27] LABS: PROTHROMBIN TIME PATIENT 21.5 SEC (11.7-14.0)
[2021-07-31 08:09] VITALS: BP 114/61
[2021-07-31] MEDS: ALLOPURINOL 300 MG TABLET. PO SCH (08:10)
[2021-07-31] MEDS: TAMSULOSIN 0.4 MG CAP.ER.24H. PO SCH (08:11)
[2021-07-31] MEDS: LACTOBACILLUS RHAMNOSUS GG 1 CAPSULE. PO SCH ×2 (08:11→21:14)
[2021-07-31] MEDS: metOLazone 2.5 MG TABLET PO SCH (08:11)
[2021-07-31] MEDS: SACUBITRIL/VALSARTAN 49/51MG TABLET. PO SCH ×2 (08:11→21:19)
[2021-07-31] MEDS: METOPROLOL SUCC 24HR ER 25 MG TAB.ER.24H. PO SCH (08:15)
[2021-07-31] MEDS: POTASSIUM CHLORIDE 10 MEQ TABLET.ER. PO SCH (08:31)
[2021-07-31] MEDS: HEPARIN 25,000UTS/250ML PREMIX 250 ML IV PRN ×2 (09:24→23:16)
[2021-07-31 10:38] VITALS: BP 110/59
--- NOTE | 2021-07-31 11:34 | PDOC ---
Provider Note Date of Service: DATE: 07/31/21 TIME: 11:31 Provider Note IR NOTE Consulted for SPT INR actually up today at 1.9 Patient on heparin drip. Will need INR down to consider SPT. Once in appropriate range will hold heparin, and attempt placement. Justifications for Admission Other Justification CARLY DO MD Jul 31, 2021 11:34
--- NOTE | 2021-07-31 12:19 | NUR ---
SS following up with discharge planning. SS reviewed pt chart and discussed with pt RN. Pt is currently on room air. COVID19 recovered. Pt on Heparin and Lasix drip. Wound care. IR unable to place supra pubic cath due to INR. Pt accepted for LTACH at [facility], ; fax [phone], and [facility], ; fax [phone], pending insurance approval. SS will continue to follow for discharge planning.
[2021-07-31 15:00] VITALS: BP 128/57
--- NOTE | 2021-07-31 15:14 | PDOC ---
PROGRESS NOTES Date of Service DATE: 07/31/21 TIME: 15:11 Subjective Subjective Patient seen and examined Objective Objective Vital Signs Date Time Temp Pulse Resp B/P (MAP) Pulse Ox O2 Delivery O2 Flow Rate FiO2 07/31/21 15:00 98.4 102 20 128/57 (80) 96 Room Air 98.4 07/31/21 03:20 2.0 Intake and Output 07/31/21 07:00 Intake Total 780 ml Output Total 300 ml Balance 480 ml Intake Oral 780 ml Output Urine Total 300 ml # Voids 21 Physical Exam Abdomen: Normal bowel sounds Heart: Regular rate General: mild distress Lungs: Other (Mildly decreased breath sounds) Assessment Assessment Problems Medical Problems: (1) Anemia Status: Acute (2) Cellulitis of left lower extremity Status: Acute (3) Diabetes mellitus Status: Acute (4) Encounter for management of vacuum-assisted closure (VAC) of wound Status: Acute (5) Failure to thrive in adult Status: Acute (6) Generalized weakness Status: Acute (7) Lymphedema of both lower extremities Status: Acute (8) Thrombocytopenia Status: Acute (9) Wound of left foot Status: Acute LLE cellulitis with extensive infection: s/p I & D noted previously with group B strep. wound vac in place per vascular/ID Acute on chronic combined diastolic/systolic CHF: mainly right sided. improving with Lasix gtt Acute on chronic cor pulmonale/anasarca: RHC revealed biventricular overload Severe NICM: EF 20% LUE lymphedema: prior venous doppler noted with subcutaneous edema S/P mechanical mitral valve replacement. Had been on warfarin. Converting to IV heparin as per IR note. HTN: controlled HLP DM2: per PCP Morbid obesity Anemia of chronic disease. LLE PAD: aortogram revealed moderate left superficial femoral artery disease with three-vessel runoff below the knee Thrombocytopenia: seen by hematology/GI recently and noted as multifactorial including prior sepsis/warfarin/MVR but no noted active bleed Covid-19 +: 07/10/2021. recovered Urinary retention; urology notes as above. Now being evaluated by IR. Comment Review of Relevant I have reviewed the following items alfredo (where applicable) has been applied. Labs Laboratory Tests Test 07/29/21 16:40 07/29/21 18:35 07/29/21 21:17 07/30/21 01:50 Glucose (Fingerstick) 115 mg/dL (70-99) 172 mg/dL (70-99) Heparin Anti-Xa Act, Unfractionated 0.38 IU/mL (0.30-0.70) 0.31 IU/mL (0.30-0.70) White Blood Count 3.4 x10^3/uL (4.0-11.0) Red Blood Count 2.98 x10^6/uL (4.30-5.70) Hemoglobin 8.1 g/dL (13.0-17.5) Hematocrit 25.7 % (39.0-53.0) Mean Corpuscular Volume 87 fL (79-100) Mean Corpuscular Hemoglobin 27 pg (25-35) Mean Corpuscular Hemoglobin Concent 32 g/dL (31-37) Red Cell Distribution Width 21.8 % (11.5-14.5) Platelet Count 122 x10^3/uL (140-400) Prothrombin Time 18.8 SEC (11.7-14.0) Prothromb Time International Ratio 1.6 (0.8-1.1) Test 07/30/21 07:56 07/30/21 08:15 07/30/21 11:49 07/30/21 16:21 Glucose (Fingerstick) 119 mg/dL (70-99) 141 mg/dL (70-99) 145 mg/dL (70-99) Heparin Anti-Xa Act, Unfractionated 0.43 IU/mL (0.30-0.70) Test 07/30/21 20:32 07/31/21 04:20 07/31/21 08:28 07/31/21 11:29 Glucose (Fingerstick) 142 mg/dL (70-99) 129 mg/dL (70-99) 123 mg/dL (70-99) Prothrombin Time 21.5 SEC (11.7-14.0) Prothromb Time International Ratio 1.9 (0.8-1.1) Heparin Anti-Xa Act, Unfractionated 0.39 IU/mL (0.30-0.70) Laboratory Tests Test 07/30/21 16:21 07/30/21 20:32 07/31/21 04:20 07/31/21 08:28 Glucose (Fingerstick) 145 mg/dL (70-99) 142 mg/dL (70-99) 129 mg/dL (70-99) Prothrombin Time 21.5 SEC (11.7-14.0) Prothromb Time International Ratio 1.9 (0.8-1.1) Heparin Anti-Xa Act, Unfractionated 0.39 IU/mL (0.30-0.70) Test 07/31/21 11:29 Glucose (Fingerstick) 123 mg/dL (70-99) Microbiology 07/04/21 Urine Culture - Final, Complete 07/03/21 Blood Culture - Final, Complete NO GROWTH AFTER 5 DAYS Medications Current Medications Amoxicillin/ Clavulanate Potassium (Augmentin 875/ 125mg) 1 tab 1X ONCE PO L ast administered on 07/03/21at 21:15; Start 07/03/21 at 21:15; Stop 07/03/21 at 21:16; Status DC Acetaminophen/ Hydrocodone Bitart (Lortab 5/325) 1 tab 1X ONCE PO ; Start 07/03/21 at 22:15; Stop 07/03/21 at 22:16; Status DC Ondansetron HCl (Zofran) 4 mg PRN Q8HRS PRN IVP NAUSEA/VOMITING; Start 07/03/21 at 23:00; Stop 07/04/21 at 22:59; Status DC Amoxicillin/ Clavulanate Potassium (Augmentin 875/ 125mg) 1 tab BID PO Last administered on 07/25/21at 20:31; Start 07/04/21 at 09:00; Stop 07/26/21 at 06:26; Status DC Acetaminophen/ Hydrocodone Bitart (Lortab 5/325) 1 tab PRN Q4HRS PRN PO PAIN Last administered on 07/30/21at 18:21; Start 07/03/21 at 23:00 Sodium Chloride 1,000 ml @ 75 mls/hr [id number] IV Last administered on 07/11/21at 04:23; Start 07/03/21 at 23:15; Stop 07/11/21 at 13:10; Status DC Pharmacy Consult (C.diff Med Screen By Rx) 1 each 1X ONCE MC ; Start 07/04/21 at 02:15; Stop 07/04/21 at 02:16; Status Cancel Lactobacillus Rhamnosus (Culturelle) 1 cap BID PO Last administered on 07/31/21 08:11; Start 07/04/21 at 09:00 Allopurinol (Zyloprim) 300 mg DAILY PO Last administered on 07/31/21 08:10; Start 07/04/21 at 09:00 Furosemide (Lasix) 20 mg DAILY PO Last administered on 07/23/21 07:49; Start 07/04/21 at 09:00; Stop 07/23/21 at 16:04; Status DC Pantoprazole Sodium (Protonix) 40 mg DAILYAC PO Last administered on 07/07/21at 08:19; Start 07/04/21 at 09:00; Stop 07/07/21 at 13:58; Status DC Potassium Chloride (Klor-Con) 10 meq DAILY PO Last administered on 07/31/21 08:31; Start 07/04/21 at 09:00 Sacubitril/ Valsartan (Entresto 49 Mg-51 Mg) 1 tab BID PO Last administered on 07/31/21 08:11; Start 07/04/21 at 09:00 Warfarin Sodium (Coumadin) 2.5 mg QMWFSA PO Last administered on 07/08/21at 14:02; Start 07/05/21 at 16:00; Stop 07/09/21 at 07:54; Status DC Pioglitazone HCl (Actos) 45 mg DAILY PO Last administered on 07/23/21at 07:49; Start 07/04/21 at 09:00; Stop 07/23/21 at 08:09; Status DC Warfarin Sodium (Coumadin Per Physician) 1 each PRN DAILY PRN MC SEE COMMENTS Last administered on 07/22/21at 11:22; Start 07/04/21 at 08:45; Stop 07/26/21 at 14:35; Status DC Alprazolam (Xanax) 0.5 mg PRN TID PRN PO ANXIETY / AGITATION Last administered on 07/30/21 21:09; Start 07/04/21 at 21:30 Pantoprazole Sodium 80 mg/ Sodium Chloride 100 ml @ 10 mls/hr Q10H IV Last administered on 07/09/21at 06:00; Start 07/07/21 at 14:00; Stop 07/09/21 at 10:43; Status DC Warfarin Sodium (Coumadin) 2.5 mg DAILY16 PO ; Start 07/09/21 at 16:00; Stop 07/09/21 at 12:52; Status DC Pantoprazole Sodium (Protonix) 40 mg DAILYAC PO Last administered on 07/31/21at 05:55; Start 07/09/21 at 11:30 Warfarin Sodium (Coumadin) 2.5 mg DAILY16 PO Last administered on 07/16/21at 16:19; Start 07/10/21 at 16:00; Stop 07/17/21 at 16:30; Status DC Warfarin Sodium (Coumadin) 3 mg DAILY16 PO Last administered on 07/22/21at 16:12; Start 07/17/21 at 16:45; Stop 07/23/21 at 16:02; Status DC Furosemide (Lasix) 40 mg 1X ONCE IVP Last administered on 07/23/21at 14:26; Start 07/23/21 at 13:45; Stop 07/23/21 at 13:53; Status DC Metoprolol Succinate (Toprol Xl) 25 mg DAILY PO Last administered on 07/31/21at 08:15; Start 07/23/21 at 15:00 Warfarin Sodium (Coumadin Per Pharmacy) 1 each PRN DAILY PRN MC SEE COMMENTS; Start 07/25/21 at 18:00; Status UNV Furosemide (Lasix) 40 mg DAILY IVP Last administered on 07/26/21at 08:43; Start 07/24/21 at 09:00; Stop 07/26/21 at 10:50; Status DC Furosemide (Lasix) 40 mg 1X ONCE IVP Last administered on 07/24/21at 14:48; Start 07/24/21 at 15:00; Stop 07/24/21 at 15:01; Status DC Iodixanol 200 ml/ Sodium Chloride 400 ml @ 400 mls/hr 1X ONCE IART ; Start 07/25/21 at 13:00; Stop 07/25/21 at 13:59; Status Cancel Iodixanol (Visipaque 320) 100 ml STK-MED ONCE .ROUTE ; Start 07/25/21 at 13:58; Stop 07/25/21 at 13:58; Status DC Lidocaine HCl (Lidocaine 1% 20ml Vial) 20 ml STK-MED ONCE .ROUTE ; Start 07/25/21 at 13:59; Stop 07/25/21 at 13:59; Status DC Heparin Sodium/ Sodium Chloride 1,500 ml @ As Directed STK-MED ONCE .ROUTE ; Start 07/25/21 at 13:59; Stop 07/25/21 at 13:59; Status DC Midazolam HCl (Versed) 2 mg STK-MED ONCE .ROUTE ; Start 07/25/21 at 14:22; Stop 07/25/21 at 14:22; Status DC Fentanyl Citrate (Fentanyl 2ml Vial) 100 mcg STK-MED ONCE .ROUTE ; Start 06/30 01/17 at 14:22; Stop 07/25/21 at 14:22; Status DC Verapamil HCl (Verapamil) 5 mg STK-MED ONCE .ROUTE ; Start 07/25/21 at 14:22; Stop 07/25/21 at 14:22; Status DC Heparin Sodium (Porcine) (Heparin Sodium) 10,000 unit STK-MED ONCE .ROUTE ; Start 07/25/21 at 14:22; Stop 07/25/21 at 14:22; Status DC Nitroglycerin (Nitroglycerin) 200 mcg STK-MED ONCE .ROUTE ; Start 07/25/21 at 14:23; Stop 07/25/21 at 14:23; Status DC Nitroglycerin (Nitroglycerin) 200 mcg STK-MED ONCE .ROUTE ; Start 07/25/21 at 15:08; Stop 07/25/21 at 15:08; Status DC Nitroglycerin (Nitroglycerin) 200 mcg 1X ONCE IART Last administered on 07/25/21at 15:04; Start 07/25/21 at 15:15; Stop 07/25/21 at 15:16; Status DC Verapamil HCl (Verapamil) 2.5 mg 1X ONCE IART Last administered on 07/25/21at 15:04; Start 07/25/21 at 15:15; Stop 07/25/21 at 15:16; Status DC Heparin Sodium (Porcine) (Heparin Sodium) 2,500 unit 1X ONCE IART Last administered on 07/25/21at 15:05; Start 07/25/21 at 15:15; Stop 07/25/21 at 15:16; Status DC Heparin Sodium/ Sodium Chloride (HEPARIN for ARTERIAL LINE FLUSH) 1,000 unit 1X ONCE IART Last administered on 07/25/21at 15:15; Start 07/25/21 at 15:15; Stop 07/25/21 at 15:16; Status DC Heparin Sodium/ Sodium Chloride (HEPARIN for ARTERIAL LINE FLUSH) 1,000 unit 1X ONCE IART Last administered on 07/25/21at 15:15; Start 07/25/21 at 15:15; Stop 07/25/21 at 15:16; Status DC Midazolam HCl (Versed) 2 mg 1X ONCE IV Last administered on 07/25/21at 14:51; Start 07/25/21 at 15:15; Stop 07/25/21 at 15:16; Status DC Fentanyl Citrate (Fentanyl 2ml Vial) 100 mcg 1X ONCE IV Last administered on 07/25/21at 14:51; Start 07/25/21 at 15:15; Stop 07/25/21 at 15:16; Status DC Iodixanol (Visipaque 320) 100 ml 1X ONCE IART Last administered on 07/25/21at 15:47; Start 07/25/21 at 15:15; Stop 07/25/21 at 15:16; Status DC Lidocaine HCl (Lidocaine 1% 20ml Vial) 20 ml 1X ONCE INJ Last administered on 07/25/21at 15:07; Start 07/25/21 at 15:15; Stop 07/25/21 at 15:16; Status DC Heparin Sodium/ Dextrose 250 ml @ 10 mls/hr CONT PRN IV PER PROTOCOL Last administered on 07/31/21at 09:24; Start 07/25/21 at 19:00 Heparin Sodium (Porcine) (Heparin Sodium) 4,150 unit PRN Q6HRS PRN IV FOR UFH LEVEL LESS THAN 0.2; Start 07/25/21 at 19:00 Furosemide 100 mg/ Sodium Chloride 100 ml @ 5 mls/hr CONT PRN IV PER PROTOCOL Last administered on 07/29/21at 19:54; Start 07/26/21 at 11:00 Warfarin Sodium (Coumadin Per Pharmacy) 1 each PRN DAILY PRN MC SEE COMMENTS Last administered on 07/30/21at 15:25; Start 07/26/21 at 12:30 Magnesium Sulfate 50 ml @ 25 mls/hr 1X ONCE IV Last administered on 07/26/21at 16:17; Start 07/26/21 at 15:00; Stop 07/26/21 at 16:59; Status DC Warfarin Sodium (Coumadin) 2.5 mg 1X WARF ONCE PO Last administered on 07/26/21at 16:17; Start 07/26/21 at 16:00; Stop 07/26/21 at 16:01; Status DC Warfarin Sodium (Coumadin) 3 mg 1X WARF ONCE PO Last administered on 07/27/21at 16:04; Start 07/27/21 at 16:00; Stop 07/27/21 at 16:01; Status DC Pantoprazole Sodium (Protonix) 40 mg 1X ONCE PO Last administered on 07/28/21at 09:31; Start 07/28/21 at 09:28; Stop 07/28/21 at 09:29; Status DC Warfarin Sodium (Coumadin) 5 mg 1X WARF ONCE PO Last administered on 07/28/21at 14:04; Start 07/28/21 at 16:00; Stop 07/28/21 at 16:01; Status DC Warfarin Sodium (Coumadin) 7.5 mg 1X WARF ONCE PO Last administered on 07/29/21at 16:09; Start 07/29/21 at 16:00; Stop 07/29/21 at 16:01; Status DC Metolazone (Zaroxolyn) 5 mg DAILY PO Last administered on 07/31/21at 08:11; Start 07/30/21 at 09:00 Warfarin Sodium (Coumadin) 7.5 mg 1X WARF ONCE PO ; Start 07/30/21 at 16:00; S top 07/30/21 at 16:01; Status DC Tamsulosin HCl (Flomax) 0.4 mg DAILY PO Last administered on 07/31/21at 08:11; Start 07/30/21 at 18:00 Active Scripts Active Pantoprazole Sodium (Pantoprazole Sodium) 40 Mg Tablet. 40 Mg PO DAILYAC 30 Days Reported Actos (Pioglitazone Hcl) 45 Mg Tablet 45 Mg PO DAILY Klor-Con 10 (Potassium Chloride) 10 Meq Tablet.er 10 Meq PO DAILY Entresto 49 mg-51 mg Tablet (Sacubitril/Valsartan) 1 Each Tablet 1 Each PO BID Allopurinol 300 Mg Tablet 300 Mg PO DAILY Furosemide 20 Mg Tablet 20 Mg PO DAILY Warfarin Sodium 2.5 Mg Tablet 2.5 Mg PO QMWFSA Vitals/I & O Vital Sign - Last 24 Hours 07/30/21 07/30/21 07/30/2107/30/22 15:12 18:21 18:50 19:35 Temp 97.5 98.7 97.5 98.7 Pulse 106 102 Resp 18 20 20 B/P (MAP) 124/74 (91) 106/59 (75) Pulse Ox 92 92 92 92 O2 Delivery Room Air Room Air Room Air Room Air O2 Flow Rate 2.0 2.0 07/30/21 07/30/21 07/30/21 07/31/21 19:50 20:33 22:35 03:20 Temp 98.8 98.1 98.8 98.1 Pulse 102 99 84 Resp 22 B/P (MAP) 106/59 97/66 (76) 100/56 (71) Pulse Ox 92 98 O2 Delivery Room Air Room Air Nasal Cannula O2 Flow Rate 2.0 07/31/21 07/31/21 07/31/21 07/31/21 08:00 08:09 08:11 08:15 Temp 98.0 98.0 Pulse 89 89 89 Resp 20 B/P (MAP) 114/61 (78) 114/61 114/61 Pulse Ox 97 O2 Delivery Room Air Room Air 07/31/21 07/31/21 10:38 15:00 Temp 98.5 98.4 98.5 98.4 Pulse 90 102 Resp 18 20 B/P (MAP) 110/59 (76) 128/57 (80) Pulse Ox 96 96 O2 Delivery Room Air Room Air Intake and Output 07/30/21 07/30/21 07/31/21 15:00 23:00 07:00 Intake Total 240 ml 540 ml Output Total 300 ml Balance 240 ml 240 ml Justifications for Admission Other Justification LORE BROWN MD Jul 31, 2021 15:14
[2021-07-31] MEDS: FUROSEMIDE INJ 100 MG in IV NORMAL SALINE 100ML 100 ML IV PRN (15:26)
[2021-07-31] MEDS: HYDROcodone/APAP 5/325MG 1 TAB TABLET PO PRN ×2 (17:14→23:31)
[2021-07-31 19:22] VITALS: BP 97/54
[2021-07-31 22:23] VITALS: BP 120/60
[2021-07-31] MEDS: ALPRAZolam 0.5 MG TABLET PO PRN (23:31)
--- NOTE | 2021-08-01 00:08 | PN ---
DATE: 07/31/2021 DAILY PROGRESS NOTE LOCATION: He is in room 667. SUBJECTIVE: This 56-year-old male remains hospitalized with left leg wounds, wound VAC therapy. He remains weak, but is less dizzy on trying to stand. Urology was unable to place a catheter, planning a suprapubic catheter at some point in the future, doing some sort of urethroplasty. OBJECTIVE: VITAL SIGNS: Stable. He is afebrile. Sugars remained good. CHEST: Distant breath sounds, but clear. HEART: Regular rate and rhythm. ABDOMEN: Benign. EXTREMITIES: Wound VAC in place. Overall, some decrease in anasarca. LABORATORY DATA: INR is up to 1.9 this morning. ASSESSMENT: 1. Left leg wounds, ongoing wound VAC therapy. 2. Weakness with inability to self-care. 3. Cor pulmonale with anasarca and biventricular failure. 4. Anemia, thrombocytopenia and leukopenia of uncertain etiology. 5. Urethral stricture with urine difficulties. PLAN: Suprapubic catheter per IR. Otherwise, ongoing supportive care with therapy to continue to mobilize. ROSE/SONA/ABDIRIZAK DR: Ivette TID: [id number]
[2021-08-01 02:29] VITALS: BP 94/52
[2021-08-01 04:23] LABS: BASO % 1 % (0-3); EOS # 0.1 x10^3/uL (0.0-0.7); EOS % 3 % (0-3); HEMATOCRIT 25.7 % (39.0-53.0); HEMOGLOBIN 8.2 g/dL (13.0-17.5); LYMPH # 0.5 x10^3/uL (1.0-4.8); LYMPH % 15 % (24-48); MEAN CORPUSCULAR HEMOGLOBIN 27 pg (25-35); MEAN CORPUSCULAR HGB CONC 32 g/dL (31-37); MEAN CORPUSCULAR VOLUME 86 fL (79-100); MONO # 0.3 x10^3/uL (0.0-1.1); MONO % 9 % (0-9); NEUT # 2.4 x10^3/uL (1.8-7.7); NEUT % 72 % (31-73); PLATELET COUNT 123 x10^3/uL (140-400); WHITE BLOOD COUNT 3.4 x10^3/uL (4.0-11.0)
[2021-08-01 04:24] LABS: PROTHROMBIN TIME PATIENT 21.9 SEC (11.7-14.0)
[2021-08-01 04:25] LABS: UNFRACTIONATED HEPARIN TESTING 0.45 IU/mL (0.30-0.70)
[2021-08-01 05:33] LABS: CALCIUM 8.1 mg/dL (8.5-10.1); CREATININE 1.2 mg/dL (0.7-1.3); GFR 62.2; POTASSIUM 3.3 mmol/L (3.5-5.1)
[2021-08-01 07:00] VITALS: BP 119/65
[2021-08-01] MEDS: TAMSULOSIN 0.4 MG CAP.ER.24H. PO SCH (08:49)
[2021-08-01] MEDS: ALLOPURINOL 300 MG TABLET. PO SCH (08:50)
[2021-08-01] MEDS: SACUBITRIL/VALSARTAN 49/51MG TABLET. PO SCH (08:50)
[2021-08-01] MEDS: LACTOBACILLUS RHAMNOSUS GG 1 CAPSULE. PO SCH (08:50)
[2021-08-01] MEDS: metOLazone 2.5 MG TABLET PO SCH (08:50)
[2021-08-01] MEDS: POTASSIUM CHLORIDE 10 MEQ TABLET.ER. PO SCH (08:51)
[2021-08-01] MEDS: PANTOPRAZOLE 40 MG TABLET.DR. PO SCH (08:51)
[2021-08-01] MEDS: METOPROLOL SUCC 24HR ER 25 MG TAB.ER.24H. PO SCH (08:51)
--- NOTE | 2021-08-01 10:05 | PDOC ---
JANETH ORNELAS REEL TENDER 08/01/21 1005: CARDIO Progress Notes Date and Time Date of Service 08/01/21 Time of Evaluation 1000 Subjective Subjective: No Chest Pain, No shortness of breath, No Palpitations, Other (swelling has improved ) Vitals Vitals Vital Signs Date Time Temp Pulse Resp B/P (MAP) Pulse Ox O2 Delivery O2 Flow Rate FiO2 08/01/21 08:51 98 119/65 08/01/21 02:29 98.3 20 100 Room Air 98.3 Weight Weight [ ] Input and Output Intake and Output Intake and Output 08/01/21 07:00 Intake Total 550 ml Output Total 650 ml Balance -100 ml Intake Oral 250 ml Tube Feeding 300 ml Drainage Total 650 ml # Voids 10 # Bowel Movements 2 Laboratory Labs Laboratory Tests Test 07/31/21 11:29 07/31/21 16:11 08/01/21 03:20 08/01/21 03:25 Glucose (Fingerstick) 123 mg/dL (70-99) 159 mg/dL (70-99) White Blood Count 3.4 x10^3/uL (4.0-11.0) Red Blood Count 3.00 x10^6/uL (4.30-5.70) Hemoglobin 8.2 g/dL (13.0-17.5) Hematocrit 25.7 % (39.0-53.0) Mean Corpuscular Volume 86 fL (79-100) Mean Corpuscular Hemoglobin 27 pg (25-35) Mean Corpuscular Hemoglobin Concent 32 g/dL (31-37) Red Cell Distribution Width 21.0 % (11.5-14.5) Platelet Count 123 x10^3/uL (140-400) Neutrophils (%) (Auto) 72 % (31-73) Lymphocytes (%) (Auto) 15 % (24-48) Monocytes (%) (Auto) 9 % (0-9) Eosinophils (%) (Auto) 3 % (0-3) Basophils (%) (Auto) 1 % (0-3) Neutrophils # (Auto) 2.4 x10^3/uL (1.8-7.7) Lymphocytes # (Auto) 0.5 x10^3/uL (1.0-4.8) Monocytes # (Auto) 0.3 x10^3/uL (0.0-1.1) Eosinophils # (Auto) 0.1 x10^3/uL (0.0-0.7) Basophils # (Auto) 0.0 x10^3/uL (0.0-0.2) Sodium Level 136 mmol/L (136-145) Potassium Level 3.3 mmol/L (3.5-5.1) Chloride Level 97 mmol/L (98-107) Carbon Dioxide Level 39 mmol/L (21-32) Anion Gap 0 (6-14) Blood Urea Nitrogen 21 mg/dL (8-26) Creatinine 1.2 mg/dL (0.7-1.3) Estimated GFR (Cockcroft-Gault) 62.2 Glucose Level 118 mg/dL (70-99) Calcium Level 8.1 mg/dL (8.5-10.1) Test 08/01/21 03:28 08/01/21 07:41 Prothrombin Time 21.9 SEC (11.7-14.0) Prothromb Time International Ratio 1.9 (0.8-1.1) Heparin Anti-Xa Act, Unfractionated 0.45 IU/mL (0.30-0.70) Glucose (Fingerstick) 105 mg/dL (70-99) Microbiology Micro Microbiology 07/04/21 Urine Culture - Final, Complete 07/03/21 Blood Culture - Final, Complete NO GROWTH AFTER 5 DAYS Physical Exam HEENT: Neck Supple W Full Motion Chest: Symmetric LUNGS: Other (diminished bases) Heart: RRR (SR) Abdomen: Other (obese) Extremities: Other (anasarca; LLE wound with wound vac. 1-2+ bilateral LE edema ) Neurology: alert, oriented, follow commands Assessment Assessment 1. LLE cellulitis with extensive infection: s/p I & D noted previously with group B strep. wound vac in place per vascular/ID 2. Acute on chronic combined diastolic/systolic CHF: mainly right sided. improving with Lasix gtt, metolazone 3. Acute on chronic cor pulmonale/anasarca: RHC revealed biventricular overload 4. Severe NICM: EF 20% 5. LUE lymphedema: prior venous doppler noted with subcutaneous edema 6. S/P mechanical mitral valve replacement 7. HTN: controlled 8. HLP 9. DM2: per PCP 10. Morbid obesity 11. Anemia of chronic disease; hgb at 8.2 12. LLE PAD: aortogram revealed moderate left superficial femoral artery disease with three-vessel runoff below the knee 13. Thrombocytopenia: seen by hematology/GI recently and noted as multifactorial including prior sepsis/warfarin/MVR but no noted active bleed 14. Covid-19 +: 07/10/2021. recovered 15. Urinary retention; urology following Recommendations Continue HF optimization Continue metolazone, Lasix. Will convert Lasix to IV BID dosing Daily standing weights. 1500cc FR Warfarin therapy; INR 1.9 Bridge with heparin until INR 2.0 Monitor hgb, PLTs. Transfused as warranted Supportive care Plan for AICD as an outpt Follow up in our office with Dr. Brown as scheduled. Justicifation of Admission Dx: Justifications for Admission: Justification of Admission Dx: Yes LORE BROWN MD 08/01/21 1700: CARDIO Progress Notes Assessment Assessment Patient seen and evaluated I agree with our nurse practitioners assessment and plan. LLE cellulitis with extensive infection: s/p I & D noted previously with group B strep. wound vac in place per vascular/ID. Continuing present treatment. Acute on chronic combined diastolic/systolic CHF: mainly right sided. improving Acute on chronic cor pulmonale/anasarca: RHC revealed biventricular overload Severe NICM: EF 20%. Continuing present treatment. Outpatient follow-up. LUE lymphedema: prior venous doppler noted with subcutaneous edema S/P mechanical mitral valve replacement. Continuing present treatment. HTN: controlled HLP DM2: per PCP Anemia. hgb at 8.2 LLE PAD: aortogram revealed moderate left superficial femoral artery disease with three-vessel runoff below the knee Thrombocytopenia: seen by hematology/GI recently and noted as multifactorial including prior sepsis/warfarin/MVR but no noted active bleed Covid-19 +: 07/10/2021. recovered Urinary retention; urology following JANETH ORNELAS APRN Aug 01, 2021 10:05 LORE BROWN MD Aug 01, 2021 17:00
[2021-08-01 11:00] VITALS: BP 117/62
[2021-08-01] MEDS: HEPARIN 25,000UTS/250ML PREMIX 250 ML IV PRN (11:06)
[2021-08-01] MEDS ORDERED: METO2.5T PO (12:27)
[2021-08-01] MEDS ORDERED: METO-239 PO (12:27)
[2021-08-01] MEDS ORDERED: TAMS0.4C97 PO (12:27)
[2021-08-01] MEDS ORDERED: FURO-68 PO (12:29)
--- NOTE | 2021-08-01 12:30 | PDOC ---
SUBJECTIVE Subjective Pt denies complaints Says he is no longer voiding every 20min, he is now voiding q2hr and soaking brief and pad OBJECTIVE Vital Signs Vital Signs Date Time Temp Pulse Resp B/P (MAP) Pulse Ox O2 Delivery O2 Flow Rate FiO2 08/01/21 11:00 97.6 102 18 117/62 (80) 96 Room Air 97.6 08/01/21 08:51 98 119/65 08/01/21 08:50 92 119/65 08/01/21 08:00 Room Air 08/01/21 07:00 98.0 86 20 119/65 (83) 92 Room Air 98.0 08/01/21 02:29 98.3 98 20 94/52 (66) 100 Room Air 98.3 08/01/21 00:03 Room Air 07/31/21 22:23 98.0 95 20 120/60 (80) 100 Room Air 98.0 07/31/21 21:19 101 104/54 07/31/21 20:22 Room Air 07/31/21 19:22 98.3 100 20 97/54 (68) 98 Room Air 98.3 07/31/21 17:44 Room Air 07/31/21 17:14 Room Air 07/31/21 15:00 98.4 102 20 128/57 (80) 96 Room Air 98.4 I & O Intake and Output 08/01/21 07:00 Intake Total 550 ml Output Total 650 ml Balance -100 ml Intake Oral 250 ml Tube Feeding 300 ml Drainage Total 650 ml # Voids 10 # Bowel Movements 2 PHYSICAL EXAM Physical Exam AOx3, NAD nonlabored breathing nontender abd ASSESSMENT/PLAN Assessment/Plan -Urinary retention, anasarca He is voiding asymptomatically, incontinent of urine. Creatinine stable. Had elevated pvr ~400ml earlier this week. Urethral jasso was unable to be placed, presumably due to recurrent urethral stricture disease. He would be a good candidate for urethroplasty once health has improved and stabilized. IR is planning on placing SPT when INR is in appropriate range. As he is voiding and otherwise improving, this is not emergent. Patient agreeable to suprapubic catheter placement and close outpatient urology follow-up to discuss possible urethroplasty with Dr. Cole. COMMENT Lab Laboratory Tests Test 07/31/21 16:11 08/01/21 03:20 08/01/21 03:25 08/01/21 03:28 Glucose (Fingerstick) 159 mg/dL (70-99) White Blood Count 3.4 x10^3/uL (4.0-11.0) Red Blood Count 3.00 x10^6/uL (4.30-5.70) Hemoglobin 8.2 g/dL (13.0-17.5) Hematocrit 25.7 % (39.0-53.0) Mean Corpuscular Volume 86 fL (79-100) Mean Corpuscular Hemoglobin 27 pg (25-35) Mean Corpuscular Hemoglobin Concent 32 g/dL (31-37) Red Cell Distribution Width 21.0 % (11.5-14.5) Platelet Count 123 x10^3/uL (140-400) Neutrophils (%) (Auto) 72 % (31-73) Lymphocytes (%) (Auto) 15 % (24-48) Monocytes (%) (Auto) 9 % (0-9) Eosinophils (%) (Auto) 3 % (0-3) Basophils (%) (Auto) 1 % (0-3) Neutrophils # (Auto) 2.4 x10^3/uL (1.8-7.7) Lymphocytes # (Auto) 0.5 x10^3/uL (1.0-4.8) Monocytes # (Auto) 0.3 x10^3/uL (0.0-1.1) Eosinophils # (Auto) 0.1 x10^3/uL (0.0-0.7) Basophils # (Auto) 0.0 x10^3/uL (0.0-0.2) Sodium Level 136 mmol/L (136-145) Potassium Level 3.3 mmol/L (3.5-5.1) Chloride Level 97 mmol/L (98-107) Carbon Dioxide Level 39 mmol/L (21-32) Anion Gap 0 (6-14) Blood Urea Nitrogen 21 mg/dL (8-26) Creatinine 1.2 mg/dL (0.7-1.3) Estimated GFR (Cockcroft-Gault) 62.2 Glucose Level 118 mg/dL (70-99) Calcium Level 8.1 mg/dL (8.5-10.1) Prothrombin Time 21.9 SEC (11.7-14.0) Prothromb Time International Ratio 1.9 (0.8-1.1) Heparin Anti-Xa Act, Unfractionated 0.45 IU/mL (0.30-0.70) Test 08/01/21 07:41 Glucose (Fingerstick) 105 mg/dL (70-99) Justifications for Admission Other Justification JAIRO DORANTES Aug 01, 2021 12:30
--- NOTE | 2021-08-01 12:30 | SNU/HH DC ---
DISCHARGE ORDERS DISCHARGE INFORMATION: DISCHARGE DATE: Aug 01, 2021 FINAL DIAGNOSIS Problems Medical Problems: (1) Anemia Status: Acute (2) Cellulitis of left lower extremity Status: Acute (3) Diabetes mellitus Status: Acute (4) Encounter for management of vacuum-assisted closure (VAC) of wound Status: Acute (5) Failure to thrive in adult Status: Acute (6) Generalized weakness Status: Acute (7) Lymphedema of both lower extremities Status: Acute (8) Thrombocytopenia Status: Acute (9) Wound of left foot Status: Acute CONDITION ON DISCHARGE: Stable CODE STATUS: Code Status: Full JAIL: SNF STAY <30 DAYS: No HOSPICE: HOSPICE: No HOSPICE EVAL & TREAT: No LTAC: ADMIT TO LTAC: No POST DISCHARGE ORDERS: ACTIVITY ORDERS: Activity as tolerated WEIGHT BEARING STATUS: No restrictions DIET AFTER DISCHARGE: ADA WOUND/INCISION CARE: Other, see below TREATMENT/EQUIPMENT ORDERS: Physical Therapy For: Evalulation/Treatment Occupational Therapy For: Evaluation/Treatment DISCHARGE MEDICATIONS: Home Meds Active Scripts Furosemide (LASIX) 40 Mg Tablet, 40 MG PO DAILY for chf for 30 Days, #30 TAB Prov:WANG KC MD 08/01/21 Metolazone (METOLAZONE) 2.5 Mg Tablet, 5 MG PO DAILY for chf for 30 Days, #60 TAB Prov:WANG KC MD 08/01/21 Metoprolol Succinate (METOPROLOL SUCCINATE ( XL )) 25 Mg Tab.er.24h, 25 MG PO DAILY for chf for 30 Days, #30 TAB.SR Prov:WANG KC MD 08/01/21 Tamsulosin Hcl (FLOMAX) 0.4 Mg Cap.er.24h, 0.4 MG PO DAILY for bph for 30 Days, #30 CAP.SR Prov:WANG KC MD 08/01/21 Pantoprazole Sodium (PANTOPRAZOLE SODIUM ) 40 Mg Tablet.dr, 40 MG PO DAILYAC for gerd for 30 Days, #30 TAB.SR Prov:WANG KC MD 07/02/21 Reported Medications Potassium Chloride (KLOR-CON 10) 10 Meq Tablet.er, 10 MEQ PO DAILY for replacement, TAB 05/14/21 Sacubitril/Valsartan (Entresto 49 mg-51 mg Tablet) 1 Each Tablet, 1 EACH PO BID for CHF, TAB 05/14/21 Allopurinol (ALLOPURINOL) 300 Mg Tablet, 300 MG PO DAILY for gout, TAB 05/14/21 Discontinued Reported Medications Pioglitazone Hcl (ACTOS) 45 Mg Tablet, 45 MG PO DAILY for DMII, TAB 05/14/21 Furosemide (FUROSEMIDE) 20 Mg Tablet, 20 MG PO DAILY for CHF, TAB 05/14/21 Warfarin Sodium (WARFARIN SODIUM) 2.5 Mg Tablet, 2.5 MG PO QMWFSA for blood thinner, TAB 05/14/21 WANG KC MD Aug 01, 2021 12:30
--- NOTE | 2021-08-01 13:00 | NUR ---
SS following up with discharge planning. SS reviewed pt chart and discussed with pt RN. Pt is currently on room air. COVID19 recovered. Pt on Heparin and Lasix drip. Wound care. IR unable to place supra pubic cath until INR is 1.5. Pt accepted at [facility], ; fax [phone], and insurance approved. [facility] reported that they can do wound care, Heparin and Lasix drips, and can schedule supra pubic cath outpatient once INR is stable. Discharge orders received and phoned and faxed to [facility]. SS spoke with pt's son and pt's son agreeable to transfer. Pt will discharge today and go to [facility] at 1630 via [facility] ambulance, . Packet and ambulance form on the chart. Pt, pt's RN, and pt's son notified.
[2021-08-01] MEDS ORDERED: POTASSIUM CHLORIDE 20 MEQ TABLET.ER. PO ONE (13:30)
[2021-08-01] MEDS ORDERED: FUROSEMIDE 100 MG/10 ML VIAL. IVP SCH (14:00)
[2021-08-01 15:00] VITALS: BP 115/53
[2021-08-01] MEDS: HYDROcodone/APAP 5/325MG 1 TAB TABLET PO PRN (15:17)
[2021-08-01] MEDS ORDERED: POTA20TA4 PO ×2 (15:33→15:34)
[2021-08-01] MEDS ORDERED: FURO80TA3 IV (15:33)
[2021-08-01] MEDS ORDERED: WARF3TAB50 PO (15:40)
--- NOTE | 2021-08-01 15:46 | NUR ---
Wound Care Wound Type/Assessment: Patient seen per Wound care follow up for multiple leg wounds s/p I&D by vascular, and a small right buttock PU stage 3 that remains open but stable and a small intact blister to the left posterior thigh. See wound assessment for further details. All leg wounds have shown significant improvement from the wound vac. Vac canister full of yellow exudate from leg wounds. Patient is discharging today to [facility], so wound vac will be removed and resumes after admission to the facility. All dressings removed and wounds cleansed, assessed, measured, and pictured. No other wounds noted on skin assessment. Treatment Recommendations/Plan: Previously we had dressed the Left lateral leg, left anterior ankle, left lateral foot wounds are y-connected with left medial leg wound, using two separate track heads d/t large amount of drainage and surface area of multiple wounds at -150 mmHg continuous suction, the posterior leg blister dressed with skin prep and foam, and lastly the right buttock wound redressed with Calazime. Pt did inform WCRNs that he would need his brief changed at this time, as he was currently urinating. Offered urinal to pt, but he stated with the swelling, he is unable to use it. Brief changed and pericare completed. Patient is shifting in bed minimally but needs to continue to shift more often. Education provided: Patient educated on elevating legs, wound vac therapy and PU healing, Pt left on back side as he is awaiting his discharge. Offloading surface/device: Patient to turn every 2 hours and to control the moisture in his brief and change when wet, patient v/u. Recommended Referrals/Tests: N/A Discharge Recommendations for dressings: All dressings in place and patient repositioned for SNACK BAR ATTENDANT to assist with gathering belongings, clothes, supplies, etc. Bed lowered and call light in reach.
[2021-08-01] MEDS ORDERED: WARFARIN 7.5 MG TABLET. PO ONE (16:00)
--- NOTE | 2021-08-01 18:39 | NUR ---
Discharge Note: AVINASH FARIAS 6 [facility] Discharge instructions and discharge home medications reviewed with Other facility and a copy given. All questions have been answered and understanding verbalized. The following instructions and handouts were given: discharge instructions, follow ups, med list, education. Discontinued lines and drains: left in for facility. Patient discharged to [facility]isted [facility] with [facility]ulance Personnel([facility]) via [facility] at 183. Report was given to TISH Buckley at [facility] at 1635. Addendum: 08/01/21 at 1944 by NEIL CEBALLOS RN Mistake, patient left at 1750 not 1839
--- NOTE | 2021-08-01 21:18 | DS ---
DATE OF DISCHARGE: 08/01/2021 PRIMARY DIAGNOSES: 1. Left leg wound with prior cellulitis with wound VAC therapy and inability to do self care at home. 2. Weakness with difficulties with ambulation, transfers. 3. Urethral stricture with urinary retention with suprapubic catheter planned as an outpatient after anticoagulation allows at LTAC. 4. Cor pulmonale with biventricular failure and anasarca, responding to diuresis. 5. COVID-19 infection. 6. Pancytopenia, undifferentiated, improving during the beginning of the stay and worse towards the end. Dictation Ends Here. ROSE/DEEP/MIRNA DR: ROSE/donato TID: [id number]
--- NOTE | 2021-08-01 21:20 | DS ---
DATE OF DISCHARGE: 08/01/2021 PRIMARY DIAGNOSES: 1. Left leg wound prior cellulitis requiring wound VAC therapy. 2. Profound weakness. 3. Biventricular heart failure with anasarca. 4. Cor pulmonale. 5. Pancytopenia of uncertain etiology. 6. Urethral stricture with inability to empty bladder, urinary retention, awaiting suprapubic catheter placement. 7. Multiple other diagnoses that can be gleaned from the chart as this was very complicated. CHIEF COMPLAINT HISTORY OF PRESENT ILLNESS: This 56-year-old white male admitted through the Emergency Room on date of admission after being homeless in 24 hours, unable to do wound care, ambulate or take care of himself. SUMMARY OF STAY: The patient was admitted, multiple issues were treated during the stay including the infection. He completed his course of IV antibiotics, had ongoing wound VAC therapy throughout the stay. Blood count started to look better during the initial part of the hospitalization and were falling back some towards discharge with his last blood count on the day of discharge showing a white count of 3400, hemoglobin of 8.2 and platelet count of 123,000, all of which have been relatively stable over the last 4 or 5 days of hospitalization. He was to have a bone marrow, but was canceled due to him being COVID positive, in which he was not sick with because he had been COVID positive second month earlier and had recovered, but was retested. GI did not feel endoscopies were negative, but recommended once he was better from all considering outpatient endoscopy. He did require transfusions early during the stay. Did have a heart cath showing biventricular failure, nonsignificant coronary artery disease and secondary pulmonary hypertension with mean pulmonary artery pressure of 42 and high cardiac output. He did have anasarca during the stay, which responded nicely to diuresis through the latter half of the stay. Last BUN was 21 and creatinine 1.2 and potassium 3.3 with the diuresis. Actos was stopped during this stay due to the anasarca and blood sugars remained very good throughout the remainder of the stay even with the holding of the same. He was going to get a suprapubic catheter, but Interventional Radiology wanted Warfarin held prior to doing the same and he was also on a heparin drip, but was felt ready for discharge to the LTAC with reassurance to me by case management that LTAC would send him back as an outpatient for the suprapubic catheter placement. They also reassured me he would get there on Lasix drip, heparin drip and with the knowledge of the warfarin was being held, that he had a mechanical mitral valve and this would be a problem if not continued with probable stroke. They were going to give me the phone number of receiving provider at [place], but I have not gotten it yet at the time of this dictation at 5:00 on the day of discharge, but we will call [facility] if need be this evening to get a hold of someone as this is a very high risk discharge. DISPOSITION: The patient is discharged to LTAC. He is discharged on an ADA diet. Activity as tolerated. Therapy needs to follow up. He needs to continue present Lasix and heparin drips. He needs to be back on warfarin after suprapubic catheter was placed and bridged with heparin due to his mechanical heart valve. He needs to have blood counts followed and needs to have renal function with the diuresis followed. He is to have ongoing wound care with a wound VAC followed. He needs intensive therapy to get back to position of function to be able to return to home and take care of himself. ROSE/PAR/AMI DR: ROSE/donato TID: [id number]
[2021-08-02] MEDS ORDERED: POTASSIUM CHLORIDE 20 MEQ TABLET.ER. PO SCH (08:00)
== END 2021-08-01 18:39 | DRG 602 ==
LOC: ER 17:16 → 4 NORTH 20:04 → 5 SOUTH 07-10 12:11 → 6 SOUTH 07-25 15:09
PROVIDERS: ADMIT Family Medicine; ATTEND Family Medicine
PROC: 30233N1 Transfusion of Nonautologous Red Blood Cells into Peripheral Vein, Percutaneous Approach (ICD-10-PCS; 2021-07-07)
PROC: B2111ZZ Fluoroscopy of Multiple Coronary Arteries using Low Osmolar Contrast (ICD-10-PCS; principal; 2021-07-25)
PROC: 4A023N8 Measurement of Cardiac Sampling and Pressure, Bilateral, Percutaneous Approach (ICD-10-PCS; 2021-07-25)
PROC: B41G1ZZ Fluoroscopy of Left Lower Extremity Arteries using Low Osmolar Contrast (ICD-10-PCS; 2021-07-25)
DX: L03.116 Cellulitis of left lower limb (principal); U07.1 COVID-19; I50.43 Acute on chronic combined systolic (congestive) and diastolic (congestive) heart failure; D61.818 Other pancytopenia; D68.9 Coagulation defect, unspecified; I42.8 Other cardiomyopathies; D63.8 Anemia in other chronic diseases classified elsewhere; E11.22 Type 2 diabetes mellitus with diabetic chronic kidney disease; E11.51 Type 2 diabetes mellitus with diabetic peripheral angiopathy without gangrene; E66.01 Morbid (severe) obesity due to excess calories; E78.00 Pure hypercholesterolemia, unspecified; E78.5 Hyperlipidemia, unspecified; E87.5 Hyperkalemia; F32.A Depression, unspecified; I25.10 Atherosclerotic heart disease of native coronary artery without angina pectoris; I27.29 Other secondary pulmonary hypertension; I50.82 Biventricular heart failure; I87.2 Venous insufficiency (chronic) (peripheral); M19.90 Unspecified osteoarthritis, unspecified site; I89.0 Lymphedema, not elsewhere classified; D72.829 Elevated white blood cell count, unspecified; N35.919 Unspecified urethral stricture, male, unspecified site; R33.9 Retention of urine, unspecified; I27.81 Cor pulmonale (chronic); N18.9 Chronic kidney disease, unspecified; R62.7 Adult failure to thrive; Z79.01 Long term (current) use of anticoagulants; Z83.3 Family history of diabetes mellitus; Z86.718 Personal history of other venous thrombosis and embolism; Z87.442 Personal history of urinary calculi; Z87.891 Personal history of nicotine dependence; Z95.2 Presence of prosthetic heart valve; Z59.00 Homelessness unspecified
CPT/HCPCS: 36245; 36415; 36430; 73590; 73620; 75710; 76937; 80048; 80053; 81001; 82274; 82962; 83605; 83735; 85007; 85014; 85018; 85025; 85027; 85520; 85610; 85730; 86850; 86900; 86901; 86920; 87040; 87086; 87426; 93460; 99152; 99153; C1773; C1894; C9113; J1644; J1940; J2250; J3010; J3475; J3490; J7030; J7050; P9016; Q9967; U0003; U0005; 97110-GO; 97110-GP; 97116-GP; 97530-GO; 97530-GP; 97535-GO; 99285-25; G0378

== ENCOUNTER 2021-08-13 16:05 | Inpatient (IN) | payer OTHER ==
[~2021-08-13] VITALS: Ht 188 cm; Wt 137.7 kg
[~2021-08-13 16:05] MED LIST changes: +FURO-68 PO; +FURO80TA3 IV; +METO-239 PO; +METO2.5T PO; +POTA20TA4 PO; +TAMS0.4C97 PO; +WARF3TAB50 PO
--- NOTE | 2021-08-13 16:50 | PHYS DOC ---
Past Medical History Past Medical History: Depression, Diabetes-Type II, DVT, High Cholesterol, Hypertension Additional Past Medical Histor: ENDOCARDITIS, GOUT,DVT,CELLULITIS Past Surgical History: Other Additional Past Surgical Histo: HEART VALVE REPLACEMENT, LOWER EXTREMTY SX FOR BLOCKAGE Smoking Status: Former Smoker Alcohol Use: None Drug Use: None General Adult EDM: Chief Complaint: ABNORMAL LABS HPI: HPI: Patient is a 56-year-old male who presents to the emergency department from [facility] for abnormal PT/INR level. 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 Patient has a history of urinary stricture, states his doctors are considering placing a suprapubic catheter. Patient reports a long history of dysuria stating he does not know when he needs to go, reports he does starts going until it stops. Patient reports that he can tell when he is urinating. Patient denies burning or pressure with urination, denies increased urinary frequency. Patient denies abdominal pains, nausea, vomiting, diarrhea. Patient reports he spent about a month in this hospital related to c ellulitis of his lower extremities, reports being discharged to the residential on July. Patient states he has congestive heart failure and an EF of 25. Patient denies physical complaints or physical concerns. Denies chest pains, shortness of breath chest or nasal congestion. Review of Systems: Review of Systems: 14 body systems of review of systems have been reviewed. See HPI for pertinent positives and negative responses, otherwise all other systems are negative, nonpertinent or noncontributory. Constitutional: Negative except as outlined in HPI above. Skin: Negative except as outlined in HPI above. Eyes: Negative except as outlined in HPI above. HENT: Negative except as outlined in HPI above. Respiratory: Negative except as outlined in HPI above. Cardiovascular: Negative except as outlined in HPI above. GI: Negative except as outlined in HPI above. : Negative except as outlined in HPI above. Musculoskeletal: Negative except as outlined in HPI above. Integument: Negative except as outlined in HPI above. Neurologic: Negative except as outlined in HPI above. Endocrine: Negative except as outlined in HPI above. Lymphatic: Negative except as outlined in HPI above. Psychiatric: Negative except as outlined in HPI above. Heart Score: C/O Chest Pain: No Risk Factors: Risk Factors: DM, Current or recent (<one month) smoker, HTN, HLP, family history of CAD, obesity. Risk Scores: Score 0 - 3: 2.5% MACE over next 6 weeks - Discharge Home Score 4 - 6: 20.3% MACE over next 6 weeks - Admit for Clinical Observation Score 7 - 10: 72.7% MACE over next 6 weeks - Early Invasive Strategies Allergies: Allergies: Allergies Coded Allergies Type Severity Reaction Last Updated Verified No Known Drug Allergies 06/06/21 No Physical Exam: PE: Constitutional: Well developed, well nourished, no acute distress, non-toxic appearance. 56-year-old male in no apparent distress. HENT: Normocephalic, atraumatic. Oral mucosa sticky, oropharynx nonerythematous, nonedematous, no deep tissue infectious process appreciated, patient speaking in normal voice tones. No lymphadenopathy of the head or neck appreciated. Bilateral TMs within normal limits. Eyes: Conjunctiva normal, no discharge. Neck: Normal range of motion, no stridor. No nuchal rigidity, no meningismus signs. Cardiovascular: No cyanosis appreciated, distal cap refill less than 2 seconds. Heart sounds S1-S2 to auscultation, regular rate and rhythm. Lungs & Thorax: Patient is in no respiratory distress, no audible adventitious lung sounds appreciated. Lung sounds coarse bilateral bases, crackles appreciated bilateral upper lobes. Abdomen: Nontender, no abnormalities noted. Patient is obese, abdomen soft. Normal bowel sounds all 4 quadrants. Skin: Warm, dry, no erythema, no rash. Back: No tenderness, no deformities. Extremities: No tenderness, no cyanosis, no clubbing, ROM intact, no edema. Bilateral lower extremities have dressings in place, distal cap refills less than 2 seconds, +1 dorsalis pedis pulses bilaterally. Neurologic: Alert and oriented X 3, normal motor function, normal sensory function, no focal deficits noted. Psychologic: Affect normal, judgement normal, mood normal. EKG: EKG: EKG performed at 1631 shows sinus rhythm with occasional PVCs, parable 0.160, QT 0.469, no acute STEMI, no ACS, no acute ischemia appreciated, EKG interpreted by ED attending physician Dr. Connors. Radiology/Procedures: Radiology/Procedures: REASON: Hypoxia PROCEDURE: CHEST AP ONLY XR CHEST 1V History: Hypoxia Comparison: 06/21/2021. Technique: Portable AP radiograph of the chest. Findings: The lungs are adequately inflated. No focal consolidation, pleural effusion or pneumothorax. Mild prominence of pulmonary interstitial markings. There is cardiomegaly with postsurgical changes of the mediastinum and mitral valve annuloplasty. The pulmonary vasculature is cephalized and enlarged. Osseous structures and soft tissues are unremarkable. Impression: 1. Cardiomegaly with pulmonary vascular congestion-interstitial edema. Electronically signed by: Lazaro Welsh MD (08/13/2021 4:57 PM) [facility] Course & Med Decision Making: Course & Med Decision Making Pertinent Labs and Imaging studies reviewed. (See chart for details) 56-year-old male, vital signs reviewed, presents emerged department concerning elevated INR with signs of sepsis at the residential. Physical examination is concerning for dehydration status related to dry oral mucosa, patient is hypotensive upon presentation to the ED, patient has EF of 25, will order EKG, chest x-ray, blood cultures x2, CBC, CMP, mag, Phos, urinalysis assay. Lactic acid, high-sensitivity troponin I, NT proBNP, After 250 cc bolus of normal saline, patient blood pressure elevated to 112/59, map 79. I assisted patient to avoid, milky cement colored urine 175 cc. Specimen sent to lab. Post void residual per bladder scanner reveals 514 cc. CBC White count slightly elevated 11.3 however does have bandemia count 13, the patient's lactic acid is within normal limits, patient's INR slightly elevated at 3.6, creatinine 2.0, troponin I high-sensitivity 30, NT proBNP 16,368. Discussed with patient recommended admission to hospital related to sepsis, abnormal urinalysis, acute renal failure, elevated PT/INR, patient is amendable to ED admission planning, started 2 g Rocephin IV. Called and discussed patient case and ED work-up with inpatient management physician Dr. Nagel who agrees patient's case warrants admission to the hospital, requested consults for infectious disease specialty, urology specialty, placement on telemetry unit related to patient's initial hypotensive p resentation to emergency department. Patient is awaiting inpatient assignment bed from warehouse lead at this time. Current vital signs NIBP 108/55, MAP is 77, heart rate 90, room air oxygen saturation 94%, patient 99.0 oral temp. Dragon Disclaimer: Dragon Disclaimer: This electronic medical record was generated, in whole or in part, using a voice recognition dictation system. Departure Departure Impression: Primary Impression: Sepsis Qualified Codes: A41.9 - Sepsis, unspecified organism Additional Impressions: Elevated INR Abnormal urinalysis Acute kidney injury Disposition: ADMITTED INPATIENT Admitting Physician: Wang Nagel (Admit to telemetry unit, consult infectious disease, consult urology specialty) Condition: GUARDED Referrals: WANG NAGEL MD (PCP) MEKHI ALMEIDA HEAD ATHLETIC TRAINER Aug 13, 2021 16:50
[2021-08-13 16:59] LABS: BASO # 0.1 x10^3/uL (0.0-0.2); BASO % 1 % (0-3); EOS % 0 % (0-3); HEMATOCRIT 26.6 % (39.0-53.0); HEMOGLOBIN 8.3 g/dL (13.0-17.5); LYMPH # 0.3 x10^3/uL (1.0-4.8); LYMPH % 3 % (24-48); MEAN CORPUSCULAR HEMOGLOBIN 26 pg (25-35); MEAN CORPUSCULAR HGB CONC 31 g/dL (31-37); MEAN CORPUSCULAR VOLUME 82 fL (79-100); MONO # 0.9 x10^3/uL (0.0-1.1); MONO % 8 % (0-9); NEUT % 88 % (31-73); PLATELET COUNT 331 x10^3/uL (140-400); RED BLOOD COUNT 3.26 x10^6/uL (4.30-5.70); RED CELL DISTRIBUTION WIDTH 19.1 % (11.5-14.5); WHITE BLOOD COUNT 11.3 x10^3/uL (4.0-11.0)
--- NOTE | 2021-08-13 17:00 | RAD ---
XR CHEST 1V History: Hypoxia Comparison: 06/21/2021. Technique: Portable AP radiograph of the chest. Findings: The lungs are adequately inflated. No focal consolidation, pleural effusion or pneumothorax. Mild pro minence of pulmonary interstitial markings. There is cardiomegaly with postsurgical changes of the me diastinum and mitral valve annuloplasty. The pulmonary vasculature is cephalized and enlarged. Osseou s structures and soft tissues are unremarkable. Impression: 1. Cardiomegaly with pulmonary vascular congestion-interstitial edema. Electronically signed by: Lazaro Welsh MD (08/13/2021 4:57 PM) [facility]
[2021-08-13 17:14] LABS: PROTHROMBIN TIME PATIENT 34.9 SEC (11.7-14.0)
[2021-08-13] MEDS ORDERED: IV NORMAL SALINE 500ML BAG 250 ML IV ONE (17:15)
[2021-08-13 17:23] LABS: CALCIUM 7.5 mg/dL (8.5-10.1); GFR 34.5; POTASSIUM 4.7 mmol/L (3.5-5.1)
[2021-08-13 17:35] LABS: % BANDS 13 % (0-9); % LYMPHS 4 % (24-48); % MONOS 4 % (0-10); % SEGS 79 % (35-66); ANISOCYTOSIS SLIGHT; PLT ESTIMATE ADEQUATE (ADEQUATE)
[2021-08-13 17:36] LABS: TOXIC GRANULATION PRESENT
[2021-08-13 17:37] LABS: ALBUMIN/GLOBULIN RATIO 0.5 (1.0-1.7); MAGNESIUM 1.7 mg/dL (1.8-2.4); PHOSPHORUS 3.7 mg/dL (2.6-4.7); POIKILOCYTOSIS SLIGHT; TOTAL BILIRUBIN 0.5 mg/dL (0.2-1.0); TOTAL PROTEIN 6.3 g/dL (6.4-8.2)
[2021-08-13 18:06] LABS: BILIRUBIN,URINE NEGATIVE (NEG); CLARITY,URINE TURBID; COLOR,URINE YELLOW; NITRITE,URINE NEGATIVE (NEG); PROTEIN,URINE >=300 mg/dL (NEG-TRACE); UROBILINOGEN,URINE 0.2 mg/dL (0.2 mg/dL)
[2021-08-13] MEDS ORDERED: cefTRIAXone IV Push 1 GM VIAL. IVP ONE (18:15)
[2021-08-13] MEDS ORDERED: cefTRIAXone IV Push 2 GM VIAL. IVP ONE (18:30)
[2021-08-13 18:45] LABS: BACTERIA,URINE MODERATE /HPF (0-FEW); RBC,URINE 20-40 /HPF (0-2); WBC,URINE TNTC /HPF (0-4)
[2021-08-13 21:00] VITALS: BP 99/49
[2021-08-13] MEDS ORDERED: MINE107C TP (22:04)
[2021-08-13] MEDS ORDERED: LACT1CAP21 PO (22:04)
[2021-08-13] MEDS ORDERED: FLUT16SP NS (22:04)
[2021-08-13] MEDS ORDERED: WARF6TAB47 PO (22:04)
[2021-08-13] MEDS ORDERED: [UNRECOGNIZED DRUG - CODE] IV (22:04)
[2021-08-13] MEDS ORDERED: SACU1TAB7 PO (22:04)
[2021-08-13] MEDS ORDERED: VANC125C3 PO (22:04)
[2021-08-13] MEDS ORDERED: HYDR-2761 PO (22:04)
[2021-08-13] MEDS ORDERED: METO-239 PO (22:04)
[2021-08-13] MEDS ORDERED: SODI473S25 MC (22:04)
[2021-08-13] MEDS ORDERED: ALPR0.5T6 PO (22:04)
[2021-08-13] MEDS ORDERED: [UNRECOGNIZED DRUG - CODE] AU (22:04)
[2021-08-13 23:00] VITALS: BP 114/51
[2021-08-14 03:00] VITALS: BP 89/47
--- NOTE | 2021-08-14 03:49 | EKG ---
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
[2021-08-14 07:00] VITALS: BP 100/105
[2021-08-14] MEDS ORDERED: HYDROGEN PEROXIDE AU PRN (08:00)
[2021-08-14] MEDS ORDERED: VANCOMYCIN HCL 125 MG PO SCH (09:00)
[2021-08-14] MEDS: SACUBITRIL/VALSARTAN 49/51MG TABLET. PO SCH ×3 (09:00→22:13)
--- NOTE | 2021-08-14 09:08 | HP ---
DATE OF SERVICE: 08/14/2021 ADMIT DATE: 08/13/2021 LOCATION: He is in room 528. CHIEF COMPLAINT AND HISTORY OF PRESENT ILLNESS: This 56-year-old male presented back to the Emergency Room from [facility] with hypotension, weakness, fevers, evidence of urinary tract infection. He has been under less than 2 weeks after a long hospitalization here, initially admitted with leg wound therapy and cellulitis. The patient was supposed to have a suprapubic catheter placed right after admission out there. Once his INR came down, he was discharged on a heparin drip. He is back on Coumadin with an INR in the 3's, now has developed a urinary tract infection that should have never happened had the plan of care been followed at the time of discharge. He is weaker than he was when he left the hospital according to him this morning and unfortunately, he is going to take even longer for any sort of recovery at this point in time. He did have a leukocytosis, bandemia, and evidence of a urinary tract infection at the time of admission. PAST MEDICAL HISTORY: The patient's past medical history is well documented on recent records including diabetes, history of DVT, history of mechanical mitral valve replacement, hyperlipidemia, hypertension. He had pancytopenia, which Oncology or Hematology is seeing him for but that does seem to be improved at this point in time on admission. He does have urethral stricture with difficulties urinating and that is the reason for the suprapubic catheter until Urology could do some sort of urethral reconstruction. MEDICATIONS: Brought with the patient, listed on the computer have been addressed. ALLERGIES: He has no known drug allergies. SOCIAL HISTORY: Nonsmoker, nondrinker, does not use drugs. , lives at home with his . FAMILY HISTORY: Noncontributory. REVIEW OF SYSTEMS: As mentioned above. PHYSICAL EXAMINATION: GENERAL: He is a well-developed, well-nourished male who appears ill. VITAL SIGNS: Vital signs are stable. He has a temperature this morning of 101.3. HEAD, EYES, EARS, NOSE AND THROAT: Remarkable for some dryness of mucous membranes. NECK: Supple, without adenopathy or thyromegaly. CHEST: Clear to auscultation and percussion. HEART: Regular rate and rhythm without S3, S4 or murmur. ABDOMEN: Soft, nontender, without hepatosplenomegaly or masses. EXTREMITIES: Without any significant edema. NEUROLOGIC: Intact. He does not have a wound VAC on any longer and legs are dressed. IMPRESSION: 1. Sepsis due to knee source. 2. Urethral stricture with difficulties urinating precipitating above. 3. Diabetes. 4. Acute renal failure with creatinine of 2 with discharge creatinine last time of 1.2. 5. Pancytopenia with some improvement. PLAN: ID consult. We will also ask Urology to come by to try to figure out how we get this solved during this stay. I have no plans on discharging him til it is as I am not confident it will be done. We will ask Renal for their input on to his renal failure, but suspect with treatment of the infection that this will improve again. DOMINIC/OZIEL DR: Ivette TID: [id number]
[2021-08-14] MEDS: SODIUM HYPOCHLORITE 0.5% TP SCH (09:13)
[2021-08-14] MEDS: FLUTICASONE 50MCG/NASAL SPRAY 16GM BOTTLE. NS SCH (09:13)
[2021-08-14] MEDS: PANTOPRAZOLE 40 MG TABLET.DR. PO SCH (09:14)
[2021-08-14] MEDS: LACTOBACILLUS RHAMNOSUS GG 1 CAPSULE. PO SCH ×2 (09:14→22:12)
[2021-08-14] MEDS: IV NORMAL SALINE 1000ML BAG 1,000 ML IV SCH ×2 (09:14→17:35)
[2021-08-14] MEDS: TAMSULOSIN 0.4 MG CAP.ER.24H. PO SCH (09:14)
[2021-08-14] MEDS: METOPROLOL SUCC 24HR ER 50 MG TAB.ER.24H. PO SCH (09:14)
[2021-08-14] MEDS: ALLOPURINOL 300 MG TABLET. PO SCH (09:15)
[2021-08-14] MEDS ORDERED: MORPHINE SULFATE 2 MG/ML INJ. IM STA (11:16)
--- NOTE | 2021-08-14 11:35 | PDOC2 ---
CONSULT Date of Consult Date of Consult DATE: 08/14/21 TIME: 11:04 Reason for Consult Reason for Consult: ROBERTO Source Source: Chart review History of Present Illness Reason for Visit: Patient is a 56-year-old male presented back to the Emergency Room from [facility] with hypotension, weakness, fevers, . He has been under less than 2 weeks after a long hospitalization here, initially admitted with leg wound therapy and cellulitis. The patient was supposed to have a suprapubic catheter placed right after admission out there, Once his INR came down, he was discharged on a heparin drip. Denies any CP or SOB . No Abdominal, Flank or Suprapubic pain . He states he feels is UOP is adequate- he is incontinenet. Reports he was on IV Diuretics during recent hospitalization and had lost a lot of fluid weight . Denies Dysuria,hematuria Past Medical History Cardiovascular: CHF, HTN, Hyperlipidemia, Other Heme/Onc: Other Renal/: Chronic renal insuff, UTI, Other Endocrine: Diabetes Past Surgical History Past Surgical History: Other Family History Family History: Diabetes, Heart Disease Social History Social History Nonsmoker, nondrinker, does not use drugs. , lives at home with his . ALCOHOL: none Drugs: None Lives: with Family Current Problem List Problem List Problems Medical Problems: (1) Abnormal urinalysis Status: Acute (2) Acute kidney injury Status: Acute (3) Elevated INR Status: Acute (4) Sepsis Status: Acute Current Medications Current Medications Current Medications Sodium Chloride 250 ml @ 500 mls/hr 1X ONCE IV Last administered on 08/13/21at 17:26; Start 08/13/21 at 17:15; Stop 08/13/21 at 17:44; Status DC Ceftriaxone Sodium (Rocephin) 2 gm 1X ONCE IVP ; Start 08/13/21 at 18:15; Stop 08/13/21 at 18:16; Status Cancel Ceftriaxone Sodium (Rocephin) 2 gm 1X ONCE IVP Last administered on 08/13/21at 18:50; Start 08/13/21 at 18:30; Stop 08/13/21 at 18:31; Status DC Sodium Chloride 1,000 ml @ 100 mls/hr Q10H IV Last administered on 08/14/21at 09:14; Start 08/14/21 at 08:00 Allopurinol (Zyloprim) 300 mg DAILY PO Last administered on 08/14/21at 09:15; Start 08/14/21 at 09:00 Alprazolam (Xanax) 0.5 mg PRN TID PRN PO ANXIETY / AGITATION; Start 08/14/21 at 08:00 Fluticasone Propionate (Flonase) 1 spray DAILY NS Last administered on 08/14/21at 09:13; Start 08/14/21 at 09:00 Acetaminophen/ Hydrocodone Bitart (Lortab 5/325) 1 tab PRN Q4HRS PRN PO PAIN; Start 08/14/21 at 08:00 Metoprolol Succinate (Toprol Xl) 50 mg DAILY PO Last administered on 08/14/21at 09:14; Start 08/14/21 at 09:00 Pantoprazole Sodium (Protonix) 40 mg DAILYAC PO Last administered on 08/14/21at 09:14; Start 08/14/21 at 09:00 Sacubitril/ Valsartan (Entresto 49 Mg-51 Mg) 1 tab BID PO ; Start 08/14/21 at 09:00 Sodium Hypochlorite (Dakin'S Full Strength) 1 gaetano DAILY TP Last administered on 08/14/21at 09:13; Start 08/14/21 at 09:00 Tamsulosin HCl (Flomax) 0.4 mg DAILY PO Last administered on 08/14/21at 09:14; Start 08/14/21 at 09:00 Non-Formulary Medication (Hydrogen Peroxide (Medi-First Hydrogen Peroxide)) 2 ml PRN DAILY PRN AU SEE COMMENTS; Start 08/14/21 at 08:00; Stop 08/14/21 at 09:01; Status DC Lactobacillus Rhamnosus (Culturelle) 1 cap BID PO Last administered on 08/14/21at 09:14; Start 08/14/21 at 09:00 Multi-Ingredient Ointment (Hydrocerin, Eucerin Cream) 1 gaetano DAILY TP ; Start 08/14/21 at 12:00 Non-Formulary Medication (Sodium Ferric Gluconat/Sucrose (Ferrlecit 62.5 Mg/5 Ml Vial)) 125 mg QMWF IV ; Start 08/14/21 at 16:00; Stop 08/14/21 at 09:07; Status DC Non-Formulary Medication (Vancomycin Hcl ) 125 mg QID PO ; Start 08/14/21 at 09:00; Stop 08/14/21 at 09:07; Status DC Meropenem 500 mg/ Sodium Chloride 50 ml @ 100 mls/hr Q8HRS IV ; Start 08/14/21 at 11:30 Daptomycin 580 mg/ Sodium Chloride 50 ml @ 100 mls/hr Q24H IV ; Start 08/14/21 at 12:00 Vancomycin HCl (Vancomycin Oral Solution) 125 mg [id number] PO ; Start 08/14/21 at 13:00 Active Scripts Active Flomax (Tamsulosin Hcl) 0.4 Mg Cap.er.24h 0.4 Mg PO DAILY 30 Days Pantoprazole Sodium (Pantoprazole Sodium) 40 Mg Tablet.dr 40 Mg PO DAILYAC 30 Days Reported Medi-First Hydrogen Peroxide (Hydrogen Peroxide) 59.1 Ml [place] 2 Ml AU PRN DAILY PRN Hydrocodone-Apap 5-325 (Hydrocodone Bit/Acetaminophen) 1 Tab Tablet 1 Tab PO PRN Q4HRS PRN Alprazolam 0.5 Mg Tablet 0.5 Mg PO PRN TID PRN Warfarin Sodium 6 Mg Tablet 6 Mg PO DAILY Vancomycin Hcl 125 Mg Capsule 125 Mg PO QID Dak[place] (Sodium Hypochlorite) 473 Ml Solution 1 Gaetano MC DAILY Entresto 49 mg-51 mg Tablet (Sacubitril/Valsartan) 1 Each Tablet 1 Each PO BID Metoprolol Succinate ( Xl ) (Metoprolol Succinate) 25 Mg Tab.er.24h 50 Mg PO ZEB LY Culturelle (Lactobacillus Rhamnosus Gg) 1 Each Capsule 1 Each PO BID Fluticasone Propionate Nasal [place] (Fluticasone Propionate) 16 Gm [place].susp 1 [place] NS DAILY Dermacerin Cream (Mineral Oil/Petrolatum,White) 107 Gm Cream..g. 1 Gaetano TP DAILY Ferrlecit 62.5 Mg/5 Ml Vial (Sodium Ferric Gluconat/Sucrose) 62.5 Mg/5 Ml Vial 125 Mg IV QMWF Allopurinol 300 Mg Tablet 300 Mg PO DAILY Allergies Allergies: Coded Allergies: No Known Drug Allergies (Unverified , 06/06/21) ROS Review of System As per HPI, rest of the ROS is negative Physical Exam Physical Exam GENERAL: NAD VITAL SIGNS: Vital signs are stable. He has a temperature this morning of 101.3. HEAD, EYES, EARS, NOSE AND THROAT: Remarkable for some dryness of mucous membranes. NECK: Supple, without adenopathy or thyromegaly. CHEST: Clear to auscultation and percussion. HEART: Regular rate and rhythm without S3, S4 or murmur. ABDOMEN: Soft, nontender, without hepatosplenomegaly or masses. EXTREMITIES: Without any significant edema. NEUROLOGIC: Intact. He does not have a wound VAC on any longer and legs are dressed. IMPRESSION: 1. Sepsis due to knee source. 2. Urethral stricture with difficulties urinating precipitating above. 3. Diabetes. 4. Acute renal failure with creatinine of 2 with discharge creatinine last time of 1.2. 5. Pancytopenia with some improvement. PLAN: ID consult. We will also ask Urology to come by to try to figure out how we get this solved during this stay. I have no plans on discharging him til it is as I am not confident it will be done. We will ask Renal for their input on to his renal failure, but suspect with treatment of the infection that this will improve again. Vital Signs Vital Signs Date Time Temp Pulse Resp B/P (MAP) Pulse Ox O2 Delivery O2 Flow Rate FiO2 08/14/21 09:14 92 100/105 08/14/21 08:00 Room Air 08/14/21 07:00 98.2 18 92 98.2 08/13/21 17:57 2.0 Assessment & Plan ROBERTO - Suspect ATN/ hypotensive/ Sepsis ; R/O Urinary retention /THURSTON . Baseline Creat normal but trending up during recent Hospitalization . No interval labs sicne dc . Maintain fluid balance, Strict I/O ,No emergent indication for dialysis Urinary retention - Dx few weeks back with PVR about 400 cc , renal function was stable .Unable to place Bailey ; history of urethral stricture dilated over 7 years ago . Plan was to place SP catheter after INR 1,5. Still doesnt not have SP caheter, back on Coumadin. Will check Renal US UTI- UA cw UTI. Defer to Primary Chronic combined diastolic/systolic CHF: mainly right sided. RHC revealed biventricular overload. Severe NICM: EF 20%.. Recd Lasix gtt for ACute exacerbation during recent hospitalization. Per patient lost significant Fluid weight . Defer to cardiology Recent LLE cellulitis - earlier this month with extensive infection: s/p I & D S/P mechanical mitral valve replacement. on warfarin. Converting to IV heparin as per IR note. Anemia HTN: BP low LLE PAD: Recent aortogram revealed moderate left superficial femoral artery disease with three-vessel runoff below the knee Thrombocytopenia: seen by hematology/GI recently and noted as multifactorial including prior sepsis/warfarin/MVR but no noted active bleed DM2: per PCP Morbid obesity Covid-19 +: 07/10/2021. recovered Labs Labs Laboratory Tests Test 08/13/21 16:29 08/13/21 18:00 08/14/21 07:45 White Blood Count 11.3 x10^3/uL (4.0-11.0) Red Blood Count 3.26 x10^6/uL (4.30-5.70) Hemoglobin 8.3 g/dL (13.0-17.5) Hematocrit 26.6 % (39.0-53.0) Mean Corpuscular Volume 82 fL (79-100) Mean Corpuscular Hemoglobin 26 pg (25-35) Mean Corpuscular Hemoglobin Concent 31 g/dL (31-37) Red Cell Distribution Width 19.1 % (11.5-14.5) Platelet Count 331 x10^3/uL (140-400) Neutrophils (%) (Auto) 88 % (31-73) Lymphocytes (%) (Auto) 3 % (24-48) Monocytes (%) (Auto) 8 % (0-9) Eosinophils (%) (Auto) 0 % (0-3) Basophils (%) (Auto) 1 % (0-3) Neutrophils # (Auto) 10.0 x10^3/uL (1.8-7.7) Lymphocytes # (Auto) 0.3 x10^3/uL (1.0-4.8) Monocytes # (Auto) 0.9 x10^3/uL (0.0-1.1) Eosinophils # (Auto) 0.0 x10^3/uL (0.0-0.7) Basophils # (Auto) 0.1 x10^3/uL (0.0-0.2) Segmented Neutrophils % 79 % (35-66) Band Neutrophils % 13 % (0-9) Lymphocytes % 4 % (24-48) Monocytes % 4 % (0-10) Toxic Granulation Present Platelet Estimate Adequate (ADEQUATE) Poikilocytosis Slight Anisocytosis Slight Prothrombin Time 34.9 SEC (11.7-14.0) Prothromb Time International Ratio 3.6 (0.8-1.1) Sodium Level 132 mmol/L (136-145) Potassium Level 4.7 mmol/L (3.5-5.1) Chloride Level 92 mmol/L (98-107) Carbon Dioxide Level 33 mmol/L (21-32) Anion Gap 7 (6-14) Blood Urea Nitrogen 62 mg/dL (8-26) Creatinine 2.0 mg/dL (0.7-1.3) Estimated GFR (Cockcroft-Gault) 34.5 BUN/Creatinine Ratio 31 (6-20) Glucose Level 139 mg/dL (70-99) Lactic Acid Level 0.9 mmol/L (0.4-2.0) Calcium Level 7.5 mg/dL (8.5-10.1) Phosphorus Level 3.7 mg/dL (2.6-4.7) Magnesium Level 1.7 mg/dL (1.8-2.4) Total Bilirubin 0.5 mg/dL (0.2-1.0) Aspartate Amino Transf (AST/SGOT) 21 U/L (15-37) Alanine Aminotransferase (ALT/SGPT) 12 U/L (16-63) Alkaline Phosphatase 94 U/L (46-116) Troponin I High Sensitivity 30 ng/L (4-75) NJ-Nan-C-Type Natriuretic Peptide 71008 pg/mL (0-124) Total Protein 6.3 g/dL (6.4-8.2) Albumin 2.0 g/dL (3.4-5.0) Albumin/Globulin Ratio 0.5 (1.0-1.7) Urine Collection Type Unknown Urine Color Yellow Urine Clarity Turbid Urine pH 6.0 (<5.0-8.0) Urine Specific [facility] 1.015 (1.000-1.030) Urine Protein >=300 mg/dL (NEG-TRACE) Urine Glucose (UA) Negative mg/dL (NEG) Urine Ketones (Stick) Negative mg/dL (NEG) Urine Blood Large (NEG) Urine Nitrite Negative (NEG) Urine Bilirubin Negative (NEG) Urine Urobilinogen Dipstick 0.2 mg/dL (0.2 mg/dL) Urine Leukocyte Esterase Large (NEG) Urine RBC 20-40 /HPF (0-2) Urine WBC Tntc /HPF (0-4) Urine Squamous Epithelial Cells Occ /LPF Urine Bacteria Moderate /HPF (0-FEW) Glucose (Fingerstick) 162 mg/dL (70-99) Laboratory Tests Test 08/13/21 16:29 08/13/21 18:00 08/14/21 07:45 White Blood Count 11.3 x10^3/uL (4.0-11.0) Red Blood Count 3.26 x10^6/uL (4.30-5.70) Hemoglobin 8.3 g/dL (13.0-17.5) Hematocrit 26.6 % (39.0-53.0) Mean Corpuscular Volume 82 fL (79-100) Mean Corpuscular Hemoglobin 26 pg (25-35) Mean Corpuscular Hemoglobin Concent 31 g/dL (31-37) Red Cell Distribution Width 19.1 % (11.5-14.5) Platelet Count 331 x10^3/uL (140-400) Neutrophils (%) (Auto) 88 % (31-73) Lymphocytes (%) (Auto) 3 % (24-48) Monocytes (%) (Auto) 8 % (0-9) Eosinophils (%) (Auto) 0 % (0-3) Basophils (%) (Auto) 1 % (0-3) Neutrophils # (Auto) 10.0 x10^3/uL (1.8-7.7) Lymphocytes # (Auto) 0.3 x10^3/uL (1.0-4.8) Monocytes # (Auto) 0.9 x10^3/uL (0.0-1.1) Eosinophils # (Auto) 0.0 x10^3/uL (0.0-0.7) Basophils # (Auto) 0.1 x10^3/uL (0.0-0.2) Segmented Neutrophils % 79 % (35-66) Band Neutrophils % 13 % (0-9) Lymphocytes % 4 % (24-48) Monocytes % 4 % (0-10) Toxic Granulation Present Platelet Estimate Adequate (ADEQUATE) Poikilocytosis Slight Anisocytosis Slight Prothrombin Time 34.9 SEC (11.7-14.0) Prothromb Time International Ratio 3.6 (0.8-1.1) Sodium Level 132 mmol/L (136-145) Potassium Level 4.7 mmol/L (3.5-5.1) Chloride Level 92 mmol/L (98-107) Carbon Dioxide Level 33 mmol/L (21-32) Anion Gap 7 (6-14) Blood Urea Nitrogen 62 mg/dL (8-26) Creatinine 2.0 mg/dL (0.7-1.3) Estimated GFR (Cockcroft-Gault) 34.5 BUN/Creatinine Ratio 31 (6-20) Glucose Level 139 mg/dL (70-99) Lactic Acid Level 0.9 mmol/L (0.4-2.0) Calcium Level 7.5 mg/dL (8.5-10.1) Phosphorus Level 3.7 mg/dL (2.6-4.7) Magnesium Level 1.7 mg/dL (1.8-2.4) Total Bilirubin 0.5 mg/dL (0.2-1.0) Aspartate Amino Transf (AST/SGOT) 21 U/L (15-37) Alanine Aminotransferase (ALT/SGPT) 12 U/L (16-63) Alkaline Phosphatase 94 U/L (46-116) Troponin I High Sensitivity 30 ng/L (4-75) JY-Ynp-Q-Type Natriuretic Peptide 83820 pg/mL (0-124) Total Protein 6.3 g/dL (6.4-8.2) Albumin 2.0 g/dL (3.4-5.0) Albumin/Globulin Ratio 0.5 (1.0-1.7) Urine Collection Type Unknown Urine Color Yellow Urine Clarity Turbid Urine pH 6.0 (<5.0-8.0) Urine Specific [facility] 1.015 (1.000-1.030) Urine Protein >=300 mg/dL (NEG-TRACE) Urine Glucose (UA) Negative mg/dL (NEG) Urine Ketones (Stick) Negative mg/dL (NEG) Urine Blood Large (NEG) Urine Nitrite Negative (NEG) Urine Bilirubin Negative (NEG) Urine Urobilinogen Dipstick 0.2 mg/dL (0.2 mg/dL) Urine Leukocyte Esterase Large (NEG) Urine RBC 20-40 /HPF (0-2) Urine WBC Tntc /HPF (0-4) Urine Squamous Epithelial Cells Occ /LPF Urine Bacteria Moderate /HPF (0-FEW) Glucose (Fingerstick) 162 mg/dL (70-99) Review All relevant outside records, renal labs, imaging studies, telemetry/EKG's were reviewed. Images Images History: Hypoxia Comparison: 06/21/2021. Technique: Portable AP radiograph of the chest. Findings: The lungs are adequately inflated. No focal consolidation, pleural effusion or pneumothorax. Mild prominence of pulmonary interstitial markings. There is cardiomegaly with postsurgical changes of the mediastinum and mitral valve annuloplasty. The pulmonary vasculature is cephalized and enlarged. Osseous structures and soft tissues are unremarkable. Impression: 1. Cardiomegaly with pulmonary vascular congestion-interstitial edema. JOSE SRIVASTAVA MD Aug 14, 2021 11:35
[2021-08-14] MEDS: MEROPENEM 500 MG in IV NORMAL SALINE 50ML 50 ML IV SCH ×2 (11:44→22:14)
[2021-08-14] MEDS: DAPTOmycin (GENERIC) IVPB 580 MG in IV NORMAL SALINE 50ML 50 ML IV SCH (11:45)
--- NOTE | 2021-08-14 12:01 | PDOC4 ---
OPERATIVE NOTE Date: Date: Aug 14, 2021 Pre-Op Diagnosis: meatal stenosis anterior USD Post-Op Diagnosis: same Procedure Performed: cysto, urethra dilation complex cath placement Surgeon: Anesthesia Type: mac, local Blood Loss: 1ml Findings: anterior USD, meatal stenosis purulent urine Complications: none evident Operative Note: prepped and draped in usual fashion. Time out performed, on abx. 16fr flex scope was used to get access in to urethra. Meatal stenosis was open under direct vision. Anterior urethra w pinpoint ostium, cannulated w wire. Dilated w vilma to 20fr, 18fr councill tip cath over wire. 10ml in [place], purulent urine in return, irrigated to clear. cath in place for 2 weeks, may removed at facility and fu as OP in 1month. ESPERANZA BRYANT MD Aug 14, 2021 12:01
--- NOTE | 2021-08-14 12:07 | PDOC2 ---
UROLOGY CONSULT Date of Service DATE: 08/14/21 TIME: 11:57 Reason for Consult Reason for Consult: UTI, hx stricture, retention Identification/Chief Complaint Chief Complaint weakness Source Source: Chart review, Patient History of Present Illness Reason for Visit: 56yo male presented to the ER for abnormal INR from rehab. His INR was noted to be 3.6. He was also noted to have UTI and meet sepsis criteria so he was admitted for further care. He was admitted recently before this as well for infection related to lower leg cellulitis/wound. He was noted to have incomplete emptying during that stay. Attempts at jasso placement were unsuccessful and due to history of stricture, he was recommended to have suprapubic catheter placed. He was discharged prior to this occurring. I did speak to his nurse at rehab after discharge and attempts were made at arrangement with IR however IR was unable to place SPT due to INR. Bladder scans this visit were ~500mL. Pt states he has no sense of bladder fullness, urge to void, etc. He has history of urethral stricture requiring dilation in the past. Past Medical History Cardiovascular: CHF, HTN, Hyperlipidemia, Other Heme/Onc: Other Renal/: Chronic renal insuff, UTI, Other Endocrine: Diabetes Past Surgical History Past Surgical History: Other Family History Family History: Diabetes, Heart Disease Social History ALCOHOL: none Drugs: None Lives: with Family Current Medications Current Medications Current Medications Acetaminophen/ Hydrocodone Bitart (Lortab 5/325) 1 tab PRN Q4HRS PRN PO PAIN; Start 08/14/21 at 08:00 Allopurinol (Zyloprim) 300 mg DAILY PO Last administered on 08/14/21at 09:15; Start 08/14/21 at 09:00 Alprazolam (Xanax) 0.5 mg PRN TID PRN PO ANXIETY / AGITATION; Start 08/14/21 at 08:00 Ceftriaxone Sodium (Rocephin) 2 gm 1X ONCE IVP ; Start 08/13/21 at 18:15; Stop 08/13/21 at 18:16; Status Cancel Ceftriaxone Sodium (Rocephin) 2 gm 1X ONCE IVP Last administered on 08/13/21at 18:50; Start 08/13/21 at 18:30; Stop 08/13/21 at 18:31; Status DC Daptomycin 580 mg/ Sodium Chloride 50 ml @ 100 mls/hr Q24H IV Last administered on 08/14/21at 11:45; Start 08/14/21 at 12:00 Fluticasone Propionate (Flonase) 1 spray DAILY NS Last administered on 08/14/21at 09:13; Start 08/14/21 at 09:00 Lactobacillus Rhamnosus (Culturelle) 1 cap BID PO Last administered on 08/14/21at 09:14; Start 08/14/21 at 09:00 Meropenem 500 mg/ Sodium Chloride 50 ml @ 100 mls/hr Q8HRS IV Last administered on 08/14/21at 11:44; Start 08/14/21 at 11:30 Metoprolol Succinate (Toprol Xl) 50 mg DAILY PO Last administered on 08/14/21at 09:14; Start 08/14/21 at 09:00 Morphine Sulfate (Morphine Sulfate) 2 mg 1X STAT IM Last administered on 08/14/21at 11:44; Start 08/14/21 at 11:16; Stop 08/14/21 at 11:22; Status DC Multi-Ingredient Ointment (Hydrocerin, Eucerin Cream) 1 tasha DAILY TP ; Start 08/14/21 at 12:00 Non-Formulary Medication (Hydrogen Peroxide (Medi-First Hydrogen Peroxide)) 2 ml PRN DAILY PRN AU SEE COMMENTS; Start 08/14/21 at 08:00; Stop 08/14/21 at 09:01; Status DC Non-Formulary Medication (Sodium Ferric Gluconat/Sucrose (Ferrlecit 62.5 Mg/5 Ml Vial)) 125 mg QMWF IV ; Start 08/14/21 at 16:00; Stop 08/14/21 at 09:07; Status DC Non-Formulary Medication (Vancomycin Hcl ) 125 mg QID PO ; Start 08/14/21 at 09:00; Stop 08/14/21 at 09:07; Status DC Pantoprazole Sodium (Protonix) 40 mg DAILYAC PO Last administered on 08/14/21at 09:14; Start 08/14/21 at 09:00 Sacubitril/ Valsartan (Entresto 49 Mg-51 Mg) 1 tab BID PO ; Start 08/14/21 at 09:00 Sodium Hypochlorite (Dakin'S Full Strength) 1 tasha DAILY TP Last administered on 08/14/21at 09:13; Start 08/14/21 at 09:00 Sodium Chloride 250 ml @ 500 mls/hr 1X ONCE IV Last administered on 08/13/21at 17:26; Start 08/13/21 at 17:15; Stop 08/13/21 at 17:44; Status DC Sodium Chloride 1,000 ml @ 100 mls/hr Q10H IV Last administered on 08/14/21at 09:14; Start 08/14/21 at 08:00 Tamsulosin HCl (Flomax) 0.4 mg DAILY PO Last administered on 08/14/21at 09:14; Start 08/14/21 at 09:00 Vancomycin HCl (Vancomycin Oral Solution) 125 mg [id number] PO ; Start 08/14/21 at 13:00 Allergies Allergies: Coded Allergies: No Known Drug Allergies (Unverified , 06/06/21) ROS Review Of Systems: CONSTITUTIONAL: No fever or chills EYES: No recent changes SKIN: No rash or itching CARDIOVASCULAR: No chest pain, syncope, palpitations, or edema RESPIRATORY: No SOB or cough GASTROINTESTINAL: No nausea, vomiting or abdominal pain NEUROLOGICAL: No headaches or weakness ENDOCRINE: No cold or heat intolerance GENITOURINARY: No urgency or frequency of urination MUSCULOSKELETAL: No back pain or joint pain LYMPHATICS: No enlarged lymph nodes PSYCHIATRIC: No anxiety or depression Physical Exam Physical Exam: General: Pleasant, no acute distress, well groomed Eyes: conjunctiva anicteric, eyes full range of motion ENT: moist oral mucosa, normal dentition Neck: Trachea midline, no masses Respiratory: unlabored breathing, not using accessory muscles, no crackles or wh eezes Cardiovascular: Regular rate and rhythm, no peripheral edema Abdomen: nontender, nondistended : meatal stenosis Skin: no rashes or skin lesions on visualized skin Psych: normal mood, affect. Alert and oriented x 3. Vitals VITALS Vital Signs Date Time Temp Pulse Resp B/P (MAP) Pulse Ox O2 Delivery O2 Flow Rate FiO2 08/14/21 11:44 Room Air 08/14/21 09:14 92 100/105 08/14/21 07:00 98.2 18 92 98.2 08/13/21 17:57 2.0 Labs Labs Laboratory Tests Test 08/13/21 16:29 08/13/21 18:00 08/14/21 07:45 White Blood Count 11.3 x10^3/uL (4.0-11.0) Red Blood Count 3.26 x10^6/uL (4.30-5.70) Hemoglobin 8.3 g/dL (13.0-17.5) Hematocrit 26.6 % (39.0-53.0) Mean Corpuscular Volume 82 fL (79-100) Mean Corpuscular Hemoglobin 26 pg (25-35) Mean Corpuscular Hemoglobin Concent 31 g/dL (31-37) Red Cell Distribution Width 19.1 % (11.5-14.5) Platelet Count 331 x10^3/uL (140-400) Neutrophils (%) (Auto) 88 % (31-73) Lymphocytes (%) (Auto) 3 % (24-48) Monocytes (%) (Auto) 8 % (0-9) Eosinophils (%) (Auto) 0 % (0-3) Basophils (%) (Auto) 1 % (0-3) Neutrophils # (Auto) 10.0 x10^3/uL (1.8-7.7) Lymphocytes # (Auto) 0.3 x10^3/uL (1.0-4.8) Monocytes # (Auto) 0.9 x10^3/uL (0.0-1.1) Eosinophils # (Auto) 0.0 x10^3/uL (0.0-0.7) Basophils # (Auto) 0.1 x10^3/uL (0.0-0.2) Segmented Neutrophils % 79 % (35-66) Band Neutrophils % 13 % (0-9) Lymphocytes % 4 % (24-48) Monocytes % 4 % (0-10) Toxic Granulation Present Platelet Estimate Adequate (ADEQUATE) Poikilocytosis Slight Anisocytosis Slight Prothrombin Time 34.9 SEC (11.7-14.0) Prothromb Time International Ratio 3.6 (0.8-1.1) Sodium Level 132 mmol/L (136-145) Potassium Level 4.7 mmol/L (3.5-5.1) Chloride Level 92 mmol/L (98-107) Carbon Dioxide Level 33 mmol/L (21-32) Anion Gap 7 (6-14) Blood Urea Nitrogen 62 mg/dL (8-26) Creatinine 2.0 mg/dL (0.7-1.3) Estimated GFR (Cockcroft-Gault) 34.5 BUN/Creatinine Ratio 31 (6-20) Glucose Level 139 mg/dL (70-99) Lactic Acid Level 0.9 mmol/L (0.4-2.0) Calcium Level 7.5 mg/dL (8.5-10.1) Phosphorus Level 3.7 mg/dL (2.6-4.7) Magnesium Level 1.7 mg/dL (1.8-2.4) Total Bilirubin 0.5 mg/dL (0.2-1.0) Aspartate Amino Transf (AST/SGOT) 21 U/L (15-37) Alanine Aminotransferase (ALT/SGPT) 12 U/L (16-63) Alkaline Phosphatase 94 U/L (46-116) Troponin I High Sensitivity 30 ng/L (4-75) VR-Mkj-L-Type Natriuretic Peptide 33348 pg/mL (0-124) Total Protein 6.3 g/dL (6.4-8.2) Albumin 2.0 g/dL (3.4-5.0) Albumin/Globulin Ratio 0.5 (1.0-1.7) Urine Collection Type Unknown Urine Color Yellow Urine Clarity Turbid Urine pH 6.0 (<5.0-8.0) Urine Specific [place] 1.015 (1.000-1.030) Urine Protein >=300 mg/dL (NEG-TRACE) Urine Glucose (UA) Negative mg/dL (NEG) Urine Ketones (Stick) Negative mg/dL (NEG) Urine Blood Large (NEG) Urine Nitrite Negative (NEG) Urine Bilirubin Negative (NEG) Urine Urobilinogen Dipstick 0.2 mg/dL (0.2 mg/dL) Urine Leukocyte Esterase Large (NEG) Urine RBC 20-40 /HPF (0-2) Urine WBC Tntc /HPF (0-4) Urine Squamous Epithelial Cells Occ /LPF Urine Bacteria Moderate /HPF (0-FEW) Glucose (Fingerstick) 162 mg/dL (70-99) Laboratory Tests Test 08/13/21 16:29 08/13/21 18:00 08/14/21 07:45 White Blood Count 11.3 x10^3/uL (4.0-11.0) Red Blood Count 3.26 x10^6/uL (4.30-5.70) Hemoglobin 8.3 g/dL (13.0-17.5) Hematocrit 26.6 % (39.0-53.0) Mean Corpuscular Volume 82 fL (79-100) Mean Corpuscular Hemoglobin 26 pg (25-35) Mean Corpuscular Hemoglobin Concent 31 g/dL (31-37) Red Cell Distribution Width 19.1 % (11.5-14.5) Platelet Count 331 x10^3/uL (140-400) Neutrophils (%) (Auto) 88 % (31-73) Lymphocytes (%) (Auto) 3 % (24-48) Monocytes (%) (Auto) 8 % (0-9) Eosinophils (%) (Auto) 0 % (0-3) Basophils (%) (Auto) 1 % (0-3) Neutrophils # (Auto) 10.0 x10^3/uL (1.8-7.7) Lymphocytes # (Auto) 0.3 x10^3/uL (1.0-4.8) Monocytes # (Auto) 0.9 x10^3/uL (0.0-1.1) Eosinophils # (Auto) 0.0 x10^3/uL (0.0-0.7) Basophils # (Auto) 0.1 x10^3/uL (0.0-0.2) Segmented Neutrophils % 79 % (35-66) Band Neutrophils % 13 % (0-9) Lymphocytes % 4 % (24-48) Monocytes % 4 % (0-10) Toxic Granulation Present Platelet Estimate Adequate (ADEQUATE) Poikilocytosis Slight Anisocytosis Slight Prothrombin Time 34.9 SEC (11.7-14.0) Prothromb Time International Ratio 3.6 (0.8-1.1) Sodium Level 132 mmol/L (136-145) Potassium Level 4.7 mmol/L (3.5-5.1) Chloride Level 92 mmol/L (98-107) Carbon Dioxide Level 33 mmol/L (21-32) Anion Gap 7 (6-14) Blood Urea Nitrogen 62 mg/dL (8-26) Creatinine 2.0 mg/dL (0.7-1.3) Estimated GFR (Cockcroft-Gault) 34.5 BUN/Creatinine Ratio 31 (6-20) Glucose Level 139 mg/dL (70-99) Lactic Acid Level 0.9 mmol/L (0.4-2.0) Calcium Level 7.5 mg/dL (8.5-10.1) Phosphorus Level 3.7 mg/dL (2.6-4.7) Magnesium Level 1.7 mg/dL (1.8-2.4) Total Bilirubin 0.5 mg/dL (0.2-1.0) Aspartate Amino Transf (AST/SGOT) 21 U/L (15-37) Alanine Aminotransferase (ALT/SGPT) 12 U/L (16-63) Alkaline Phosphatase 94 U/L (46-116) Troponin I High Sensitivity 30 ng/L (4-75) EU-Ipj-H-Type Natriuretic Peptide 12163 pg/mL (0-124) Total Protein 6.3 g/dL (6.4-8.2) Albumin 2.0 g/dL (3.4-5.0) Albumin/Globulin Ratio 0.5 (1.0-1.7) Urine Collection Type Unknown Urine Color Yellow Urine Clarity Turbid Urine pH 6.0 (<5.0-8.0) Urine Specific [place] 1.015 (1.000-1.030) Urine Protein >=300 mg/dL (NEG-TRACE) Urine Glucose (UA) Negative mg/dL (NEG) Urine Ketones (Stick) Negative mg/dL (NEG) Urine Blood Large (NEG) Urine Nitrite Negative (NEG) Urine Bilirubin Negative (NEG) Urine Urobilinogen Dipstick 0.2 mg/dL (0.2 mg/dL) Urine Leukocyte Esterase Large (NEG) Urine RBC 20-40 /HPF (0-2) Urine WBC Tntc /HPF (0-4) Urine Squamous Epithelial Cells Occ /LPF Urine Bacteria Moderate /HPF (0-FEW) Glucose (Fingerstick) 162 mg/dL (70-99) Assessment/Plan Assessment/Plan Chronic Incomplete Emptying/Overflow Incontinence PVR ~500mL. UTI, sepsis. Supratherapeutic INR noted. Interventional Radiology unable to perform procedure with this lab value due to risks of bleeding. Bedside cystoscopy was performed by Dr. Holland, stricture noted and dilated. Jasso was placed with output of purulent thick yellow urine. Bladder was irrigated. We will keep jasso in place for two weeks to allow treatment of UTI, urethral healing after dilation. He is at risk of stricture recurrence again in the future. Should f/u in clinic in one month. See Dr. Holland's operative note as well. JAIRO DORANTSE Aug 14, 2021 12:07
[2021-08-14] MEDS: VANCOMYCIN 125 MG/2.5 ML ORAL SOLUTION. PO SCH ×3 (12:40→22:15)
[2021-08-14] MEDS: MINERAL OIL/PETROLATUM TOPICAL CREAM 113GM JAR. TP SCH (12:40)
--- NOTE | 2021-08-14 13:33 | RAD ---
EXAM: Renal sonogram. HISTORY: Renal insufficiency. TECHNIQUE: Sonographic imaging of the kidneys and bladder was performed. COMPARISON: None. FINDINGS: The kidneys are normal in size. No solid or cystic renal lesion is seen. There is bilateral renal cortical thinning. There is moderate right greater than left hydronephrosis. There is a Bailey catheter within the bladder. IMPRESSION: 1. Moderate right greater than left hydronephrosis with renal cortical thinning. 2. Bailey catheter within the bladder. Electronically signed by: Nyla Rizo MD (08/14/2021 1:31 PM) [id number]
[2021-08-14 15:00] VITALS: BP 97/55
[2021-08-14] MEDS ORDERED: SUCROSE IV SCH (16:00)
[2021-08-14] MEDS ORDERED: SODIUM FERRIC GLUCONAT IV SCH (16:00)
[2021-08-14] MEDS ORDERED: [UNRECOGNIZED DRUG - OTHER] IV SCH (16:00)
--- NOTE | 2021-08-14 16:08 | NUR ---
SW following. Discussed with RN. SW verified pt is from [facility], and will need to be referred as a new referral and will need a new insurance auth. RN ordering PT/OT for referral back to LTAC. PCR COVID requested for discharge planning. SW will continue to follow.
[2021-08-14 20:33] VITALS: BP 89/47
[2021-08-14] MEDS ORDERED: ACETAMINOPHEN 325 MG TABLET. PO PRN (22:00)
[2021-08-14] MEDS: ALPRAZolam 0.5 MG TABLET PO PRN (22:12)
[2021-08-14] MEDS: HYDROcodone/APAP 5/325MG 1 TAB TABLET PO PRN (22:26)
--- NOTE | 2021-08-14 23:12 | CONS ---
DATE OF CONSULTATION: 08/14/2021 REQUESTING PHYSICIAN: Dr. Julio Nagel. REASON FOR CONSULTATION: Hypotension and UTI. HISTORY OF PRESENT ILLNESS: This is a 56-year-old gentleman who is known to us, had a prolonged hospitalization, actually recently just discharged to [facility]. Apparently, he had urinary tract infection and hypotension. The patient is alert, awake, and appropriate. The patient denies any nausea, vomiting, diarrhea, chest pain, shortness of breath, abdominal pain, or urinary symptoms. PAST MEDICAL HISTORY: Positive for history of extensive left leg infection with surgeries done as well as knee infection. They all were treated with antibiotics and at the time of discharge, the wounds looked really good and they still look good according to the nurse when they change the dressing. The patient does have urethral stricture and a reconstruction either done or was planned to have it done. The patient also has history of DVT, mechanical mitral valve, hyperlipidemia, hypertension, urethral stricture and a talk for the suprapubic catheter has been with the Urology done. ALLERGIES: No known drug allergies. SOCIAL HISTORY: Negative for smoking, alcohol or illicit drug use. CURRENT MEDICATIONS: The patient has received a dose of ceftriaxone and the patient has history of C. diff, so he had received p.o. vancomycin. REVIEW OF SYSTEMS: As in HPI. All other systems reviewed are negative. His stooling, he says has improved. PHYSICAL EXAMINATION: GENERAL: Alert, awake gentleman, not in distress. VITAL SIGNS: Temperature 98.2 with a T-max 101.8, pulse 92, respirations 18, and blood pressure 89/47. HEENT: Both pupils are round and reacting. No conjunctival lesion, no lesion in the mouth. NECK: Supple. No JVP, no lymphadenopathy. LUNGS: Clear. HEART: S1, S2, regular. ABDOMEN: Soft, nontender. No organomegaly. EXTREMITIES: No edema or cyanosis. SKIN: Unremarkable except left leg wounds, they are clean. Rest of skin is unremarkable. NEUROLOGIC: The patient is alert, awake, and appropriate. No focal neurologic deficit. LABORATORY DATA: White count is 11.3. BUN and creatinine is 62 and 2.0. Urinalysis showed 20-40 wbc's. Urine culture is so far negative. He did have COVID positive last month. Blood culture is pending and the urine culture is so far negative. IMPRESSION: 1. Fever. 2. Hypotension. 3. Leukocytosis. 4. Urinary tract infection with urethral stricture. 5. Left leg infection, status post multiple incision and drainages, that is looking good. RECOMMENDATIONS: We will use meropenem and daptomycin. Supportive care and follow the cultures and continue to adjust. Thank you very much, Dr. Nagel, for giving me opportunity to participate in this patient's care. CHRISTOFER/LAZ/BRITTON DR: CHRISTOFER/donato TID: [id number]
[2021-08-14 23:25] VITALS: BP 100/49
[2021-08-15 03:36] VITALS: BP 100/46
[2021-08-15 04:29] LABS: BASO # 0.1 x10^3/uL (0.0-0.2); BASO % 1 % (0-3); EOS # 0.1 x10^3/uL (0.0-0.7); EOS % 1 % (0-3); HEMATOCRIT 25.2 % (39.0-53.0); HEMOGLOBIN 8.2 g/dL (13.0-17.5); LYMPH # 0.5 x10^3/uL (1.0-4.8); LYMPH % 6 % (24-48); MEAN CORPUSCULAR HEMOGLOBIN 27 pg (25-35); MEAN CORPUSCULAR HGB CONC 32 g/dL (31-37); MEAN CORPUSCULAR VOLUME 83 fL (79-100); MONO # 0.5 x10^3/uL (0.0-1.1); MONO % 6 % (0-9); NEUT # 7.3 x10^3/uL (1.8-7.7); NEUT % 86 % (31-73); PLATELET COUNT 326 x10^3/uL (140-400); RED BLOOD COUNT 3.04 x10^6/uL (4.30-5.70); RED CELL DISTRIBUTION WIDTH 18.9 % (11.5-14.5); WHITE BLOOD COUNT 8.5 x10^3/uL (4.0-11.0)
[2021-08-15 05:10] LABS: ALBUMIN 1.8 g/dL (3.4-5.0); ALBUMIN/GLOBULIN RATIO 0.4 (1.0-1.7); CALCIUM 7.7 mg/dL (8.5-10.1); CREATININE 2.1 mg/dL (0.7-1.3); GFR 32.6; POTASSIUM 3.8 mmol/L (3.5-5.1); TOTAL BILIRUBIN 0.3 mg/dL (0.2-1.0); TOTAL PROTEIN 5.9 g/dL (6.4-8.2)
[2021-08-15] MEDS: MEROPENEM 500 MG in IV NORMAL SALINE 50ML 50 ML IV SCH ×3 (05:22→20:54)
[2021-08-15] MEDS: IV NORMAL SALINE 1000ML BAG 1,000 ML IV SCH ×3 (05:22→23:21)
[2021-08-15 07:00] VITALS: BP 119/69
[2021-08-15] MEDS: ALLOPURINOL 300 MG TABLET. PO SCH (08:59)
[2021-08-15] MEDS: PANTOPRAZOLE 40 MG TABLET.DR. PO SCH (08:59)
[2021-08-15] MEDS: LACTOBACILLUS RHAMNOSUS GG 1 CAPSULE. PO SCH ×2 (08:59→20:54)
[2021-08-15] MEDS: VANCOMYCIN 125 MG/2.5 ML ORAL SOLUTION. PO SCH ×4 (08:59→20:54)
[2021-08-15] MEDS: TAMSULOSIN 0.4 MG CAP.ER.24H. PO SCH (08:59)
[2021-08-15] MEDS: METOPROLOL SUCC 24HR ER 50 MG TAB.ER.24H. PO SCH (09:27)
[2021-08-15] MEDS: SACUBITRIL/VALSARTAN 49/51MG TABLET. PO SCH ×2 (09:27→20:54)
[2021-08-15] MEDS: HYDROcodone/APAP 5/325MG 1 TAB TABLET PO PRN ×2 (09:28→20:54)
[2021-08-15] MEDS: ALPRAZolam 0.5 MG TABLET PO PRN ×2 (09:28→20:54)
[2021-08-15] MEDS: FLUTICASONE 50MCG/NASAL SPRAY 16GM BOTTLE. NS SCH (09:36)
[2021-08-15] MEDS: MINERAL OIL/PETROLATUM TOPICAL CREAM 113GM JAR. TP SCH (09:37)
[2021-08-15] MEDS: SODIUM HYPOCHLORITE 0.5% TP SCH (09:37)
[2021-08-15 11:00] VITALS: BP 96/51
--- NOTE | 2021-08-15 11:39 | PDOC ---
Infectious Disease Note Subjective Subjective Patient is feeling better ROS ROS No nausea vomiting diarrhea Vital Sign Vital Signs Vital Signs Date Time Temp Pulse Resp B/P (MAP) Pulse Ox O2 Delivery O2 Flow Rate FiO2 08/15/21 10:00 18 92 Room Air 08/15/21 09:27 106 119/69 08/15/21 07:00 97.5 97.5 Physical Exam PHYSICAL EXAM GENERAL: Alert, awake gentleman, not in distress. VITAL SIGNS: Temperature 98.2 with a T-max 101.8, pulse 92, respirations 18, and blood pressure 89/47. HEENT: Both pupils are round and reacting. No conjunctival lesion, no lesion in the mouth. NECK: Supple. No JVP, no lymphadenopathy. LUNGS: Clear. HEART: S1, S2, regular. ABDOMEN: Soft, nontender. No organomegaly. EXTREMITIES: No edema or cyanosis. SKIN: Unremarkable except left leg wounds, they are clean. Rest of skin is unremarkable. NEUROLOGIC: The patient is alert, awake, and appropriate. No focal neurologic deficit. Labs Lab Laboratory Tests Test 08/14/21 21:13 08/15/21 03:45 08/15/21 07:13 08/15/21 11:16 Glucose (Fingerstick) 191 mg/dL (70-99) 124 mg/dL (70-99) 156 mg/dL (70-99) White Blood Count 8.5 x10^3/uL (4.0-11.0) Red Blood Count 3.04 x10^6/uL (4.30-5.70) Hemoglobin 8.2 g/dL (13.0-17.5) Hematocrit 25.2 % (39.0-53.0) Mean Corpuscular Volume 83 fL (79-100) Mean Corpuscular Hemoglobin 27 pg (25-35) Mean Corpuscular Hemoglobin Concent 32 g/dL (31-37) Red Cell Distribution Width 18.9 % (11.5-14.5) Platelet Count 326 x10^3/uL (140-400) Neutrophils (%) (Auto) 86 % (31-73) Lymphocytes (%) (Auto) 6 % (24-48) Monocytes (%) (Auto) 6 % (0-9) Eosinophils (%) (Auto) 1 % (0-3) Basophils (%) (Auto) 1 % (0-3) Neutrophils # (Auto) 7.3 x10^3/uL (1.8-7.7) Lymphocytes # (Auto) 0.5 x10^3/uL (1.0-4.8) Monocytes # (Auto) 0.5 x10^3/uL (0.0-1.1) Eosinophils # (Auto) 0.1 x10^3/uL (0.0-0.7) Basophils # (Auto) 0.1 x10^3/uL (0.0-0.2) Sodium Level 138 mmol/L (136-145) Potassium Level 3.8 mmol/L (3.5-5.1) Chloride Level 97 mmol/L (98-107) Carbon Dioxide Level 34 mmol/L (21-32) Anion Gap 7 (6-14) Blood Urea Nitrogen 69 mg/dL (8-26) Creatinine 2.1 mg/dL (0.7-1.3) Estimated GFR (Cockcroft-Gault) 32.6 BUN/Creatinine Ratio 33 (6-20) Glucose Level 176 mg/dL (70-99) Calcium Level 7.7 mg/dL (8.5-10.1) Total Bilirubin 0.3 mg/dL (0.2-1.0) Aspartate Amino Transf (AST/SGOT) 27 U/L (15-37) Alanine Aminotransferase (ALT/SGPT) 14 U/L (16-63) Alkaline Phosphatase 93 U/L (46-116) Creatine Kinase 12 U/L (39-308) Total Protein 5.9 g/dL (6.4-8.2) Albumin 1.8 g/dL (3.4-5.0) Albumin/Globulin Ratio 0.4 (1.0-1.7) Micro Microbiology 08/13/21 Urine Culture - Preliminary, Resulted Enterobacter Cloacae Complex 08/13/21 Blood Culture - Preliminary, Resulted NO GROWTH AFTER 1 DAY Objective Assessment IMPRESSION: 1. Fever. 2. Hypotension. 3. Leukocytosis. 4. Urinary tract infection with urethral stricture. 5. Left leg infection, status post multiple incision and drainages, that is looking good. Plan Plan of Care Continue antibiotic Leg wound seen really clean healthy granulation tissue DUANE ASKEW MD Aug 15, 2021 11:39
[2021-08-15 12:08] LABS: PROTHROMBIN TIME PATIENT 44.2 SEC (11.7-14.0)
[2021-08-15] MEDS: DAPTOmycin (GENERIC) IVPB 580 MG in IV NORMAL SALINE 50ML 50 ML IV SCH (12:29)
--- NOTE | 2021-08-15 12:45 | NUR ---
Wound Care Wound Type/Assessment: patient seen per wound care consult. see wound assessment. wound care familiar with patient from previous visits. the wounds were all cleaned, and redressed with the recommended dressings. patients wound on the buttock/coccyx area is healed at this time. Treatment Recommendations/Plan: Recommendations of cleansing the wounds to the left lateral leg, left medial leg, left proximal foot and left lateral foot then apply Hydrofera blue to the wounds then apply abd pads over and secure with Kerlix, change every 3-4 days. Education provided: Educated patient on the POC Offloading surface/device: n/a Recommended Referrals/Tests: n/a Discharge Recommendations for dressings: Wound care will continue to f/u for changes.
--- NOTE | 2021-08-15 13:50 | NUR ---
SS following up with discharge planning. SS reviewed pt chart and discussed with pt RN. Pt is from [facility], ; fax [phone]. ID, Nephrology, Urology, and Wound Care following. COVID19 recovered. Pt getting Bailey today. Pt on IV Meropenem. Pt is currently on room air. SS will continue to follow for discharge planning.
[2021-08-15 15:00] VITALS: BP 98/49
--- NOTE | 2021-08-15 16:02 | PN ---
DATE: 08/15/2021 DAILY PROGRESS NOTE LOCATION: He is in room 528. SUBJECTIVE: This 56-year-old male presented to the Emergency Room from [facility] with hypotension, weakness, fevers, evidence of urinary tract infection. He has been out of hospital less than 2 weeks after a long hospitalization, initially admitted with leg wound therapy, cellulitis and wound VAC treatment after debridement. He was supposed to have a suprapubic catheter placed right after admission out there once his INR came down. He had been discharged there on a heparin drip. He is back on Coumadin. INR in the 3s. He developed a urinary tract infection and has never had a suprapubic catheter placed. He is weaker than when he left the hospital. He is chilling as I see him this morning and is hoping to have a return of his appetite and energy level. OBJECTIVE: VITAL SIGNS: Stable. T-max 101.8 last evening. CHEST: Clear to auscultation. HEART: Regular rate and rhythm. ABDOMEN: Benign. EXTREMITIES: Legs are dressed. LABORATORY DATA: White count is improved coming down to 8500 with somewhat decreased left shift. Creatinine remains elevated at 2.1 this morning. INR on admission was 3.6 and Coumadin will be restarted as he did have urethral dilation and placement of the catheter yesterday. Urine culture is showing out Enterobacter cloacae complex. He remains on broad-spectrum antibiotics. ASSESSMENT: 1. Sepsis due to urinary source, currently appearing to be Enterobacter cloacae complex. 2. Leukocytosis, improved. 3. Acute renal failure, stable. 4. Diabetes with fair blood sugars. 5. Mechanical heart valve, on warfarin. 6. Leg wounds, improving. PLAN: Continue to follow renal function. Renal help as well as ID help, but he has a catheter this morning and is draining a good looking urine. Hopefully, we will see the creatinine starts to decrease as the infection improves and the catheter drainage is ongoing. STEPHANIE/VERONIQUE DE LA O: Ivette TID: [id number]
[2021-08-15 19:00] VITALS: BP 96/54
[2021-08-15 23:00] VITALS: BP 101/54
[2021-08-16 03:00] VITALS: BP 104/52
[2021-08-16] MEDS: HYDROcodone/APAP 5/325MG 1 TAB TABLET PO PRN ×2 (04:14→21:46)
[2021-08-16] MEDS: ALPRAZolam 0.5 MG TABLET PO PRN ×2 (04:14→21:46)
[2021-08-16] MEDS: MEROPENEM 500 MG in IV NORMAL SALINE 50ML 50 ML IV SCH ×3 (05:43→21:46)
[2021-08-16 05:54] LABS: BASO % 1 % (0-3); EOS # 0.1 x10^3/uL (0.0-0.7); EOS % 2 % (0-3); HEMATOCRIT 26.3 % (39.0-53.0); HEMOGLOBIN 8.1 g/dL (13.0-17.5); LYMPH # 0.6 x10^3/uL (1.0-4.8); LYMPH % 7 % (24-48); MEAN CORPUSCULAR HEMOGLOBIN 26 pg (25-35); MEAN CORPUSCULAR HGB CONC 31 g/dL (31-37); MEAN CORPUSCULAR VOLUME 83 fL (79-100); MONO # 0.5 x10^3/uL (0.0-1.1); MONO % 6 % (0-9); NEUT # 7.1 x10^3/uL (1.8-7.7); NEUT % 85 % (31-73); PLATELET COUNT 386 x10^3/uL (140-400); RED BLOOD COUNT 3.18 x10^6/uL (4.30-5.70); RED CELL DISTRIBUTION WIDTH 18.5 % (11.5-14.5); WHITE BLOOD COUNT 8.4 x10^3/uL (4.0-11.0)
[2021-08-16 06:06] LABS: PROTHROMBIN TIME PATIENT 38.2 SEC (11.7-14.0)
[2021-08-16 06:22] LABS: CALCIUM 7.9 mg/dL (8.5-10.1); CREATININE 1.6 mg/dL (0.7-1.3); GFR 44.6; POTASSIUM 3.7 mmol/L (3.5-5.1)
[2021-08-16 07:00] VITALS: BP 101/53
[2021-08-16] MEDS: FLUTICASONE 50MCG/NASAL SPRAY 16GM BOTTLE. NS SCH (09:00)
--- NOTE | 2021-08-16 09:11 | PDOC ---
Infectious Disease Note Subjective Subjective Patient is feeling better The weakness is better diarrhea is better ROS ROS No nausea vomiting abdominal pain or urinary symptom Vital Sign Vital Signs Vital Signs Date Time Temp Pulse Resp B/P (MAP) Pulse Ox O2 Delivery O2 Flow Rate FiO2 08/16/21 07:00 97.9 89 20 101/53 (69) 94 97.9 08/16/21 03:00 Room Air Physical Exam PHYSICAL EXAM GENERAL: Alert, awake gentleman, not in distress. VITAL SIGNS: Stable HEENT: Both pupils are round and reacting. No conjunctival lesion, no lesion in the mouth. NECK: Supple. No JVP, no lymphadenopathy. LUNGS: Clear. HEART: S1, S2, regular. ABDOMEN: Soft, nontender. No organomegaly. EXTREMITIES: No edema or cyanosis. SKIN: Unremarkable except left leg wounds, they are clean. Rest of skin is unremarkable. NEUROLOGIC: The patient is alert, awake, and appropriate. No focal neurologic deficit. Labs Lab Laboratory Tests Test 08/15/21 11:16 08/15/21 11:41 08/15/21 17:13 08/15/21 21:14 Glucose (Fingerstick) 156 mg/dL (70-99) 171 mg/dL (70-99) 152 mg/dL (70-99) Prothrombin Time 44.2 SEC (11.7-14.0) Prothromb Time International Ratio 4.9 (0.8-1.1) Test 08/16/21 05:00 08/16/21 08:03 White Blood Count 8.4 x10^3/uL (4.0-11.0) Red Blood Count 3.18 x10^6/uL (4.30-5.70) Hemoglobin 8.1 g/dL (13.0-17.5) Hematocrit 26.3 % (39.0-53.0) Mean Corpuscular Volume 83 fL (79-100) Mean Corpuscular Hemoglobin 26 pg (25-35) Mean Corpuscular Hemoglobin Concent 31 g/dL (31-37) Red Cell Distribution Width 18.5 % (11.5-14.5) Platelet Count 386 x10^3/uL (140-400) Neutrophils (%) (Auto) 85 % (31-73) Lymphocytes (%) (Auto) 7 % (24-48) Monocytes (%) (Auto) 6 % (0-9) Eosinophils (%) (Auto) 2 % (0-3) Basophils (%) (Auto) 1 % (0-3) Neutrophils # (Auto) 7.1 x10^3/uL (1.8-7.7) Lymphocytes # (Auto) 0.6 x10^3/uL (1.0-4.8) Monocytes # (Auto) 0.5 x10^3/uL (0.0-1.1) Eosinophils # (Auto) 0.1 x10^3/uL (0.0-0.7) Basophils # (Auto) 0.0 x10^3/uL (0.0-0.2) Prothrombin Time 38.2 SEC (11.7-14.0) Prothromb Time International Ratio 4.0 (0.8-1.1) Sodium Level 139 mmol/L (136-145) Potassium Level 3.7 mmol/L (3.5-5.1) Chloride Level 100 mmol/L (98-107) Carbon Dioxide Level 33 mmol/L (21-32) Anion Gap 6 (6-14) Blood Urea Nitrogen 56 mg/dL (8-26) Creatinine 1.6 mg/dL (0.7-1.3) Estimated GFR (Cockcroft-Gault) 44.6 Glucose Level 140 mg/dL (70-99) Calcium Level 7.9 mg/dL (8.5-10.1) Glucose (Fingerstick) 147 mg/dL (70-99) Micro CULTURE URINE Final GREATER THAN 100,000 CFU/ML GRAM NEGATIVE RODS on 08/15/21 at 0742. FINAL ID= ENTEROBACTER CLOACAE COMPLEX Testing performed by [address] [address] inside sales director: Merna Rodrigues MD Organism 1 ENTEROBACTER CLOACAE COMPLEX 1. ENTEROBACTER CLOACAE COMPLEX Target Route Dose RX AB Cost M.I.C. IQ ------ ----- ------ -- ------ --------- ------ AMOX/K'CLAVULAN R >16/8 CEFOTAXIME I 32 * NITROFURANTOIN I 64 CEFEPIME S <=2 CEFTRIAXONE R 32 CEFUROXIME R >16 TRIMETH/SULFA S <=0.5/9.5 LEVOFLOXACIN S <=0.5 MEROPENEM S <=1 TETRACYCLINE S <=4 AMIKACIN S <=16 AMP/SULBACTAM R >16/8 AZTREONAM I 16 CEFAZOLIN R >16 CEFTAZIDIME R >16 CEFOXITIN R >16 CIPROFLOXACIN S <=0.25 GENTAMICIN S <=2 ERTAPENEM S <=0.5 PIP/TAZOBACTAM S 16 TOBRAMYCIN S <=2 AMPICILLIN R >16 Blood culture negative Objective Assessment IMPRESSION: 1. Fever. 2. Hypotension. 3. Leukocytosis. 4. Urinary tract infection with urethral stricture. 5. Left leg infection, status post multiple incision and drainages, that is looking good. 6 C. difficile Plan Plan of Care Continue antibiotic p.o. vancomycin and IV meropenem Leg wound seen really clean healthy granulation tissue DUANE ASKEW MD Aug 16, 2021 09:11
[2021-08-16] MEDS: IV NORMAL SALINE 1000ML BAG 1,000 ML IV SCH ×2 (10:09→20:44)
[2021-08-16] MEDS: TAMSULOSIN 0.4 MG CAP.ER.24H. PO SCH (10:10)
[2021-08-16] MEDS: SACUBITRIL/VALSARTAN 49/51MG TABLET. PO SCH ×2 (10:10→20:45)
[2021-08-16] MEDS: LACTOBACILLUS RHAMNOSUS GG 1 CAPSULE. PO SCH ×2 (10:10→20:44)
[2021-08-16] MEDS: ALLOPURINOL 300 MG TABLET. PO SCH (10:11)
[2021-08-16] MEDS: PANTOPRAZOLE 40 MG TABLET.DR. PO SCH (10:11)
[2021-08-16] MEDS: METOPROLOL SUCC 24HR ER 50 MG TAB.ER.24H. PO SCH (10:11)
[2021-08-16] MEDS: VANCOMYCIN 125 MG/2.5 ML ORAL SOLUTION. PO SCH ×4 (10:12→23:14)
[2021-08-16 11:00] VITALS: BP_SYST 102
--- NOTE | 2021-08-16 11:39 | PDOC ---
DATE OF SERVICE DATE: 08/16/21 TIME: 11:28 SUBJECTIVE ROS States feeling better . Diarrhea improved . No N/V OBJECTIVE Vital Signs Vital Signs Date Time Temp Pulse Resp B/P (MAP) Pulse Ox O2 Delivery O2 Flow Rate FiO2 08/16/21 10:11 89 101/53 08/16/21 07:00 97.9 20 94 97.9 08/16/21 03:00 Room Air I & 0 Intake and Output 08/16/21 07:00 Intake Total 100 ml Output Total 1250 ml Balance -1150 ml Intake Oral 100 ml Output Urine Total 1250 ml PHYSICAL EXAM Physical Exam GENERALnot in distress. HEENT: Both pupils are round and reacting. OM moist NECK: Supple. No JVP, LUNGS: Clear. HEART: S1, S2, regular. ABDOMEN: Soft, nontender. BS + EXTREMITIES: No edema or cyanosis. SKIN: Unremarkable except left leg wounds, t NEUROLOGIC alert, awake No focal neurologic deficit. Has Bailey now DIAGNOSIS/ASSESSMENT Assessment & Plan ROBERTO - Suspect ATN/ hypotensive/ Sepsis ; Ordered US on 08/14 - Moderate Hydronephrosis R >L . Renal function improving, Not back to baseline. Bailey placed 08/15 . Good UOP . Maintain fluid balance, Strict I/O , Baseline Creat was normal but trending up during recent Hospitalization . No interval labs since recent dc . Urinary retention - Dx few weeks back with PVR about 400 cc on bladder scan , renal function was stable .Per PCP note Unable to place Bailey ; history of urethral stricture dilated over 7 years ago . Plan was to place SP catheter after INR 1,5 - was not placed I ordered Renal US which showed - Bilat Moderate Hydronephrosis - Bailey placed on 16/01 . Need to follow with Urology UTI- UA cw UTI. 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 RHC revealed biventricular overload. Severe NICM: EF 20%.. Recd Lasix gtt for ACute exacerbation during recent hospitalization. Per patient lost significant Fluid weight . Defer to cardiology Recent LLE cellulitis - earlier this month with extensive infection: s/p I & D S/P mechanical mitral valve replacement. on warfarin. Converting to IV heparin as per IR note. Anemia - chronic, Seen by Hematology . Defer to Hem/onc and PCP HTN: BP low LLE PAD: Recent aortogram revealed moderate left superficial femoral artery disease with three-vessel runoff below the knee Thrombocytopenia: seen by hematology/GI recently and noted as multifactorial including prior sepsis/warfarin/MVR but no noted active bleed DM2: per PCP Morbid obesity Covid-19 +: 07/10/2021. recovered COMMENT/RELEVANT DATA Meds Current Medications Medications (Trade) Dose Ordered Sig/Carissa Start Time Stop Time Status Last Admin Dose Admin Acetaminophen (Tylenol) 650 mg PRN Q6HRS PRN 08/14/21 22:00 08/14/21 22:12 650 MG Acetaminophen/ Hydrocodone Bitart (Lortab 5/325) 1 tab PRN Q4HRS PRN 08/14/21 08:00 08/16/21 04:14 1 TAB Allopurinol (Zyloprim) 300 mg DAILY 08/14/21 09:00 08/16/21 10:11 300 MG Alprazolam (Xanax) 0.5 mg PRN TID PRN 08/14/21 08:00 08/16/21 04:14 0.5 MG Ceftriaxone Sodium (Rocephin) 2 gm 1X ONCE 08/13/21 18:30 08/13/21 18:31 DC 08/13/21 18:50 2 GM Daptomycin 580 mg/ Sodium Chloride 50 ml @ 100 mls/hr Q24H 08/14/21 12:00 08/15/21 12:42 DC 08/15/21 12:29 100 MLS/HR Fluticasone Propionate (Flonase) 1 spray DAILY 08/14/21 09:00 08/15/21 09:36 1 SPRAY Lactobacillus Rhamnosus (Culturelle) 1 cap BID 08/14/21 09:00 08/16/21 10:10 1 CAP Meropenem 500 mg/ Sodium Chloride 50 ml @ 100 mls/hr Q8HRS 08/14/21 11:30 08/16/21 05:43 100 MLS/HR Metoprolol Succinate (Toprol Xl) 50 mg DAILY 08/14/21 09:00 08/16/21 10:11 50 MG Morphine Sulfate (Morphine Sulfate) 2 mg 1X STAT 08/14/21 11:16 08/14/21 11:22 DC 08/14/21 11:44 2 MG Multi-Ingredient Ointment (Hydrocerin, Eucerin Cream) 1 tasha DAILY 08/14/21 12:00 2/17/22 09:37 1 TASHA Non-Formulary Medication (Hydrogen Peroxide (Medi-First Hydrogen Peroxide)) 2 ml PRN DAILY PRN 08/14/21 08:00 08/14/21 09:01 DC Non-Formulary Medication (Sodium Ferric Gluconat/Sucrose (Ferrlecit 62.5 Mg/5 Ml Vial)) 125 mg QMWF 08/14/21 16:00 08/14/21 09:07 DC Non-Formulary Medication (Vancomycin Hcl ) 125 mg QID 08/14/21 09:00 08/14/21 09:07 DC Pantoprazole Sodium (Protonix) 40 mg DAILYAC 08/14/21 09:00 08/16/21 10:11 40 MG Sacubitril/ Valsartan (Entresto 49 Mg-51 Mg) 1 tab BID 08/14/21 09:00 08/16/21 10:10 1 TAB Sodium Hypochlorite (Dakin'S Full Strength) 1 tasha DAILY 08/14/21 09:00 08/15/21 09:37 1 TASHA Sodium Chloride 1,000 ml @ 100 mls/hr Q10H 08/14/21 08:00 08/16/21 10:09 100 MLS/HR Tamsulosin HCl (Flomax) 0.4 mg DAILY 08/14/21 09:00 08/16/21 10:10 0.4 MG Vancomycin HCl (Vancomycin Oral Solution) 125 mg [id number] 08/14/21 13:00 08/16/21 10:12 125 MG Warfarin Sodium (Coumadin Per Physician) 1 each PRN DAILY PRN 08/15/21 11:30 08/15/21 14:25 1 EACH Warfarin Sodium (Coumadin) 2.5 mg DAILY16 08/16/21 16:00 Lab Laboratory Tests Test 08/15/21 11:41 08/15/21 17:13 08/15/21 21:14 08/16/21 05:00 Prothrombin Time 44.2 SEC (11.7-14.0) 38.2 SEC (11.7-14.0) Prothromb Time International Ratio 4.9 (0.8-1.1) 4.0 (0.8-1.1) Glucose (Fingerstick) 171 mg/dL (70-99) 152 mg/dL (70-99) White Blood Count 8.4 x10^3/uL (4.0-11.0) Red Blood Count 3.18 x10^6/uL (4.30-5.70) Hemoglobin 8.1 g/dL (13.0-17.5) Hematocrit 26.3 % (39.0-53.0) Mean Corpuscular Volume 83 fL (79-100) Mean Corpuscular Hemoglobin 26 pg (25-35) Mean Corpuscular Hemoglobin Concent 31 g/dL (31-37) Red Cell Distribution Width 18.5 % (11.5-14.5) Platelet Count 386 x10^3/uL (140-400) Neutrophils (%) (Auto) 85 % (31-73) Lymphocytes (%) (Auto) 7 % (24-48) Monocytes (%) (Auto) 6 % (0-9) Eosinophils (%) (Auto) 2 % (0-3) Basophils (%) (Auto) 1 % (0-3) Neutrophils # (Auto) 7.1 x10^3/uL (1.8-7.7) Lymphocytes # (Auto) 0.6 x10^3/uL (1.0-4.8) Monocytes # (Auto) 0.5 x10^3/uL (0.0-1.1) Eosinophils # (Auto) 0.1 x10^3/uL (0.0-0.7) Basophils # (Auto) 0.0 x10^3/uL (0.0-0.2) Sodium Level 139 mmol/L (136-145) Potassium Level 3.7 mmol/L (3.5-5.1) Chloride Level 100 mmol/L (98-107) Carbon Dioxide Level 33 mmol/L (21-32) Anion Gap 6 (6-14) Blood Urea Nitrogen 56 mg/dL (8-26) Creatinine 1.6 mg/dL (0.7-1.3) Estimated GFR (Cockcroft-Gault) 44.6 Glucose Level 140 mg/dL (70-99) Calcium Level 7.9 mg/dL (8.5-10.1) Test 08/16/21 08:03 Glucose (Fingerstick) 147 mg/dL (70-99) Results All relevant outside records, renal labs, imaging studies, telemetry/EKG's were reviewed. Justicifation of Admission Dx: Justifications for Admission: Justification of Admission Dx: Yes JOSE SRIVASTAVA MD Aug 16, 2021 11:39
[2021-08-16 15:00] VITALS: BP 111/58
[2021-08-16] MEDS: WARFARIN 2.5 MG TABLET. PO SCH (15:20)
--- NOTE | 2021-08-16 16:20 | NUR ---
SW following. Discussed with RN, MOE to send referral to [facility] to determine if pt still meets for LTAC - will send first thing Thursday morning. Pt on IV abx and has a wound vac. MOE will continue to follow.
[2021-08-16 19:00] VITALS: BP 109/61
--- NOTE | 2021-08-16 20:30 | PN ---
DATE: 08/16/2021 DAILY PROGRESS NOTE LOCATION: He is in room 528. SUBJECTIVE: This 56-year-old male presented to the Emergency Room from [facility] with hypotension, weakness, fevers, UTI, now growing out Enterobacter, did hospitalized from 2 weeks initially admitted there with his leg cellulitis with debridement, wound VAC therapy and on antibiotics, a heparin drip as he has a prosthetic valve to be returned for a suprapubic catheter, which never happened. He has been back on Coumadin with INR currently elevated. He is currently on IV antibiotics and improving with no further chills, starting to get somewhat of an appetite back. Still weak with very little energy. OBJECTIVE: VITAL SIGNS: Stable. T-max is 99.9 in the last 24 hours. GENERAL: He is awake and alert. CHEST: Clear to auscultation. HEART: Regular rate and rhythm. ABDOMEN: Benign. EXTREMITIES: Legs are dressed, but looked at pictures of the same and looked remarkably well. LABORATORY DATA: White count is 8400 with a hemoglobin of 8.1, which are stable. BUN has decreased to 56, creatinine 1.6 this morning. IMPRESSION: 1. Sepsis due to Enterobacter cloacae urinary tract infection, 2. Leukocytosis, improving. 3. Acute renal failure, improving. 4. Diabetes with fair blood sugars. 5. Mechanical heart valve, on warfarin with elevated INR. 6. Leg wounds were improving. 7. Clostridium difficile colitis. PLAN: Continue to follow renal function. Continue antibiotics. He does have C. diff in addition, this admission, was on vancomycin for the same throughout. JEFF DR: Ivette TID: [id number]
[2021-08-16] MEDS: SODIUM HYPOCHLORITE 0.5% TP SCH ×2 (20:47→20:52)
[2021-08-16] MEDS: MINERAL OIL/PETROLATUM TOPICAL CREAM 113GM JAR. TP SCH (20:47)
--- NOTE | 2021-08-16 20:53 | NUR ---
Dakin's non-administered at this time. Dressing C/D/I and not scheduled to be changed until 08/18.
[2021-08-16 23:00] VITALS: BP 107/50
[2021-08-17 03:32] VITALS: BP 98/47
[2021-08-17 05:18] LABS: PROTHROMBIN TIME PATIENT 35.9 SEC (11.7-14.0)
[2021-08-17 05:27] LABS: CALCIUM 8.1 mg/dL (8.5-10.1); CREATININE 1.3 mg/dL (0.7-1.3); GFR 56.7; POTASSIUM 3.6 mmol/L (3.5-5.1)
[2021-08-17] MEDS: IV NORMAL SALINE 1000ML BAG 1,000 ML IV SCH ×2 (05:35→16:09)
[2021-08-17] MEDS: MEROPENEM 500 MG in IV NORMAL SALINE 50ML 50 ML IV SCH ×3 (05:36→22:05)
[2021-08-17 07:00] VITALS: BP 93/48
--- NOTE | 2021-08-17 08:15 | PDOC ---
Infectious Disease Note Subjective Subjective Patient is feeling better The weakness is better diarrhea is better ROS ROS No nausea vomiting or abdominal pain Vital Sign Vital Signs Vital Signs Date Time Temp Pulse Resp B/P (MAP) Pulse Ox O2 Delivery O2 Flow Rate FiO2 08/17/21 07:00 97.7 87 20 93/48 (63) 95 Room Air 97.7 Physical Exam PHYSICAL EXAM GENERAL: Alert, awake gentleman, not in distress. VITAL SIGNS: Stable HEENT: Both pupils are round and reacting. No conjunctival lesion, no lesion in the mouth. NECK: Supple. No JVP, no lymphadenopathy. LUNGS: Clear. HEART: S1, S2, regular. ABDOMEN: Soft, nontender. No organomegaly. EXTREMITIES: No edema or cyanosis. SKIN: Unremarkable except left leg wounds, they are clean. Rest of skin is unremarkable. NEUROLOGIC: The patient is alert, awake, and appropriate. No focal neurologic deficit. Labs Lab Laboratory Tests Test 08/16/21 11:56 08/16/21 17:18 08/16/21 20:42 08/17/21 04:20 Glucose (Fingerstick) 154 mg/dL (70-99) 135 mg/dL (70-99) 138 mg/dL (70-99) Prothrombin Time 35.9 SEC (11.7-14.0) Prothromb Time International Ratio 3.7 (0.8-1.1) Sodium Level 140 mmol/L (136-145) Potassium Level 3.6 mmol/L (3.5-5.1) Chloride Level 103 mmol/L (98-107) Carbon Dioxide Level 30 mmol/L (21-32) Anion Gap 7 (6-14) Blood Urea Nitrogen 45 mg/dL (8-26) Creatinine 1.3 mg/dL (0.7-1.3) Estimated GFR (Cockcroft-Gault) 56.7 Glucose Level 120 mg/dL (70-99) Calcium Level 8.1 mg/dL (8.5-10.1) Test 08/17/21 07:22 Glucose (Fingerstick) 165 mg/dL (70-99) Micro CULTURE URINE Final GREATER THAN 100,000 CFU/ML GRAM NEGATIVE RODS on 08/15/21 at 0742. FINAL ID= ENTEROBACTER CLOACAE COMPLEX Testing performed by [address] [address] director of application development: Merna Rodrigues MD Organism 1 ENTEROBACTER CLOACAE COMPLEX 1. ENTEROBACTER CLOACAE COMPLEX Target Route Dose RX AB Cost M.I.C. IQ ------ ----- ------ -- ------ --------- ------ AMOX/K'CLAVULAN R >16/8 CEFOTAXIME I 32 * NITROFURANTOIN I 64 CEFEPIME S <=2 CEFTRIAXONE R 32 CEFUROXIME R >16 TRIMETH/SULFA S <=0.5/9.5 LEVOFLOXACIN S <=0.5 MEROPENEM S <=1 TETRACYCLINE S <=4 AMIKACIN S <=16 AMP/SULBACTAM R >16/8 AZTREONAM I 16 CEFAZOLIN R >16 CEFTAZIDIME R >16 CEFOXITIN R >16 CIPROFLOXACIN S <=0.25 GENTAMICIN S <=2 ERTAPENEM S <=0.5 PIP/TAZOBACTAM S 16 TOBRAMYCIN S <=2 AMPICILLIN R >16 Blood culture negative Objective Assessment IMPRESSION: 1. Fever. 2. Hypotension. 3. Leukocytosis. 4. Urinary tract infection with urethral stricture. 5. Left leg infection, status post multiple incision and drainages, that is looking good. 6 C. difficile Plan Plan of Care Continue antibiotic p.o. vancomycin and IV meropenem Leg wound seen really clean healthy granulation tissue Suprapubic catheter is pending DUANE ASKEW MD Aug 17, 2021 08:15
[2021-08-17] MEDS: ALLOPURINOL 300 MG TABLET. PO SCH (08:55)
[2021-08-17] MEDS: VANCOMYCIN 125 MG/2.5 ML ORAL SOLUTION. PO SCH ×4 (08:55→20:36)
[2021-08-17] MEDS: LACTOBACILLUS RHAMNOSUS GG 1 CAPSULE. PO SCH ×2 (08:55→20:36)
[2021-08-17] MEDS: SACUBITRIL/VALSARTAN 49/51MG TABLET. PO SCH ×2 (08:57→20:36)
[2021-08-17] MEDS: METOPROLOL SUCC 24HR ER 50 MG TAB.ER.24H. PO SCH (08:57)
[2021-08-17] MEDS: PANTOPRAZOLE 40 MG TABLET.DR. PO SCH (08:58)
[2021-08-17] MEDS: TAMSULOSIN 0.4 MG CAP.ER.24H. PO SCH (08:58)
[2021-08-17] MEDS: SODIUM HYPOCHLORITE 0.5% TP SCH (09:00)
[2021-08-17] MEDS: ALPRAZolam 0.5 MG TABLET PO PRN ×2 (09:01→22:05)
[2021-08-17] MEDS: HYDROcodone/APAP 5/325MG 1 TAB TABLET PO PRN ×2 (09:01→22:04)
[2021-08-17] MEDS: FLUTICASONE 50MCG/NASAL SPRAY 16GM BOTTLE. NS SCH (09:05)
[2021-08-17] MEDS: MINERAL OIL/PETROLATUM TOPICAL CREAM 113GM JAR. TP SCH (09:05)
[2021-08-17 11:00] VITALS: BP 102/56
--- NOTE | 2021-08-17 11:02 | PN ---
DATE: 08/17/2021 DAILY PROGRESS NOTE LOCATION: He is in room 528. SUBJECTIVE: This 56-year-old male presented to the Emergency Room from [facility] with hypotension, weakness, fevers as well as Enterobacter UTI and C. diff colitis. He is improving. He also had acute renal failure and this was likewise improving with creatinine down to 1.3 this morning. He was coagulopathic with a high INR and this is improved down to an INR of 3.7 today with warfarin on hold. Since admission, Urology has been unable to place a catheter with a urethral dilation with plans on leaving it in for at least 2 weeks to hold the dilation area open from restenosis and the patient at this point is draining clear urine, feeling much better on a daily basis. OBJECTIONS: VITAL SIGNS: Stable. He is afebrile in the last 24 hours. GENERAL: He is awake and alert. CHEST: Clear. HEART: Regular. ABDOMEN: Benign. EXTREMITIES: Leg is dressed. LABORATORY DATA: As above. ASSESSMENT: 1. Sepsis due to Enterobacter cloacae urinary tract infection and Clostridium difficile colitis. 2. Leukocytosis, improving. 3. Acute renal failure, improving. 4. Diabetes with fair blood sugars. 5. Mechanical heart valve, on warfarin with elevated INR. 6. Leg wounds, improving. PLAN: Continue present antibiotics. I would anticipate discharge first part of the week with ID to guide antibiotic therapy. ROSE/DEEP DR: ROSE/donato TID: [id number]
--- NOTE | 2021-08-17 14:12 | PDOC ---
PROGRESS NOTES Date of Service DATE: 08/17/21 TIME: 14:10 Subjective Subjective SEEN IN FOLLOW UP OF OBSTRUCTIVE UROPATHY DUE TO URETHRAL STRICTURE. Objective Objective Vital Signs Date Time Temp Pulse Resp B/P (MAP) Pulse Ox O2 Delivery O2 Flow Rate FiO2 08/17/21 11:00 97.7 84 20 102/56 (71) 93 Room Air 97.7 08/13/21 17:57 2.0 Intake and Output 08/17/21 07:00 Intake Total 400 ml Output Total 1750 ml Balance -1350 ml Intake Oral 400 ml Output Urine Total 1750 ml # Bowel Movements 1 Physical Exam Abdomen: Normal bowel sounds, Soft, No tenderness, No hepatosplenomegaly, No masses Heart: Regular rate, Normal S1, Normal S2, No murmurs, Gallops Extremities: No clubbing, No cyanosis, No edema, Normal pulses, No tenderness/swelling General: Alert, Oriented X3, Cooperative, No acute distress Lungs: Clear to auscultation, Normal air movement Psych/Mental Status: Mental status NL, Mood NL Diagnosis RENAL FAILURE: Acute, Other (DUE TO OBSTRUCTION) Assessment Assessment Problems Medical Problems: (1) Abnormal urinalysis Status: Acute (2) Acute kidney injury Status: Acute (3) Elevated INR Status: Acute (4) Sepsis Status: Acute Plan Plan of Care HIS RENAL FUNCTION IS MUCH BETTER. MAY BE CKD2 At BASELINE. OK TO D/C. WILL SIGN OFF Comment Review of Relevant I have reviewed the following items alfredo (where applicable) has been applied. Labs Laboratory Tests Test 08/15/21 17:13 08/15/21 21:14 08/16/21 05:00 08/16/21 08:03 Glucose (Fingerstick) 171 mg/dL (70-99) 152 mg/dL (70-99) 147 mg/dL (70-99) White Blood Count 8.4 x10^3/uL (4.0-11.0) Red Blood Count 3.18 x10^6/uL (4.30-5.70) Hemoglobin 8.1 g/dL (13.0-17.5) Hematocrit 26.3 % (39.0-53.0) Mean Corpuscular Volume 83 fL (79-100) Mean Corpuscular Hemoglobin 26 pg (25-35) Mean Corpuscular Hemoglobin Concent 31 g/dL (31-37) Red Cell Distribution Width 18.5 % (11.5-14.5) Platelet Count 386 x10^3/uL (140-400) Neutrophils (%) (Auto) 85 % (31-73) Lymphocytes (%) (Auto) 7 % (24-48) Monocytes (%) (Auto) 6 % (0-9) Eosinophils (%) (Auto) 2 % (0-3) Basophils (%) (Auto) 1 % (0-3) Neutrophils # (Auto) 7.1 x10^3/uL (1.8-7.7) Lymphocytes # (Auto) 0.6 x10^3/uL (1.0-4.8) Monocytes # (Auto) 0.5 x10^3/uL (0.0-1.1) Eosinophils # (Auto) 0.1 x10^3/uL (0.0-0.7) Basophils # (Auto) 0.0 x10^3/uL (0.0-0.2) Prothrombin Time 38.2 SEC (11.7-14.0) Prothromb Time International Ratio 4.0 (0.8-1.1) Sodium Level 139 mmol/L (136-145) Potassium Level 3.7 mmol/L (3.5-5.1) Chloride Level 100 mmol/L (98-107) Carbon Dioxide Level 33 mmol/L (21-32) Anion Gap 6 (6-14) Blood Urea Nitrogen 56 mg/dL (8-26) Creatinine 1.6 mg/dL (0.7-1.3) Estimated GFR (Cockcroft-Gault) 44.6 Glucose Level 140 mg/dL (70-99) Calcium Level 7.9 mg/dL (8.5-10.1) Test 08/16/21 11:56 08/16/21 17:18 08/16/21 20:42 08/17/21 04:20 Glucose (Fingerstick) 154 mg/dL (70-99) 135 mg/dL (70-99) 138 mg/dL (70-99) Prothrombin Time 35.9 SEC (11.7-14.0) Prothromb Time International Ratio 3.7 (0.8-1.1) Sodium Level 140 mmol/L (136-145) Potassium Level 3.6 mmol/L (3.5-5.1) Chloride Level 103 mmol/L (98-107) Carbon Dioxide Level 30 mmol/L (21-32) Anion Gap 7 (6-14) Blood Urea Nitrogen 45 mg/dL (8-26) Creatinine 1.3 mg/dL (0.7-1.3) Estimated GFR (Cockcroft-Gault) 56.7 Glucose Level 120 mg/dL (70-99) Calcium Level 8.1 mg/dL (8.5-10.1) Test 08/17/21 07:22 08/17/21 11:19 Glucose (Fingerstick) 165 mg/dL (70-99) 166 mg/dL (70-99) Laboratory Tests Test 08/16/21 17:18 08/16/21 20:42 08/17/21 04:20 08/17/21 07:22 Glucose (Fingerstick) 135 mg/dL (70-99) 138 mg/dL (70-99) 165 mg/dL (70-99) Prothrombin Time 35.9 SEC (11.7-14.0) Prothromb Time International Ratio 3.7 (0.8-1.1) Sodium Level 140 mmol/L (136-145) Potassium Level 3.6 mmol/L (3.5-5.1) Chloride Level 103 mmol/L (98-107) Carbon Dioxide Level 30 mmol/L (21-32) Anion Gap 7 (6-14) Blood Urea Nitrogen 45 mg/dL (8-26) Creatinine 1.3 mg/dL (0.7-1.3) Estimated GFR (Cockcroft-Gault) 56.7 Glucose Level 120 mg/dL (70-99) Calcium Level 8.1 mg/dL (8.5-10.1) Test 08/17/21 11:19 Glucose (Fingerstick) 166 mg/dL (70-99) Microbiology 08/13/21 Urine Culture - Final, Complete Enterobacter Cloacae Complex 08/13/21 Blood Culture - Preliminary, Resulted NO GROWTH AFTER 3 DAYS Medications Current Medications Sodium Chloride 250 ml @ 500 mls/hr 1X ONCE IV Last administered on 08/13/21at 17:26; Start 08/13/21 at 17:15; Stop 08/13/21 at 17:44; Status DC Ceftriaxone Sodium (Rocephin) 2 gm 1X ONCE IVP ; Start 08/13/21 at 18:15; Stop 08/13/21 at 18:16; Status Cancel Ceftriaxone Sodium (Rocephin) 2 gm 1X ONCE IVP Last administered on 08/13/21at 18:50; Start 08/13/21 at 18:30; Stop 08/13/21 at 18:31; Status DC Sodium Chloride 1,000 ml @ 100 mls/hr Q10H IV Last administered on 08/17/21at 05:35; Start 08/14/21 at 08:00 Allopurinol (Zyloprim) 300 mg DAILY PO Last administered on 08/17/21at 08:55; Start 08/14/21 at 09:00 Alprazolam (Xanax) 0.5 mg PRN TID PRN PO ANXIETY / AGITATION Last administered on 08/17/21at 09:01; Start 08/14/21 at 08:00 Fluticasone Propionate (Flonase) 1 spray DAILY NS Last administered on 08/17/21at 09:05; Start 08/14/21 at 09:00 Acetaminophen/ Hydrocodone Bitart (Lortab 5/325) 1 tab PRN Q4HRS PRN PO PAIN MODERATE/SEVERE Last administered on 08/17/21 09:01; Start 08/14/21 at 08:00 Metoprolol Succinate (Toprol Xl) 50 mg DAILY PO Last administered on 08/16/21at 10:11; Start 08/14/21 at 09:00 Pantoprazole Sodium (Protonix) 40 mg DAILYAC PO Last administered on 08/17/21at 08:58; Start 08/14/21 at 09:00 Sacubitril/ Valsartan (Entresto 49 Mg-51 Mg) 1 tab BID PO Last administered on 08/16/21at 20:45; Start 08/14/21 at 09:00 Sodium Hypochlorite (Dakin'S Full Strength) 1 [place] DAILY TP Last administered on 08/15/21at 09:37; Start 08/14/21 at 09:00 Tamsulosin HCl (Flomax) 0.4 mg DAILY PO Last administered on 08/17/21 08:58; Start 08/14/21 at 09:00 Non-Formulary Medication (Hydrogen Peroxide (Medi-First Hydrogen Peroxide)) 2 ml PRN DAILY PRN AU SEE COMMENTS; Start 08/14/21 at 08:00; Stop 08/14/21 at 09:01; Status DC Lactobacillus Rhamnosus (Culturelle) 1 cap BID PO Last administered on 08/17/21at 08:55; Start 08/14/21 at 09:00 Multi-Ingredient Ointment (Hydrocerin, Eucerin Cream) 1 gaetano DAILY TP Last administered on 08/17/21at 09:05; Start 08/14/21 at 12:00 Non-Formulary Medication (Sodium Ferric Gluconat/Sucrose (Ferrlecit 62.5 Mg/5 Ml Vial)) 125 mg QMWF IV ; Start 08/14/21 at 16:00; Stop 08/14/21 at 09:07; Status DC Non-Formulary Medication (Vancomycin Hcl ) 125 mg QID PO ; Start 08/14/21 at 09:00; Stop 08/14/21 at 09:07; Status DC Meropenem 500 mg/ Sodium Chloride 50 ml @ 100 mls/hr Q8HRS IV Last administered on 08/17/21at 13:43; Start 08/14/21 at 11:30 Daptomycin 580 mg/ Sodium Chloride 50 ml @ 100 mls/hr Q24H IV Last administered on 08/15/21at 12:29; Start 08/14/21 at 12:00; Stop 08/15/21 at 12:42; Status DC Vancomycin HCl (Vancomycin Oral Solution) 125 mg [id number] PO Last administered on 08/17/21at 13:42; Start 08/14/21 at 13:00 Morphine Sulfate (Morphine Sulfate) 2 mg 1X STAT IM Last administered on 08/14/21at 11:44; Start 08/14/21 at 11:16; Stop 08/14/21 at 11:22; Status DC Acetaminophen (Tylenol) 650 mg PRN Q6HRS PRN PO MILD PAIN / TEMP > 100.3'F Last administered on 08/14/21at 22:12; Start 08/14/21 at 22:00 Warfarin Sodium (Coumadin) 2.5 mg DAILY16 PO Last administered on 08/16/21at 15:20; Start 08/16/21 at 16:00 Warfarin Sodium (Coumadin Per Physician) 1 each PRN DAILY PRN MC SEE COMMENTS Last administered on 08/17/21at 13:33; Start 08/15/21 at 11:30 Active Scripts Active Flomax (Tamsulosin Hcl) 0.4 Mg Cap.er.24h 0.4 Mg PO DAILY 30 Days Pantoprazole Sodium (Pantoprazole Sodium) 40 Mg Tablet.dr 40 Mg PO DAILYAC 30 Days Reported Medi-First Hydrogen Peroxide (Hydrogen Peroxide) 59.1 Ml [place] 2 Ml AU PRN DAILY PRN Hydrocodone-Apap 5-325 (Hydrocodone Bit/Acetaminophen) 1 Tab Tablet 1 Tab PO PRN Q4HRS PRN Alprazolam 0.5 Mg Tablet 0.5 Mg PO PRN TID PRN Warfarin Sodium 6 Mg Tablet 6 Mg PO DAILY Vancomycin Hcl 125 Mg Capsule 125 Mg PO QID Dak[place] (Sodium Hypochlorite) 473 Ml Solution 1 Gaetano DAILY Entresto 49 mg-51 mg Tablet (Sacubitril/Valsartan) 1 Each Tablet 1 Each PO BID Metoprolol Succinate ( Xl ) (Metoprolol Succinate) 25 Mg Tab.er.24h 50 Mg PO DAILY Culturelle (Lactobacillus Rhamnosus Gg) 1 Each Capsule 1 Each PO BID Fluticasone Propionate Nasal [place] (Fluticasone Propionate) 16 Gm [place].susp 1 [place] NS DAILY Dermacerin Cream (Mineral Oil/Petrolatum,White) 107 Gm Cream..g. 1 [place] TP DAILY Ferrlecit 62.5 Mg/5 Ml Vial (Sodium Ferric Gluconat/Sucrose) 62.5 Mg/5 Ml Vial 125 Mg IV QMWF Allopurinol 300 Mg Tablet 300 Mg PO DAILY Vitals/I & O Vital Sign - Last 24 Hours 08/16/21 08/16/21 08/16/21 08/16/21 15:00 19:00 20:05 20:45 Temp 98.4 98.9 98.4 98.9 Pulse 91 91 91 Resp 18 20 B/P (MAP) 111/58 (75) 109/61 (77) 109/61 Pulse Ox 95 92 O2 Delivery Room Air Room Air 08/16/21 08/17/21 08/17/21 08/17/21 23:00 03:32 07:00 08:00 Temp 98.1 98.1 97.7 98.1 98.1 97.7 Pulse 74 59 87 Resp 18 20 20 B/P (MAP) 107/50 (69) 98/47 (64) 93/48 (63) Pulse Ox 93 93 95 O2 Delivery Room Air Room Air Room Air Room Air 08/17/21 08/17/21 08/17/21 08/17/21 08:57 08:57 09:01 10:39 Pulse 87 87 B/P (MAP) 93/48 93/48 Pulse Ox 95 O2 Delivery Room Air Room Air 08/17/21 11:00 Temp 97.7 97.7 Pulse 84 Resp 20 B/P (MAP) 102/56 (71) Pulse Ox 93 O2 Delivery Room Air Intake and Output 08/16/21 08/16/21 08/17/21 15:00 23:00 07:00 Intake Total 400 ml Output Total 1000 ml 750 ml Balance -600 ml -750 ml Justifications for Admission Other Justification MEKHI DORSEY MD Aug 17, 2021 14:12
[2021-08-17 14:59] VITALS: BP 108/58
[2021-08-17] MEDS: WARFARIN 2.5 MG TABLET. PO SCH (16:09)
[2021-08-17 19:00] VITALS: BP 133/65
[2021-08-17 23:00] VITALS: BP 113/55
[2021-08-18] MEDS: IV NORMAL SALINE 1000ML BAG 1,000 ML IV SCH ×3 (02:53→22:13)
[2021-08-18 03:00] VITALS: BP 123/69
[2021-08-18] MEDS: MEROPENEM 500 MG in IV NORMAL SALINE 50ML 50 ML IV SCH ×3 (05:44→22:14)
[2021-08-18 07:00] VITALS: BP 106/53
[2021-08-18 07:24] LABS: CALCIUM 7.9 mg/dL (8.5-10.1); GFR 76.7
[2021-08-18 07:25] LABS: POTASSIUM 4.4 mmol/L (3.5-5.1)
[2021-08-18 07:44] LABS: PROTHROMBIN TIME PATIENT 38.1 SEC (11.7-14.0)
--- NOTE | 2021-08-18 08:12 | PDOC ---
Infectious Disease Note Subjective Subjective Patient is feeling better The weakness is better diarrhea is better ROS ROS No nausea vomiting abdominal pain Vital Sign Vital Signs Vital Signs Date Time Temp Pulse Resp B/P (MAP) Pulse Ox O2 Delivery O2 Flow Rate FiO2 08/18/21 07:00 98.1 95 17 106/53 (70) 95 Room Air 98.1 Physical Exam PHYSICAL EXAM GENERAL: Alert, awake gentleman, not in distress. VITAL SIGNS: Stable HEENT: Both pupils are round and reacting. No conjunctival lesion, no lesion in the mouth. NECK: Supple. No JVP, no lymphadenopathy. LUNGS: Clear. HEART: S1, S2, regular. ABDOMEN: Soft, nontender. No organomegaly. EXTREMITIES: No edema or cyanosis. SKIN: Unremarkable except left leg wounds, they are clean. Rest of skin is unremarkable. NEUROLOGIC: The patient is alert, awake, and appropriate. No focal neurologic deficit. Labs Lab Laboratory Tests Test 08/17/21 11:19 08/17/21 16:14 08/17/21 20:31 08/18/21 05:45 Glucose (Fingerstick) 166 mg/dL (70-99) 152 mg/dL (70-99) 137 mg/dL (70-99) Prothrombin Time 38.1 SEC (11.7-14.0) Prothromb Time International Ratio 4.0 (0.8-1.1) Sodium Level 142 mmol/L (136-145) Potassium Level 4.4 mmol/L (3.5-5.1) Chloride Level 105 mmol/L (98-107) Carbon Dioxide Level 31 mmol/L (21-32) Anion Gap 6 (6-14) Blood Urea Nitrogen 32 mg/dL (8-26) Creatinine 1.0 mg/dL (0.7-1.3) Estimated GFR (Cockcroft-Gault) 76.7 Glucose Level 142 mg/dL (70-99) Calcium Level 7.9 mg/dL (8.5-10.1) Test 08/18/21 07:37 Glucose (Fingerstick) 158 mg/dL (70-99) Micro CULTURE URINE Final GREATER THAN 100,000 CFU/ML GRAM NEGATIVE RODS on 08/15/21 at 0742. FINAL ID= ENTEROBACTER CLOACAE COMPLEX Testing performed by [address] [address] assistant director: Merna Rodrigues MD Organism 1 ENTEROBACTER CLOACAE COMPLEX 1. ENTEROBACTER CLOACAE COMPLEX Target Route Dose RX AB Cost M.I.C. IQ ------ ----- ------ -- ------ --------- ------ AMOX/K'CLAVULAN R >16/8 CEFOTAXIME I 32 * NITROFURANTOIN I 64 CEFEPIME S <=2 CEFTRIAXONE R 32 CEFUROXIME R >16 TRIMETH/SULFA S <=0.5/9.5 LEVOFLOXACIN S <=0.5 MEROPENEM S <=1 TETRACYCLINE S <=4 AMIKACIN S <=16 AMP/SULBACTAM R >16/8 AZTREONAM I 16 CEFAZOLIN R >16 CEFTAZIDIME R >16 CEFOXITIN R >16 CIPROFLOXACIN S <=0.25 GENTAMICIN S <=2 ERTAPENEM S <=0.5 PIP/TAZOBACTAM S 16 TOBRAMYCIN S <=2 AMPICILLIN R >16 Blood culture negative Objective Assessment IMPRESSION: 1. Fever. 2. Hypotension. 3. Leukocytosis. 4. Urinary tract infection with urethral stricture. 5. Left leg infection, status post multiple incision and drainages, that is looking good. 6 C. difficile 7 late growth of gram-negative kel in the blood dated 08/13/2021 Plan Plan of Care Continue antibiotic p.o. vancomycin and IV meropenem Leg wound seen really clean healthy granulation tissue Suprapubic catheter is pending DUANE ASKEW MD Aug 18, 2021 08:12
[2021-08-18] MEDS: VANCOMYCIN 125 MG/2.5 ML ORAL SOLUTION. PO SCH ×4 (09:25→20:11)
[2021-08-18] MEDS: SACUBITRIL/VALSARTAN 49/51MG TABLET. PO SCH ×2 (09:25→20:11)
[2021-08-18] MEDS: PANTOPRAZOLE 40 MG TABLET.DR. PO SCH (09:25)
[2021-08-18] MEDS: LACTOBACILLUS RHAMNOSUS GG 1 CAPSULE. PO SCH ×2 (09:25→20:11)
[2021-08-18] MEDS: ALLOPURINOL 300 MG TABLET. PO SCH (09:26)
[2021-08-18] MEDS: MINERAL OIL/PETROLATUM TOPICAL CREAM 113GM JAR. TP SCH (09:26)
[2021-08-18] MEDS: METOPROLOL SUCC 24HR ER 50 MG TAB.ER.24H. PO SCH (09:26)
[2021-08-18] MEDS: TAMSULOSIN 0.4 MG CAP.ER.24H. PO SCH (09:26)
[2021-08-18] MEDS: SODIUM HYPOCHLORITE 0.5% TP SCH (09:26)
[2021-08-18] MEDS: FLUTICASONE 50MCG/NASAL SPRAY 16GM BOTTLE. NS SCH (09:27)
--- NOTE | 2021-08-18 09:30 | NUR ---
Per Dr. Nagel, hold 1600 dose of Warfarin.
[2021-08-18] MEDS: ALPRAZolam 0.5 MG TABLET PO PRN ×2 (09:33→22:14)
[2021-08-18] MEDS: HYDROcodone/APAP 5/325MG 1 TAB TABLET PO PRN ×2 (09:33→22:14)
[2021-08-18 11:00] VITALS: BP 100/54
[2021-08-18 15:00] VITALS: BP 107/56
[2021-08-18] MEDS: WARFARIN 2.5 MG TABLET. PO SCH (16:00)
[2021-08-18 19:00] VITALS: BP 133/60
[2021-08-18 23:00] VITALS: BP 127/66
--- NOTE | 2021-08-19 | PN ---
DATE: 08/18/2021 DAILY PROGRESS NOTE LOCATION: He is in room 528. SUBJECTIVE: This 56-year-old male remains hospitalized with sepsis due to urinary tract source. He has had urethral stricture that has been dilated and a Bailey catheter placed. Since admission, he has Enterobacter growing out of his urine and now on day #5 of positive blood culture for gram-negative rods. Also, he has C. difficile colitis, which is improved. He had acute renal failure and creatinine this morning is down to 1. He also was coagulopathic and has an INR of 4 this morning with Coumadin to be held and will need a lower dose of that going forward. He is feeling better, but extremely weak. He feels like his right hip area will not lock-in when he is standing to hold him up. OBJECTIVE: VITAL SIGNS: Stable. He is afebrile. GENERAL: He is awake and alert. CHEST: Clear. HEART: Regular. ABDOMEN: Benign. EXTREMITIES: Leg is dressed. GENITOURINARY: Bailey catheter is in place with clean urine. LABORATORY DATA: Creatinine again down to 1 this morning and INR up to 4. ASSESSMENT: 1. Sepsis due to Enterobacter cloacae urinary tract infection and Clostridium difficile colitis. 2. Leukocytosis, improved. 3. Acute renal failure, improved. 4. Diabetes with fair blood sugars. 5. Mechanical heart valve, on warfarin with an elevated INR. 6. Leg wounds, improving. PLAN: SNF versus acute rehab evaluation as with the Bailey catheter and the leg wounds improving at this point, I believe he will be able to rehab to home. STEPHANIE/MIRNA DR: Ivette TID: [id number]
[2021-08-19 03:00] VITALS: BP 106/57
[2021-08-19] MEDS: MEROPENEM 500 MG in IV NORMAL SALINE 50ML 50 ML IV SCH ×2 (05:21→13:23)
--- NOTE | 2021-08-19 06:55 | PDOC ---
Infectious Disease Note Subjective Subjective Patient is feeling better The weakness is better diarrhea is better ROS ROS No nausea vomiting or abdominal pain Does have Bailey catheter in place Vital Sign Vital Signs Vital Signs Date Time Temp Pulse Resp B/P (MAP) Pulse Ox O2 Delivery O2 Flow Rate FiO2 08/19/21 03:00 97.2 87 18 106/57 (73) 95 97.2 08/18/21 20:15 Room Air 08/18/21 10:15 2.0 Physical Exam PHYSICAL EXAM GENERAL: Alert, awake gentleman, not in distress. VITAL SIGNS: Stable HEENT: Both pupils are round and reacting. No conjunctival lesion, no lesion in the mouth. NECK: Supple. No JVP, no lymphadenopathy. LUNGS: Clear. HEART: S1, S2, regular. ABDOMEN: Soft, nontender. No organomegaly. EXTREMITIES: No edema or cyanosis. SKIN: Unremarkable except left leg wounds, they are clean. Rest of skin is unremarkable. NEUROLOGIC: The patient is alert, awake, and appropriate. No focal neurologic deficit. Labs Lab Laboratory Tests Test 08/18/21 07:37 08/18/21 12:02 08/18/21 17:05 08/18/21 20:12 Glucose (Fingerstick) 158 mg/dL (70-99) 155 mg/dL (70-99) 141 mg/dL (70-99) 132 mg/dL (70-99) Micro CULTURE URINE Final GREATER THAN 100,000 CFU/ML GRAM NEGATIVE RODS on 08/15/21 at 0742. FINAL ID= ENTEROBACTER CLOACAE COMPLEX Testing performed by [address] [address] director design: Merna Rodrigues MD Organism 1 ENTEROBACTER CLOACAE COMPLEX 1. ENTEROBACTER CLOACAE COMPLEX Target Route Dose RX AB Cost M.I.C. IQ ------ ----- ------ -- ------ --------- ------ AMOX/K'CLAVULAN R >16/8 CEFOTAXIME I 32 * NITROFURANTOIN I 64 CEFEPIME S <=2 CEFTRIAXONE R 32 CEFUROXIME R >16 TRIMETH/SULFA S <=0.5/9.5 LEVOFLOXACIN S <=0.5 MEROPENEM S <=1 TETRACYCLINE S <=4 AMIKACIN S <=16 AMP/SULBACTAM R >16/8 AZTREONAM I 16 CEFAZOLIN R >16 CEFTAZIDIME R >16 CEFOXITIN R >16 CIPROFLOXACIN S <=0.25 GENTAMICIN S <=2 ERTAPENEM S <=0.5 PIP/TAZOBACTAM S 16 TOBRAMYCIN S <=2 AMPICILLIN R >16 Blood culture negative Objective Assessment IMPRESSION: 1. Fever. 2. Hypotension. 3. Leukocytosis. 4. Urinary tract infection with urethral stricture. 5. Left leg infection, status post multiple incision and drainages, that is looking good. 6 C. difficile 7 late growth of gram-negative kel in the blood dated 08/13/2021 Plan Plan of Care Continue antibiotic p.o. vancomycin and IV meropenem Leg wound seen really clean healthy granulation tissue Suprapubic catheter is pending DUANE ASKEW MD Aug 19, 2021 06:55
[2021-08-19 07:00] VITALS: BP 107/51
--- NOTE | 2021-08-19 07:37 | PN ---
DATE: 08/19/2021 LOCATION: He is in room 528. SUBJECTIVE: This 56-year-old male remains hospitalized with sepsis due to urinary tract source. He is growing Enterobacter out of his urine and gram-negative out of his blood. He has had urethral strictures, has been dilated and a Bailey catheter placed since admission. He also had C. difficile colitis which is improving. Acute renal failure on admission is improved and coagulopathy present on admission is still ongoing as we are trying to adjust Coumadin levels due to his prosthetic aortic valve replacement. He is slowly improved in therapy. OBJECTIVE: VITAL SIGNS: Stable. He is afebrile. CHEST: Clear. HEART: Regular. ABDOMEN: Benign. EXTREMITIES: Legs remains dressed. Bailey in place with clean urine. ASSESSMENT: 1. Sepsis due to Enterobacter cloacae, urinary tract infection, Clostridium difficile colitis. 2. Leukocytosis, improved. 3. Acute renal failure, improved. 4. Diabetes with decent blood sugars. 5. Mechanical heart valve, on warfarin with elevated INR. 6. Leg wounds, improving. PLAN: Continue present care. We will recheck labs in a.m. He is ready at this point, I believe for the first time since his initial admission for discharge where he will go and fly. DOMINIC DR: Ivette TID: [id number]
[2021-08-19 07:41] LABS: CALCIUM 7.8 mg/dL (8.5-10.1); CREATININE 0.9 mg/dL (0.7-1.3); GFR 86.7; POTASSIUM 4.6 mmol/L (3.5-5.1)
[2021-08-19 07:53] LABS: PROTHROMBIN TIME PATIENT 37.5 SEC (11.7-14.0)
[2021-08-19] MEDS: PANTOPRAZOLE 40 MG TABLET.DR. PO SCH (08:10)
[2021-08-19] MEDS: TAMSULOSIN 0.4 MG CAP.ER.24H. PO SCH (08:10)
[2021-08-19] MEDS: ALLOPURINOL 300 MG TABLET. PO SCH (08:10)
[2021-08-19] MEDS: VANCOMYCIN 125 MG/2.5 ML ORAL SOLUTION. PO SCH ×4 (08:10→20:35)
[2021-08-19] MEDS: LACTOBACILLUS RHAMNOSUS GG 1 CAPSULE. PO SCH ×2 (08:10→20:35)
[2021-08-19] MEDS: SACUBITRIL/VALSARTAN 49/51MG TABLET. PO SCH ×2 (08:11→20:37)
[2021-08-19] MEDS: METOPROLOL SUCC 24HR ER 50 MG TAB.ER.24H. PO SCH (08:11)
[2021-08-19] MEDS: MINERAL OIL/PETROLATUM TOPICAL CREAM 113GM JAR. TP SCH (08:12)
[2021-08-19] MEDS: FLUTICASONE 50MCG/NASAL SPRAY 16GM BOTTLE. NS SCH (08:12)
[2021-08-19] MEDS: SODIUM HYPOCHLORITE 0.5% TP SCH (08:12)
[2021-08-19] MEDS: IV NORMAL SALINE 1000ML BAG 1,000 ML IV SCH (08:12)
[2021-08-19] MEDS: ALPRAZolam 0.5 MG TABLET PO PRN (08:18)
[2021-08-19] MEDS: HYDROcodone/APAP 5/325MG 1 TAB TABLET PO PRN (08:18)
[2021-08-19 11:00] VITALS: BP 135/65
[2021-08-19 14:37] VITALS: BP 126/73
[2021-08-19] MEDS: WARFARIN 2.5 MG TABLET. PO SCH (15:53)
[2021-08-19 19:00] VITALS: BP 118/67
[2021-08-19 23:00] VITALS: BP 102/56
[2021-08-20] MEDS: MEROPENEM 500 MG in IV NORMAL SALINE 50ML 50 ML IV SCH ×4 (00:12→22:00)
[2021-08-20] MEDS: IV NORMAL SALINE 1000ML BAG 1,000 ML IV SCH ×3 (01:25→13:17)
[2021-08-20] MEDS: HYDROcodone/APAP 5/325MG 1 TAB TABLET PO PRN ×3 (01:31→20:52)
[2021-08-20] MEDS: ALPRAZolam 0.5 MG TABLET PO PRN ×3 (01:31→20:45)
[2021-08-20 03:00] VITALS: BP 92/49
[2021-08-20] MEDS: PANTOPRAZOLE 40 MG TABLET.DR. PO SCH (06:14)
[2021-08-20 07:00] VITALS: BP 107/53
[2021-08-20 07:20] LABS: BASO # 0.1 x10^3/uL (0.0-0.2); BASO % 1 % (0-3); EOS # 0.2 x10^3/uL (0.0-0.7); EOS % 3 % (0-3); HEMATOCRIT 27.8 % (39.0-53.0); HEMOGLOBIN 8.5 g/dL (13.0-17.5); LYMPH # 0.9 x10^3/uL (1.0-4.8); LYMPH % 16 % (24-48); MEAN CORPUSCULAR HEMOGLOBIN 26 pg (25-35); MEAN CORPUSCULAR HGB CONC 30 g/dL (31-37); MEAN CORPUSCULAR VOLUME 86 fL (79-100); MONO # 0.3 x10^3/uL (0.0-1.1); MONO % 5 % (0-9); NEUT # 3.9 x10^3/uL (1.8-7.7); NEUT % 74 % (31-73); PLATELET COUNT 442 x10^3/uL (140-400); RED BLOOD COUNT 3.26 x10^6/uL (4.30-5.70); RED CELL DISTRIBUTION WIDTH 19.3 % (11.5-14.5); WHITE BLOOD COUNT 5.2 x10^3/uL (4.0-11.0)
[2021-08-20 07:28] LABS: PROTHROMBIN TIME PATIENT 35.4 SEC (11.7-14.0)
[2021-08-20 07:37] LABS: CALCIUM 7.5 mg/dL (8.5-10.1); CREATININE 0.8 mg/dL (0.7-1.3); GFR 99.3; POTASSIUM 4.3 mmol/L (3.5-5.1)
[2021-08-20] MEDS: LACTOBACILLUS RHAMNOSUS GG 1 CAPSULE. PO SCH ×2 (08:07→20:45)
[2021-08-20] MEDS: ALLOPURINOL 300 MG TABLET. PO SCH (08:07)
[2021-08-20] MEDS: TAMSULOSIN 0.4 MG CAP.ER.24H. PO SCH (08:07)
[2021-08-20] MEDS: VANCOMYCIN 125 MG/2.5 ML ORAL SOLUTION. PO SCH ×4 (08:07→21:16)
[2021-08-20] MEDS: SACUBITRIL/VALSARTAN 49/51MG TABLET. PO SCH ×2 (08:08→20:46)
[2021-08-20] MEDS: METOPROLOL SUCC 24HR ER 50 MG TAB.ER.24H. PO SCH (08:09)
[2021-08-20] MEDS: SODIUM HYPOCHLORITE 0.5% TP SCH (09:00)
[2021-08-20] MEDS: FLUTICASONE 50MCG/NASAL SPRAY 16GM BOTTLE. NS SCH (09:00)
[2021-08-20] MEDS: MINERAL OIL/PETROLATUM TOPICAL CREAM 113GM JAR. TP SCH (09:00)
--- NOTE | 2021-08-20 09:25 | NUR ---
axel and mineral oil held at this time. dressing c/d/i.
[2021-08-20 11:00] VITALS: BP 139/64
--- NOTE | 2021-08-20 11:22 | PN ---
DATE: 08/20/2021 LOCATION: He is in room 528. SUBJECTIVE: This 56-year-old male remains hospitalized with sepsis due to urinary tract source. He is growing Enterobacter of urine as well as blood. He had a urethral stricture that has been dilated with Bailey catheter in place since admission and will be indwelling for at least the next couple of weeks. He also had C. difficile colitis which is improving. Acute renal failure on admission is resolved and coagulopathy on admission is still ongoing, but INR of 3.6 and we will need further adjustment of warfarin. OBJECTIVE: VITAL SIGNS: Stable. He is afebrile. CHEST: Clear. HEART: Regular. ABDOMEN: Benign. EXTREMITIES: Legs remain dressed. LABORATORY DATA: Creatinine down to 0.8 this morning and INR is 3.6. CBC shows a hemoglobin of 8.5, platelet count is good. Hemoglobin is up to 8.5. IMPRESSION: 1. Sepsis due to Enterobacter cloacae urinary tract infection. 2. Clostridium difficile colitis. 3. Leukocytosis, improved. 4. Acute renal failure, resolved. 5. Diabetes with decent blood sugars. 6. Mechanical heart valve, on warfarin with an elevated INR. 7. Leg wounds, improving. PLAN: Continue present care. We are waiting to decide where his next level of care is as opposed with those choices being SNU versus Rehab, but again for the first time in this long journey of this illness, the patient looks like he is ready to actually improve and get home. DOMINIC DE LA O: Ivette TID: [id number]
--- NOTE | 2021-08-20 12:24 | PDOC ---
Infectious Disease Note Subjective: Subjective Patient is feeling better diarrhea is better Vital Signs: Vital Signs Vital Signs Date Time Temp Pulse Resp B/P (MAP) Pulse Ox O2 Delivery O2 Flow Rate FiO2 08/20/21 08:09 42 107/53 08/20/21 08:00 Room Air 08/20/21 07:00 97.5 17 94 97.5 Physical Exam: PHYSICAL EXAM GENERAL: Alert, awake gentleman, not in distress. VITAL SIGNS: Stable HEENT: Both pupils are round and reacting. No conjunctival lesion, no lesion in the mouth. NECK: Supple. No JVP, no lymphadenopathy. LUNGS: Clear. HEART: S1, S2, regular. ABDOMEN: Soft, nontender. No organomegaly. EXTREMITIES: No edema or cyanosis. SKIN: Unremarkable except left leg wounds, they are clean. Rest of skin is unremarkable. NEUROLOGIC: The patient is alert, awake, and appropriate. No focal neurologic deficit. Medications: Inpatient Meds: Medications reviewed. Labs: Lab Laboratory Tests Test 08/19/21 17:12 08/19/21 19:30 08/20/21 07:10 08/20/21 07:34 Glucose (Fingerstick) 139 mg/dL (70-99) 140 mg/dL (70-99) 110 mg/dL (70-99) White Blood Count 5.2 x10^3/uL (4.0-11.0) Red Blood Count 3.26 x10^6/uL (4.30-5.70) Hemoglobin 8.5 g/dL (13.0-17.5) Hematocrit 27.8 % (39.0-53.0) Mean Corpuscular Volume 86 fL (79-100) Mean Corpuscular Hemoglobin 26 pg (25-35) Mean Corpuscular Hemoglobin Concent 30 g/dL (31-37) Red Cell Distribution Width 19.3 % (11.5-14.5) Platelet Count 442 x10^3/uL (140-400) Neutrophils (%) (Auto) 74 % (31-73) Lymphocytes (%) (Auto) 16 % (24-48) Monocytes (%) (Auto) 5 % (0-9) Eosinophils (%) (Auto) 3 % (0-3) Basophils (%) (Auto) 1 % (0-3) Neutrophils # (Auto) 3.9 x10^3/uL (1.8-7.7) Lymphocytes # (Auto) 0.9 x10^3/uL (1.0-4.8) Monocytes # (Auto) 0.3 x10^3/uL (0.0-1.1) Eosinophils # (Auto) 0.2 x10^3/uL (0.0-0.7) Basophils # (Auto) 0.1 x10^3/uL (0.0-0.2) Prothrombin Time 35.4 SEC (11.7-14.0) Prothromb Time International Ratio 3.6 (0.8-1.1) Sodium Level 145 mmol/L (136-145) Potassium Level 4.3 mmol/L (3.5-5.1) Chloride Level 102 mmol/L (98-107) Carbon Dioxide Level 24 mmol/L (21-32) Anion Gap 19 (6-14) Blood Urea Nitrogen 17 mg/dL (8-26) Creatinine 0.8 mg/dL (0.7-1.3) Estimated GFR (Cockcroft-Gault) 99.3 Glucose Level 111 mg/dL (70-99) Calcium Level 7.5 mg/dL (8.5-10.1) Test 08/20/21 11:39 Glucose (Fingerstick) 141 mg/dL (70-99) Objective: Assessment: Enterobacter bacteremia 1. Fever. 2. Hypotension. 3. Leukocytosis. 4. Urinary tract infection with urethral stricture.enterobacter 5. Left leg infection, status post multiple incision and drainages, that is looking good. 6 C. difficile colitis Plan: Plan of Care Continue antibiotic p.o. vancomycin and IV meropenem Leg wound seen really clean healthy granulation tissue Suprapubic catheter is pending LEIGH ASKEW MD Aug 20, 2021 12:24
[2021-08-20 15:00] VITALS: BP 113/64
[2021-08-20] MEDS: WARFARIN 2.5 MG TABLET. PO SCH (16:00)
[2021-08-20 19:00] VITALS: BP 123/61
[2021-08-20 23:23] VITALS: BP 113/67
[2021-08-21 03:49] VITALS: BP 151/63
[2021-08-21] MEDS: MEROPENEM 500 MG in IV NORMAL SALINE 50ML 50 ML IV SCH ×3 (05:42→21:19)
[2021-08-21] MEDS: PANTOPRAZOLE 40 MG TABLET.DR. PO SCH (05:56)
[2021-08-21 07:00] VITALS: BP 125/60
--- NOTE | 2021-08-21 08:08 | PN ---
DATE: 08/21/2021 LOCATION: He is in room 528. SUBJECTIVE: This 56-year-old male remains hospitalized due to sepsis, due to Enterobacter UTI with positive blood cultures. Urethral stricture that has been dilated with Bailey indwelling likely cause of UTI on admission and C. difficile colitis, which is improved. His acute renal failure has resolved. He has been coagulopathic mildly throughout most of the stay with warfarin and there is no INR this morning to direct Coumadin dosing. OBJECTIVE: VITAL SIGNS: Stable. He is afebrile. CHEST: Reveals clear to auscultation and percussion. HEART: Regular rate and rhythm. ABDOMEN: Soft, nontender, without hepatosplenomegaly or masses. EXTREMITIES: Left leg remains dressed. LABORATORY DATA: Sugars remain decent. ASSESSMENT: 1. Sepsis due to Enterobacter cloacae urinary tract infection. 2. Clostridium difficile colitis. 3. Leukocytosis, improved. 4. Acute renal failure, resolved. 5. Diabetes, decent blood sugars. 6. Mechanical heart valve, on warfarin with elevated INR. 7. Leg wounds, improving. PLAN: Continue present care. Case management working on discharge destination with insurance company. RAJAN DR: Ivette TID: [id number]
[2021-08-21] MEDS: TAMSULOSIN 0.4 MG CAP.ER.24H. PO SCH (08:38)
[2021-08-21] MEDS: SACUBITRIL/VALSARTAN 49/51MG TABLET. PO SCH ×2 (08:38→21:18)
[2021-08-21] MEDS: VANCOMYCIN 125 MG/2.5 ML ORAL SOLUTION. PO SCH ×4 (08:38→21:18)
[2021-08-21] MEDS: LACTOBACILLUS RHAMNOSUS GG 1 CAPSULE. PO SCH ×2 (08:39→21:00)
[2021-08-21] MEDS: ALLOPURINOL 300 MG TABLET. PO SCH (08:39)
[2021-08-21] MEDS: METOPROLOL SUCC 24HR ER 50 MG TAB.ER.24H. PO SCH (08:39)
[2021-08-21] MEDS: HYDROcodone/APAP 5/325MG 1 TAB TABLET PO PRN ×2 (08:43→22:30)
[2021-08-21] MEDS: FLUTICASONE 50MCG/NASAL SPRAY 16GM BOTTLE. NS SCH (08:46)
[2021-08-21] MEDS: SODIUM HYPOCHLORITE 0.5% TP SCH (08:46)
[2021-08-21] MEDS: MINERAL OIL/PETROLATUM TOPICAL CREAM 113GM JAR. TP SCH (09:00)
[2021-08-21] MEDS: IV NORMAL SALINE 1000ML BAG 1,000 ML IV SCH ×3 (10:00→21:17)
[2021-08-21 11:00] VITALS: BP 123/73
--- NOTE | 2021-08-21 14:41 | PDOC ---
Infectious Disease Note Subjective: Subjective Patient is feeling better diarrhea is better Vital Signs: Vital Signs Vital Signs Date Time Temp Pulse Resp B/P (MAP) Pulse Ox O2 Delivery O2 Flow Rate FiO2 08/21/21 11:00 98.0 92 18 123/73 (90) 95 Room Air 98.0 08/20/21 21:22 2.0 Physical Exam: PHYSICAL EXAM GENERAL: Alert, awake gentleman, not in distress. VITAL SIGNS: Stable HEENT: Both pupils are round and reacting. No conjunctival lesion, no lesion in the mouth. NECK: Supple. No JVP, no lymphadenopathy. LUNGS: Clear. HEART: S1, S2, regular. ABDOMEN: Soft, nontender. No organomegaly. EXTREMITIES: No edema or cyanosis. SKIN: Unremarkable except left leg wounds, they are clean. Rest of skin is unremarkable. NEUROLOGIC: The patient is alert, awake, and appropriate. No focal neurologic deficit. Medications: Inpatient Meds: Medications reviewed. Labs: Lab Laboratory Tests Test 08/20/21 16:18 08/20/21 20:53 08/21/21 07:59 Glucose (Fingerstick) 107 mg/dL (70-99) 124 mg/dL (70-99) 121 mg/dL (70-99) Objective: Assessment: Enterobacter bacteremia 1. Fever. 2. Hypotension. 3. Leukocytosis. 4. Urinary tract infection with urethral stricture.enterobacter 5. Left leg infection, status post multiple incision and drainages, that is looking good. 6 C. difficile colitis Plan: Plan of Care Continue antibiotic p.o. vancomycin and IV meropenem Leg wound seen really clean healthy granulation tissue SPC planned LEIGH ASKEW MD Aug 21, 2021 14:41
[2021-08-21 15:00] VITALS: BP 126/70
[2021-08-21 18:23] LABS: PROTHROMBIN TIME PATIENT 31.9 SEC (11.7-14.0)
[2021-08-21] MEDS: WARFARIN 2.5 MG TABLET. PO SCH (18:44)
[2021-08-21 19:00] VITALS: BP 121/67
[2021-08-21] MEDS: ALPRAZolam 0.5 MG TABLET PO PRN (22:30)
[2021-08-21 23:13] VITALS: BP 119/63
[2021-08-22 03:31] VITALS: BP 112/65
[2021-08-22 04:52] LABS: PROTHROMBIN TIME PATIENT 29.5 SEC (11.7-14.0)
--- NOTE | 2021-08-22 05:52 | PDOC ---
Infectious Disease Note Subjective: Subjective Patient without complaints Stool is forming Denies fever, nausea, vomiting, abdominal pain Vital Signs: Vital Signs Vital Signs Date Time Temp Pulse Resp B/P (MAP) Pulse Ox O2 Delivery O2 Flow Rate FiO2 08/22/21 03:31 97.5 82 18 112/65 (81) 95 Room Air 97.5 08/21/21 23:28 2.0 Physical Exam: PHYSICAL EXAM GENERAL: Alert, awake gentleman, not in distress. VITAL SIGNS: Stable HEENT: Both pupils are round and reacting. No conjunctival lesion, no lesion in the mouth. NECK: Supple. No JVP, no lymphadenopathy. LUNGS: Clear. HEART: S1, S2, regular. ABDOMEN: Soft, nontender. No organomegaly. EXTREMITIES: No edema or cyanosis. SKIN: Unremarkable except left leg wounds, they are clean. Rest of skin is unremarkable. NEUROLOGIC: The patient is alert, awake, and appropriate. No focal neurologic deficit. Medications: Inpatient Meds: Medications reviewed. Labs: Lab Laboratory Tests Test 08/21/21 07:59 08/21/21 17:35 08/21/21 20:03 08/22/21 02:55 Glucose (Fingerstick) 121 mg/dL (70-99) 121 mg/dL (70-99) Prothrombin Time 31.9 SEC (11.7-14.0) 29.5 SEC (11.7-14.0) Prothromb Time International Ratio 3.2 (0.8-1.1) 2.9 (0.8-1.1) Objective: Assessment: Enterobacter bacteremia 1. Fever. 2. Hypotension. 3. Leukocytosis. 4. Urinary tract infection with urethral stricture.enterobacter 5. Left leg infection, status post multiple incision and drainages, that is looking good. 6 C. difficile colitis Plan: Plan of Care Continue antibiotic p.o. vancomycin and IV meropenem Leg wound seen really clean healthy granulation tissue SPC planned LEIGH ASKEW MD Aug 22, 2021 05:52
[2021-08-22] MEDS: MEROPENEM 500 MG in IV NORMAL SALINE 50ML 50 ML IV SCH ×3 (06:20→20:42)
[2021-08-22 07:00] VITALS: BP 117/69
[2021-08-22] MEDS: SACUBITRIL/VALSARTAN 49/51MG TABLET. PO SCH ×2 (08:44→20:42)
[2021-08-22] MEDS: LACTOBACILLUS RHAMNOSUS GG 1 CAPSULE. PO SCH ×2 (08:44→20:42)
[2021-08-22] MEDS: TAMSULOSIN 0.4 MG CAP.ER.24H. PO SCH (08:44)
[2021-08-22] MEDS: ALLOPURINOL 300 MG TABLET. PO SCH (08:44)
[2021-08-22] MEDS: METOPROLOL SUCC 24HR ER 50 MG TAB.ER.24H. PO SCH (08:45)
[2021-08-22] MEDS: PANTOPRAZOLE 40 MG TABLET.DR. PO SCH (08:45)
[2021-08-22] MEDS: VANCOMYCIN 125 MG/2.5 ML ORAL SOLUTION. PO SCH ×4 (08:48→20:42)
[2021-08-22] MEDS: IV NORMAL SALINE 1000ML BAG 1,000 ML IV SCH ×2 (08:48→16:16)
[2021-08-22] MEDS: HYDROcodone/APAP 5/325MG 1 TAB TABLET PO PRN ×2 (08:49→16:01)
[2021-08-22] MEDS: FLUTICASONE 50MCG/NASAL SPRAY 16GM BOTTLE. NS SCH (09:00)
[2021-08-22] MEDS: SODIUM HYPOCHLORITE 0.5% TP SCH (09:00)
[2021-08-22] MEDS: MINERAL OIL/PETROLATUM TOPICAL CREAM 113GM JAR. TP SCH (09:00)
[2021-08-22 10:53] VITALS: BP 107/59
[2021-08-22 15:00] VITALS: BP 121/70
[2021-08-22] MEDS: WARFARIN 2.5 MG TABLET. PO SCH (16:00)
[2021-08-22 19:00] VITALS: BP 123/74
--- NOTE | 2021-08-22 21:21 | PN ---
DATE: 08/22/2021 DAILY PROGRESS NOTE LOCATION: He is in room 528. SUBJECTIVE: This 56-year-old male remains hospitalized due to sepsis due to Enterobacter UTI with positive blood cultures. He had a urethral stricture on admission that has been dilated with a Bailey catheter, indwelling and is likely cause of his UTI. On admission, he had C. difficile colitis in addition, which is improved. His acute renal failure is resolved. He has been coagulopathic mildly throughout most of the stay with warfarin and INR this morning is 2.9 with pharmacy dosing his warfarin. Sugars remain decent. OBJECTIVE: CHEST: Clear. HEART: Regular. ABDOMEN: Benign. EXTREMITIES: Left leg remains dressed. VITAL SIGNS: Stable. He is afebrile. IMPRESSION: 1. Sepsis due to Enterobacter cloacae urinary tract infection. 2. Clostridium difficile colitis. 3. Leukocytosis, improved. 4. Acute renal failure, resolved. 5. Diabetes with decent blood sugars. 6. Mechanical heart valve, on warfarin. 7. Leg wounds, improving. PLAN: Continue present care. It appears that [facility] has approved him to come there, but awaiting at this point on insurance company approval per case management notes. HELENA/LORRI DR: Ivette TID: [id number]
[2021-08-22 23:26] VITALS: BP 113/55
[2021-08-23] MEDS: IV NORMAL SALINE 1000ML BAG 1,000 ML IV SCH ×3 (03:13→23:56)
[2021-08-23 03:24] VITALS: BP 107/66
[2021-08-23] MEDS: MEROPENEM 500 MG in IV NORMAL SALINE 50ML 50 ML IV SCH ×3 (05:20→22:00)
[2021-08-23 07:00] VITALS: BP 105/66
[2021-08-23] MEDS: TAMSULOSIN 0.4 MG CAP.ER.24H. PO SCH (07:51)
[2021-08-23] MEDS: SACUBITRIL/VALSARTAN 49/51MG TABLET. PO SCH ×2 (07:52→20:30)
[2021-08-23] MEDS: LACTOBACILLUS RHAMNOSUS GG 1 CAPSULE. PO SCH ×2 (07:53→20:30)
[2021-08-23] MEDS: ALLOPURINOL 300 MG TABLET. PO SCH (07:53)
[2021-08-23] MEDS: PANTOPRAZOLE 40 MG TABLET.DR. PO SCH (07:53)
[2021-08-23] MEDS: VANCOMYCIN 125 MG/2.5 ML ORAL SOLUTION. PO SCH ×4 (07:54→20:40)
[2021-08-23] MEDS: METOPROLOL SUCC 24HR ER 50 MG TAB.ER.24H. PO SCH (07:54)
[2021-08-23] MEDS: SODIUM HYPOCHLORITE 0.5% TP SCH (07:55)
[2021-08-23] MEDS: MINERAL OIL/PETROLATUM TOPICAL CREAM 113GM JAR. TP SCH (07:56)
[2021-08-23] MEDS: FLUTICASONE 50MCG/NASAL SPRAY 16GM BOTTLE. NS SCH (08:06)
[2021-08-23 11:00] VITALS: BP 108/61
--- NOTE | 2021-08-23 11:19 | PDOC ---
Infectious Disease Note Subjective: Subjective Patient without complaints Stool is forming Denies fever, nausea, vomiting, abdominal pain Vital Signs: Vital Signs Vital Signs Date Time Temp Pulse Resp B/P (MAP) Pulse Ox O2 Delivery O2 Flow Rate FiO2 08/23/21 08:00 Room Air 08/23/21 07:54 88 105/66 08/23/21 07:00 97.9 16 97 97.9 Physical Exam: PHYSICAL EXAM GENERAL: Alert, awake gentleman, not in distress. VITAL SIGNS: Stable HEENT: Both pupils are round and reacting. No conjunctival lesion, no lesion in the mouth. NECK: Supple. No JVP, no lymphadenopathy. LUNGS: Clear. HEART: S1, S2, regular. ABDOMEN: Soft, nontender. No organomegaly. EXTREMITIES: No edema or cyanosis. SKIN: Unremarkable except left leg wounds, they are clean. Rest of skin is unremarkable. NEUROLOGIC: The patient is alert, awake, and appropriate. No focal neurologic deficit. Medications: Inpatient Meds: Medications reviewed. Labs: Lab Laboratory Tests Test 08/22/21 11:38 08/22/21 16:55 08/22/21 20:26 08/23/21 08:07 Glucose (Fingerstick) 141 mg/dL (70-99) 118 mg/dL (70-99) 137 mg/dL (70-99) 101 mg/dL (70-99) Objective: Assessment: Enterobacter bacteremia Fever.resolved Hypotension.resolved Leukocytosis.improving Urinary tract infection with urethral stricture.enterobacter Left leg infection, status post multiple incision and drainages, that is looking good. C. difficile colitis Plan: Plan of Care Continue antibiotic p.o. vancomycin and IV meropenem Awaiting discharge pending insurance approval Change meropenem to cefepime 2 g IV every 12 for 3 days and p.o. vancomycin 4 times daily for 14 days Prescription in chart Leg wound seen really clean healthy granulation tissue SPC planned as outpatient Discussed with LEIGH SNIDER MD Aug 23, 2021 11:19
--- NOTE | 2021-08-23 11:44 | PN ---
DATE: 08/23/2021 DAILY PROGRESS NOTE LOCATION: He is in room 528. SUBJECTIVE: This 56-year-old male remains hospitalized due to sepsis with Enterobacter UTI and positive blood cultures. He has had a urethral stricture on admission that has been dilated with a Bailey catheter placed and indwelling. He initially had C. diff colitis, which has improved. His renal failure, present on admission is resolved. We have been trying to adjust warfarin throughout the stay for his anticoagulation for his mechanical heart valve. Sugars remain decent. OBJECTIVE: CHEST: Clear. HEART: Regular. ABDOMEN: Benign. EXTREMITIES: Left leg remains dressed. VITAL SIGNS: Stable. He is afebrile. GENERAL: He is awake and alert and walked to the door and back and half way to the door and back in therapy yesterday. He does hope to see overall improvement at this point in time. ASSESSMENT: 1. Enterobacter sepsis. 2. Clostridium difficile colitis. 3. Leukocytosis, improved. 4. Acute renal failure, resolved. 5. Diabetes with good blood sugars. 6. Mechanical heart valve, on warfarin with no INR available yet today, but 2.5 mg of warfarin given yesterday. 7. Leg wounds, improving. 8. General debility. PLAN: Continue present care, transfer to LTAC for ongoing rehab and IV antibiotics when insurance will approve the same. ROSE/BLANCA/VERONIQUE DE LA O: ROSE/donato TID: [id number]
--- NOTE | 2021-08-23 12:31 | NUR ---
Wound Care Wound Type/Assessment: Patient seen per wound care follow up regarding open surgical incisions to the left lat leg, left med calf, left foot and left lateral foot. see wound assessment. Patient known to wound care from previous admissions. These wounds continue to greatly improve and all have red granulation tissue with minimal slough and good skin edges. All wounds cleansed and assessed. Patient stated he would likely discharge this weekend back to [facility] if all goes as planned. Treatment Recommendations/Plan: Cleanse all wounds and pat dry. Recommendations for collagen to wound bed, then Hydrofera Blue Classic (moisten with saline and ring excess out) apply to wound, then a layer of xeroform gauze, ABD pads and wrap with kerlix. Then a medi-purchase order checker G for some light compression. Change on Thursday and every 2-3 days following that. Dressings applied and no other wounds noted upon complete head to toe assessment. Education provided: Educated patient on the POC Patient educated on dressing changes, POC, and PU prevention. Offloading surface/device: Patient is able to self turn. Recommended Referrals/Tests: n/a Discharge Recommendations for dressings: Dressing change instructions left in room as well as collagen and Hydrofera Blue Classic for next dressing changes. Bed lowered and call light in reach. Wound care will follow up on 08/30/21.
--- NOTE | 2021-08-23 13:14 | NUR ---
MOE following. Discussed with RN, MOE sent message to Daniel at [facility] to determine insurance update, awaiting response. MOE will continue to follow. Addendum: 08/23/21 at 1447 by BRANDIN ROSA Insurance approved but no bed available. Follow up with Cherelle at [phone] on Thursday or Daniel at [phone] on Thursday to determine bed availability. Pt added to weekend discharge list.
[2021-08-23] MEDS: HYDROcodone/APAP 5/325MG 1 TAB TABLET PO PRN ×2 (13:25→20:30)
[2021-08-23 15:00] VITALS: BP 111/56
[2021-08-23] MEDS: WARFARIN 2.5 MG TABLET. PO SCH (18:38)
[2021-08-23 19:00] VITALS: BP 112/65
[2021-08-23] MEDS: ALPRAZolam 0.5 MG TABLET PO PRN (20:30)
[2021-08-23 23:02] VITALS: BP 117/66
[2021-08-24 03:05] VITALS: BP 111/61
[2021-08-24] MEDS: MEROPENEM 500 MG in IV NORMAL SALINE 50ML 50 ML IV SCH ×3 (05:50→20:56)
[2021-08-24 07:00] VITALS: BP 136/67
[2021-08-24 07:39] LABS: PROTHROMBIN TIME PATIENT 30.8 SEC (11.7-14.0)
--- NOTE | 2021-08-24 08:00 | PDOC ---
Provider Note Date of Service: DATE: 08/24/21 TIME: 07:59 Provider Note on merro/po vanc - labs/glucose/ inr all stable, reduce iv saline, rest same Justifications for Admission Other Justification CHAYITO KING MD Aug 24, 2021 08:00
[2021-08-24] MEDS: TAMSULOSIN 0.4 MG CAP.ER.24H. PO SCH (08:56)
[2021-08-24] MEDS: PANTOPRAZOLE 40 MG TABLET.DR. PO SCH (08:56)
[2021-08-24] MEDS: LACTOBACILLUS RHAMNOSUS GG 1 CAPSULE. PO SCH ×2 (08:56→20:55)
[2021-08-24] MEDS: SACUBITRIL/VALSARTAN 49/51MG TABLET. PO SCH ×2 (08:56→20:58)
[2021-08-24] MEDS: FLUTICASONE 50MCG/NASAL SPRAY 16GM BOTTLE. NS SCH (08:56)
[2021-08-24] MEDS: ALLOPURINOL 300 MG TABLET. PO SCH (08:56)
[2021-08-24] MEDS: METOPROLOL SUCC 24HR ER 50 MG TAB.ER.24H. PO SCH (08:57)
[2021-08-24] MEDS: MINERAL OIL/PETROLATUM TOPICAL CREAM 113GM JAR. TP SCH (08:58)
[2021-08-24] MEDS: SODIUM HYPOCHLORITE 0.5% TP SCH (08:59)
[2021-08-24] MEDS: IV NORMAL SALINE 1000ML BAG 1,000 ML IV SCH (09:03)
[2021-08-24] MEDS: HYDROcodone/APAP 5/325MG 1 TAB TABLET PO PRN ×3 (09:09→20:55)
[2021-08-24] MEDS: VANCOMYCIN 125 MG/2.5 ML ORAL SOLUTION. PO SCH ×4 (09:34→20:56)
[2021-08-24 11:27] VITALS: BP 121/72
--- NOTE | 2021-08-24 11:31 | NUR ---
Reviewed documentation from Pedro Luis Mccarty. TISH Merritt [facility]
--- NOTE | 2021-08-24 14:08 | PDOC ---
Infectious Disease Note Subjective: Subjective Patient without complaints Vital Signs: Vital Signs Vital Signs Date Time Temp Pulse Resp B/P (MAP) Pulse Ox O2 Delivery O2 Flow Rate FiO2 08/24/21 11:27 98.0 89 20 121/72 (88) 96 Room Air 98.0 08/24/21 09:49 2.0 Physical Exam: PHYSICAL EXAM GENERAL: Alert, awake gentleman, not in distress. VITAL SIGNS: Stable HEENT: Both pupils are round and reacting. No conjunctival lesion, no lesion in the mouth. NECK: Supple. No JVP, no lymphadenopathy. LUNGS: Clear. HEART: S1, S2, regular. ABDOMEN: Soft, nontender. No organomegaly. EXTREMITIES: No edema or cyanosis. SKIN: Unremarkable except left leg wounds, they are clean. Rest of skin is unremarkable. NEUROLOGIC: The patient is alert, awake, and appropriate. No focal neurologic deficit. Medications: Inpatient Meds: Medications reviewed. Labs: Lab Laboratory Tests Test 08/23/21 16:56 08/24/21 06:58 08/24/21 07:35 08/24/21 10:57 Glucose (Fingerstick) 114 mg/dL (70-99) 103 mg/dL (70-99) 124 mg/dL (70-99) Prothrombin Time 30.8 SEC (11.7-14.0) Prothromb Time International Ratio 3.0 (0.8-1.1) Objective: Assessment: Enterobacter bacteremia Fever.resolved Hypotension.resolved Leukocytosis.improving Urinary tract infection with urethral stricture.enterobacter Left leg infection, status post multiple incision and drainages, that is looking good. C. difficile colitis Plan: Plan of Care Continue antibiotic p.o. vancomycin and IV meropenem Awaiting discharge pending insurance approval Leg wound seen really clean healthy granulation tissue SPC planned as outpatient Discussed with LEIGH SNIDER MD Aug 24, 2021 14:08
[2021-08-24 14:52] VITALS: BP 102/60
[2021-08-24] MEDS: WARFARIN 2.5 MG TABLET. PO SCH (16:43)
[2021-08-24 19:00] VITALS: BP 99/64
[2021-08-24 23:00] VITALS: BP 107/70
[2021-08-25 03:00] VITALS: BP 104/59
[2021-08-25] MEDS: IV NORMAL SALINE 1000ML BAG 1,000 ML IV SCH (04:01)
[2021-08-25] MEDS: MEROPENEM 500 MG in IV NORMAL SALINE 50ML 50 ML IV SCH ×3 (05:44→21:13)
[2021-08-25 07:00] VITALS: BP 112/61
[2021-08-25 07:25] LABS: BASO % 1 % (0-3); EOS # 0.1 x10^3/uL (0.0-0.7); EOS % 3 % (0-3); HEMATOCRIT 26.6 % (39.0-53.0); HEMOGLOBIN 8.1 g/dL (13.0-17.5); LYMPH # 0.8 x10^3/uL (1.0-4.8); LYMPH % 20 % (24-48); MEAN CORPUSCULAR HEMOGLOBIN 25 pg (25-35); MEAN CORPUSCULAR HGB CONC 31 g/dL (31-37); MEAN CORPUSCULAR VOLUME 83 fL (79-100); MONO # 0.2 x10^3/uL (0.0-1.1); MONO % 5 % (0-9); NEUT # 2.9 x10^3/uL (1.8-7.7); NEUT % 71 % (31-73); PLATELET COUNT 319 x10^3/uL (140-400); RED BLOOD COUNT 3.21 x10^6/uL (4.30-5.70); RED CELL DISTRIBUTION WIDTH 19.3 % (11.5-14.5); WHITE BLOOD COUNT 4.1 x10^3/uL (4.0-11.0)
[2021-08-25 07:46] LABS: ALBUMIN 1.8 g/dL (3.4-5.0); ALBUMIN/GLOBULIN RATIO 0.4 (1.0-1.7); CALCIUM 7.6 mg/dL (8.5-10.1); CREATININE 0.9 mg/dL (0.7-1.3); GFR 86.7; POTASSIUM 4.4 mmol/L (3.5-5.1); TOTAL BILIRUBIN 0.4 mg/dL (0.2-1.0); TOTAL PROTEIN 6.2 g/dL (6.4-8.2)
[2021-08-25] MEDS: PANTOPRAZOLE 40 MG TABLET.DR. PO SCH (08:15)
[2021-08-25] MEDS: ALLOPURINOL 300 MG TABLET. PO SCH (08:15)
[2021-08-25] MEDS: LACTOBACILLUS RHAMNOSUS GG 1 CAPSULE. PO SCH ×2 (08:15→21:13)
[2021-08-25] MEDS: TAMSULOSIN 0.4 MG CAP.ER.24H. PO SCH (08:18)
[2021-08-25] MEDS: ALPRAZolam 0.5 MG TABLET PO PRN ×2 (08:18→21:19)
[2021-08-25] MEDS: VANCOMYCIN 125 MG/2.5 ML ORAL SOLUTION. PO SCH ×4 (08:20→21:13)
[2021-08-25] MEDS: HYDROcodone/APAP 5/325MG 1 TAB TABLET PO PRN ×2 (08:23→21:19)
[2021-08-25] MEDS: METOPROLOL SUCC 24HR ER 50 MG TAB.ER.24H. PO SCH (08:25)
[2021-08-25] MEDS: SACUBITRIL/VALSARTAN 49/51MG TABLET. PO SCH ×2 (08:26→21:13)
[2021-08-25] MEDS: SODIUM HYPOCHLORITE 0.5% TP SCH (08:47)
[2021-08-25] MEDS: FLUTICASONE 50MCG/NASAL SPRAY 16GM BOTTLE. NS SCH (08:47)
[2021-08-25] MEDS: MINERAL OIL/PETROLATUM TOPICAL CREAM 113GM JAR. TP SCH (09:00)
--- NOTE | 2021-08-25 09:42 | PDOC ---
Provider Note Date of Service: DATE: 08/25/21 TIME: 09:41 Provider Note meds same, glucose good, vss- inr 3 on current warf, no new meds Justifications for Admission Other Justification CHAYITO KING MD Aug 25, 2021 09:42
[2021-08-25 11:00] VITALS: BP 107/64
--- NOTE | 2021-08-25 13:52 | PDOC ---
Infectious Disease Note Subjective: Subjective Patient without complaints no diarrhea Vital Signs: Vital Signs Vital Signs Date Time Temp Pulse Resp B/P (MAP) Pulse Ox O2 Delivery O2 Flow Rate FiO2 08/25/21 11:00 97.8 83 17 107/64 (78) 94 Room Air 97.8 08/24/21 21:25 2.0 Physical Exam: PHYSICAL EXAM GENERAL: Alert, awake gentleman, not in distress. VITAL SIGNS: Stable HEENT: Both pupils are round and reacting. No conjunctival lesion, no lesion in the mouth. NECK: Supple. No JVP, no lymphadenopathy. LUNGS: Clear. HEART: S1, S2, regular. ABDOMEN: Soft, nontender. No organomegaly. EXTREMITIES: No edema or cyanosis. SKIN: Unremarkable except left leg wounds, they are clean. Rest of skin is unremarkable. NEUROLOGIC: The patient is alert, awake, and appropriate. No focal neurologic deficit. Medications: Inpatient Meds: Medications reviewed. Labs: Lab Laboratory Tests Test 08/24/21 16:39 08/24/21 20:11 08/25/21 06:25 08/25/21 08:22 Glucose (Fingerstick) 105 mg/dL (70-99) 116 mg/dL (70-99) 102 mg/dL (70-99) White Blood Count 4.1 x10^3/uL (4.0-11.0) Red Blood Count 3.21 x10^6/uL (4.30-5.70) Hemoglobin 8.1 g/dL (13.0-17.5) Hematocrit 26.6 % (39.0-53.0) Mean Corpuscular Volume 83 fL (79-100) Mean Corpuscular Hemoglobin 25 pg (25-35) Mean Corpuscular Hemoglobin Concent 31 g/dL (31-37) Red Cell Distribution Width 19.3 % (11.5-14.5) Platelet Count 319 x10^3/uL (140-400) Neutrophils (%) (Auto) 71 % (31-73) Lymphocytes (%) (Auto) 20 % (24-48) Monocytes (%) (Auto) 5 % (0-9) Eosinophils (%) (Auto) 3 % (0-3) Basophils (%) (Auto) 1 % (0-3) Neutrophils # (Auto) 2.9 x10^3/uL (1.8-7.7) Lymphocytes # (Auto) 0.8 x10^3/uL (1.0-4.8) Monocytes # (Auto) 0.2 x10^3/uL (0.0-1.1) Eosinophils # (Auto) 0.1 x10^3/uL (0.0-0.7) Basophils # (Auto) 0.0 x10^3/uL (0.0-0.2) Sodium Level 143 mmol/L (136-145) Potassium Level 4.4 mmol/L (3.5-5.1) Chloride Level 107 mmol/L (98-107) Carbon Dioxide Level 27 mmol/L (21-32) Anion Gap 9 (6-14) Blood Urea Nitrogen 8 mg/dL (8-26) Creatinine 0.9 mg/dL (0.7-1.3) Estimated GFR (Cockcroft-Gault) 86.7 BUN/Creatinine Ratio 9 (6-20) Glucose Level 103 mg/dL (70-99) Calcium Level 7.6 mg/dL (8.5-10.1) Total Bilirubin 0.4 mg/dL (0.2-1.0) Aspartate Amino Transf (AST/SGOT) 8 U/L (15-37) Alanine Aminotransferase (ALT/SGPT) 9 U/L (16-63) Alkaline Phosphatase 85 U/L (46-116) Total Protein 6.2 g/dL (6.4-8.2) Albumin 1.8 g/dL (3.4-5.0) Albumin/Globulin Ratio 0.4 (1.0-1.7) Test 08/25/21 12:19 Glucose (Fingerstick) 140 mg/dL (70-99) Objective: Assessment: Enterobacter bacteremia Fever.resolved Hypotension.resolved Leukocytosis.improving Urinary tract infection with urethral stricture.enterobacter Left leg infection, status post multiple incision and drainages, that is looking good. C. difficile colitis Plan: Plan of Care Continue antibiotic p.o. vancomycin and IV meropenem Awaiting discharge pending insurance approval Leg wound stable SPC planned as outpatient LEIGH ASKEW MD Aug 25, 2021 13:52
[2021-08-25 15:00] VITALS: BP 116/69
[2021-08-25] MEDS: WARFARIN 2.5 MG TABLET. PO SCH (17:15)
[2021-08-25 19:00] VITALS: BP 113/65
[2021-08-25 23:00] VITALS: BP 127/47
[2021-08-26 03:00] VITALS: BP 113/62
[2021-08-26] MEDS: IV NORMAL SALINE 1000ML BAG 1,000 ML IV SCH ×2 (05:54→21:37)
[2021-08-26] MEDS: MEROPENEM 500 MG in IV NORMAL SALINE 50ML 50 ML IV SCH ×3 (05:54→21:33)
[2021-08-26 07:00] VITALS: BP 109/56
[2021-08-26 07:33] LABS: PROTHROMBIN TIME PATIENT 30.9 SEC (11.7-14.0)
--- NOTE | 2021-08-26 08:15 | PN ---
DATE: 08/26/2021 LOCATION: He is in room 528. SUBJECTIVE: This 56-year-old white male remains hospitalized, initially with sepsis due to Enterobacter UTI with positive blood cultures. He has had a urethral stricture on admission, dilated with a Bailey catheter, placed an indwelling. Also, had C. diff colitis, which is improved. Renal failure present on admission has resolved. Warfarin is being adjusted and INR is 3.1 this morning. Sugars remain decent. He continues to feel better and improved and awaiting insurance approval for transfer to [facility]. OBJECTIVE: VITAL SIGNS: Stable. He is afebrile. CHEST: Clear. HEART: Regular. ABDOMEN: Benign. EXTREMITIES: Left leg remains dressed. ASSESSMENT: 1. Enterobacter sepsis. 2. Clostridium difficile colitis. 3. Leukocytosis, improved. 4. Acute renal failure, resolved. 5. Diabetes with good blood sugars. 6. Mechanical heart valve with therapeutic INR. 7. Left leg wounds, improving. 8. Generalized weakness and debility. PLAN: Await on insurance company approval. EBEN DR: Ivette TID: [id number]
[2021-08-26] MEDS: PANTOPRAZOLE 40 MG TABLET.DR. PO SCH (08:27)
[2021-08-26] MEDS: LACTOBACILLUS RHAMNOSUS GG 1 CAPSULE. PO SCH ×2 (08:27→21:36)
[2021-08-26] MEDS: TAMSULOSIN 0.4 MG CAP.ER.24H. PO SCH (08:28)
[2021-08-26] MEDS: METOPROLOL SUCC 24HR ER 50 MG TAB.ER.24H. PO SCH (08:28)
[2021-08-26] MEDS: ALLOPURINOL 300 MG TABLET. PO SCH (08:28)
[2021-08-26] MEDS: VANCOMYCIN 125 MG/2.5 ML ORAL SOLUTION. PO SCH ×4 (08:29→21:33)
[2021-08-26] MEDS: FLUTICASONE 50MCG/NASAL SPRAY 16GM BOTTLE. NS SCH (08:38)
[2021-08-26] MEDS: MINERAL OIL/PETROLATUM TOPICAL CREAM 113GM JAR. TP SCH (08:42)
[2021-08-26] MEDS: SODIUM HYPOCHLORITE 0.5% TP SCH (08:42)
[2021-08-26 11:00] VITALS: BP 110/65
[2021-08-26] MEDS: SACUBITRIL/VALSARTAN 49/51MG TABLET. PO SCH ×2 (12:14→21:35)
--- NOTE | 2021-08-26 13:37 | PDOC ---
Infectious Disease Note Subjective Subjective Patient without complaints no diarrhea Vital Sign Vital Signs Vital Signs Date Time Temp Pulse Resp B/P (MAP) Pulse Ox O2 Delivery O2 Flow Rate FiO2 08/26/21 12:14 84 110/69 08/26/21 11:00 97.6 12 96 Room Air 97.6 08/25/21 22:58 2.0 Physical Exam PHYSICAL EXAM GENERAL: Alert, awake gentleman, not in distress. VITAL SIGNS: Stable HEENT: Both pupils are round and reacting. No conjunctival lesion, no lesion in the mouth. NECK: Supple. No JVP, no lymphadenopathy. LUNGS: Clear. HEART: S1, S2, regular. ABDOMEN: Soft, nontender. No organomegaly. EXTREMITIES: No edema or cyanosis. SKIN: Unremarkable except left leg wounds, they are clean. Rest of skin is unremarkable. NEUROLOGIC: The patient is alert, awake, and appropriate. No focal neurologic deficit. Labs Lab Laboratory Tests Test 08/25/21 19:40 08/26/21 06:20 08/26/21 07:51 08/26/21 12:10 Glucose (Fingerstick) 130 mg/dL (70-99) 94 mg/dL (70-99) Prothrombin Time 30.9 SEC (11.7-14.0) Prothromb Time International Ratio 3.1 (0.8-1.1) SARS-CoV-2 Antigen (Rapid) Negative (NEGATIVE) Test 08/26/21 12:11 Glucose (Fingerstick) 116 mg/dL (70-99) Micro CULTURE URINE Final GREATER THAN 100,000 CFU/ML GRAM NEGATIVE RODS on 08/15/21 at 0742. FINAL ID= ENTEROBACTER CLOACAE COMPLEX [place] [address] montessori program director: Merna Rodrigues MD Organism 1 ENTEROBACTER CLOACAE COMPLEX 1. ENTEROBACTER CLOACAE COMPLEX Target Route Dose RX AB Cost M.I.C. IQ ------ ----- ------ -- ------ --------- ------ AMOX/K'CLAVULAN R >16/8 CEFOTAXIME I 32 * NITROFURANTOIN I 64 CEFEPIME S <=2 CEFTRIAXONE R 32 CEFUROXIME R >16 TRIMETH/SULFA S <=0.5/9.5 LEVOFLOXACIN S <=0.5 MEROPENEM S <=1 TETRACYCLINE S <=4 AMIKACIN S <=16 AMP/SULBACTAM R >16/8 AZTREONAM I 16 CEFAZOLIN R >16 CEFTAZIDIME R >16 CEFOXITIN R >16 CIPROFLOXACIN S <=0.25 GENTAMICIN S <=2 ERTAPENEM S <=0.5 PIP/TAZOBACTAM S 16 TOBRAMYCIN S <=2 AMPICILLIN R >16 Blood culture negative Objective Assessment Enterobacter bacteremia Fever.resolved Hypotension.resolved Leukocytosis.improving Urinary tract infection with urethral stricture.enterobacter Left leg infection, status post multiple incision and drainages, that is looking good. C. difficile colitis Plan Plan of Care Continue antibiotic p.o. vancomycin for 14 more days, and IV meropenem for 2 more days Awaiting discharge pending insurance approval Leg wound stable SPC planned as outpatient DUANE ASKEW MD Aug 26, 2021 13:37
[2021-08-26] MEDS: WARFARIN 2.5 MG TABLET. PO SCH (15:46)
[2021-08-26 19:00] VITALS: BP 109/55
[2021-08-26] MEDS: ALPRAZolam 0.5 MG TABLET PO PRN (21:34)
[2021-08-26] MEDS: HYDROcodone/APAP 5/325MG 1 TAB TABLET PO PRN (21:34)
[2021-08-26 23:00] VITALS: BP 107/57
[2021-08-27 03:00] VITALS: BP 104/47
[2021-08-27] MEDS: MEROPENEM 500 MG in IV NORMAL SALINE 50ML 50 ML IV SCH ×2 (05:48→13:31)
[2021-08-27 07:00] VITALS: BP 102/54
--- NOTE | 2021-08-27 08:02 | PN ---
DATE: 08/27/2021 LOCATION: He is in room 528. SUBJECTIVE: This 56-year-old male remains hospitalized due to sepsis due to Enterobacter UTI and positive blood cultures with urethral stricture, which has been dilated with Bailey catheter in place. He also had C. difficile colitis, which has improved. Renal failure present on admission is resolved. Warfarin is being adjusted and INR is decent. Sugars remain decent. He is gradually slowly a little bit more mobile. He has been approved by insurance for [facility], but awaiting beds. OBJECTIVE: VITAL SIGNS: Stable. He is afebrile. CHEST: Clear. HEART: Regular. ABDOMEN: Benign. EXTREMITIES: Left leg remains dressed. ASSESSMENT: 1. Enterobacter sepsis, improved. 2. Clostridium difficile colitis, improved. 3. Leukocytosis, improved. 4. Acute renal failure, improved. 5. Diabetes with decent blood sugars. 6. Mechanical heart valve with warfarin ongoing. 7. Left leg wounds, improving. 8. Generalized weakness and debility slowly improving. PLAN: Await bed with transfer. We will need ID's opinion at discharge as to how much longer he needs IV antibiotics. UMESH DR: Ivette TID: [id number]
[2021-08-27] MEDS: SACUBITRIL/VALSARTAN 49/51MG TABLET. PO SCH (09:00)
[2021-08-27] MEDS: MINERAL OIL/PETROLATUM TOPICAL CREAM 113GM JAR. TP SCH (09:00)
[2021-08-27] MEDS: SODIUM HYPOCHLORITE 0.5% TP SCH (09:00)
[2021-08-27] MEDS: TAMSULOSIN 0.4 MG CAP.ER.24H. PO SCH (09:23)
[2021-08-27] MEDS: LACTOBACILLUS RHAMNOSUS GG 1 CAPSULE. PO SCH (09:23)
[2021-08-27] MEDS: ALLOPURINOL 300 MG TABLET. PO SCH (09:23)
[2021-08-27] MEDS: METOPROLOL SUCC 24HR ER 50 MG TAB.ER.24H. PO SCH (09:24)
[2021-08-27] MEDS: VANCOMYCIN 125 MG/2.5 ML ORAL SOLUTION. PO SCH ×3 (09:25→16:13)
[2021-08-27] MEDS: PANTOPRAZOLE 40 MG TABLET.DR. PO SCH (09:25)
[2021-08-27] MEDS: FLUTICASONE 50MCG/NASAL SPRAY 16GM BOTTLE. NS SCH (09:26)
[2021-08-27 11:00] VITALS: BP 105/58
--- NOTE | 2021-08-27 11:28 | PDOC ---
Infectious Disease Note Subjective: Subjective Patient without complaints no diarrhea Vital Signs: Vital Signs Vital Signs Date Time Temp Pulse Resp B/P (MAP) Pulse Ox O2 Delivery O2 Flow Rate FiO2 08/27/21 09:24 77 102/54 08/27/21 07:00 97.6 16 95 Room Air 97.6 Physical Exam: PHYSICAL EXAM GENERAL: Alert, awake gentleman, not in distress. VITAL SIGNS: Stable HEENT: Both pupils are round and reacting. No conjunctival lesion, no lesion in the mouth. NECK: Supple. No JVP, no lymphadenopathy. LUNGS: Clear. HEART: S1, S2, regular. ABDOMEN: Soft, nontender. No organomegaly. EXTREMITIES: No edema or cyanosis. SKIN: Unremarkable except left leg wounds, they are clean. Rest of skin is unremarkable. NEUROLOGIC: The patient is alert, awake, and appropriate. No focal neurologic deficit. Medications: Inpatient Meds: Medications reviewed. Labs: Lab Laboratory Tests Test 08/26/21 12:10 08/26/21 12:11 08/26/21 16:42 08/26/21 20:17 SARS-CoV-2 Antigen (Rapid) Negative (NEGATIVE) Glucose (Fingerstick) 116 mg/dL (70-99) 150 mg/dL (70-99) 123 mg/dL (70-99) Test 08/27/21 11:08 Glucose (Fingerstick) 117 mg/dL (70-99) Objective: Assessment: Enterobacter bacteremia Fever.resolved Hypotension.resolved Leukocytosis.improving Urinary tract infection with urethral stricture.enterobacter Left leg infection, status post multiple incision and drainages, that is looking good. C. difficile colitis Plan: Plan of Care Continue antibiotic p.o. vancomycin for 14 more days, and IV meropenem for 1 more days,do not place picc line Awaiting discharge pending insurance approval Leg wound stable SPC planned as outpatient LEIGH ASKEW MD Aug 27, 2021 11:28
[2021-08-27] MEDS ORDERED: WARF2.5T9 PO (12:44)
--- NOTE | 2021-08-27 12:45 | SNU/HH DC ---
DISCHARGE ORDERS DISCHARGE INFORMATION: DISCHARGE DATE: Aug 27, 2021 FINAL DIAGNOSIS Problems Medical Problems: (1) Abnormal urinalysis Status: Acute (2) Acute kidney injury Status: Acute (3) Elevated INR Status: Acute (4) Sepsis Status: Acute CONDITION ON DISCHARGE: Stable CODE STATUS: Code Status: Full HALFWAY: SNF STAY <30 DAYS: No HOSPICE: HOSPICE: No HOSPICE EVAL & TREAT: No POST DISCHARGE ORDERS: ACTIVITY ORDERS: Activity as tolerated WEIGHT BEARING STATUS: No restrictions DIET AFTER DISCHARGE: ADA WOUND/INCISION CARE: Other, see below CHECKS AFTER DISCHARGE: CHECKS AFTER DISCHARGE: Check blood sugar, ac/hs TREATMENT/EQUIPMENT ORDERS: Physical Therapy For: Evalulation/Treatment Occupational Therapy For: Evaluation/Treatment DISCHARGE MEDICATIONS: Home Meds Active Scripts Warfarin Sodium (JANTOVEN) 2.5 Mg Tablet, 2.5 MG PO DAILY16 for mechanical heart valve for 30 Days, #30 TAB Prov:WANG KC MD 08/27/21 Tamsulosin Hcl (FLOMAX) 0.4 Mg Cap.er.24h, 0.4 MG PO DAILY for bph for 30 Days, #30 CAP.SR Prov:WANG KC MD 08/01/21 Pantoprazole Sodium (PANTOPRAZOLE SODIUM ) 40 Mg Tablet.dr, 40 MG PO DAILYAC for gerd for 30 Days, #30 TAB.SR Prov:WANG KC MD 07/02/21 Reported Medications [facility]) 59.1 Ml [place], 2 ML AU PRN DAILY PRN for SEE COMMENTS, SPRAY 08/13/21 Hydrocodone Bit/Acetaminophen (HYDROCODONE-APAP 5-325 ) 1 Tab Tablet, 1 TAB PO PRN Q4HRS PRN for PAIN, TAB 0 Refills 08/13/21 Alprazolam (ALPRAZOLAM) 0.5 Mg Tablet, 0.5 MG PO PRN TID PRN for ANXIETY / AGITATION, TAB 0 Refills 08/13/21 Vancomycin Hcl (VANCOMYCIN HCL) 125 Mg Capsule, 125 MG PO QID for c diff, CAP 08/13/21 Sodium Hypochlorite (DAKIN'S) 473 Ml Solution, 1 HERMILA MC DAILY for wound care, MISC 08/13/21 Sacubitril/Valsartan (Entresto 49 mg-51 mg Tablet) 1 Each Tablet, 1 EACH PO BID for htn, TAB 08/13/21 Metoprolol Succinate (METOPROLOL SUCCINATE ( XL )) 25 Mg Tab.er.24h, 50 MG PO DAILY for FOR HYPERTENSION, #30 TAB 0 Refills 08/13/21 Lactobacillus Rhamnosus Gg (CULTURELLE) 1 Each Capsule, 1 EACH PO BID for supplement, CAP 08/13/21 Fluticasone Propionate (FLUTICASONE PROPIONATE NASAL SPRAY) 16 Gm [place].susp, 1 SPRAY NS DAILY for allergies, EACH 08/13/21 Mineral Oil/Petrolatum,White (DERMACERIN CREAM) 107 Gm Cream..g., 1 HERMILA TP DAILY for RLE wound care, EACH 08/13/21 Sodium Ferric Gluconat/Sucrose (FERRLECIT 62.5 MG/5 ML VIAL) 62.5 Mg/5 Ml Vial, 125 MG IV QMWF for anemia, EACH 08/13/21 Allopurinol (ALLOPURINOL) 300 Mg Tablet, 300 MG PO DAILY for gout, TAB 05/14/21 Discontinued Reported Medications Warfarin Sodium (WARFARIN SODIUM) 6 Mg Tablet, 6 MG PO DAILY for mitral valve, hx dvt, #30 TAB 08/13/21 WANG KC MD Aug 27, 2021 12:45
[2021-08-27 15:00] VITALS: BP 107/62
--- NOTE | 2021-08-27 16:11 | DS ---
DATE OF DISCHARGE: 08/27/2021 PRIMARY DIAGNOSES: 1. Enterobacter urinary tract infection with sepsis and positive blood cultures. 2. Clostridium difficile colitis. 3. Leukocytosis, improved. 4. Acute renal failure, resolved. 5. Diabetes with decent blood sugars. 6. Mechanical heart valve, on warfarin with some coagulopathy during stay. 7. Left leg wounds, improving. 8. Generalized weakness and debility, improving. 9. Ongoing IV antibiotics. 10. Urethral stricture with dilation and Bailey catheter placement. CHIEF COMPLAINT AND HISTORY OF PRESENT ILLNESS: This 56-year-old male transferred from [facility] back to the Emergency Room with hypotension, weakness, fevers, evidence of urinary tract infection. He had been gone about 2 weeks from the hospital, initially admitted with leg wound therapy and cellulitis. The patient was supposed to have a suprapubic catheter placed after admission at [facility], but it never happened. He also had C. difficile colitis, on vancomycin at the time of admission. SUMMARY OF STAY: The patient was admitted, initially critically ill, improving in all regards throughout the stay with appropriate IV antibiotics, eventually transitioned to meropenem. He did have a urethral stricture dilated by Urology during the stay with them wishing for him to keep the catheter in for at least 2-3-week period of time, which would be another at least a week after the time of discharge. He was slowly improving in therapy with walking to the door and back and hopefully at this point, I believe all issues were improved and he has a chance actually to get better and get home. He was sent back to [facility] on the day of discharge. DISPOSITION: The patient is discharged to [facility]. Please see orders there regarding diet, medication, activity, etc. We will see him in followup after discharge. KARAN DR: Ivette TID: [id number]
[2021-08-27] MEDS: WARFARIN 2.5 MG TABLET. PO SCH (16:13)
--- NOTE | 2021-08-27 18:40 | NUR ---
Patient IV intact to facility. Bailey in place. Telemonitor discontinued by this RN. Report given to Irene WINSTON at [facility]. Patient transported by [facility] to facility by [facility]. Belongings with patient.
== END 2021-08-27 18:40 | DRG 871 ==
LOC: ER 16:05 → 5 NORTH 19:15
PROVIDERS: ADMIT Family Medicine; ATTEND Family Medicine
PROC: 0T7D8ZZ Dilation of Urethra, Via Natural or Artificial Opening Endoscopic (ICD-10-PCS; principal; 2021-08-14)
DX: A41.59 Other Gram-negative sepsis (principal); N17.0 Acute kidney failure with tubular necrosis; D61.818 Other pancytopenia; A04.72 Enterocolitis due to Clostridium difficile, not specified as recurrent; D68.9 Coagulation defect, unspecified; I13.0 Hypertensive heart and chronic kidney disease with heart failure and stage 1 through stage 4 chronic kidney disease, or unspecified chronic kidney disease; L03.115 Cellulitis of right lower limb; L03.116 Cellulitis of left lower limb; N39.0 Urinary tract infection, site not specified; E11.22 Type 2 diabetes mellitus with diabetic chronic kidney disease; E78.00 Pure hypercholesterolemia, unspecified; E78.5 Hyperlipidemia, unspecified; I50.9 Heart failure, unspecified; N13.9 Obstructive and reflux uropathy, unspecified; N18.9 Chronic kidney disease, unspecified; N39.490 Overflow incontinence; R09.02 Hypoxemia; Z79.01 Long term (current) use of anticoagulants; Z83.3 Family history of diabetes mellitus; Z86.718 Personal history of other venous thrombosis and embolism; Z87.891 Personal history of nicotine dependence; Z95.2 Presence of prosthetic heart valve; F32.A Depression, unspecified; M10.9 Gout, unspecified; I95.9 Hypotension, unspecified; Z20.822 Contact with and (suspected) exposure to COVID-19; N35.811 Other urethral stricture, male, meatal
CPT/HCPCS: 36415; 71045; 76770; 80048; 80053; 81001; 82550; 82962; 83605; 83735; 83880; 84100; 84484; 85007; 85025; 85610; 87040; 87077; 87086; 87186; 87426; 87493; 93005; 96361; 96374; J0696; J0878; J2185; J2270; J7030; J7040; U0003; 97110-GP; 97116-GP; 97530-GO; 97530-GP; 97535-GO; 99285-25; G0378